=== PATIENT | male | born 1945 | race Caucasian/White ===

== ENCOUNTER 2017-04-01 11:06 | Inpatient (IN) | payer BC, OTHER ==
[~2017-04-01] VITALS: Ht 175.3 cm; Wt 115.1 kg
[~2017-04-01 11:06] MED LIST: AMLO2.5T PO; ASPEC81 PO; ATOR-26 PO; BUME2TAB3 PO; CHOL100010 PO; GLIP-197 PO; HMLI SC; INSDGI SC; IPRASOL4 INH; METO25TA56 PO; MULT-506 PO; PRD10 PO; VITAMIN B PO
[2017-04-01] MEDS ORDERED: BUMETANIDE SOLN 1 MG/4 ML VIAL IV ONE (11:45)
[2017-04-01] MEDS ORDERED: INSDGI SC (11:56)
[2017-04-01] MEDS ORDERED: INSU100I SQ (11:56)
[2017-04-01] MEDS ORDERED: AMLO2.5T PO (11:56)
--- NOTE | 2017-04-01 12:00 | EMERGENCY ROOM VISIT NOTE ---
History First contact with patient: 11:25 Chief Complaint: SHORTNESS OF BREATH Stated Complaint: WATER RETENTION, SOB Nursing Triage Summary: Pt reports sob x 3 weeks, worse with exertion. Pt states gained approx 30 lbs over the past 3 weeks. Pt sent by cardiology, pulse ox 77%. Reports hx of pnx that needed to surgery. History of Present Illness The patient is a 71 year old male who presents to the Emergency Room with complaints of shortness of breath and edema that has been getting progressively worse over the past 3 weeks. He reports gaining approximately 30 pounds over this time period as well. Past medical history of ME with CABG 4 in 2005. He is followed by cardiology, who sent him to ER today for pulse ox of 77% noted in the clinic. Patient states increasing shortness of breath, dyspnea with any exertion, orthopnea, productive cough of thick yellow sputum, and states his edema has spread all the way up his legs to his waist area. He denies chest pain, palpitations, dizziness, syncope, abdominal pain, nausea/vomiting, diarrhea, urinary symptoms. He reports normal urine output and denies dark urine. Review of Systems GENERAL: Denies fevers, chills, malaise, fatigue. + 30 lb. weight gain in 3 weeks. HEENT: Denies dizziness, visual problems, hearing loss, tinnitus. Denies difficulty swallowing or oral lesions. PULMONARY: + Cough, shortness of breath, white/yellow thick sputum production with coughing. Denies hemoptysis. CARDIOVASCULAR: + Dyspnea on exertion, orthopnea, progressive bilateral lower extremity edema. Denies chest pain, palpitations, syncope. GASTROINTESTINAL: Denies diarrhea, constipation, nausea, vomiting, or abdominal pain. GENITOURINARY: Denies dysuria, frequency, urgency or nocturia. Denies decreased urine output or dark urine. NEUROLOGIC: Denies history of epilepsy, CVA, TIA or chronic headaches. MUSCULOSKELETAL: Denies history of joint tenderness/swelling. SKIN: Denies rashes or lesions. PSYCHIATRIC: Denies history of depression or mental illness. ENDOCRINE: Denies history of diabetes, thyroid disorders, abnormal hair growth or sexual dysfunction. Past Medical/Surgical History Medical Problems: (1) Benign hypertension (2) Bronchitis (3) Coronary artery bypass grafts x 4 (4) Diabetes mellitus (5) Pleural effusion (6) Pneumonia (7) Thoracentesis (8) Total replacement of hip Social History Smoking Status: Former Smoker Alcohol Use: occasionally Housing Status: lives alone Occupation Status: unemployed Current/Historical Medications Scheduled Amlodipine Besylate (Norvasc), 2.5 MG PO DAILY Aspirin (Aspirin EC Low Dose), 81 MG PO DAILY Atorvastatin (Lipitor), 80 MG PO DAILY Bumetanide (Bumex), 4 MG PO DAILY Glipizide (Glipizide Er), 5 MG PO DAILY Insulin Glargine (Lantus), 25 UNITS SC QPM Insulin Lispro (Human) (Humalog), UNITS SQ UD Metoprolol Tartrate (Lopressor) (Lopressor), 25 MG PO BID Multivitamin (Multivitamin), 1 TAB PO DAILY Scheduled PRN Ipratropium-Albuterol (Duoneb), 3 ML INH QID PRN for SOB/Wheezing Allergies Coded Allergies: No Known Allergies (Verified , 04/01/17) Physical Exam Vital Signs Date Time Temp Pulse Resp B/P Pulse Ox O2 Delivery O2 Flow Rate FiO2 04/01/17 14:01 73 20 123/70 94 Nasal Cannula 4.0 04/01/17 13:00 72 20 118/76 95 Nasal Cannula 4.0 04/01/17 12:08 71 04/01/17 11:51 72 20 112/65 92 Nasal Cannula 2.0 04/01/17 11:46 93 Nasal Cannula 2.0 04/01/17 11:46 93 Nasal Cannula 2.0 04/01/17 11:16 36.6 76 20 127/79 86 Room Air Physical Exam CONSTITUTIONAL: Tachypnea with mild respiratory distress. Well appearing and well nourished. Alert and oriented X 4 with normal affect. HEENT: Normocephalic, atraumatic. Pupils equal, round and reactive to light, EOMI. TMs normal. Pharynx normal. NECK: Supple, full active range of motion without discomfort. RESPIRATORY: Bilateral crackles 3/[address], diminished. No wheezes or rhonchi. Equal expansion bilaterally. CARDIOVASCULAR: Regular rate and rhythm with no murmurs, rubs or gallops. Normal peripheral perfusion. Bilateral lower extremity 3+ pitting edema extending to the presacral and groin/abdominal areas. GASTROINTESTINAL: Soft, nontender, nondistended. Obese. No fluid wave. Bowel sounds present in all quadrants. MUSCULOSKELETAL: Full range of motion of all joints without discomfort. INTEGUMENTARY: Bilateral lower extremities are erythematous, swollen, warm and tender to palpation. Multiple scabbed lesions noted to both legs. No open sores or active drainage noted. NEUROLOGIC: Cranial nerves II-XII grossly intact. No focal neurologic deficits noted. Medical Decision & Procedures ER Provider Diagnostic Interpretation: CHEST 2 VIEWS ROUTINE CLINICAL HISTORY: EVALUATE RESPIRATORY DISTRESS. DYSPNEA COMPARISON STUDY: 01/07/2016 FINDINGS: Moderate stable cardiomegaly. Median sternotomy. Diffuse parenchymal fibrotic change. Superimposed components of mild congestive failure. Slight blunting of the lateral costophrenic angles bilaterally. IMPRESSION: Congestive failure superimposed upon chronic parenchymal and pleural reactive fibrotic change. Laboratory Results 04/01/17 11:35 Red Blood Count 4.78, Mean Corpuscular Volume 96.2, Mean Corpuscular Hemoglobin 30.1, Mean Corpuscular Hemoglobin Concent 31.3, Mean Platelet Volume 9.7, Neutrophils (%) (Auto) 69.2, Lymphocytes (%) (Auto) 14.8, Monocytes (%) (Auto) 9.8, Eosinophils (%) (Auto) 5.4, Basophils (%) (Auto) 0.5, Neutrophils # (Auto) 6.38, Lymphocytes # (Auto) 1.37, Monocytes # (Auto) 0.90, Eosinophils # (Auto) 0.50, Basophils # (Auto) 0.05 04/01/17 11:35 Test 04/01/17 11:35 04/01/17 11:43 04/01/17 12:45 White Blood Count 9.23 K/uL (4.8-10.8) Red Blood Count 4.78 M/uL (4.7-6.1) Hemoglobin 14.4 g/dL (14.0-18.0) Hematocrit 46.0 % (42-52) Mean Corpuscular Volume 96.2 fL (80-100) Mean Corpuscular Hemoglobin 30.1 pg (25-34) Mean Corpuscular Hemoglobin Concent 31.3 g/dl (32-36) Platelet Count 217 K/uL (130-400) Mean Platelet Volume 9.7 fL (7.4-10.4) Neutrophils (%) (Auto) 69.2 % Lymphocytes (%) (Auto) 14.8 % Monocytes (%) (Auto) 9.8 % Eosinophils (%) (Auto) 5.4 % Basophils (%) (Auto) 0.5 % Neutrophils # (Auto) 6.38 K/uL (1.4-6.5) Lymphocytes # (Auto) 1.37 K/uL (1.2-3.4) Monocytes # (Auto) 0.90 K/uL (0.11-0.59) Eosinophils # (Auto) 0.50 K/uL (0-0.5) Basophils # (Auto) 0.05 K/uL (0-0.2) RDW Standard Deviation 65.5 fL (36.4-46.3) RDW Coefficient of Variation 18.5 % (11.5-14.5) Immature Granulocyte % (Auto) 0.3 % Immature Granulocyte # (Auto) 0.03 K/uL (0.00-0.02) Prothrombin Time 12.0 SECONDS (9.0-12.0) Prothromb Time International Ratio 1.1 (0.9-1.1) Anion Gap 6.0 mmol/L (3-11) Est Creatinine Clear Calc Drug Dose 46.9 ml/min Estimated GFR () 40.8 Estimated GFR (Non- 35.2 BUN/Creatinine Ratio 22.3 (10-20) Estimated Average Glucose 183 mg/dl Hemoglobin A1c 8.0 % (4.5-5.6) Calcium Level 9.0 mg/dl (8.5-10.1) Total Bilirubin 1.2 mg/dl (0.2-1) Aspartate Amino Transf (AST/SGOT) 34 U/L (15-37) Alanine Aminotransferase (ALT/SGPT) 58 U/L (12-78) Alkaline Phosphatase 95 U/L (45-117) Troponin I 0.019 ng/ml (0-0.045) Pro-B-Type Natriuretic Peptide 2395 pg/ml (0-900) Total Protein 7.5 gm/dl (6.4-8.2) Albumin 3.7 gm/dl (3.4-5.0) Globulin 3.8 gm/dl (2.5-4.0) Albumin/Globulin Ratio 1.0 (0.9-2) Bedside Glucose 97 mg/dl (70-99) Bedside Lactic Acid Venous 1.66 mmol/L (0.90-1.70) Urine Color YELLOW Urine Appearance CLEAR (CLEAR) Urine pH 6.5 (4.5-7.5) Urine Specific [place] 1.013 (1.000-1.030) Urine Protein 1+ (NEG) Urine Glucose (UA) NEG (NEG) Urine Ketones NEG (NEG) Urine Occult Blood NEG (NEG) Urine Nitrite NEG (NEG) Urine Bilirubin NEG (NEG) Urine Urobilinogen NEG (NEG) Urine Leukocyte Esterase NEG (NEG) Urine WBC (Auto) 0 /hpf (0-5) Urine RBC (Auto) 0-4 /hpf (0-4) Urine Hyaline Casts (Auto) 1-5 /lpf (0-5) Urine Epithelial Cells (Auto) 5-10 /lpf (0-5) Urine Bacteria (Auto) NEG (NEG) Medications Administered Medications (Trade) Dose Ordered Sig/Alexa Route Start Time Stop Time Status Last Admin Dose Admin Bumetanide (Bumex IV) 2 mg NOW ONCE IV 04/01/17 11:45 04/01/17 11:46 DC 04/01/17 11:50 2 MG Cefazolin Sodium (Ancef 1000mg/55 ml D5W) 2,000 mg NOW STAT IV 04/01/17 13:22 04/01/17 13:24 DC 04/01/17 13:29 2,000 MG ED Course Orders placed at bedside for EKG, chest x-ray, labs, IV Bumex. He is on 2L nasal cannula with sats 92-93%. Patient discussed with Dr. Calderón, who agrees with my assessment and plan. EKG reviewed, no acute ischemic changes noted. 12:55 PM - Patient reassessed after IV Bumex, states he has had some urine output, and states he is feeling a little better. He is noted to have sats dropped down to 86%, increased to 4L nasal cannula. Chest x-ray reviewed, demonstrates bilateral pulmonary edema consistent with congestive heart failure. 1:03 PM - Hospitalist called for admission. Discussed in person with Dr. Jones, hospitalist, who agrees to admission. Medical Decision CC: Patient presenting with complaint of shortness of breath and bilateral lower extremity edema for 3 weeks. Interpretation of Labs: CBC unremarkable; no significant electrolyte abnormalities; worsening renal function compared to baseline (previous creatinine of 1.4); significantly elevated proBNP. Differential Diagnoses: Includes, but not limited to pneumonia, bronchitis, asthma, COPD, congestive heart failure, pulmonary embolism, pleurisy, pneumothorax, acute coronary syndrome. Summary: Patient presenting with progressive shortness of breath and bilateral lower extremity edema over the past 3 weeks. Known past medical history of ME followed by a CABG 4 in 2005 at [facility]. Patient is followed by Dr. Estrada, cardiology, who saw the patient and sent him here to the ER today. History and exam consistent with an acute on chronic exacerbation of congestive heart failure. Labs and chest x-ray support this diagnosis. EKG shows no acute changes and troponin is nondiagnostic. Patient has not had any chest pain with his symptoms. Patient also has diffuse bilateral erythema, tenderness, and warmth to his lower extremities that he describes as chronic, but states has been worsening over the past 3 weeks with his edema. Discussed with Dr. Calderón, who recommended treating for possible cellulitis with Ancef IV, this was ordered. Patient reassessed multiple times throughout ED stay, has remained stable, but continues to require oxygen to maintain normoxia. Patient was discussed with hospitalist service and will be admitted. Patient was discussed with and independently examined by the attending physician , who agrees with my assessment and disposition. Impression Primary Impression: Congestive heart failure Additional Impression: Bilateral lower extremity edema Departure Information Dispostion Admitted as an inpatient Condition FAIR Referrals Malena John, C.R.N.P. (PCP) Patient Instructions My [facility] Problem Qualifiers Primary Impression: Congestive heart failure Congestive heart failure type: unspecified congestive heart failure type Congestive heart failure chronicity: acute on chronic Qualified Codes: I50.9 - Heart failure, unspecified
[2017-04-01 12:04] LABS: BASO % 0.5 %; BASO ABS # 0.05 K/uL (0-0.2); COMPLETE YES; EOS % 5.4 %; IG% 0.3 %; LYMPH % 14.8 %; LYMPH ABS # 1.37 K/uL (1.2-3.4); MEAN CELL VOLUME 96.2 fL (80-100); MEAN CORPUSCULAR HEMOGLOBIN 30.1 pg (25-34); MEAN CORPUSCULAR HGB CONC 31.3 g/dl (32-36); MEAN PLATELET VOLUME 9.7 fL (7.4-10.4); MONO % 9.8 %; NEUT % 69.2 %; PLATELET COUNT 217 K/uL (130-400); RED BLOOD COUNT 4.78 M/uL (4.7-6.1); WHITE BLOOD COUNT 9.23 K/uL (4.8-10.8)
[2017-04-01 12:09] LABS: INR 1.1 (0.9-1.1)
[2017-04-01 12:22] LABS: BUN/CREATININE RATIO 22.3 (10-20); CREATININE 1.9 mg/dl (0.60-1.40); POTASSIUM 4.5 mmol/L (3.5-5.1)
--- NOTE | 2017-04-01 12:39 | EMERGENCY ROOM VISIT NOTE ---
ED Visit Note First contact with patient: 11:25 I did evaluate and examine this patient myself. I did guide management for the patient. I agree with the PA's assessment as discussed. Please see the PAs dictation for further details. I did independently review the x-rays and blood work. The patient has a worsening creatinine. He has cellulitis to his lower extremities bilaterally which has been going on for 3 weeks. He is hypoxic. He will be hospitalized for further care and evaluation.
--- NOTE | 2017-04-01 12:58 | DIAGNOSTIC IMAGING REPORT ---
CHEST 2 VIEWS ROUTINE CLINICAL HISTORY: EVALUATE RESPIRATORY DISTRESS. DYSPNEA COMPARISON STUDY: 01/07/2016 FINDINGS: Moderate stable cardiomegaly. Median sternotomy. Diffuse parenchymal fibrotic change. Superimposed components of mild congestive failure. Slight blunting of the lateral costophrenic angles bilaterally. IMPRESSION: Congestive failure superimposed upon chronic parenchymal and pleural reactive fibrotic change. Electronically signed by: Ulysses Mccartney M.D. 04/01/2017 12:57 PM Dictated Date/Time: 04/01/2017 12:56 PM
[2017-04-01 13:12] LABS: URINE APPEARANCE CLEAR (CLEAR); URINE BILIRUBIN NEG (NEG); URINE COLOR YELLOW; URINE NITRITE NEG (NEG); URINE PH 6.5 (4.5-7.5); URINE SPECIFIC GRAVITY 1.013 (1.000-1.030); UROBILINOGEN NEG (NEG)
[2017-04-01 13:13] LABS: MANUAL MICROSCOPIC REQUIRED? NO; REVIEW REQ? NO
[2017-04-01] MEDS ORDERED: CEFAZOLIN SOD 1000MG/55 ML D5W IV STA (13:22)
[2017-04-01] MEDS ORDERED: MAGNESIUM HYDROXIDE SUSP 30 ML UDC PO PRN (14:15)
[2017-04-01] MEDS ORDERED: ALUMINUM/MAGNESIUM/SIMETH (MAALOX MAX) 30 ML UDC PO PRN (14:15)
[2017-04-01] MEDS ORDERED: POLYETHYLENE (MIRALAX) 17 GM PACK PO PRN (14:15)
[2017-04-01] MEDS ORDERED: ONDANSETRON INJ 2 MG/ML 2 ML VIAL IV PRN (14:15)
[2017-04-01] MEDS ORDERED: ALBUT/IPRATROP 3MG/0.5MG NEB 3 ML VIAL INH PRN (14:15)
[2017-04-01] MEDS ORDERED: GLUCOSE 10 TABS/TUBE PO PRN (14:30)
[2017-04-01] MEDS ORDERED: GLUCAGON FOR INJ 1 MG VIAL SQ PRN (14:30)
[2017-04-01] MEDS ORDERED: DEXTROSE 50% 50 ML SYR IV PRN (14:30)
[2017-04-01] MEDS ORDERED: GLUCOSE 40% GEL 15 GM TUBE PO PRN (14:30)
[2017-04-01 14:48] LABS: ESTIMATED AVERAGE GLUCOSE 183 mg/dl; HA1C FLAG Normal (Normal)
[2017-04-01 15:30] VITALS: BP 129/80; PULSE 73; TEMP 36.4; O2SAT 91; Ht 175.3 cm; Wt 115.1 kg
--- NOTE | 2017-04-01 16:50 | History and Physical ---
History & Physical Date & Time of Service: April 01, 2017 at 16:49 Chief Complaint: Congestive Heart Failure Primary Care Physician: Malena John C.RMiladNDes Past Medical/Surgical History Medical Problems: (1) Benign hypertension Status: Chronic (2) Coronary artery bypass grafts x 4 Status: Resolved (3) Diabetes mellitus Status: Chronic (4) Pleural effusion Status: Resolved (5) Pneumonia Status: Resolved (6) Thoracentesis Status: Resolved (7) Total replacement of hip Status: Resolved Social History Smoking Status: Former Smoker Housing status: lives alone Occupational Status: unemployed Immunizations History of Influenza Vaccine: No History of Tetanus Vaccine?: Yes History of Pneumococcal: Yes History of Hepatitis B Vaccine: Unknown Multi-Drug Resistant Organisms History of MDRO: No Allergies Coded Allergies: No Known Allergies (Verified , 04/01/17) Home Medications Scheduled Amlodipine Besylate (Norvasc), 2.5 MG PO DAILY Aspirin (Aspirin EC Low Dose), 81 MG PO DAILY Atorvastatin (Lipitor), 80 MG PO DAILY Bumetanide (Bumex), 4 MG PO DAILY Glipizide (Glipizide Er), 5 MG PO DAILY Insulin Glargine (Lantus), 25 UNITS SC QPM Insulin Lispro (Human) (Humalog), UNITS SQ UD Metoprolol Tartrate (Lopressor) (Lopressor), 25 MG PO BID Multivitamin (Multivitamin), 1 TAB PO DAILY Scheduled PRN Ipratropium-Albuterol (Duoneb), 3 ML INH QID PRN for SOB/Wheezing Physical Exam Vital Signs Date Time Temp Pulse Resp B/P Pulse Ox O2 Delivery O2 Flow Rate FiO2 04/01/17 15:30 36.4 73 22 129/80 91 Nasal Cannula 4.0 04/01/17 14:01 73 20 123/70 94 Nasal Cannula 4.0 04/01/17 13:00 72 20 118/76 95 Nasal Cannula 4.0 04/01/17 12:08 71 04/01/17 11:51 72 20 112/65 92 Nasal Cannula 2.0 04/01/17 11:46 93 Nasal Cannula 2.0 04/01/17 11:46 93 Nasal Cannula 2.0 04/01/17 11:16 36.6 76 20 127/79 86 Room Air Diagnostics Laboratory Results Results Past 24 Hours Test 04/01/17 11:35 04/01/17 11:43 04/01/17 12:45 Range/Units White Blood Count 9.23 4.8-10.8 K/uL Red Blood Count 4.78 4.7-6.1 M/uL Hemoglobin 14.4 14.0-18.0 g/dL Hematocrit 46.0 42-52 % Mean Corpuscular Volume 96.2 80-100 fL Mean Corpuscular Hemoglobin 30.1 25-34 pg Mean Corpuscular Hemoglobin Concent 31.3 32-36 g/dl Platelet Count 217 130-400 K/uL Mean Platelet Volume 9.7 7.4-10.4 fL Neutrophils (%) (Auto) 69.2 % Lymphocytes (%) (Auto) 14.8 % Monocytes (%) (Auto) 9.8 % Eosinophils (%) (Auto) 5.4 % Basophils (%) (Auto) 0.5 % Neutrophils # (Auto) 6.38 1.4-6.5 K/uL Lymphocytes # (Auto) 1.37 1.2-3.4 K/uL Monocytes # (Auto) 0.90 0.11-0.59 K/uL Eosinophils # (Auto) 0.50 0-0.5 K/uL Basophils # (Auto) 0.05 0-0.2 K/uL RDW Standard Deviation 65.5 36.4-46.3 fL RDW Coefficient of Variation 18.5 11.5-14.5 % Immature Granulocyte % (Auto) 0.3 % Immature Granulocyte # (Auto) 0.03 0.00-0.02 K/uL Prothrombin Time 12.0 9.0-12.0 SECONDS Prothromb Time International Ratio 1.1 0.9-1.1 Sodium Level 142 136-145 mmol/L Potassium Level 4.5 3.5-5.1 mmol/L Chloride Level 103 98-107 mmol/L Carbon Dioxide Level 33 21-32 mmol/L Anion Gap 6.0 3-11 mmol/L Blood Urea Nitrogen 42 7-18 mg/dl Creatinine 1.90 0.60-1.40 mg/dl Est Creatinine Clear Calc Drug Dose 46.9 ml/min Estimated GFR () 40.8 Estimated GFR (Non- 35.2 BUN/Creatinine Ratio 22.3 10-20 Random Glucose 98 70-99 mg/dl Estimated Average Glucose 183 mg/dl Hemoglobin A1c 8.0 4.5-5.6 % Calcium Level 9.0 8.5-10.1 mg/dl Total Bilirubin 1.2 0.2-1 mg/dl Aspartate Amino Transf (AST/SGOT) 34 15-37 U/L Alanine Aminotransferase (ALT/SGPT) 58 12-78 U/L Alkaline Phosphatase 95 45-117 U/L Troponin I 0.019 0-0.045 ng/ml Pro-B-Type Natriuretic Peptide 2395 0-900 pg/ml Total Protein 7.5 6.4-8.2 gm/dl Albumin 3.7 3.4-5.0 gm/dl Globulin 3.8 2.5-4.0 gm/dl Albumin/Globulin Ratio 1.0 0.9-2 Bedside Glucose 97 70-99 mg/dl Bedside Lactic Acid Venous 1.66 0.90-1.70 mmol/L Urine Color YELLOW Urine Appearance CLEAR CLEAR Urine pH 6.5 4.5-7.5 Urine Specific [place] 1.013 1.000-1.030 Urine Protein 1+ NEG Urine Glucose (UA) NEG NEG Urine Ketones NEG NEG Urine Occult Blood NEG NEG Urine Nitrite NEG NEG Urine Bilirubin NEG NEG Urine Urobilinogen NEG NEG Urine Leukocyte Esterase NEG NEG Urine WBC (Auto) 0 0-5 /hpf Urine RBC (Auto) 0-4 0-4 /hpf Urine Hyaline Casts (Auto) 1-5 0-5 /lpf Urine Epithelial Cells (Auto) 5-10 0-5 /lpf Urine Bacteria (Auto) NEG NEG Impression Assessment and Plan admit #[id number] Advanced Directives Existing Living Will: No Existing Power of Pediatrician Managing Partner: No VTE Prophylaxis VTE Risk Assessment Done? Y/N: Yes Risk Level: Moderate
--- NOTE | 2017-04-01 17:11 | HISTORY & PHYSICAL EXAMINATION ---
DATE OF ADMISSION: 04/01/2017 CHIEF COMPLAINT: Shortness of breath and weight gain. HISTORY OF PRESENT ILLNESS: The patient is a very pleasant 71-year-old male who I actually have known from previous hospital stays as well as a long time ago taken care of him in the office; he presents after about 3-4 weeks of weight gain, progressive swelling and progressive shortness of breath. He notes that he has probably gained about 30 pounds in that time. He tries to sodium restrict but then on quizzing him on specific foods, it is clear that he tries to sodium restrict by not adding salts, but he is very unaware of sodium content simply in the food and rattles off multiple fairly heavy sodium foods including [employer] that he ate a very large tray of shortly before all of this started. He has not had fevers, chills, or sweats. He does not have purulent sputum. He had been seen by cardiology in the office and diuretics were adjusted. Unfortunately, it did not really help and then he was seen in the cardiology office this morning, found to be even more edematous and hypoxic, and he was sent to the ER for further evaluation. Here he was stabilized on nasal cannula oxygen, given IV diuretics, has had a significant amount of urine output and we were asked to see him for ongoing inpatient management. REVIEW OF SYSTEMS: Otherwise negative, except for as above. PAST MEDICAL HISTORY: Includes coronary artery disease; CKD, approximately stage III; dyslipidemia; hypertension; osteoarthritis; peripheral neuropathy; emphysema; pulmonary nodule; type 2 diabetes, generally [id number] control; vitamin D deficiency. MEDICATIONS: Are noted to be amlodipine 2.5 mg daily, aspirin 81 mg daily, Lipitor 80 mg daily, Lantus 25 units subQ in the evening and Humalog at meals, DuoNeb q.i.d. p.r.n. shortness of breath or wheeze, metoprolol 25 mg b.i.d., multivitamin daily, glipizide 5 mg daily, and Bumex recently increased to 4 mg daily. PAST SURGICAL HISTORY: Most relevant for CABG. He also had an empyema requiring really significant amounts of drainage several years ago. FAMILY HISTORY: His dad had an IA. There is family history of coronary disease, family history of chronic kidney disease. ALLERGIES: No known drug allergies. SOCIAL HISTORY: Social drinker, former smoker. He is retired. PHYSICAL EXAMINATION: VITAL SIGNS: His initial vitals showed a temp 36.6, pulse 76, respiratory rate 20, blood pressure 127/79, 86% on room air. GENERAL: He is awake, alert, oriented x3, fatigued-appearing, but otherwise in no acute distress. HEENT: Normocephalic, atraumatic. Mucous membranes are moist. CARDIOVASCULAR: Regular, somewhat distant. No clearly notable rubs, murmurs, or gallops. LUNGS: Show bibasilar rales up to about 2/3 of his chest. His upper lungs are clear, no other adventitious findings. No rhonchi, no wheezes. No accessory muscle use. ABDOMEN: Soft, somewhat distended, nontender. EXTREMITIES: Without cyanosis or clubbing. He has about 3+ edema bilateral lower extremities equal with some scaly type skin changes but no erythema, no open lesions. NEUROLOGIC: Shows cranial nerves II-XII to be grossly intact. Gross motor and sensory are intact. MUSCULOSKELETAL: Yields no gross lesions. MENTAL STATUS: good recent and remote recall. Normal mood and affect. Good judgment and insight. LABS AND DIAGNOSTICS: CBC shows a white count of 9.23, hemoglobin 14.4, platelets 217. Complete metabolic panel with sodium 142, potassium 4.5, chloride 103, CO2 33, BUN 42, creatinine up to 1.9, glucose 98. A1c of 8, calcium 9.0, total bilirubin 1.2 with an AST of 34, ALT 58, alkaline phosphatase 95, troponin 0.019. BNP of 2395. Total protein 7.5, albumin 3.7. Lactate 1.66. PT of 12. Urinalysis: Yellow, clear, specific gravity 1.013, 5 to 10 epithelial cells, 1+ protein. Chest x-ray looks quite consistent with CHF. Radiology also reads a question of some diffuse parenchymal fibrotic change which does not appear to have been present on prior films and his EKG showed no acute ischemia, does show some Q's in 3 and AVF. His last echo was from a little over a year ago showing an EF of 50%, diastolic dysfunction. ASSESSMENT AND PLAN: 1. Acute on chronic diastolic congestive heart failure. This appears predominantly flared by sodium intake. We will try to educate him on better awareness of sodium in his diet hidden in foods and sodium restriction, ask dietitian to see him, manage with diuresis with Bumex IV b.i.d. and follow for his urine output and titrate the dose accordingly. We will also follow cardiac enzymes and repeat an echo to ensure there are no acute changes in his heart function, although this seems unlikely. 2. Hypoxic respiratory failure, this is due to pulmonary edema from above plus or minus with question of underlying pulmonary fibrosis, followed and hopefully be able to wean oxygen as we diurese him. 3. Questionable underlying pulmonary fibrosis. It is uncertain. It certainly would be new compared to prior films, although it seems most consistent with this whole picture being that of pulmonary edema. At this point, if he is difficult to wean off of oxygen, we would consider a CT, if not would probably follow up a chest x-ray in about a month and then workup further if the fibrotic type changes are still present, whenever he is clearly not in active congestive heart failure state. 4. Mildly uncontrolled type 2 diabetes. Continue his home meds, adjust dosing probably mostly is uncontrolled at home, it is carb related. 5. Stage III chronic kidney disease, slight worsening, probably due to his congestive heart failure. Follow his creatinine as we diurese. 6. Hypertension. Continue his home meds, add an angiotensin converting enzyme inhibitor because of the congestive heart failure. 7. Deep venous thrombosis prophylaxis, Lovenox. MTDD
--- NOTE | 2017-04-01 17:31 | HISTORY & PHYSICAL EXAMINATION ---
DATE OF ADMISSION: 04/01/2017 ADDENDUM CARDIOVASCULAR: Regular, somewhat distant. No clearly notable rubs, murmurs, or gallops. LUNGS: Show bibasilar rales up to about 2/3 of his chest. His upper lungs are clear, no other adventitious findings. No rhonchi, no wheezes. No accessory muscle use. ABDOMEN: Soft, somewhat distended, nontender. EXTREMITIES: Without cyanosis or clubbing. He has about 3+ edema bilateral lower extremities equal with some scaly type skin changes but no erythema, no open lesions. NEUROLOGIC: Shows cranial nerves II-XII to be grossly intact. Gross motor and sensory are intact. MUSCULOSKELETAL: Yields no gross lesions. MENTAL STATUS: good recent and remote recall. Normal mood and affect. Good judgment and insight. LABS AND DIAGNOSTICS: CBC shows a white count of 9.23, hemoglobin 14.4, platelets 217. Complete metabolic panel with sodium 142, potassium 4.5, chloride 103, CO2 33, BUN 42, creatinine up to 1.9, glucose 98. A1c of 8, calcium 9.0, total bilirubin 1.2 with an AST of 34, ALT 58, alkaline phosphatase 95, troponin 0.019. BNP of 2395. Total protein 7.5, albumin 3.7. Lactate 1.66. PT of 12. Urinalysis: Yellow, clear, specific gravity 1.013, 5 to 10 epithelial cells, 1+ protein. Chest x-ray looks quite consistent with CHF. Radiology also reads a question of some diffuse parenchymal fibrotic change which does not appear to have been present on prior films and his EKG showed no acute ischemia, does show some Q's in 3 and AVF. His last echo was from a little over a year ago showing an EF of 50%, diastolic dysfunction. ASSESSMENT AND PLAN: 1. Acute on chronic diastolic congestive heart failure. This appears predominantly flared by sodium intake. We will try to educate him on better awareness of sodium in his diet hidden in foods and sodium restriction, ask dietitian to see him, manage with diuresis with Bumex IV b.i.d. and follow for his urine output and titrate the dose accordingly. We will also follow cardiac enzymes and repeat an echo to ensure there are no acute changes in his heart function, although this seems unlikely. 2. Hypoxic respiratory failure, this is due to pulmonary edema from above plus or minus with question of underlying pulmonary fibrosis, followed and hopefully be able to wean oxygen as we diurese him. 3. Questionable underlying pulmonary fibrosis. It is uncertain. It certainly would be new compared to prior films, although it seems most consistent with this whole picture being that of pulmonary edema. At this point, if he is difficult to wean off of oxygen, we would consider a CT, if not would probably follow up a chest x-ray in about a month and then workup further if the fibrotic type changes are still present, whenever he is clearly not in active congestive heart failure state. 4. Mildly uncontrolled type 2 diabetes. Continue his home meds, adjust dosing probably mostly is uncontrolled at home, it is carb related. 5. Stage III chronic kidney disease, slight worsening, probably due to his congestive heart failure. Follow his creatinine as we diurese. 6. Hypertension. Continue his home meds, add an angiotensin converting enzyme inhibitor because of the congestive heart failure. 7. Deep venous thrombosis prophylaxis, Lovenox.
[2017-04-01] MEDS: BUMETANIDE IV 1 MG in SYRINGE 0 ML IV SCH (17:39)
[2017-04-01] MEDS: INSULIN ASPART 100 UNITS/ML 3 ML PEN SQ SCH (17:44)
[2017-04-01 19:00] VITALS: O2SAT 91
[2017-04-01] MEDS: METOPROLOL TARTRATE 25 MG TAB PO SCH (20:12)
[2017-04-01] MEDS: POTASSIUM CHLORIDE 10 MEQ TABCR PO SCH (20:12)
[2017-04-01] MEDS: ENOXAPARIN 40 MG/0.4 ML SYR SQ SCH (20:13)
[2017-04-01] MEDS ORDERED: INSULIN GLARGINE SOLOSTAR 100 UNITS/ML 3 ML PEN SC SCH (21:00)
[2017-04-02 00:04] VITALS: BP 118/65; PULSE 70; TEMP 36.4; O2SAT 93
[2017-04-02 05:01] LABS: BUN/CREATININE RATIO 21.1 (10-20); CALCIUM 8.8 mg/dl (8.5-10.1); CREATININE 2.1 mg/dl (0.60-1.40); POTASSIUM 5.2 mmol/L (3.5-5.1)
[2017-04-02 06:57] VITALS: BP 133/81; PULSE 73; TEMP 36.3; O2SAT 93
[2017-04-02] MEDS: POTASSIUM CHLORIDE 10 MEQ TABCR PO SCH ×2 (08:00→20:00)
--- NOTE | 2017-04-02 08:06 | Clinical Documentation Query ---
CLINICAL DOCUMENTATION QUERY Ms ROBLERO, In your clinical opinion is this patient being managed for: ( x ) Acute kidney injury ( ) Other explanation of clinical findings (Please Explain) ( ) Unable to determine (Please Define) ( ) Need to Discuss ( ) Not Agree The medical record reflects the following clinical findings, treatment, and risk factors. Clinical Indicators: 71 yo male presenting with acute on chronic diastolic CHF. Review of Cr baseline over the past 2 years shows 1.4-1.8 range. Presented with Cr 1.9 which has risen to 2.10. Treatment: monitor Cr, treat CHF Risk Factors: IV bumex treatment for acute CHF, HTN, DM, CKD Please clarify and document your clinical opinion in the progress notes and discharge summary. Terms such as "probable", "suspected", "likely", "questionable", "possible", or "still to be ruled out" are acceptable. IF IN AGREEMENT, YOU MUST DOCUMENT ABOVE DIAGNOSTIC STATEMENT IN DAILY PROGRESS NOTES AND DISCHARGE SUMMARY. This document is not part of the patient's record. Thank You, Judith Hanna, RN [phone]
--- NOTE | 2017-04-02 08:07 | Clinical Documentation Query ---
CLINICAL DOCUMENTATION QUERY Dr. EASLEY, In your clinical opinion is this patient being managed for: ( X ) Acute kidney failure ( ) Other explanation of clinical findings (Please Explain) ( ) Unable to determine (Please Define) ( ) Need to Discuss ( ) Not Agree The medical record reflects the following clinical findings, treatment, and risk factors. Clinical Indicators: 71 yo male presenting with acute on chronic diastolic CHF. Review of Cr baseline over the past 2 years shows 1.4-1.8 range. Presented with Cr 1.9 which has risen to 2.10. Treatment: monitor Cr, treat CHF Risk Factors: IV bumex treatment for acute CHF, HTN, DM, CKD Please clarify and document your clinical opinion in the progress notes and discharge summary. Terms such as "probable", "suspected", "likely", "questionable", "possible", or "still to be ruled out" are acceptable. IF IN AGREEMENT, YOU MUST DOCUMENT ABOVE DIAGNOSTIC STATEMENT IN DAILY PROGRESS NOTES AND DISCHARGE SUMMARY. This document is not part of the patient's record. Thank You, Judith Hanna, RN [phone]
[2017-04-02] MEDS: MULTIVITAMIN TAB PO SCH (08:33)
[2017-04-02] MEDS: METOPROLOL TARTRATE 25 MG TAB PO SCH ×2 (08:34→20:07)
[2017-04-02] MEDS: ASPIRIN 81 MG ECTAB PO SCH (08:34)
[2017-04-02] MEDS: MAGNESIUM OXIDE 400 MG TAB PO SCH (08:37)
[2017-04-02] MEDS: AMLODIPINE BESYLATE 5 MG TAB PO SCH (08:38)
[2017-04-02] MEDS: ATORVASTATIN 40 MG TAB PO SCH (08:38)
[2017-04-02] MEDS: BUMETANIDE IV 1 MG in SYRINGE 0 ML IV SCH (08:40)
[2017-04-02] MEDS: INSULIN ASPART 100 UNITS/ML 3 ML PEN SQ SCH ×3 (08:43→18:02)
[2017-04-02 09:23] LABS: HEMATOCRIT 46.8 % (42-52); MEAN CELL VOLUME 98.5 fL (80-100); MEAN CORPUSCULAR HEMOGLOBIN 30.1 pg (25-34); MEAN CORPUSCULAR HGB CONC 30.6 g/dl (32-36); MEAN PLATELET VOLUME 10.1 fL (7.4-10.4); PLATELET COUNT 233 K/uL (130-400); RED BLOOD COUNT 4.75 M/uL (4.7-6.1); WHITE BLOOD COUNT 9.72 K/uL (4.8-10.8)
--- NOTE | 2017-04-02 14:08 | Hospitalist Progress Note ---
Hospitalist Progress Note Date of Service April 02, 2017. (Lori Fabian ., SHANTALC) Subjective Pt evaluation today including: conversation w/ patient, physical exam, chart review, lab review, review of studies, review of inpatient medication list Pain: None PO Intake: Tolerating PO diet Voiding: no voiding problems Patient reports feeling better. He states his shortness breath has improved. He still complains of some shortness breath at rest as well as dyspnea on exertion. He also complains of a productive cough. He states that the numbness and tingling in his lower extremities has improved, although he still feels somewhat numb from his feet to his hips bilaterally. Patient does have history of chronic neuropathy, but this typically extends only to the mid calf. The patient denies fevers, chills, sweats, chest pain, palpitations, claudication, wheezing, nausea, vomiting, abdominal pain, dysuria, hematuria, urinary retention, paralysis, weakness. Additional Comments: See HPI for pertinent positives and negatives. All other systems reviewed and negative. (Lori Fabian ., MARILY-C) Objective Vital Signs Date Time Temp Pulse Resp B/P Pulse Ox O2 Delivery O2 Flow Rate FiO2 04/02/17 08:00 Nasal Cannula 4.0 04/02/17 06:57 36.3 73 18 133/81 93 4.0 04/02/17 00:04 36.4 70 18 118/65 93 4.0 04/02/17 00:00 Nasal Cannula 4.0 04/01/17 19:00 91 Nasal Cannula 4.0 04/01/17 15:30 36.4 73 22 129/80 91 Nasal Cannula 4.0 04/01/17 14:01 73 20 123/70 94 Nasal Cannula 4.0 (Lori Fabian ., MARILY-C) Physical Exam Notes: General appearance: +obese. Well-developed, well-nourished, no apparent distress Head: Normocephalic, atraumatic Eyes: Normal inspection, PERRL, EOMI ENT: Normal ENT inspection, hearing grossly normal, pharynx normal Neck: Supple, no JVD, trachea midline Respiratory/Chest: + Crackles in bases bilaterally. Normal breath sounds, no respiratory distress Cardiovascular: Regular rate & rhythm, no gallop, no murmur Abdomen/GI: Normal bowel sounds, non-tender, soft Extremities/Musculoskeletal: + 2+ pitting edema bilaterally. Lymphedema changes bilaterally R>L. Lower legs tender to palpation Neurological/Psych: Alert, normal mood/affect, oriented x 3 Skin: Normal color, warm/dry, no rash (Lori Fabian ., PA-C) Laboratory Results Last 24 Hours Test 04/01/17 16:33 04/01/17 20:01 04/01/17 20:30 04/02/17 04:15 Bedside Glucose 101 mg/dl 107 mg/dl Troponin I 0.016 ng/ml 0.020 ng/ml White Blood Count 9.72 K/uL Red Blood Count 4.75 M/uL Hemoglobin 14.3 g/dL Hematocrit 46.8 % Mean Corpuscular Volume 98.5 fL Mean Corpuscular Hemoglobin 30.1 pg Mean Corpuscular Hemoglobin Concent 30.6 g/dl RDW Standard Deviation 66.5 fL RDW Coefficient of Variation 18.3 % Platelet Count 233 K/uL Mean Platelet Volume 10.1 fL Sodium Level 144 mmol/L Potassium Level 5.2 mmol/L Chloride Level 102 mmol/L Carbon Dioxide Level 38 mmol/L Anion Gap 4.0 mmol/L Blood Urea Nitrogen 44 mg/dl Creatinine 2.10 mg/dl Est Creatinine Clear Calc Drug Dose 41.7 ml/min Estimated GFR () 36.1 Estimated GFR (Non- 31.2 BUN/Creatinine Ratio 21.1 Random Glucose 56 mg/dl Calcium Level 8.8 mg/dl Test 04/02/17 04:30 04/02/17 04:47 04/02/17 05:17 04/02/17 07:31 Bedside Glucose 58 mg/dl 87 mg/dl 134 mg/dl 146 mg/dl (Lori Fabian ., PA-C) Assessment and Plan 71-year-old male with a history of chronic diastolic CHF, CKD stage III, CAD, hypertension, hyperlipidemia, DM II, peripheral neuropathy, and COPD who presented to the ED with shortness of breath and weight gain. Acute on chronic diastolic congestive heart failure--improving -[facility] -Urine output 1375 mL with net balance of -750 mL on 04/01 -Increased diuretic to Bumex 2 mg IV BID17 -Fluid restriction 2000 mL -Low sodium diet -Daily weights -Strict I's & O's -Echocardiogram pending -Troponins negative 3 Acute respiratory failure with hypoxia--stable -Patient was saturating 86% on room air on arrival. Patient does not wear oxygen at home -O2 by protocol. Currently saturating at 93% on 4 L PROSPER on CKD stage III--baseline creatinine appears to be 1.5 -Creatinine 1.9 on arrival -Creatinine 2.1 on 04/02 Possible pulmonary fibrosis -Consider CT if patient is not able to be weaned off of oxygen, or consider follow-up CXR in 1 month/after CHF exacerbation resolves HTN/CAD--stable -Continue Norvasc 2.5 mg PO qd and Lopressor 25 mg PO BID HLD -Continue atorvastatin 80 mg PO qd Diabetes mellitus type II--HgbA1c 8.0 on 04/01 -Hold glipizide -Continue Lantus 25 units SC qpm -Insulin sliding scale -Check BSGs q ac and qhs DVT prophylaxis -Enoxaparin 40 mg SC q24h This chart was completed in part utilizing [employer] Speech Voice Recognition software. Attempts were made to minimize the grammatical errors, random word insertions, pronoun errors and incomplete sentences. Any formal questions or concerns about the content, text or information contained within the body of this dictation should be directly addressed to the provider for clarification. (Lroi Fabian ., PA-C) I agree with PA assessment and plan and have seen and examined pt myself Resting comfortably in bed Noted reduced swelling and drainage in bilateral legs VSS Labs reviewed Likely CHF exab from noncompliance to sodium intake Cont IV diuresis (Patrick Combs D.O.)
[2017-04-02 15:13] VITALS: BP 124/85; PULSE 76; TEMP 36.9; O2SAT 90
[2017-04-02] MEDS ORDERED: NURSING VERBAL MED ORDER ONE (15:30)
[2017-04-02] MEDS ORDERED: SODIUM CHLORIDE 0.65% NA SOLN 45 ML (OCEAN) PRN (15:30)
--- NOTE | 2017-04-02 16:00 | ECHOCARDIOGRAM REPORT ---
*NOTICE TO RECEIVING REPUBLICAN AGENCY This information is strictly Confidential and protected under [place] law. [place] law prohibits you from making any further disclosure of this information unless further disclosure is expressly permitted by the written consent of the person to whom it pertains or is authorized by law. A general authorization for the release of medical or other information is not sufficient for this purpose. Hospital accepts no responsibility if the information is made available to any other person, INCLUDING THE PATIENT. Interpretation Summary * Name: SUSAN CANTOR Study Date: 04/02/2017 02:12 PM * Patient Location: [facility]\S\W454\S\2 * : 1945 (M/d/yyyy) Gender: Male Height: 69 in * Age: 71 yrs Ethnicity: [place] Weight: 264 lb * Ordering Physician: Edilson Jones * Referring Physician: Self, Referred * Performed By: Annamarie Garcia RCS * * Reason For Study: CHF * BSA: 2.3 m2 * -- Conclusions -- * Left ventricular systolic function is normal. * No regional wall motion abnormalities noted. * Ejection Fraction = 55-60%. * There is mild concentric left ventricular hypertrophy. * Diastolic dysfunction, Grade II (pseudonormalization pattern). Procedure Details * A complete two-dimensional transthoracic echocardiogram was performed (2D, M-mode, Doppler and color flow Doppler). * There were technical limitations due to patient'spoor positioning * Patient sitting for imaging. Left Ventricle * The left ventricle is normal in size. * There is mild concentric left ventricular hypertrophy. * Ejection Fraction = 55-60%. * Left ventricular systolic function is normal. * No regional wall motion abnormalities noted. Right Ventricle * The right ventricle is not well visualized. Atria * The left atrium is mildly dilated. * Right atrium not well visualized. * No ASD detected; PFO is not assessed. Mitral Valve * The mitral valve is grossly normal. * There is no mitral valve stenosis. * There is trace mitral regurgitation. Tricuspid Valve * The tricuspid valve is not well visualized. * Significant tricuspid regurgitation is absent. Aortic Valve * The aortic valve is not well visualized. * The aortic valve opens well. * Aortic valve sclerosis moderate, without significant aortic valvular stenosis. * There is no significant aortic regurgitation. Pulmonic Valve * The pulmonic valve is not well visualized. Great Vessels * The aortic root is normal size. * The pulmonary is not well visualized. Pericardium/Pleural * There is no pericardial effusion. Great Vessels * Normal inferior vena cava size and collapsability with sniff indicates a normal right atrial pressure of 3 mmHg Left Ventricular Diastolic Function * Diastolic dysfunction, Grade II (pseudonormalization pattern). MMode 2D Measurements and Calculations IVSd 1.2 cm IVSs 1.5 cm LVIDd 4.0 cm LVIDs 2.9 cm LVPWd 1.2 cm LVPWs 1.7 cm IVS/LVPW 1.0 FS 28.5 % EDV(Teich) 70.4 ml ESV(Teich) 31.3 ml EF(Teich) 55.4 % EDV(cubed) 64.4 ml ESV(cubed) 23.6 ml EF(cubed) 63.4 % % IVS thick 27.7 % % LVPW thick 42.3 % LV mass(C)d 166.5 grams LV mass(C)dI 71.6 grams/m\S\2 LV mass(C)s 171.0 grams LV mass(C)sI 73.6 grams/m\S\2 SV(Teich) 39.0 ml SI(Teich) 16.8 ml/m\S\2 SV(cubed) 40.8 ml SI(cubed) 17.6 ml/m\S\2 Ao root diam 3.6 cm Ao root area 10.3 cm\S\2 ACS 1.3 cm LA dimension 4.3 cm LA/Ao 1.2 LVAd ap4 41.6 cm\S\2 LVLd ap4 9.3 cm EDV(MOD-sp4) 150.8 ml EDV(sp4-el) 158.7 ml LVAs ap4 26.4 cm\S\2 LVLs ap4 7.7 cm ESV(MOD-sp4) 74.2 ml ESV(sp4-el) 77.3 ml EF(MOD-sp4) 50.8 % EF(sp4-el) 51.3 % LVAd ap2 37.8 cm\S\2 LVLd ap2 8.9 cm EDV(MOD-sp2) 130.5 ml EDV(sp2-el) 136.7 ml LVAs ap2 24.1 cm\S\2 LVLs ap2 7.9 cm ESV(MOD-sp2) 60.6 ml ESV(sp2-el) 62.4 ml EF(MOD-sp2) 53.5 % EF(sp2-el) 54.3 % LVLd %diff -4.31 % EDV(MOD-bp) 143.6 ml LVLs %diff 3.4 % ESV(MOD-bp) 68.1 ml EF(MOD-bp) 52.6 % SV(MOD-sp4) 76.5 ml SI(MOD-sp4) 32.9 ml/m\S\2 SV(MOD-sp2) 69.9 ml SI(MOD-sp2) 30.1 ml/m\S\2 SV(MOD-bp) 75.5 ml SI(MOD-bp) 32.5 ml/m\S\2 SV(sp4-el) 81.3 ml SI(sp4-el) 35.0 ml/m\S\2 SV(sp2-el) 74.3 ml SI(sp2-el) 31.9 ml/m\S\2 Doppler Measurements and Calculations MV E max mannie 108.3 cm/sec MV A max mannie 41.4 cm/sec MV E/A 2.6 MV P1/2t max mannie 111.3 cm/sec MV P1/2t 83.6 msec MVA(P1/2t) 2.6 cm\S\2 MV dec slope 389.8 cm/sec\S\2 MV dec time 0.18 sec Ao V2 max 157.7 cm/sec Ao max PG 10.0 mmHg Ao max PG (full) 7.8 mmHg LV V1 max PG 2.1 mmHg LV V1 max 72.8 cm/sec PA V2 max 55.5 cm/sec PA max PG 1.3 mmHg TR max mannie 312.9 cm/sec
[2017-04-02 17:51] VITALS: BP 109/64; PULSE 76
[2017-04-02] MEDS: BUMETANIDE IV 2 MG in SYRINGE 0 ML IV SCH (17:52)
[2017-04-02] MEDS ORDERED: NURSING VERBAL MED ORDER SCH (19:15)
[2017-04-02 20:00] VITALS: O2SAT 90
[2017-04-02] MEDS: ACETAMINOPHEN 325 MG TAB PO PRN (20:07)
[2017-04-02] MEDS: ENOXAPARIN 40 MG/0.4 ML SYR SQ SCH (20:13)
[2017-04-03] VITALS: O2SAT 90
[2017-04-03 00:33] VITALS: BP 129/69; PULSE 72; TEMP 36.2; O2SAT 92
[2017-04-03] MEDS: ACETAMINOPHEN 325 MG TAB PO PRN (04:01)
[2017-04-03 06:34] LABS: HEMATOCRIT 43.4 % (42-52); MEAN CELL VOLUME 98.9 fL (80-100); MEAN CORPUSCULAR HEMOGLOBIN 30.1 pg (25-34); MEAN CORPUSCULAR HGB CONC 30.4 g/dl (32-36); MEAN PLATELET VOLUME 9.3 fL (7.4-10.4); PLATELET COUNT 188 K/uL (130-400); RED BLOOD COUNT 4.39 M/uL (4.7-6.1); WHITE BLOOD COUNT 7.57 K/uL (4.8-10.8)
[2017-04-03 07:07] LABS: BUN/CREATININE RATIO 23.9 (10-20); CREATININE 1.9 mg/dl (0.60-1.40); POTASSIUM 4.8 mmol/L (3.5-5.1)
[2017-04-03 07:26] VITALS: BP 113/71; PULSE 71; TEMP 36.5; O2SAT 94
[2017-04-03] MEDS: ATORVASTATIN 40 MG TAB PO SCH (07:53)
[2017-04-03] MEDS: ASPIRIN 81 MG ECTAB PO SCH (07:53)
[2017-04-03] MEDS: AMLODIPINE BESYLATE 5 MG TAB PO SCH (07:53)
[2017-04-03] MEDS: MULTIVITAMIN TAB PO SCH (07:53)
[2017-04-03] MEDS: METOPROLOL TARTRATE 25 MG TAB PO SCH ×2 (07:53→20:41)
[2017-04-03] MEDS: MAGNESIUM OXIDE 400 MG TAB PO SCH (07:53)
[2017-04-03] MEDS: POTASSIUM CHLORIDE 10 MEQ TABCR PO SCH ×2 (07:53→20:41)
[2017-04-03] MEDS: BUMETANIDE IV 2 MG in SYRINGE 0 ML IV SCH (07:54)
[2017-04-03] MEDS: INSULIN ASPART 100 UNITS/ML 3 ML PEN SQ SCH ×3 (08:27→18:15)
[2017-04-03] MEDS ORDERED: BUMETANIDE IV 1 MG in SYRINGE 0 ML IV ONE (09:00)
--- NOTE | 2017-04-03 12:42 | Progress Note ---
Subjective Date of Service: April 03, 2017. Subjective Pt evaluation today including: conversation w/ patient, physical exam, chart review, lab review, review of studies, review of inpatient medication list States feeling better Poor diuresis yesterday No shortness of breath States lower leg swelling improved Problem List Medical Problems: (1) Acute kidney injury Status: Acute (2) Bilateral lower extremity edema Status: Acute (3) Congestive heart failure Status: Acute (4) Hypoxia Status: Acute Review of Systems Constitutional: No chills, No fever Respiratory: No cough, No shortness of breath, No sputum, No wheezing Cardiac: + edema, No chest pain, No orthopnea Abdomen: No constipation, No diarrhea, No nausea, No pain, No vomiting Musculoskeletal: No joint pain, No muscle pain Male : No dysuria, No urinary frequency Objective Vital Signs Date Time Temp Pulse Resp B/P Pulse Ox O2 Delivery O2 Flow Rate FiO2 04/03/17 08:00 Nasal Cannula 4.0 04/03/17 07:26 36.5 71 20 113/71 94 Nasal Cannula 4.0 04/03/17 00:33 36.2 72 20 129/69 92 Nasal Cannula 4.0 04/03/17 00:00 90 Nasal Cannula 4.0 04/02/17 20:00 90 Nasal Cannula 4.0 04/02/17 17:51 76 109/64 04/02/17 16:29 Nasal Cannula 4.0 04/02/17 15:13 36.9 76 18 124/85 90 Nasal Cannula 4.0 Humidified Oxygen Physical Exam General Appearance: WD/WN, no apparent distress Neck: supple, no adenopathy Respiratory/Chest: lungs clear, normal breath sounds Cardiovascular: regular rate, rhythm, no gallop Abdomen: non tender, soft Neurologic/Psychiatric: alert, oriented x 3 Laboratory Results Last 24 Hours Test 04/02/17 16:32 04/02/17 20:36 04/03/17 06:05 04/03/17 07:42 Bedside Glucose 134 mg/dl 130 mg/dl 87 mg/dl White Blood Count 7.57 K/uL Red Blood Count 4.39 M/uL Hemoglobin 13.2 g/dL Hematocrit 43.4 % Mean Corpuscular Volume 98.9 fL Mean Corpuscular Hemoglobin 30.1 pg Mean Corpuscular Hemoglobin Concent 30.4 g/dl RDW Standard Deviation 64.7 fL RDW Coefficient of Variation 17.9 % Platelet Count 188 K/uL Mean Platelet Volume 9.3 fL Sodium Level 140 mmol/L Potassium Level 4.8 mmol/L Chloride Level 100 mmol/L Carbon Dioxide Level 37 mmol/L Anion Gap 3.0 mmol/L Blood Urea Nitrogen 45 mg/dl Creatinine 1.90 mg/dl Est Creatinine Clear Calc Drug Dose 46.6 ml/min Estimated GFR () 40.8 Estimated GFR (Non- 35.2 BUN/Creatinine Ratio 23.9 Random Glucose 92 mg/dl Calcium Level 9.0 mg/dl Test 04/03/17 11:18 Bedside Glucose 229 mg/dl Assessment and Plan 71-year-old male with a history of chronic diastolic CHF, CKD stage III, CAD, hypertension, hyperlipidemia, DM II, peripheral neuropathy, and COPD who presented to the ED with shortness of breath and weight gain. Acute on chronic diastolic congestive heart failure--improving -Admit to [facility] -Increased diuretic to Bumex 3 mg IV BID due to poor diuresis on 04/02 -Fluid restriction 2000 mL -Low sodium diet -Daily weights -Strict I's & O's -Echocardiogram pending -Troponins negative 3 Acute respiratory failure with hypoxia--stable -Patient was saturating 86% on room air on arrival. Patient does not wear oxygen at home -O2 by protocol. Currently saturating at 93% on 4 L PROSPER on CKD stage III--baseline creatinine appears to be 1.5, improving -Creatinine 1.9 on arrival Possible pulmonary fibrosis -Consider CT if patient is not able to be weaned off of oxygen, or consider follow-up CXR in 1 month/after CHF exacerbation resolves HTN/CAD--stable -Continue Norvasc 2.5 mg PO qd and Lopressor 25 mg PO BID HLD -Continue atorvastatin 80 mg PO qd Diabetes mellitus type II--HgbA1c 8.0 on 04/01 -Hold glipizide -Continue Lantus 25 units SC qpm -Insulin sliding scale -Check BSGs q ac and qhs DVT prophylaxis -Enoxaparin 40 mg SC q24h
[2017-04-03 16:05] VITALS: BP 129/79; PULSE 79; TEMP 36.6; O2SAT 93
[2017-04-03 16:22] VITALS: O2SAT 93
[2017-04-03] MEDS: BUMETANIDE IV 3 MG in SYRINGE 0 ML IV SCH (18:07)
[2017-04-03] MEDS: ENOXAPARIN 40 MG/0.4 ML SYR SQ SCH (20:42)
[2017-04-04] VITALS: BP 110/70; PULSE 69; TEMP 36.7; O2SAT 96
[2017-04-04 06:42] LABS: HEMATOCRIT 44.7 % (42-52); MEAN CELL VOLUME 97.8 fL (80-100); MEAN CORPUSCULAR HEMOGLOBIN 29.1 pg (25-34); MEAN CORPUSCULAR HGB CONC 29.8 g/dl (32-36); MEAN PLATELET VOLUME 9.9 fL (7.4-10.4); PLATELET COUNT 209 K/uL (130-400); RED BLOOD COUNT 4.57 M/uL (4.7-6.1); WHITE BLOOD COUNT 9.49 K/uL (4.8-10.8)
[2017-04-04 07:14] VITALS: BP 115/70; PULSE 79; TEMP 36.8; O2SAT 94
[2017-04-04 07:15] LABS: BLOOD UREA NITROGEN 50 mg/dl (7-18); BUN/CREATININE RATIO 27.5 (10-20); CALCIUM 9.4 mg/dl (8.5-10.1); CARBON DIOXIDE 39 mmol/L (21-32); CHLORIDE 96 mmol/L (98-107); GLUCOSE 145 mg/dl (70-99); SODIUM 139 mmol/L (136-145)
[2017-04-04] MEDS: MULTIVITAMIN TAB PO SCH (08:09)
[2017-04-04] MEDS: ASPIRIN 81 MG ECTAB PO SCH (08:10)
[2017-04-04] MEDS: AMLODIPINE BESYLATE 5 MG TAB PO SCH (08:10)
[2017-04-04] MEDS: BUMETANIDE IV 3 MG in SYRINGE 0 ML IV SCH ×2 (08:10→17:51)
[2017-04-04] MEDS: MAGNESIUM OXIDE 400 MG TAB PO SCH (08:10)
[2017-04-04] MEDS: METOPROLOL TARTRATE 25 MG TAB PO SCH ×2 (08:10→20:49)
[2017-04-04] MEDS: POTASSIUM CHLORIDE 10 MEQ TABCR PO SCH ×2 (08:10→20:49)
[2017-04-04] MEDS: ATORVASTATIN 40 MG TAB PO SCH (08:10)
[2017-04-04] MEDS: INSULIN ASPART 100 UNITS/ML 3 ML PEN SQ SCH ×3 (08:15→17:53)
[2017-04-04] MEDS: METOLAZONE 5 MG TAB PO SCH (08:27)
--- NOTE | 2017-04-04 11:36 | Hospitalist Progress Note ---
Hospitalist Progress Note Date of Service April 04, 2017. (Lori Fabian ., MARILY-C) Subjective Pt evaluation today including: conversation w/ patient, physical exam, chart review, lab review, review of inpatient medication list Pain: None PO Intake: Tolerating PO diet Voiding: no voiding problems Patient reports feeling better. He states that his breathing continues to improve, although he still experiences some dyspnea on exertion, especially in the mornings. The patient is still breathing on 4 L NC. He states that the numbness and tingling in his legs is improving, although he feels some soreness in his legs bilaterally up to his thighs. He states that the swelling in legs is also improved. The patient denies fevers, chills, sweats, chest pain, palpitations, claudication, cough, wheezing, nausea, vomiting, abdominal pain, dysuria, hematuria, urinary retention, paralysis, weakness. Additional Comments: See HPI for pertinent positives and negatives. All other systems reviewed and negative. (Lori Fabian ., MARILY-C) Objective Vital Signs Date Time Temp Pulse Resp B/P Pulse Ox O2 Delivery O2 Flow Rate FiO2 04/04/17 08:00 Nasal Cannula 4.0 04/04/17 07:14 36.8 79 20 115/70 94 Nasal Cannula 4.0 04/04/17 00:00 36.7 69 20 110/70 96 Nasal Cannula 4.0 04/04/17 00:00 Nasal Cannula 4.0 04/03/17 16:22 93 Nasal Cannula 4.0 04/03/17 16:05 36.6 79 20 129/79 93 4.0 (Lori Fabian ., MARILY-C) Physical Exam Notes: General appearance: +Obese. Well-developed, well-nourished, no apparent distress Head: Normocephalic, atraumatic Eyes: Normal inspection, PERRL, EOMI ENT: Normal ENT inspection, hearing grossly normal, pharynx normal Neck: Supple, no JVD, trachea midline Respiratory/Chest: +Decreased breath sounds bilaterally. Lungs clear to auscultation, normal breath sounds, no respiratory distress Cardiovascular: Regular rate & rhythm, no gallop, no murmur Abdomen/GI: Normal bowel sounds, non-tender, soft Extremities/Musculoskeletal: + 1-2+ pitting edema bilaterally. Lymphedema changes. Legs TTP. Neurological/Psych: Alert, normal mood/affect, oriented x 3 Skin: Normal color, warm/dry, no rash (Lori Fabian ., PA-C) Laboratory Results Last 24 Hours Test 04/03/17 11:18 04/03/17 16:23 04/03/17 20:16 04/04/17 06:10 Bedside Glucose 229 mg/dl 185 mg/dl 195 mg/dl White Blood Count 9.49 K/uL Red Blood Count 4.57 M/uL Hemoglobin 13.3 g/dL Hematocrit 44.7 % Mean Corpuscular Volume 97.8 fL Mean Corpuscular Hemoglobin 29.1 pg Mean Corpuscular Hemoglobin Concent 29.8 g/dl RDW Standard Deviation 63.1 fL RDW Coefficient of Variation 17.4 % Platelet Count 209 K/uL Mean Platelet Volume 9.9 fL Sodium Level 139 mmol/L Potassium Level mmol/L Chloride Level 96 mmol/L Carbon Dioxide Level 39 mmol/L Anion Gap 4.0 mmol/L Blood Urea Nitrogen 50 mg/dl Creatinine 1.80 mg/dl Est Creatinine Clear Calc Drug Dose 48.9 ml/min Estimated GFR () 43.5 Estimated GFR (Non- 37.6 BUN/Creatinine Ratio 27.5 Random Glucose 145 mg/dl Calcium Level 9.4 mg/dl Test 04/04/17 07:47 04/04/17 07:48 Bedside Glucose 138 mg/dl Potassium Level 4.7 mmol/L (Lori Fabian ., PA-C) Assessment and Plan 71-year-old male with a history of chronic diastolic CHF, CKD stage III, CAD, hypertension, hyperlipidemia, DM II, peripheral neuropathy, and COPD who presented to the ED with shortness of breath and weight gain. Acute on chronic diastolic congestive heart failure--improving -Admit to [facility] -Urine output 1080 mL, net balance -280 mL 04/03 -Increased diuretic to Bumex 3 mg IV BID17 -Start metolazone 5 mg PO qam -Fluid restriction 2000 mL -Low sodium diet -Daily weights -Strict I's & O's -Echocardiogram pending -Troponins negative 3 Acute respiratory failure with hypoxia--stable -Patient was saturating 86% on room air on arrival. Patient does not wear oxygen at home -O2 by protocol. Currently saturating at 94% on 4 L. Talked to nursing about weaning oxygen down PROSPER on CKD stage III--baseline creatinine appears to be 1.5 -Creatinine 1.9 on arrival -Creatinine 1.8 on 04/04 Possible pulmonary fibrosis -Consider CT if patient is not able to be weaned off of oxygen, or consider follow-up CXR in 1 month/after CHF exacerbation resolves HTN/CAD--stable -Continue Norvasc 2.5 mg PO qd and Lopressor 25 mg PO BID HLD -Continue atorvastatin 80 mg PO qd Diabetes mellitus type II--HgbA1c 8.0 on 04/01 -Hold glipizide -Continue Lantus 25 units SC qpm -Insulin sliding scale -Check BSGs q ac and qhs DVT prophylaxis -Enoxaparin 40 mg SC q24h This chart was completed in part utilizing [employer] Voice Recognition software. Attempts were made to minimize the grammatical errors, random word insertions, pronoun errors and incomplete sentences. Any formal questions or concerns about the content, text or information contained within the body of this dictation should be directly addressed to the provider for clarification. (Lori Fabian ., PA-C) I agree with PA assessment and plan and have seen and examined pt myself Resting comfortably in bed No complaints at this time Leg swelling improved and no more pain I/Os reviewed Added metalozone in addition to bumex, if appropriate diuresis, can DC in next 24 hrs (Patrick Combs, Naseem.O.)
[2017-04-04] MEDS: ACETAMINOPHEN 325 MG TAB PO PRN (11:52)
[2017-04-04 14:52] VITALS: BP 128/75; PULSE 79; TEMP 36.8; O2SAT 91
[2017-04-04 16:15] VITALS: O2SAT 91; O2SAT 93
[2017-04-04 20:43] VITALS: BP 116/77; PULSE 86; TEMP 36.5; O2SAT 94
[2017-04-04] MEDS: ENOXAPARIN 40 MG/0.4 ML SYR SQ SCH (20:48)
[2017-04-04 22:41] VITALS: BP 132/79; PULSE 83; TEMP 36.7; O2SAT 92
[2017-04-05 06:52] LABS: HEMATOCRIT 45.9 % (42-52); MEAN CELL VOLUME 96.8 fL (80-100); MEAN CORPUSCULAR HEMOGLOBIN 29.3 pg (25-34); MEAN CORPUSCULAR HGB CONC 30.3 g/dl (32-36); MEAN PLATELET VOLUME 9.5 fL (7.4-10.4); PLATELET COUNT 202 K/uL (130-400); RED BLOOD COUNT 4.74 M/uL (4.7-6.1); WHITE BLOOD COUNT 8.26 K/uL (4.8-10.8)
[2017-04-05 06:53] VITALS: BP 117/67; PULSE 79; TEMP 36.7; O2SAT 91
[2017-04-05 07:44] LABS: BUN/CREATININE RATIO 28.8 (10-20); CALCIUM 9.7 mg/dl (8.5-10.1); CREATININE 1.9 mg/dl (0.60-1.40); POTASSIUM 4.5 mmol/L (3.5-5.1)
[2017-04-05] MEDS: METOPROLOL TARTRATE 25 MG TAB PO SCH (08:07)
[2017-04-05] MEDS: MAGNESIUM OXIDE 400 MG TAB PO SCH (08:07)
[2017-04-05] MEDS: BUMETANIDE IV 3 MG in SYRINGE 0 ML IV SCH (08:07)
[2017-04-05] MEDS: POTASSIUM CHLORIDE 10 MEQ TABCR PO SCH (08:07)
[2017-04-05] MEDS: ASPIRIN 81 MG ECTAB PO SCH (08:07)
[2017-04-05] MEDS: METOLAZONE 5 MG TAB PO SCH (08:07)
[2017-04-05] MEDS: ATORVASTATIN 40 MG TAB PO SCH (08:07)
[2017-04-05] MEDS: MULTIVITAMIN TAB PO SCH (08:07)
[2017-04-05] MEDS: AMLODIPINE BESYLATE 5 MG TAB PO SCH (08:07)
[2017-04-05] MEDS: INSULIN ASPART 100 UNITS/ML 3 ML PEN SQ SCH ×2 (08:40→12:34)
[2017-04-05] MEDS ORDERED: POTA10CA28 PO (10:24)
[2017-04-05] MEDS ORDERED: ZRX5 PO (10:24)
--- NOTE | 2017-04-05 10:45 | Discharge Instructions ---
Discharge Instructions Date of Service April 05, 2017. Admission Reason for Admission: Congestive Heart Failure Discharge Discharge Diagnosis / Problem: Acute exacerbation of chronic diastolic congestive heart failure Discharge Goals Goal(s): Decrease discomfort, Improve function, Diagnostic testing, Therapeutic intervention Activity Recommendations Activity Limitations: resume your previous activity . Instructions / Follow-Up Instructions / Follow-Up You were admitted to the hospital after presenting to the ER with shortness of breath, increased leg swelling and weight gain. You were treated with Bumex IV and received a dose that is higher than what you take orally at home. A second diuretic, metolazone, was added as well to help improve your diuresis. Your symptoms began to improve after the excess fluid was diuresed off. Since your breathing has returned to your baseline and your leg swelling has improved, you are now medically stable for discharge. Please be sure to watch your sodium intake in your diet. Processed foods are often high in sodium even if they do not seem to be "salty." Please check food labels and try to limit your sodium intake to 2 grams a day. Medications: *A new diuretic called metolazone has been added to your previous home regimen. Please take metolazone 5 mg by mouth twice a week (Mondays and Fridays). Take this medication 30 minutes before your Bumex. If you notice that you are losing too much weight or feel dehydrated, decrease your metolazone dose to once a week. *Please take potassium chloride 10 mEq by mouth twice a day, as your diuretic can lower your serum potassium. *Continue your other home medications as prescribed. No changes have been made to your home Bumex dose. Follow up: *Please follow up with your primary care provider in 1 week regarding your hospital stay and changes to your medications. Call your Primary Care doctor if any of the following symptoms or problems start or get worse: * Shortness of breath or difficulty breathing * Wake up at night short of breath * Chest pain * Cough * Swelling of your hands, feet, or legs * More fatigued or tired with your normal activity * Palpitations - sudden fast heart beats WEIGHT * Weigh yourself every morning after using the bathroom. * Use the same scale. * Wear the same amount of clothing. * Write your weight down on a chart. * Call your Primary Care doctor if you gain more than 2-3 pounds in 1-2 days. MEDICATIONS * Use this discharge instruction sheet for medication instructions. * Take your medications at the time your doctor ordered. * Do not skip a dose of your medicines. * If you miss a dose of medicine, take it as soon as possible, but DO NOT DOUBLE A DOSE. * Read your medicine information when you get home. * Know all of the side effects of your medicine. If in doubt, ask your pharmacist * Call your Primary Care doctor's office if you have any side effects. * Be sure all of your doctors know what medicine and herbs you take (including cold, flu, and herbal medicine). Take the following with you to your follow-up doctor appointments: * Weight Chart * Medication List * List of questions Do not drink excessive alcohol, beer or wine. Current Hospital Diet Patient's current hospital diet: Low Sodium Diet (2gm Na), Diabetes Type 2 Diet Discharge Diet Recommended Diet: Low Sodium Diet (2gm Na), Diabetes Type 2 Diet Procedures Procedures Performed: Echocardiogram Pending Studies Studies pending at discharge: no Laboratory Results Hemoglobin A1c Test 04/01/17 11:35 Range/Units Estimated Average Glucose 183 mg/dl Hemoglobin A1c 8.0 H 4.5-5.6 % Medical Emergencies . Who to Call and When: Call 911 or go to the Emergency Room if: * If at any time you feel your situation is an emergency * You have tightness or pain in your chest that does not go away with rest or Nitroglycerin * You are very short of breath even with rest . Non-Emergent Contact Non-Emergency issues call your: Primary Care Provider Call Non-Emergent contact if: you have a fever, you have any medication questions . Past History Medical & Surgical History: (1) Acute on chronic diastolic (congestive) heart failure . "Provider Documentation" section prepared by Lori Fabian. . VTE Core Measure Inpt VTE Proph given/why not?: Enoxaparin (Lovenox)SQ
--- NOTE | 2017-04-05 12:09 | Discharge Summary ---
Discharge Summary Date of Service April 05, 2017. (Lori Fabian PA-C) Discharge Summary Admission Date: April 01, 2017 at 14:15 Discharge Date: April 05, 2017 Discharge Disposition: Home with services Principal Diagnosis: Acute on chronic diastolic congestive heart failure Immunizations: Have You Had Influenza Vaccine: No History of Tetanus Vaccine?: Yes History of Pneumococcal: Yes History of Hepatitis B Vaccine: Unknown Procedures: Echocardiogram: * -- Conclusions -- * Left ventricular systolic function is normal. * No regional wall motion abnormalities noted. * Ejection Fraction = 55-60%. * There is mild concentric left ventricular hypertrophy. * Diastolic dysfunction, Grade II (pseudonormalization pattern). (Loir Fabian PA-C) Medication Reconciliation New Medications: Metolazone (Metolazone) 5 Mg Tab 5 MG PO 2XWK for 28 Days, #8 TAB Take 1 tablet by mouth Friday and Friday mornings. Take 30 minutes before taking Bumex. Potassium Chloride (Micro-K Ext Rel) 10 Meq Capcr 10 MEQ PO BID for 30 Days, #60 CAP Take 1 capsule by mouth twice a day. Continued Medications: Amlodipine Besylate (Norvasc) 2.5 Mg Tab 2.5 MG PO DAILY Aspirin (Aspirin EC Low Dose) 81 Mg Ectab 81 MG PO DAILY for 1 Day Atorvastatin (Lipitor) 80 Mg Tab 80 MG PO DAILY, 0 Refills Bumetanide (Bumex) 2 Mg Tab 4 MG PO DAILY Glipizide (Glipizide Er) 5 Mg Tab 5 MG PO DAILY Insulin Glargine (Lantus) 100 Unit/Ml Inj 25 UNITS SC QPM Insulin Lispro (Human) (Humalog) 100 Unit/Ml Inj UNITS SQ UD SLIDING SCALE Ipratropium-Albuterol (Duoneb) 3 Ml Nebu 3 ML INH QID PRN for SOB/Wheezing for 10 Days Metoprolol Tartrate (Lopressor) (Lopressor) 25 Mg Tab 25 MG PO BID, 0 Refills Multivitamin (Multivitamin) Tab 1 TAB PO DAILY, 0 Refills Referrals At Discharge Follow up Referrals: Family Practice Referral - Within 1 Week with Malena John C.R.N.PMilad Discharge Exam Patient reports feeling well. He states that his breathing feels like it is back to baseline, however he is still on supplemental oxygen, which he does not use at home. He denies shortness of breath at rest but does note some BARRERA. He reports having good urine output yesterday. He states that the swelling/ redness in his legs has improved. He no longer feels soreness in legs/thighs but does complain of numbnes/tingling in his calves bilaterally, which is his baseline. The patient denies fevers, chills, sweats, chest pain, palpitations, claudication, cough, wheezing, shortness of breath at rest, nausea, vomiting, abdominal pain, dysuria, hematuria, urinary retention, paralysis, weakness. Review of Systems: Constitutional: No chills, No fever, No sweats Eyes: No diplopia, No eye pain, No worsening of vision ENT: No hearing loss, No nasal symptoms, No sore throat Respiratory: + dyspnea on exertion, No cough, No dyspnea at rest, No wheezing Cardiovascular: No chest pain, No claudication, No palpitations Abdomen: No nausea, No pain, No vomiting Musculoskeletal: No calf pain, No joint pain, No muscle pain Genitourinary - Male: No dysuria, No hematuria, No urinary retention Neurologic: + numbness/tingling (feet and calves bilaterally, chronic), No paralysis, No weakness Integumentary: No color change, No itch, No rash Physical Exam: General Appearance: WD/WN, no apparent distress, + obese Eyes: normal inspection, PERRL, EOMI ENT: normal ENT inspection, hearing grossly normal, pharynx normal Neck: supple, no JVD, trachea midline Respiratory/Chest: lungs clear, normal breath sounds, no respiratory distress, + decreased breath sounds (bases bilaterally) Cardiovascular: regular rate, rhythm, no gallop, no murmur Abdomen / GI: normal bowel sounds, non tender, soft Extremities: no calf tenderness, + swelling (1+ pitting edema bilaterally), + pertinent finding (lymphedema changes and erythema legs bilaterally R>L. Lower legs mildly TTP.) Neurologic/Psychiatric: alert, normal mood/affect, oriented x 3 Skin: normal color, warm/dry, no rash (Lori Fabian ., OPAL) Hospital Course 71-year-old male with a history of chronic diastolic CHF, CKD stage III, CAD, hypertension, hyperlipidemia, DM II, peripheral neuropathy, and COPD who presented to the ED with shortness of breath and weight gain. Acute on chronic diastolic congestive heart failure--improving -Admit to [facility] -Urine output 2850 mL and net balance -1865 on 04/04 -Increased diuretic to Bumex 3 mg IV BID17. Will continue home dose of Bumex PO on discharge -Start metolazone 5 mg PO qam. Continue with metolazone 5 mg PO 2x/week on discharge. Can decrease to 1x/week if diuresing too much. -Fluid restriction 2000 mL -Low sodium diet. Reiterated importance of low sodium diet and reading food labels prior to consumption. -Daily weights -Strict I's & O's -Echocardiogram: Mild concentric LVH. Grade II diastolic dysfunction -Troponins negative 3 Acute respiratory failure with hypoxia--stable -Patient was saturating 86% on room air on arrival. Patient does not wear oxygen at home -O2 by protocol -2 step ordered: pt requires 4L continuous O2 via NC at rest, 5L with activity PROSPER on CKD stage III--baseline creatinine appears to be 1.5. Has remained stable despite aggressive diuresis -Creatinine 1.9 on arrival -Creatinine 1.9 on 04/05 Possible pulmonary fibrosis -Consider CT if patient is not able to be weaned off of oxygen, or consider follow-up CXR in 1 month/after CHF exacerbation resolves HTN/CAD--stable -Continue Norvasc 2.5 mg PO qd and Lopressor 25 mg PO BID HLD -Continue atorvastatin 80 mg PO qd Diabetes mellitus type II--HgbA1c 8.0 on 04/01 -Hold glipizide, may resume on discharge -Continue Lantus 25 units SC qpm -Insulin sliding scale -Check BSGs q ac and qhs DVT prophylaxis -Enoxaparin 40 mg SC q24h This chart was completed in part utilizing [employer] Speech Voice Recognition software. Attempts were made to minimize the grammatical errors, random word insertions, pronoun errors and incomplete sentences. Any formal questions or concerns about the content, text or information contained within the body of this dictation should be directly addressed to the provider for clarification. Total Time Spent: Greater than 30 minutes This includes examination of the patient, discharge planning, medication reconciliation, and communication with other providers. (Lori Fabian ., PA-C) I agree with PA assessment and plan and have seen and examined pt myself Resting comfortably in bed Will need 2 step prior to discharge Discussed importance of low 2 gram daily sodium diet Cont home dose of bumex on discharge in addition to metalozone if weight gain VSS Labs reviewed Stable for discharge home (Patrick Combs D.O.) Discharge Instructions Please refer to the electronic Patient Visit Report (Discharge Instructions) for additional information. (Lori Fabian ., PA-C) Additional Copies To Malena John C.R.N.P.
[2017-04-05 12:51] VITALS: BP 117/67; PULSE 79; TEMP 36.7; O2SAT 91
[2017-05-10] MEDS ORDERED: OMEP40CA41 PO (14:45)
[2017-05-10] MEDS ORDERED: TRMCR115 EXT (14:45)
[2017-05-10] MEDS ORDERED: ECRCR EXT (14:45)
[2017-05-10] MEDS ORDERED: PLV75 PO (14:45)
[2017-05-10] MEDS ORDERED: PANT40TA PO (15:42)
[2017-05-12] MEDS ORDERED: ASPEC81 PO (12:04)
[2017-05-12] MEDS ORDERED: SPRIN/30 INH (14:03)
[2017-05-12] MEDS ORDERED: SYMIN160 INH (14:03)
[2017-10-22] MEDS ORDERED: NUTR-7 PO (09:33)
[2017-10-22] MEDS ORDERED: PLMINS INH (09:33)
[2017-10-22] MEDS ORDERED: KFL250 PO (09:33)
[2017-10-22] MEDS ORDERED: INSDGI SC (09:33)
[2017-10-22] MEDS ORDERED: XRL15 PO (09:33)
== END 2017-04-05 15:35 | disposition home or self-care (01) | DRG 291 ==
LOC: ENRESERVTM → ENRESERVDT → C.EDB 11:10 → C.MS4W 14:15
PROVIDERS: ADMIT Family Medicine; ATTEND Hospitalist
DX: I13.0 Hypertensive heart and chronic kidney disease with heart failure and stage 1 through stage 4 chronic kidney disease, or unspecified chronic kidney disease (principal); I50.33 Acute on chronic diastolic (congestive) heart failure; J96.01 Acute respiratory failure with hypoxia; N17.9 Acute kidney failure, unspecified; L03.115 Cellulitis of right lower limb; L03.116 Cellulitis of left lower limb; E11.22 Type 2 diabetes mellitus with diabetic chronic kidney disease; E11.65 Type 2 diabetes mellitus with hyperglycemia; N18.3 Chronic kidney disease, stage 3 (moderate); I25.2 Old myocardial infarction; I25.10 Atherosclerotic heart disease of native coronary artery without angina pectoris; E78.5 Hyperlipidemia, unspecified; E11.42 Type 2 diabetes mellitus with diabetic polyneuropathy; J44.9 Chronic obstructive pulmonary disease, unspecified; J84.10 Pulmonary fibrosis, unspecified; Z96.649 Presence of unspecified artificial hip joint; Z87.891 Personal history of nicotine dependence; Z95.1 Presence of aortocoronary bypass graft; Z82.49 Family history of ischemic heart disease and other diseases of the circulatory system; Z79.82 Long term (current) use of aspirin; Z79.84 Long term (current) use of oral hypoglycemic drugs; Z79.4 Long term (current) use of insulin; Z79.899 Other long term (current) drug therapy

== ENCOUNTER → 2017-04-24 | Outpatient (CLI) | payer BC ==
[~2017-04-24] MED LIST changes: -CHOL100010 PO; +ECRCR EXT; -HMLI SC; +INSU100I SQ; +KFL250 PO; +NUTR-7 PO; +OMEP40CA41 PO; +PANT40TA PO; +PLMINS INH; +PLV75 PO; +POTA10CA28 PO; -PRD10 PO; +SPRIN/30 INH; +SYMIN160 INH; +TRMCR115 EXT; -VITAMIN B PO; +XRL15 PO; +ZRX5 PO
--- NOTE | 2017-04-24 09:33 | DIAGNOSTIC IMAGING REPORT ---
CT SCAN OF THE CHEST WITHOUT IV CONTRAST CLINICAL HISTORY: Emphysema. Pulmonary fibrosis. COMPARISON STUDY: Chest CT scans dated 06/02/2015 and 11/09/2013. TECHNIQUE: CT scan of the thorax was performed from the thoracic inlet to the upper abdomen. Images are reviewed in the axial, sagittal, and coronal planes. IV contrast was not administered for this examination as per the referring clinician. CT DOSE: 663.07 mGy.cm FINDINGS: Thyroid: Imaged portions of the thyroid gland are normal in size and attenuation. Thoracic aorta: There is atherosclerotic calcification of the thoracic aorta, which is normal in caliber and demonstrates standard 3-vessel arch anatomy. Heart: The patient is status post midline sternotomy. The heart is enlarged and without pericardial effusion. The coronary arteries are densely calcified. The main pulmonary arteries are mildly dilated suggesting pulmonary artery hypertension. Lungs and pleural spaces: Emphysematous change is observed. Significant subpleural fat deposition is seen bilaterally. Large foci of bandlike scarring/fibrosis/round atelectasis are again seen throughout the right lung. Similar changes are also present at the left lung base. There is no airspace consolidation typical for pneumonia. Only trace pleural effusions are identified. Diffuse intralobular septal thickening is observed. An 8 mm right middle lobe pulmonary nodule seen on image #131is unchanged in appearance dating back to 2012. No new pulmonary lesions are suspected. Layering secretions are present within the trachea. Mediastinum: Mildly enlarged mediastinal lymph nodes are similar to previous. A prevascular node on image #105 measures 1.7 cm in short axis. A right paratracheal node on image #88 measures 1.3 cm in short axis. Saniya: Not well assessed without IV contrast. Axillae: There is no axillary lymphadenopathy. Upper abdomen: There calcifications of the splenic capsule, similar to prior studies. A tiny hiatal hernia is observed. Skeletal structures: The skeletal structures are osteopenic. No lytic or blastic bony lesions are seen. Chronic posttraumatic change is again seen in the right posterior ribs. IMPRESSION: 1. Cardiomegaly. There is diffuse intralobular septal thickening which was not seen on prior examinations and may represent a component of congestive failure. Clinical correlation will be required. 2. Emphysematous change. 3. Trace pleural effusions are identified. 4. There is chronic posttraumatic change seen involving right posterior ribs. Large bands of fibrosis/scarring/round atelectasis are again seen in both lungs, right greater than left and similar to prior examinations. 5. Mildly enlarged mediastinal lymph nodes are nonspecific and similar to previous examinations. 6. An 8 mm right middle lobe pulmonary nodule has not significant changed dating back to 2012. 7. Additional changes as above. Electronically signed by: Livan Padgett M.D. 04/24/2017 9:31 AM Dictated Date/Time: 04/24/2017 9:22 AM
== END | disposition home or self-care (01) ==
LOC: C.CTS 09:03
PROVIDERS: ATTEND Internal Medicine Pulmonary Disease
DX: J43.9 Emphysema, unspecified (principal); J84.10 Pulmonary fibrosis, unspecified; I51.7 Cardiomegaly; R59.0 Localized enlarged lymph nodes; R91.1 Solitary pulmonary nodule

== ENCOUNTER 2017-05-08 12:27 | Inpatient (IN) | payer BC, OTHER ==
[~2017-05-08] VITALS: Ht 175.3 cm; Wt 109.9 kg
[~2017-05-08 12:27] MED LIST changes: -ECRCR EXT; -KFL250 PO; -NUTR-7 PO; -OMEP40CA41 PO; -PANT40TA PO; -PLMINS INH; -PLV75 PO; -SPRIN/30 INH; -SYMIN160 INH; -TRMCR115 EXT; -XRL15 PO
--- NOTE | 2017-05-08 13:27 | EMERGENCY ROOM VISIT NOTE ---
History First contact with patient: 13:06 Chief Complaint: REFERRED BY DOCTOR Stated Complaint: NEED TO HAVE ARTERIES IN NECK CHECK-REFERRED BY History of Present Illness The patient is a 71 year old male who presents to the Emergency Room with complaints of retinal artery occlusion. The patient is a diabetic. 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 Yady Robles. The patient states that he followed up today and was told that he may have retinal artery occlusion and he was referred to have his carotid arteries checked. The patient is asymptomatic. He has not had any headache. He has not had any decreased or loss of vision. He has not had any chest pain or trouble breathing. He has not had any abdominal pain, nausea vomiting. He has not had any extremity weakness, numbness or tingling. The patient was admitted last month for congestive heart failure and states that he has been doing much better in regard to the fluid overload. Review of Systems A 10 system review of systems was completed with positives and pertinent negatives listed in the HPI. Past Medical/Surgical History Medical Problems: (1) Acute on chronic diastolic (congestive) heart failure (2) Benign hypertension (3) Bronchitis (4) Coronary artery bypass grafts x 4 (5) Diabetes mellitus (6) Pleural effusion (7) Pneumonia (8) Retinal artery branch occlusion of right eye (9) Thoracentesis (10) Total replacement of hip Social History Smoking Status: Former Smoker Alcohol Use: occasionally Housing Status: lives alone Occupation Status: unemployed Current/Historical Medications Scheduled Amlodipine Besylate (Norvasc), 2.5 MG PO DAILY Aspirin (Aspirin EC Low Dose), 81 MG PO DAILY Atorvastatin (Lipitor), 80 MG PO DAILY Bumetanide (Bumex), 4 MG PO DAILY Glipizide (Glipizide Er), 5 MG PO DAILY Insulin Glargine (Lantus), 30 UNITS SC QPM Insulin Lispro (Human) (Humalog), UNITS SQ UD Metoprolol Tartrate (Lopressor) (Lopressor), 25 MG PO BID Multivitamin (Multivitamin), 1 TAB PO DAILY Scheduled PRN Ipratropium-Albuterol (Duoneb), 3 ML INH QID PRN for SOB/Wheezing Allergies Coded Allergies: No Known Allergies (Verified , 05/08/17) Physical Exam Vital Signs Date Time Temp Pulse Resp B/P (MAP) Pulse Ox O2 Delivery O2 Flow Rate FiO2 6/8/17 17:33 72 05/08/17 16:49 79 20 142/71 96 Nasal Cannula 3.5 05/08/17 13:43 77 18 136/66 05/08/17 13:31 76 05/08/17 12:39 37.0 77 22 127/69 92 Nasal Cannula 3.0 Physical Exam VITALS: Vitals are noted on the nurse's note and reviewed by myself. Vital signs stable. The patient is afebrile. He is not tachycardic, tachypneic or hypertensive. GENERAL: This is a 71-year-old male, in no acute distress, nondiaphoretic, well- developed well-nourished. SKIN: There is 1+ pitting edema to the bilateral lower extremities as well as chronic venous stasis changes. Capillary reflex less than 2 seconds. HEAD: Normocephalic atraumatic. EARS: The external ears are normal in appearance. EYES: Pupils equal round and reactive to light and accommodation. Conjunctivae without injection, sclerae without icterus. Extraocular movements intact. On funduscopic examination, a floater is noted in the right eye. NOSE: Patent, turbinates without inflammation or discharge. MOUTH: Mucous membranes moist. Tonsils are not enlarged. Pharynx without erythema or exudate. Uvula midline. Airway patent. Tongue does not deviate. NECK: Supple without nuchal rigidity. No lymphadenopathy. No thyromegaly. Cervical spine is nontender. No JVD. HEART: Regular rate and rhythm without murmurs gallops or rubs. LUNGS: Clear to auscultation bilaterally without wheezes, rales or rhonchi. No dullness to percussion. No retractions or accessory muscle use. MUSCULOSKELETAL: Edema and venous stasis changes as above. Full range of motion without joint tenderness in all extremities. No tenderness to palpation. Normal gait. Strength 5/5 throughout. NEURO: Patient was alert and oriented to person place and time. No focal neurological deficits. Medical Decision & Procedures ER Provider Diagnostic Interpretation: [~ rep ct add3]] CHEST ONE VIEW PORTABLE CLINICAL HISTORY: retinal artery occlusion COMPARISON STUDY: 04-16 FINDINGS: There are postsurgical changes of a midline sternotomy. The heart is mildly enlarged. There are small bilateral pleural effusions. There is resolving congestive failure. There are chronic nodular interstitial basilar opacities.[ IMPRESSION: 1. Chronic nodular and interstitial basilar opacities 2. Small bilateral pleural effusions 3. Resolving pulmonary vascular congestion CT OF THE HEAD WITHOUT CONTRAST CLINICAL HISTORY: Possible retinal artery occlusion. COMPARISON STUDY: No previous studies for comparison. CT DOSE: 537.48 mGy.cm TECHNIQUE: Helical axial images of the head were obtained without IV contrast. Automated exposure control was utilized for the study. FINDINGS: No acute intracranial hemorrhage, midline shift or mass effect is present. Mild ventricular dilatation is likely due to central atrophy. The basilar cisterns are patent. There are no extra axial collections. A 1 cm hypodensity within the left centrum semiovale is noted. There are no CT findings to suggest acute dural sinus thrombosis or acute territorial infarct. A small amount of fluid within the right mastoid air cells is noted. There are no significant calvarial abnormalities. There is mild mucosal thickening of the sinuses. IMPRESSION: 1. No acute intracranial hemorrhage or mass effect. 2. 1 cm hypodensity within the left centrum semiovale. This likely reflects small vessel disease or a subacute to chronic lacunar infarct. [~ rep ct add3]] CAROTID ARTERY ULTRASOUND CLINICAL HISTORY: Possible retinal artery occlusion COMPARISON STUDY: None. TECHNIQUE: Real-time, grayscale, and color Doppler sonography of the carotid and vertebral arteries was performed. Images were viewed in the transverse and longitudinal planes. FINDINGS: This exam was mildly compromised due to suboptimal penetration. There is extensive atherosclerotic plaque. Velocity measurements are listed below. COMMON CAROTID PEAK SYSTOLIC VELOCITY (CM/S): RIGHT 68 LEFT 55 ICA PEAK SYSTOLIC VELOCITY (CM/S): RIGHT 58 LEFT 61 Systolic ratios between the internal to common carotid arteries are normal. Antegrade flow is seen in the vertebral arteries. The external carotid arteries are patent. Blood pressure in the right arm measured 116/72. Blood pressure in the left arm measured 125/74. IMPRESSION: Extensive atherosclerotic plaque within the bilateral common carotid and internal carotid arteries without sonographic evidence of a hemodynamically significant stenosis. Study mildly compromised by suboptimal penetration. Laboratory Results 05/08/17 13:30 Red Blood Count 4.63, Mean Corpuscular Volume 90.1, Mean Corpuscular Hemoglobin 29.4, Mean Corpuscular Hemoglobin Concent 32.6, Mean Platelet Volume 10.3, Neutrophils (%) (Auto) 67.5, Lymphocytes (%) (Auto) 18.8, Monocytes (%) (Auto) 5.6, Eosinophils (%) (Auto) 6.6, Basophils (%) (Auto) 0.6, Neutrophils # (Auto) 6.85, Lymphocytes # (Auto) 1.91, Monocytes # (Auto) 0.57, Eosinophils # (Auto) 0.67, Basophils # (Auto) 0.06 05/08/17 13:30 Test 05/08/17 13:30 05/08/17 13:35 05/08/17 16:50 White Blood Count 10.15 K/uL (4.8-10.8) Red Blood Count 4.63 M/uL (4.7-6.1) Hemoglobin 13.6 g/dL (14.0-18.0) Hematocrit 41.7 % (42-52) Mean Corpuscular Volume 90.1 fL (80-100) Mean Corpuscular Hemoglobin 29.4 pg (25-34) Mean Corpuscular Hemoglobin Concent 32.6 g/dl (32-36) Platelet Count 175 K/uL (130-400) Mean Platelet Volume 10.3 fL (7.4-10.4) Neutrophils (%) (Auto) 67.5 % Lymphocytes (%) (Auto) 18.8 % Monocytes (%) (Auto) 5.6 % Eosinophils (%) (Auto) 6.6 % Basophils (%) (Auto) 0.6 % Neutrophils # (Auto) 6.85 K/uL (1.4-6.5) Lymphocytes # (Auto) 1.91 K/uL (1.2-3.4) Monocytes # (Auto) 0.57 K/uL (0.11-0.59) Eosinophils # (Auto) 0.67 K/uL (0-0.5) Basophils # (Auto) 0.06 K/uL (0-0.2) RDW Standard Deviation 52.5 fL (36.4-46.3) RDW Coefficient of Variation 16.1 % (11.5-14.5) Immature Granulocyte % (Auto) 0.9 % Immature Granulocyte # (Auto) 0.09 K/uL (0.00-0.02) Prothrombin Time 11.1 SECONDS (9.0-12.0) Prothromb Time International Ratio 1.0 (0.9-1.1) Activated Partial Thromboplast Time 27.2 SECONDS (21.0-31.0) Partial Thromboplastin Ratio 1.0 Estimated GFR () 50.2 Estimated GFR (Non- 43.3 BUN/Creatinine Ratio 27.4 (10-20) Calcium Level 8.7 mg/dl (8.5-10.1) Total Bilirubin 0.6 mg/dl (0.2-1) Aspartate Amino Transf (AST/SGOT) 34 U/L (15-37) Alanine Aminotransferase (ALT/SGPT) 55 U/L (12-78) Alkaline Phosphatase 88 U/L (45-117) Troponin I 0.022 ng/ml (0-0.045) Total Protein 8.1 gm/dl (6.4-8.2) Albumin 3.5 gm/dl (3.4-5.0) Globulin 4.6 gm/dl (2.5-4.0) Albumin/Globulin Ratio 0.8 (0.9-2) Bedside Hemoglobin 14.6 g/dl (14.0-18.0) Bedside Hematocrit 43 % (42-52) Bedside Sodium 139 mEq/L (135-144) Bedside Potassium 4.1 mEq/L (3.3-5.0) Bedside Chloride 100 mEq/L (101-112) Bedside Total CO2 28 mEq/l (24-31) Anion Gap 16.0 mmol/L (16-25) Bedside Blood Urea Nitrogen 43 mg/dl (7-18) Bedside Creatinine 1.5 mg/dl (0.6-1.3) Bedside Glucose (other) 186 mg/dl (70-99) Bedside Ionized Calcium (Estela) 1.18 mmol/l (1.12-1.32) Urine Color YELLOW Urine Appearance CLEAR (CLEAR) Urine pH 5.5 (4.5-7.5) Urine Specific [place] 1.020 (1.000-1.030) Urine Protein 2+ (NEG) Urine Glucose (UA) NEG (NEG) Urine Ketones NEG (NEG) Urine Occult Blood NEG (NEG) Urine Nitrite NEG (NEG) Urine Bilirubin NEG (NEG) Urine Urobilinogen NEG (NEG) Urine Leukocyte Esterase NEG (NEG) Urine WBC (Auto) 1-5 /hpf (0-5) Urine RBC (Auto) 0-4 /hpf (0-4) Urine Hyaline Casts (Auto) 1-5 /lpf (0-5) Urine Epithelial Cells (Auto) 5-10 /lpf (0-5) Urine Bacteria (Auto) NEG (NEG) Medications Administered Medications (Trade) Dose Ordered Sig/Alexa Route Start Time Stop Time Status Last Admin Dose Admin Clopidogrel Bisulfate (plAVix TAB) 75 mg NOW ONCE PO 05/08/17 18:15 05/08/17 18:19 DC 05/08/17 19:23 75 MG Procedure The patient was monitored on a cardiac monitor technician. They maintained a normal sinus rhythm without ectopy. ECG Indication: other Rate (beats per minute): 75 Rhythm: normal sinus Findings: nonspecific-ST abn Change: no significant change ED Course The patient was seen and examined. Previous visits were reviewed. The patient did not have a fever or leukocytosis. He does not have any significant electrolyte abnormality. His BUN/creatinine creatinine are elevated at 44 and 1.6, respectively. This is similar compared to previous. INR was 1.0. Urinalysis was negative. Chest x-ray does not reveal any acute abnormality and does reveal improving pulmonary vascular congestion CT scan of the brain without contrast was obtained and reveals a 1 cm hypodensity suggesting subacute to chronic lacunar infarct; given the patient's renal insufficiency, iodinated contrast media was not used Ultrasound of the carotid arteries reveals atherosclerotic plaque with no significant stenosis The patient presents to the emergency department at the request of his hair and makeup designer for retinal artery occlusion. The patient is largely asymptomatic and was following up with optometry and a routine basis. An additional finding of a possible subacute to acute lacunar infarct was noted on CT scan of the brain. Given these findings, the patient would benefit from further evaluation and management in the hospital. The case was discussed with the hospitalist service and they will evaluate the patient. The patient was also seen and examined by Dr. Slaughter who agrees with the assessment and treatment plan. Medication Reconciliation: I attest that I have personally reviewed the patient' s current medication list. Blood pressure screening: The patient was found to have normal blood pressure on screening and does not require follow-up Medical Decision The differential diagnosis includes CVA, TIA, carotid stenosis, myocardial infarction, among others Impression Primary Impression: Retinal artery occlusion Additional Impression: Subacute lacunar infarct Departure Information Dispostion Admitted as an inpatient Condition GOOD Referrals Malena John C.R.NVinod. (PCP) Patient Instructions My [facility] Problem Qualifiers
--- NOTE | 2017-05-08 13:40 | EMERGENCY ROOM VISIT NOTE ---
ED Visit Note First contact with patient: 13:06 This Patient was discussed with the physician assurance assistant, Evelyn Gaviria PA-C. The pertinent historical and physical exam findings were confirmed. I agree with the studies ordered and with the interpretations of these studies. I agree with the disposition and care plan.
--- NOTE | 2017-05-08 13:44 | DIAGNOSTIC IMAGING REPORT ---
CHEST ONE VIEW PORTABLE CLINICAL HISTORY: retinal artery occlusion COMPARISON STUDY: 5-17 FINDINGS: There are postsurgical changes of a midline sternotomy. The heart is mildly enlarged. There are small bilateral pleural effusions. There is resolving congestive failure. There are chronic nodular interstitial basilar opacities.[ IMPRESSION: 1. Chronic nodular and interstitial basilar opacities 2. Small bilateral pleural effusions 3. Resolving pulmonary vascular congestion Electronically signed by: Gomez Robertson M.D. 05/08/2017 1:43 PM Dictated Date/Time: 05/08/2017 1:41 PM
[2017-05-08 13:50] LABS: BASO % 0.6 %; BASO ABS # 0.06 K/uL (0-0.2); COMPLETE YES; EOS % 6.6 %; HEMATOCRIT 41.7 % (42-52); IG% 0.9 %; LYMPH % 18.8 %; LYMPH ABS # 1.91 K/uL (1.2-3.4); MEAN CELL VOLUME 90.1 fL (80-100); MEAN CORPUSCULAR HEMOGLOBIN 29.4 pg (25-34); MEAN CORPUSCULAR HGB CONC 32.6 g/dl (32-36); MEAN PLATELET VOLUME 10.3 fL (7.4-10.4); MONO % 5.6 %; NEUT % 67.5 %; PLATELET COUNT 175 K/uL (130-400); RED BLOOD COUNT 4.63 M/uL (4.7-6.1); WHITE BLOOD COUNT 10.15 K/uL (4.8-10.8)
[2017-05-08 13:53] LABS: ISTAT CREATININE 1.5 mg/dl (0.6-1.3); ISTAT HEMOGLOBIN 14.6 g/dl (14.0-18.0); ISTAT IONIZED CALCIUM 1.18 mmol/l (1.12-1.32)
[2017-05-08 14:07] LABS: PROTHROMBIN TIME (PATIENT) 11.1 SECONDS (9.0-12.0)
[2017-05-08 14:13] LABS: ALT/SGPT 55 U/L (12-78); AST/SGOT 34 U/L (15-37); BLOOD UREA NITROGEN 44 mg/dl (7-18); BUN/CREATININE RATIO 27.4 (10-20); CALCIUM 8.7 mg/dl (8.5-10.1); CARBON DIOXIDE 29 mmol/L (21-32); CHLORIDE 102 mmol/L (98-107); GLUCOSE 175 mg/dl (70-99); SODIUM 140 mmol/L (136-145)
[2017-05-08 14:17] LABS: ALB/GLOB RATIO 0.8 (0.9-2); ALKALINE PHOSPHATASE 88 U/L (45-117)
--- NOTE | 2017-05-08 14:50 | DIAGNOSTIC IMAGING REPORT ---
CT OF THE HEAD WITHOUT CONTRAST CLINICAL HISTORY: Possible retinal artery occlusion. COMPARISON STUDY: No previous studies for comparison. CT DOSE: 537.48 mGy.cm TECHNIQUE: Helical axial images of the head were obtained without IV contrast. Automated exposure control was utilized for the study. FINDINGS: No acute intracranial hemorrhage, midline shift or mass effect is present. Mild ventricular dilatation is likely due to central atrophy. The basilar cisterns are patent. There are no extra axial collections. A 1 cm hypodensity within the left centrum semiovale is noted. There are no CT findings to suggest acute dural sinus thrombosis or acute territorial infarct. A small amount of fluid within the right mastoid air cells is noted. There are no significant calvarial abnormalities. There is mild mucosal thickening of the sinuses. IMPRESSION: 1. No acute intracranial hemorrhage or mass effect. 2. 1 cm hypodensity within the left centrum semiovale. This likely reflects small vessel disease or a subacute to chronic lacunar infarct. Electronically signed by: Quang Lawton M.D. 05/08/2017 2:48 PM Dictated Date/Time: 05/08/2017 2:45 PM
--- NOTE | 2017-05-08 16:31 | DIAGNOSTIC IMAGING REPORT ---
CAROTID ARTERY ULTRASOUND CLINICAL HISTORY: Possible retinal artery occlusion COMPARISON STUDY: None. TECHNIQUE: Real-time, grayscale, and color Doppler sonography of the carotid and vertebral arteries was performed. Images were viewed in the transverse and longitudinal planes. FINDINGS: This exam was mildly compromised due to suboptimal penetration. There is extensive atherosclerotic plaque. Velocity measurements are listed below. COMMON CAROTID PEAK SYSTOLIC VELOCITY (CM/S): RIGHT 68 LEFT 55 ICA PEAK SYSTOLIC VELOCITY (CM/S): RIGHT 58 LEFT 61 Systolic ratios between the internal to common carotid arteries are normal. Antegrade flow is seen in the vertebral arteries. The external carotid arteries are patent. Blood pressure in the right arm measured 116/72. Blood pressure in the left arm measured 125/74. IMPRESSION: Extensive atherosclerotic plaque within the bilateral common carotid and internal carotid arteries without sonographic evidence of a hemodynamically significant stenosis. Study mildly compromised by suboptimal penetration. Electronically signed by: Quang Lawton M.D. 05/08/2017 4:29 PM Dictated Date/Time: 05/08/2017 4:27 PM
[2017-05-08 17:16] LABS: URINE APPEARANCE CLEAR (CLEAR); URINE BILIRUBIN NEG (NEG); URINE COLOR YELLOW; URINE NITRITE NEG (NEG); URINE PH 5.5 (4.5-7.5); UROBILINOGEN NEG (NEG); ZZUR CULT IF INDIC CLEAN CATCH NO
--- NOTE | 2017-05-08 17:17 | History and Physical ---
History & Physical Date & Time of Service: May 08, 2017 at 17:08 Chief Complaint: Need To Have Arteries In Neck Check-Referred By Primary Care Physician: Malena John C.R.N.P. History of Present Illness Source: patient Recently discharged from hospital mid March for acute CHF exacerbation. This has been well controlled since discharge. Noticed slight blurry vision for the last 2 weeks, particularly in the mornings. No eye pain, no redness in the eye, no discharge, no issues with EOM. No transient or permanent loss of vision in either eye Had his regular scheduled visit with Dr. Yady Robles, for his 6-monthly eye check since patient is diabetic. Dr. Robles noted right retinal artery occlusion and referred him to hospital for carotid assessment. Patient denies headaches, facial drooping or slurred speech, and no localized weakness. Able to ambulate with out issue. Denies lightheadedness/dizziness, no syncope or pre-syncopal episodes. No facial or ocular trauma. No history of stoke in self or family Past Medical/Surgical History Medical Problems: (1) Benign hypertension Status: Chronic (2) Coronary artery bypass grafts x 4 Status: Resolved (3) Diabetes mellitus Status: Chronic (4) Pleural effusion Status: Resolved (5) Pneumonia Status: Resolved (6) Thoracentesis Status: Resolved (7) Total replacement of hip Status: Resolved Family History Father had DC Maternal and paternal grandmothers both had diabetes. Brother has diabetes Social History Smoking Status: Former Smoker (Ex smoker of 30 years - 1 pack a week for 20 years.) Smokeless Tobacco Use: No Alcohol Use: occasionally (1 sitting per week with ~6drinks per sitting) Drug Use: none Housing status: lives alone Occupational Status: unemployed Immunizations History of Influenza Vaccine: No History of Tetanus Vaccine?: Yes History of Pneumococcal: Yes History of Hepatitis B Vaccine: Unknown Multi-Drug Resistant Organisms History of MDRO: No Allergies Coded Allergies: No Known Allergies (Verified , 05/08/17) Home Medications Scheduled Amlodipine Besylate (Norvasc), 2.5 MG PO DAILY Aspirin (Aspirin EC Low Dose), 81 MG PO DAILY Atorvastatin (Lipitor), 80 MG PO DAILY Bumetanide (Bumex), 4 MG PO DAILY Glipizide (Glipizide Er), 5 MG PO DAILY Insulin Glargine (Lantus), 30 UNITS SC QPM Insulin Lispro (Human) (Humalog), UNITS SQ UD Metoprolol Tartrate (Lopressor) (Lopressor), 25 MG PO BID Multivitamin (Multivitamin), 1 TAB PO DAILY Scheduled PRN Ipratropium-Albuterol (Duoneb), 3 ML INH QID PRN for SOB/Wheezing Review of Systems Constitutional: + weight loss (from diuresis), + fatigue, No fever, No chills, No sweats, No weakness Eyes: No worsening of vision, No eye pain, No redness, No discharge, No diplopia ENT: + nasal symptoms (from supplemental oxygen), No hearing loss, No unusual epistaxis, No sore throat, No tinnitus, No dental problems, No trouble swallowing Respiratory: + cough, + sputum, + dyspnea on exertion (secondary to CHF), No wheezing, No dyspnea at rest, No hemoptysis Cardiovascular: + edema, No chest pain, No orthopnea, No PND, No claudication, No palpitations Abdomen: No pain, No nausea, No vomiting, No diarrhea, No constipation, No GI bleeding Musculoskeletal: + joint pain (longstanding), + swelling, No muscle pain, No calf pain Genitourinary - Male: + problem reported (nocturia twice nightly), No hematuria , No dysuria Neurologic: + numbness/tingling (neuropathy 2/2 diabetes), No paralysis, No weakness, No vertigo, No balance problems Integumentary: No rash, No itch Allergic / Immunologic: No environmental allergies, No seasonal allergies, No pet sensitivities, No food allergies Physical Exam Vital Signs Date Time Temp Pulse Resp B/P (MAP) Pulse Ox O2 Delivery O2 Flow Rate FiO2 05/08/17 16:49 79 20 142/71 96 Nasal Cannula 3.5 05/08/17 13:43 77 18 136/66 05/08/17 13:31 76 05/08/17 12:39 37.0 77 22 127/69 92 Nasal Cannula 3.0 General Appearance: WD/WN, no apparent distress Head: normocephalic, atraumatic Eyes: normal inspection, PERRL, EOMI, sclerae normal ENT: hearing grossly normal, TMs normal, pharynx normal Neck: supple, no adenopathy, thyroid normal, no JVD Respiratory/Chest: normal breath sounds, no respiratory distress, no accessory muscle use, + decreased breath sounds (at lung base) Cardiovascular: regular rate, rhythm, no murmur, normal peripheral pulses Abdomen/GI: normal bowel sounds, non tender, soft Back: normal inspection, no CVA tenderness Extremities/Musculoskelatal: no calf tenderness, normal capillary refill, + pedal edema Neurologic/Psych: boatswain mate II-XII nml as tested, no motor/sensory deficits, alert, normal mood/affect, oriented x 3 Skin: normal color, warm/dry, no rash Diagnostics Laboratory Results Results Past 24 Hours Test 05/08/17 13:30 05/08/17 13:35 05/08/17 16:50 Range/Units White Blood Count 10.15 4.8-10.8 K/uL Red Blood Count 4.63 4.7-6.1 M/uL Hemoglobin 13.6 14.0-18.0 g/dL Hematocrit 41.7 42-52 % Mean Corpuscular Volume 90.1 80-100 fL Mean Corpuscular Hemoglobin 29.4 25-34 pg Mean Corpuscular Hemoglobin Concent 32.6 32-36 g/dl Platelet Count 175 130-400 K/uL Mean Platelet Volume 10.3 7.4-10.4 fL Neutrophils (%) (Auto) 67.5 % Lymphocytes (%) (Auto) 18.8 % Monocytes (%) (Auto) 5.6 % Eosinophils (%) (Auto) 6.6 % Basophils (%) (Auto) 0.6 % Neutrophils # (Auto) 6.85 1.4-6.5 K/uL Lymphocytes # (Auto) 1.91 1.2-3.4 K/uL Monocytes # (Auto) 0.57 0.11-0.59 K/uL Eosinophils # (Auto) 0.67 0-0.5 K/uL Basophils # (Auto) 0.06 0-0.2 K/uL RDW Standard Deviation 52.5 36.4-46.3 fL RDW Coefficient of Variation 16.1 11.5-14.5 % Immature Granulocyte % (Auto) 0.9 % Immature Granulocyte # (Auto) 0.09 0.00-0.02 K/uL Prothrombin Time 11.1 9.0-12.0 SECONDS Prothromb Time International Ratio 1.0 0.9-1.1 Activated Partial Thromboplast Time 27.2 21.0-31.0 SECONDS Partial Thromboplastin Ratio 1.0 Sodium Level 140 136-145 mmol/L Potassium Level 4.0 3.5-5.1 mmol/L Chloride Level 102 98-107 mmol/L Carbon Dioxide Level 29 21-32 mmol/L Anion Gap 9.0 16.0 16-25 mmol/L Blood Urea Nitrogen 44 7-18 mg/dl Creatinine 1.60 0.60-1.40 mg/dl Estimated GFR () 50.2 Estimated GFR (Non- 43.3 BUN/Creatinine Ratio 27.4 10-20 Random Glucose 175 70-99 mg/dl Calcium Level 8.7 8.5-10.1 mg/dl Total Bilirubin 0.6 0.2-1 mg/dl Aspartate Amino Transf (AST/SGOT) 34 15-37 U/L Alanine Aminotransferase (ALT/SGPT) 55 12-78 U/L Alkaline Phosphatase 88 45-117 U/L Troponin I 0.022 0-0.045 ng/ml Total Protein 8.1 6.4-8.2 gm/dl Albumin 3.5 3.4-5.0 gm/dl Globulin 4.6 2.5-4.0 gm/dl Albumin/Globulin Ratio 0.8 0.9-2 Bedside Hemoglobin 14.6 14.0-18.0 g/dl Bedside Hematocrit 43 42-52 % Bedside Sodium 139 135-144 mEq/L Bedside Potassium 4.1 3.3-5.0 mEq/L Bedside Chloride 100 101-112 mEq/L Bedside Total CO2 28 24-31 mEq/l Bedside Blood Urea Nitrogen 43 7-18 mg/dl Bedside Creatinine 1.5 0.6-1.3 mg/dl Bedside Glucose (other) 186 70-99 mg/dl Bedside Ionized Calcium (Estela) 1.18 1.12-1.32 mmol/l Diagnostic Radiology CHEST ONE VIEW PORTABLE CLINICAL HISTORY: retinal artery occlusion COMPARISON STUDY: 04-16 FINDINGS: There are postsurgical changes of a midline sternotomy. The heart is mildly enlarged. There are small bilateral pleural effusions. There is resolving congestive failure. There are chronic nodular interstitial basilar opacities.[ IMPRESSION: 1. Chronic nodular and interstitial basilar opacities 2. Small bilateral pleural effusions 3. Resolving pulmonary vascular congestion CT OF THE HEAD WITHOUT CONTRAST CLINICAL HISTORY: Possible retinal artery occlusion. COMPARISON STUDY: No previous studies for comparison. CT DOSE: 537.48 mGy.cm TECHNIQUE: Helical axial images of the head were obtained without IV contrast. Automated exposure control was utilized for the study. FINDINGS: No acute intracranial hemorrhage, midline shift or mass effect is present. Mild ventricular dilatation is likely due to central atrophy. The basilar cisterns are patent. There are no extra axial collections. A 1 cm hypodensity within the left centrum semiovale is noted. There are no CT findings to suggest acute dural sinus thrombosis or acute territorial infarct. A small amount of fluid within the right mastoid air cells is noted. There are no significant calvarial abnormalities. There is mild mucosal thickening of the sinuses. IMPRESSION: 1. No acute intracranial hemorrhage or mass effect. 2. 1 cm hypodensity within the left centrum semiovale. This likely reflects small vessel disease or a subacute to chronic lacunar infarct. CAROTID ARTERY ULTRASOUND CLINICAL HISTORY: Possible retinal artery occlusion COMPARISON STUDY: None. TECHNIQUE: Real-time, grayscale, and color Doppler sonography of the carotid and vertebral arteries was performed. Images were viewed in the transverse and longitudinal planes. FINDINGS: This exam was mildly compromised due to suboptimal penetration. There is extensive atherosclerotic plaque. Velocity measurements are listed below. COMMON CAROTID PEAK SYSTOLIC VELOCITY (CM/S): RIGHT 68 LEFT 55 ICA PEAK SYSTOLIC VELOCITY (CM/S): RIGHT 58 LEFT 61 Systolic ratios between the internal to common carotid arteries are normal. Antegrade flow is seen in the vertebral arteries. The external carotid arteries are patent. Blood pressure in the right arm measured 116/72. Blood pressure in the left arm measured 125/74. IMPRESSION: Extensive atherosclerotic plaque within the bilateral common carotid and internal carotid arteries without sonographic evidence of a hemodynamically significant stenosis. Study mildly compromised by suboptimal penetration. EKG Sinus rhythm with occasional Premature ventricular complexes Possible Inferior infarct (cited on or before 01-APR-2017) ST & T wave abnormality, consider lateral ischemia Abnormal ECG When compared with ECG of 01-APR-2017 11:24, T wave inversion now evident in Lateral leads Impression Assessment and Plan 71 year old male with DC s/p CABG, CHF, DM with neuropathy, HTN referred to hospital with right retinal artery occlusion for vascular assessment for thrombotic/embolic source Retinal artery occlusion - MRA head and neck, MRI brain, and echo ordered - Neuro/vascular checks q4h - Add clopidogrel 75mg CHF - Continue Bumex 4mg - Daily weights, strict I/O's, low salt diet - Monitor BMP Dyspnea - 2/2 to emphysematous lungs and/or resolving CHF exacerbation - Supplemental oxygen (since last admission), wean as tolerated - DuoNeb CAD - Continue aspirin 81mg + atorvastatin 80mg DM - Hold home meds - ISS with AC/HS BGS checks HTN - Continue amlodipine 2.5mg + metoprolol 25mg BID VTE PPx - Contraindicated Dispo - Telemetry FULL CODE Level of Care Telemetry Advanced Directives Existing Advance Directive: No Existing Living Will: No Resuscitation Status FULL RESUSCITATION VTE Prophylaxis VTE Risk Assessment Done? Y/N: Yes Risk Level: Moderate Given or contraindicated: Contraindicated Resident Tracking Resident Involvement: Resident Care Provided Care Provided: Adult Hospital Medicine Assessment and Plan Attending Addendum: I have physically seen and examined this patient, have supervised the medical insurance coder's activities, agree with the H&P as noted above with the following changes: NONE.
[2017-05-08 17:20] LABS: MANUAL MICROSCOPIC REQUIRED? NO; REVIEW REQ? NO
[2017-05-08] MEDS ORDERED: NITROGLYCERIN 0.4 MG SL PER TAB CHARGE SL PRN (18:00)
[2017-05-08] MEDS ORDERED: ALUMINUM/MAGNESIUM/SIMETH (MAALOX MAX) 30 ML UDC PO PRN (18:00)
[2017-05-08] MEDS ORDERED: POLYETHYLENE (MIRALAX) 17 GM PACK PO PRN (18:00)
[2017-05-08] MEDS ORDERED: ALBUT/IPRATROP 3MG/0.5MG NEB 3 ML VIAL INH PRN (18:00)
[2017-05-08] MEDS ORDERED: MAGNESIUM HYDROXIDE SUSP 30 ML UDC PO PRN (18:00)
[2017-05-08] MEDS ORDERED: ONDANSETRON INJ 2 MG/ML 2 ML VIAL IV PRN (18:00)
[2017-05-08] MEDS ORDERED: ACETAMINOPHEN 325 MG TAB PO PRN (18:00)
[2017-05-08] MEDS ORDERED: CLOPIDOGREL BISULFATE 75 MG TAB PO ONE (18:15)
[2017-05-08] MEDS ORDERED: LORAZEPAM 2 MG/ML 1 ML VIAL IV ONE ×2 (18:30→21:15)
[2017-05-08 18:57] VITALS: BP 146/80; PULSE 80; TEMP 36.6; O2SAT 91; Ht 175.3 cm; Wt 109.9 kg
[2017-05-08] MEDS ORDERED: GLUCOSE 40% GEL 15 GM TUBE PO PRN (19:15)
[2017-05-08] MEDS ORDERED: GLUCOSE 10 TABS/TUBE PO PRN (19:15)
[2017-05-08] MEDS ORDERED: GLUCAGON FOR INJ 1 MG VIAL SQ PRN (19:15)
[2017-05-08] MEDS ORDERED: IV FLUIDS COMPLETED PRN (19:30)
[2017-05-08] MEDS: METOPROLOL TARTRATE 25 MG TAB PO SCH (21:12)
[2017-05-08] MEDS: INSULIN ASPART 100 UNITS/ML 3 ML PEN SC SCH (21:19)
--- NOTE | 2017-05-08 22:25 | DIAGNOSTIC IMAGING REPORT ---
Brain MRA HISTORY: retinal artery occlusion TECHNIQUE: 3-D [id number] MRA of the brain was performed without contrast. COMPARISON STUDY: None. FINDINGS: Visualized intracranial internal carotid arteries, distal vertebral arteries, and basilar artery are widely patent. There is no significant stenosis, occlusion, or aneurysm seen within the bilateral ACAs, MCAs, or utility locate technician. Minimal scattered plaque formation throughout the anterior middle and posterior cerebral circulations. No significant stenotic process. IMPRESSION: No significant stenosis, occlusion, or aneurysm within the ute of Adames. Minimal/mild scattered atherosclerotic plaque formation with no significant stenotic process. Electronically signed by: Ulysses Mccartney M.D. 05/08/2017 10:24 PM Dictated Date/Time: 05/08/2017 10:21 PM
[2017-05-08] MEDS ORDERED: GADAVIST IV PRN (22:30)
[2017-05-08 23:52] VITALS: BP 123/72; PULSE 75; TEMP 36.4; O2SAT 95
[2017-05-09] VITALS (7 sets, daily range): BP systolic 111–131; BP diastolic 71–80; PULSE 66–79; TEMP 36.4–36.9; O2SAT 94–98
--- NOTE | 2017-05-09 06:40 | DIAGNOSTIC IMAGING REPORT ---
MRA OF THE NECK WITH AND WITHOUT CONTRAST CLINICAL HISTORY: Retinal artery occlusion. COMPARISON STUDY: Carotid ultrasound May 08, 2017. TECHNIQUE: Unenhanced and contrast-enhanced MRA of the neck was performed. Injection of 10 mL of Gadavist IV was uneventful. NASCET criteria were utilized to estimate the degree of carotid stenosis. FINDINGS: Moderate irregularity within the bilateral common carotid and internal carotid arteries is due to atherosclerosis. However, there is no hemodynamically significant stenosis within the bilateral common carotid or internal carotid arteries. Plaque is most evident within the proximal bilateral internal carotid arteries. The origin of the left vertebral artery is suboptimally assessed on this exam. There is no evidence for dissection within the major vasculature of the neck. A portion of the distal right vertebral artery was not imaged on this examination. IMPRESSION: 1. No evidence of a hemodynamically significant stenosis within the bilateral common carotid and internal carotid arteries. Moderate atherosclerotic plaque. 2. Suboptimal evaluation of the left vertebral artery origin. Electronically signed by: Quang Lawton M.D. 05/09/2017 6:39 AM Dictated Date/Time: 05/09/2017 6:35 AM
--- NOTE | 2017-05-09 07:25 | DIAGNOSTIC IMAGING REPORT ---
MRI OF THE BRAIN COMBO CLINICAL HISTORY: Retinal artery occlusion. COMPARISON STUDY: CT of the brain dated 05/08/2017. TECHNIQUE: MRI of the brain was performed utilizing various T1 and T2-weighted sequences in the axial, sagittal, and coronal planes. Contrast-enhanced sequences were acquired following the administration of 10 cc of Gadavist. FINDINGS: Brain parenchyma: There are age-related involutional changes noting mild patchy subcortical and periventricular microangiopathic disease. There is no hemorrhage or mass effect. There is no restricted diffusion to suggest acute ischemia. No enhancing mass lesion is identified on the postcontrast images. Jackson-white matter differentiation is preserved. No extra-axial fluid collection is seen. The cerebellar tonsils are normal in configuration. Ventricles, sulci, and cisterns: Prominent secondary to involutional change. Cavum septum pellucidum is incidentally noted. Pituitary and sella: Unremarkable. Intracranial vasculature: Normal flow voids are maintained at the skull base. Orbits: The bony orbits are grossly intact. Orbital contents are normal in appearance. Sinuses and mastoids: There is a small right mastoid effusion. The left mastoid air cells are clear. Mild mucosal thickening is seen within the right ethmoid sinuses. The remaining paranasal sinuses are clear. Calvarium: Unremarkable. Cervical cord: Partially visualized cervical spinal cord is normal in morphology and signal intensity. IMPRESSION: Age-related changes as above. There is no hemorrhage, enhancing mass, or evidence of acute ischemia. Electronically signed by: Livan Padgett M.D. 05/09/2017 7:24 AM Dictated Date/Time: 05/09/2017 7:20 AM
[2017-05-09] MEDS: ASPIRIN 81 MG ECTAB PO SCH (07:48)
[2017-05-09] MEDS: BUMETANIDE 1 MG TAB PO SCH (07:49)
[2017-05-09] MEDS: ATORVASTATIN 40 MG TAB PO SCH (07:50)
[2017-05-09] MEDS: CLOPIDOGREL BISULFATE 75 MG TAB PO SCH (07:50)
[2017-05-09] MEDS: MULTIVITAMIN TAB PO SCH (07:50)
[2017-05-09] MEDS: AMLODIPINE BESYLATE 5 MG TAB PO SCH (07:50)
[2017-05-09] MEDS: METOPROLOL TARTRATE 25 MG TAB PO SCH ×2 (07:50→21:17)
[2017-05-09] MEDS: INSULIN ASPART 100 UNITS/ML 3 ML PEN SC SCH ×4 (07:55→21:18)
--- NOTE | 2017-05-09 08:30 | Clinical Documentation Query ---
CLINICAL DOCUMENTATION QUERY 71 year old male who presents to the Emergency Room with right retinal artery occlusion. Query #1/2 In your clinical opinion is this patient being managed for: (x ) Chronic diastolic/preserved EF heart failure ( ) Other explanation of clinical findings (Please Explain) ( ) Unable to determine (Please Define) ( ) Need to Discuss ( ) Not Agree The medical record reflects the following clinical findings, treatment, and risk factors. Clinical Indicators: recent inpatient rx of acute CHF per H&P. Treatment: Bumex, Norvasc, Lopressor, I/O's, daily weights, Risk Factors: Age, HTN, and presumed CKD. Query #2/2 In your clinical opinion is this patient being managed for: ( x ) Chronic kidney disease, stage 3 (moderate) ( ) Other explanation of clinical findings (Please Explain) ( ) Unable to determine (Please Define) ( ) Need to Discuss ( ) Not Agree The medical record reflects the following clinical findings, treatment, and risk factors. Clinical Indicators: BUN 44, Creatinine 1.60, GFR 43.3 Treatment: Bumex, Norvasc, Lopressor, daily PRP's Risk Factors: Age, HTN, diabetes, Please clarify and document your clinical opinion in the progress notes and discharge summary. Terms such as "probable", "suspected", "likely", "questionable", "possible", or "still to be ruled out" are acceptable. IF IN AGREEMENT, YOU MUST DOCUMENT ABOVE DIAGNOSTIC STATEMENT IN DAILY PROGRESS NOTES AND DISCHARGE SUMMARY. This document is not part of the patient's record. Chronic Kidney Disease (CKD), stages 1-5. Documenting the stage of CKD will improve data integrity and will help clarify vague terms such as "renal insufficiency" or "chronic renal failure." The stages of CKD according to the [employer] are as follows: Stage I: GFR >90 Stage II: GFR 60-89 Stage III: GFR 30-59 Stage IV: GFR 15-29 Stage V: GFR <15 Thank You, Fito Kuhn, RN [phone]
[2017-05-09 09:03] LABS: ALB/GLOB RATIO 0.7 (0.9-2); BUN/CREATININE RATIO 24.1 (10-20); CREATININE 1.5 mg/dl (0.60-1.40); POTASSIUM 4.1 mmol/L (3.5-5.1)
[2017-05-09 09:08] LABS: MEAN CELL VOLUME 90.9 fL (80-100); MEAN CORPUSCULAR HEMOGLOBIN 29.1 pg (25-34); PLATELET COUNT 174 K/uL (130-400); RED BLOOD COUNT 4.84 M/uL (4.7-6.1); WHITE BLOOD COUNT 9.65 K/uL (4.8-10.8)
[2017-05-09 09:37] LABS: CALCIUM 9.1 mg/dl (8.5-10.1)
--- NOTE | 2017-05-09 14:16 | ECHOCARDIOGRAM REPORT ---
*NOTICE TO RECEIVING DEMOCRAT AGENCY This information is strictly Confidential and protected under [place] law. [place] law prohibits you from making any further disclosure of this information unless further disclosure is expressly permitted by the written consent of the person to whom it pertains or is authorized by law. A general authorization for the release of medical or other information is not sufficient for this purpose. Hospital accepts no responsibility if the information is made available to any other person, INCLUDING THE PATIENT. Interpretation Summary * Name: SUSAN CANTOR Study Date: 05/09/2017 06:21 AM BP: 131/80 mmHg * Patient Location: C.2T\S\S238\S\2 HR: 69 * : 1945 (M/d/yyyy) Gender: Male Height: 69 in * Age: 71 yrs Ethnicity: CA Weight: 264 lb * Ordering Physician: Rosalia Verma. * Referring Physician: Malena John * Performed By: Elma Harmon RCS * * Reason For Study: RETINAL ARTERY OCCLUSION * BSA: 2.3 m2 * Technically difficult study. * Normal left ventricular size. Mild concentric left ventricular hypertrophy. Type 2 left ventricular diastolic dysfunction. Low normal overall LV systolic function. * Moderate left atrial dilatation. * Mild mitral regurgitation. * Aortic valve sclerosis without significant stenosis on 2D imaging. Doppler exam of the aortic valve was not performed. * No cardiac source of emboli was noted on the study. Procedure Details * A complete two-dimensional transthoracic echocardiogram was performed (2D, M-mode, Doppler and color flow Doppler). Left Ventricle * The left ventricle is normal in size. * There is no thrombus. * There is mild concentric left ventricular hypertrophy. * Ejection Fraction = 50-55%. * Left ventricular systolic function is low normal. * A full diastolic examination was done with clinical findings of Class II diastolic dysfunction. * No regional wall motion abnormalities noted. Right Ventricle * The right ventricle is normal in size and function. Atria * The left atrium is moderately dilated. * Right atrial size is normal. * No ASD detected; PFO is not assessed. Mitral Valve * There is mild mitral annular calcification. * There is no mitral valve stenosis. * There is mild mitral regurgitation. Tricuspid Valve * The tricuspid valve is not well visualized. * Significant tricuspid regurgitation is absent. Aortic Valve * The aortic valve is trileaflet. * The aortic valve is calcified. On 2 D imaging it appears to have decreased but adequate opening. * Doppler exam of AV not performed. * No aortic regurgitation is present. Pulmonic Valve * The pulmonic valve is not well visualized. * The pulmonary valve is inadequately visualized, but the Doppler data is adequate for interpretation. * There is no pulmonic valvular stenosis. * There is no significant pulmonary regurgitation. Great Vessels * The aortic root is normal size. Pericardium/Pleural * There is no pericardial effusion. Great Vessels * The inferior vena cava is mildly dilated. MMode 2D Measurements and Calculations IVSd 1.4 cm IVSs 1.5 cm LVIDd 3.9 cm LVIDs 2.9 cm LVPWd 1.4 cm LVPWs 1.7 cm IVS/LVPW 0.98 FS 27.0 % EDV(Teich) 66.9 ml ESV(Teich) 31.3 ml EF(Teich) 53.2 % EDV(cubed) 60.4 ml ESV(cubed) 23.5 ml EF(cubed) 61.0 % % IVS thick 5.1 % % LVPW thick 17.9 % LV mass(C)d 211.3 grams LV mass(C)dI 90.9 grams/m\S\2 LV mass(C)s 166.9 grams LV mass(C)sI 71.8 grams/m\S\2 SV(Teich) 35.6 ml SI(Teich) 15.3 ml/m\S\2 SV(cubed) 36.9 ml SI(cubed) 15.9 ml/m\S\2 Ao root diam 3.2 cm Ao root area 8.0 cm\S\2 ACS 1.4 cm LA dimension 5.2 cm LA/Ao 1.6 LVOT diam 2.0 cm LVOT area 3.1 cm\S\2 LVAd ap4 39.5 cm\S\2 LVLd ap4 8.7 cm EDV(MOD-sp4) 147.5 ml EDV(sp4-el) 151.9 ml LVAs ap4 27.5 cm\S\2 LVLs ap4 7.8 cm ESV(MOD-sp4) 81.7 ml ESV(sp4-el) 82.0 ml EF(MOD-sp4) 44.6 % EF(sp4-el) 46.0 % LVAd ap2 34.1 cm\S\2 LVLd ap2 8.4 cm EDV(MOD-sp2) 111.6 ml EDV(sp2-el) 118.2 ml LVAs ap2 21.8 cm\S\2 LVLs ap2 7.7 cm ESV(MOD-sp2) 51.8 ml ESV(sp2-el) 52.0 ml EF(MOD-sp2) 53.6 % EF(sp2-el) 56.0 % LVLd %diff -4.16 % EDV(MOD-bp) 129.3 ml LVLs %diff -1.04 % ESV(MOD-bp) 64.5 ml EF(MOD-bp) 50.1 % SV(MOD-sp4) 65.8 ml SI(MOD-sp4) 28.3 ml/m\S\2 SV(MOD-sp2) 59.8 ml SI(MOD-sp2) 25.7 ml/m\S\2 SV(MOD-bp) 64.8 ml SI(MOD-bp) 27.9 ml/m\S\2 SV(sp4-el) 69.9 ml SI(sp4-el) 30.1 ml/m\S\2 SV(sp2-el) 66.2 ml SI(sp2-el) 28.5 ml/m\S\2 Doppler Measurements and Calculations MV E max mannie 70.3 cm/sec MV A max mannie 33.7 cm/sec MV E/A 2.1 MV P1/2t max mannie 93.0 cm/sec MV P1/2t 54.2 msec MVA(P1/2t) 4.1 cm\S\2 MV dec slope 502.1 cm/sec\S\2 MV dec time 0.22 sec MR max mannie 375.5 cm/sec MR max PG 56.4 mmHg PA V2 max 57.7 cm/sec PA max PG 1.3 mmHg TR max mannie 186.0 cm/sec
[2017-05-09] MEDS ORDERED: PHARMACIST DISCHARGE MED REC CONSULT PRN (16:15)
--- NOTE | 2017-05-09 19:37 | Family Medicine Progress Note ---
Progress Note Date of Service May 09, 2017. Subjective Pt evaluation today including: conversation w/ patient, physical exam, chart review, lab review Pain: None PO Intake: Good Voiding: no voiding problems Doing well at this time No issues overnight since admission Has chronic leg swelling for the past 1 month but has gotten much better since being discharged for CHF States that he gets blurry vision in the morning but this usually resolves a few minute after getting up; this is long-standing for many years No eye pain, no diplopia, no blurred vision Additional Comments: A 10 point review of systems was negative unless stated above. Medications Current Inpatient Medications Medications (Trade) Dose Ordered Sig/Alexa Route Start Time Stop Time Status Last Admin Dose Admin Acetaminophen (Tylenol Tab) 650 mg Q4H PRN PO 05/08/17 18:00 06/07/17 17:59 Al Hydrox/Mg Hydrox/Simethicone (Maalox Max Susp) 15 ml Q4H PRN PO 05/08/17 18:00 06/07/17 17:59 Magnesium Hydroxide (Milk Of Magnesia Susp) 30 ml Q12H PRN PO 05/08/17 18:00 06/07/17 17:59 Ondansetron HCl (Zofran Inj) 4 mg Q6H PRN IV 05/08/17 18:00 06/07/17 17:59 Nitroglycerin (Nitrostat Tab) 0.4 mg UD PRN SL 05/08/17 18:00 06/07/17 17:59 Polyethylene (Miralax Powder Packet) 17 gm DAILY PRN PO 05/08/17 18:00 06/07/17 17:59 Amlodipine Besylate (Norvasc Tab) 2.5 mg DAILY PO 05/09/17 09:00 06/08/17 08:59 05/09/17 07:50 2.5 MG Aspirin (Ecotrin Tab) 81 mg DAILY PO 05/09/17 09:00 06/08/17 08:59 Atorvastatin Calcium (Lipitor Tab) 80 mg DAILY PO 05/09/17 09:00 06/08/17 08:59 05/09/17 07:50 80 MG Bumetanide (Bumex Tab) 4 mg DAILY PO 05/09/17 09:00 06/08/17 08:59 05/09/17 07:49 4 MG Albuterol/ Ipratropium (Duoneb) 3 ml QID PRN INH 05/08/17 18:00 06/07/17 17:59 Metoprolol Tartrate (Lopressor Tab) 25 mg BID PO 05/08/17 21:00 06/07/17 20:59 05/09/17 07:50 25 MG Multivitamins (Multivitamin Tab) 1 tab DAILY PO 05/09/17 09:00 06/08/17 08:59 05/09/17 07:50 1 TAB Glucagon (Glucagon Inj) 1 mg UD PRN SQ 05/08/17 19:15 06/07/17 19:14 Glucose (Glucose 40% Gel) UD PRN PO 05/08/17 19:15 06/07/17 19:14 Glucose (Glucose Chew Tab) 1 tabs UD PRN PO 05/08/17 19:15 06/07/17 19:14 Insulin Aspart (novoLOG ASPART) SLIDING SCALE If C... ACHS SC 05/08/17 21:00 06/07/17 20:59 05/09/17 17:17 5 UNITS Clopidogrel Bisulfate (plAVix TAB) 75 mg QAM PO 05/09/17 09:00 06/08/17 08:59 05/09/17 07:50 75 MG Miscellaneous (Iv Fluids Completed) 1 ea PRN PRN N/A 05/08/17 19:30 05/08/18 19:29 Gadobutrol (Gadavist) 10 mmol UD PRN IV 05/08/17 22:30 05/12/17 22:29 Miscellaneous Information (Pharmacist Discharge Med Rec Consult) 1 ea UD PRN N/A 05/09/17 16:15 06/08/17 16:14 Objective Vital Signs Date Time Temp Pulse Resp B/P (MAP) Pulse Ox O2 Delivery O2 Flow Rate FiO2 05/09/17 19:21 36.9 75 22 131/71 (91) 98 Nasal Cannula 3.0 05/09/17 16:00 Nasal Cannula 2.0 05/09/17 15:54 36.5 68 18 120/72 (88) 94 Nasal Cannula 3.0 05/09/17 12:00 Nasal Cannula 2.0 05/09/17 11:24 36.4 66 19 118/71 (87) 98 Nasal Cannula 2.0 05/09/17 08:00 Nasal Cannula 2.0 05/09/17 07:43 36.6 70 18 131/80 (97) 94 Room Air 05/09/17 04:13 36.5 68 18 111/72 (85) 95 Nasal Cannula 05/09/17 04:00 Room Air 05/09/17 00:00 Room Air 05/08/17 23:52 36.4 75 18 123/72 (89) 95 Nasal Cannula Physical Exam General Appearance: WD/WN, no apparent distress Eyes: normal inspection, EOMI ENT: hearing grossly normal, pharynx normal Neck: supple, no adenopathy, no JVD Respiratory/Chest: lungs clear, no respiratory distress Cardiovascular: regular rate, rhythm, no gallop, no murmur Abdomen: normal bowel sounds, non tender, soft Extremities: non-tender, no pedal edema Neurologic/Psychiatric: alert, normal mood/affect, oriented x 3 Skin: normal color, warm/dry, no rash Lymphatic: no adenopathy Laboratory Results Last 24 Hours Test 05/08/17 20:52 05/09/17 06:49 05/09/17 08:17 05/09/17 11:16 Bedside Glucose 99 mg/dl 73 mg/dl 146 mg/dl White Blood Count 9.65 K/uL Red Blood Count 4.84 M/uL Hemoglobin 14.1 g/dL Hematocrit 44.0 % Mean Corpuscular Volume 90.9 fL Mean Corpuscular Hemoglobin 29.1 pg Mean Corpuscular Hemoglobin Concent 32.0 g/dl RDW Standard Deviation 53.9 fL RDW Coefficient of Variation 16.0 % Platelet Count 174 K/uL Mean Platelet Volume 10.0 fL Sodium Level 139 mmol/L Potassium Level 4.1 mmol/L Chloride Level 101 mmol/L Carbon Dioxide Level 29 mmol/L Anion Gap 9.0 mmol/L Blood Urea Nitrogen 36 mg/dl Creatinine 1.50 mg/dl Est Creatinine Clear Calc Drug Dose 56.8 ml/min Estimated GFR () 54.3 Estimated GFR (Non- 46.8 BUN/Creatinine Ratio 24.1 Random Glucose 147 mg/dl Calcium Level 9.1 mg/dl Total Bilirubin 0.6 mg/dl Aspartate Amino Transf (AST/SGOT) 37 U/L Alanine Aminotransferase (ALT/SGPT) 49 U/L Alkaline Phosphatase 81 U/L Total Protein 8.0 gm/dl Albumin 3.4 gm/dl Globulin 4.6 gm/dl Albumin/Globulin Ratio 0.7 Chemistry Specimen Hemolysis Test 05/09/17 16:06 Bedside Glucose 148 mg/dl Assessment and Plan 71 year old male with multiple vascular risk factors including DM, and HTN with history of cardiovascular sequelae including CABG and CHF presenting for evaluation for retinal artery occlusion. Our plan for him is as follows: Retinal artery occlusion - Patient reports no symptoms today, feels well, no other focal neurological symptoms - MRA head shows scattered atheroma; Brain MRI negative; Carotid US shows bilateral plaque without evidence of significant stenosis - Echocardiogram negative for thrombus - Continue ASA and Plavix - Neurology consulted for further recommendations Chronic Diastolic CHF - Currently euvolemic - Grade II Diastolic Dysfunction; EF 50-55% - Continue Bumex 4mg - Daily Intake and output monitoring with weights Coronary Artery Disease - Continue ASA 81 mg - Atorvastatin 80 mg - Continue amlodipine and Metoprolol Type 2 Diabetes - Continue Insulin sliding scale DVT prophylaxis - CT scan negative for bleed - Can start Heparin 5000 TID - SCD Code Status - Level I Dispo - Telemetry Resident Physician Supervision Note: I was present with PGY2 Dr. Jonathon Apodaca during the history and exam. I discussed the case with the resident and agree with the findings and plan as documented in the note. Any exceptions or clarifications are listed here: none. Pt w/o complaints of blurred vision, eye pain, etc during my visit. Tele normal overnight. Denies headaches. VSS no fever gen - nad head - no pain over either temporal artery; no bruits over either temporal artery neck - no JVD; no bruits heart - RRR, s1, s2 lungs - CTA b/l abd - soft, NT ext - 1+ edema b/l skin - stasis dermatitis b/l shins Cr 1.5 MRI head, MRA head/neck, carotid duplex - all reviewed plaque in both carotids but no ICA stenosis echo w/o thrombus A/P: 1. right-sided retinal artery occlusion - embolic etiology thus far not found. No symptoms/signs of temporal arteritis. Aggressive risk factor mod - lipids, DM, HTN, etc. Defer antiplatelet agent to neuro - formally consulted for am. For completeness sake check ESR in am. Lipids in am. 2. stasis dermatitis - triamcinolone cream 0.1% TID with eucerin cream TID. 3. chronic diastolic CHF - compensated. pending any further neuro recs likely d/c tomorrow leave on tele Documented By: Vishal Palma MD
[2017-05-09] MEDS: HEPARIN SOD 5000 UNIT/0.5 ML CARP SQ SCH (21:19)
[2017-05-09] MEDS: EUCERIN CR 120 GM JAR EXT SCH (21:33)
[2017-05-09] MEDS: TRIAMCINOLONE ACET 0.1% CR 15 GM TUBE EXT SCH (21:33)
[2017-05-10 04:30] VITALS: BP 114/75; PULSE 70; TEMP 36.5; O2SAT 96
[2017-05-10] MEDS: HEPARIN SOD 5000 UNIT/0.5 ML CARP SQ SCH (05:39)
[2017-05-10 07:18] LABS: BUN/CREATININE RATIO 25.7 (10-20); CALCIUM 8.7 mg/dl (8.5-10.1); CREATININE 1.8 mg/dl (0.60-1.40); POTASSIUM 3.8 mmol/L (3.5-5.1)
[2017-05-10 07:58] VITALS: BP 127/80; PULSE 72; TEMP 36.6; O2SAT 98
[2017-05-10 08:29] LABS: ESTIMATED AVERAGE GLUCOSE 203 mg/dl; HA1C FLAG Normal (Normal)
[2017-05-10] MEDS: MULTIVITAMIN TAB PO SCH (08:29)
[2017-05-10] MEDS: ATORVASTATIN 40 MG TAB PO SCH (08:30)
[2017-05-10] MEDS: CLOPIDOGREL BISULFATE 75 MG TAB PO SCH (08:30)
[2017-05-10] MEDS: METOPROLOL TARTRATE 25 MG TAB PO SCH (08:30)
[2017-05-10] MEDS: ASPIRIN 81 MG ECTAB PO SCH (08:30)
[2017-05-10] MEDS: BUMETANIDE 1 MG TAB PO SCH (08:30)
[2017-05-10] MEDS: AMLODIPINE BESYLATE 5 MG TAB PO SCH (08:32)
[2017-05-10] MEDS: EUCERIN CR 120 GM JAR EXT SCH ×2 (08:33→14:00)
[2017-05-10] MEDS: TRIAMCINOLONE ACET 0.1% CR 15 GM TUBE EXT SCH ×2 (08:33→14:00)
[2017-05-10] MEDS: INSULIN ASPART 100 UNITS/ML 3 ML PEN SC SCH ×2 (08:42→12:39)
--- NOTE | 2017-05-10 10:33 | Neurology Consultation ---
Neurology Consultation Date of Consultation: May 10, 2017. Attending Physician: Vishal Palma MD Primary Care Physician: Malena John C.RMiladNMiladPMilad Reason for Consultation: Retinal artery occlusion History of Present Illness Source: patient, hospital records This is a 71-year-old right-handed male who presents for visual changes after seen his engrosser and having visual field defects on visual field testing that indicated a right retinal artery occlusion. According to the patient his engrosser said that his vision was still good enough that he continue to drive. Patient denies any eye pain. Denies any chest pain or heart palpitations. Reports shortness of breath with activity which is baseline. Has baseline peripheral neuropathy for the last 10 years. No new numbness or weakness. No changes with gait or balance. No changes with speech or eating. Has never had any strokelike events in the past. Was on ASA at time of the event. MRI of the brain report and images were reviewed by myself. The patient has some mild T2 hyperintensities likely consistent with small vessel ischemic disease, but not necessarily more than what is expected for age and medical conditions. MRA of the head and neck noted mild to moderate atherosclerotic plaque. No critical stenosis Ultrasound of the carotids noted plaque but no critical stenosis Echocardiogram did not show any sources for embolic stroke Labs were reviewed. ESR mildly elevated at 42. Total cholesterol 155, LDL 74, HDL 39, triglycerides 28. Hemoglobin A1c 8.7 Past Medical/Surgical History Medical Problems: (1) Acute kidney injury Status: Acute (2) Hypoxia Status: Acute (3) Retinal artery occlusion Status: Acute Past medical history student for CHF, diabetes with peripheral neuropathy, hypertension, CAD Family History Family history student for diabetes and [place] Social History Patient is normally independent in his activities of daily living. Remote tobacco use. Smoking Status: Former smoker Smokeless Tobacco Use: No Alcohol Use: occasionally (1 sitting per week with ~6drinks per sitting) Drug Use: none Housing Status: lives alone Occupation Status: unemployed Allergies Coded Allergies: No Known Allergies (Verified , 05/08/17) Current Inpatient Medications Current Inpatient Medications Medications (Trade) Dose Ordered Sig/Alexa Route Start Time Stop Time Status Last Admin Dose Admin Acetaminophen (Tylenol Tab) 650 mg Q4H PRN PO 05/08/17 18:00 06/07/17 17:59 Al Hydrox/Mg Hydrox/Simethicone (Maalox Max Susp) 15 ml Q4H PRN PO 05/08/17 18:00 06/07/17 17:59 Magnesium Hydroxide (Milk Of Magnesia Susp) 30 ml Q12H PRN PO 05/08/17 18:00 06/07/17 17:59 Ondansetron HCl (Zofran Inj) 4 mg Q6H PRN IV 05/08/17 18:00 06/07/17 17:59 Nitroglycerin (Nitrostat Tab) 0.4 mg UD PRN SL 05/08/17 18:00 06/07/17 17:59 Polyethylene (Miralax Powder Packet) 17 gm DAILY PRN PO 05/08/17 18:00 06/07/17 17:59 Amlodipine Besylate (Norvasc Tab) 2.5 mg DAILY PO 05/09/17 09:00 06/08/17 08:59 05/10/17 08:32 2.5 MG Aspirin (Ecotrin Tab) 81 mg DAILY PO 05/09/17 09:00 06/08/17 08:59 05/10/17 08:30 81 MG Atorvastatin Calcium (Lipitor Tab) 80 mg DAILY PO 05/09/17 09:00 06/08/17 08:59 05/10/17 08:30 80 MG Bumetanide (Bumex Tab) 4 mg DAILY PO 05/09/17 09:00 06/08/17 08:59 05/10/17 08:30 4 MG Albuterol/ Ipratropium (Duoneb) 3 ml QID PRN INH 05/08/17 18:00 06/07/17 17:59 Metoprolol Tartrate (Lopressor Tab) 25 mg BID PO 05/08/17 21:00 06/07/17 20:59 05/10/17 08:30 25 MG Multivitamins (Multivitamin Tab) 1 tab DAILY PO 05/09/17 09:00 06/08/17 08:59 05/10/17 08:29 1 TAB Glucagon (Glucagon Inj) 1 mg UD PRN SQ 05/08/17 19:15 06/07/17 19:14 Glucose (Glucose 40% Gel) UD PRN PO 05/08/17 19:15 06/07/17 19:14 Glucose (Glucose Chew Tab) 1 tabs UD PRN PO 05/08/17 19:15 06/07/17 19:14 Insulin Aspart (novoLOG ASPART) SLIDING SCALE If C... ACHS SC 05/08/17 21:00 06/07/17 20:59 05/10/17 08:42 8 UNITS Clopidogrel Bisulfate (plAVix TAB) 75 mg QAM PO 05/09/17 09:00 06/08/17 08:59 05/10/17 08:30 75 MG Miscellaneous (Iv Fluids Completed) 1 ea PRN PRN N/A 05/08/17 19:30 05/08/18 19:29 Gadobutrol (Gadavist) 10 mmol UD PRN IV 05/08/17 22:30 05/12/17 22:29 Miscellaneous Information (Pharmacist Discharge Med Rec Consult) 1 ea UD PRN N/A 05/09/17 16:15 06/08/17 16:14 Heparin Sodium (Porcine) (Heparin Sq 5000 Unit/0.5ml) 5,000 unit Q8 SQ 05/09/17 22:00 06/08/17 21:59 05/10/17 05:39 5,000 UNIT Triamcinolone Acetonide (Kenalog 0.1% Cream) 1 appln TID EXT 05/09/17 21:15 06/08/17 21:14 05/10/17 08:33 1 APPLN Multi-Ingredient Ointment (Eucerin Unscented Cr) 1 appln TID EXT 05/09/17 21:15 06/08/17 21:14 05/10/17 08:33 1 APPLN Review of Systems Complete review of systems otherwise negative except for the above noted in history of present illness Physical Exam Vital Signs (Past 24 Hrs): Date Time Temp Pulse Resp B/P (MAP) Pulse Ox O2 Delivery O2 Flow Rate FiO2 05/10/17 07:58 36.6 72 16 127/80 (96) 98 05/10/17 04:30 36.5 70 18 114/75 (88) 96 Nasal Cannula 3.0 05/10/17 04:15 Nasal Cannula 2.0 05/10/17 00:10 Nasal Cannula 2.0 05/09/17 23:57 36.7 79 18 123/72 (89) 96 Nasal Cannula 3.0 05/09/17 20:30 98 Nasal Cannula 2.0 05/09/17 19:21 36.9 75 22 131/71 (91) 98 Nasal Cannula 3.0 05/09/17 16:00 Nasal Cannula 2.0 05/09/17 15:54 36.5 68 18 120/72 (88) 94 Nasal Cannula 3.0 05/09/17 12:00 Nasal Cannula 2.0 05/09/17 11:24 36.4 66 19 118/71 (87) 98 Nasal Cannula 2.0 Gen.: Patient is alert and sitting in bed, in no acute distress. HEENT: Normocephalic /atraumatic, no scleral icterus Heart: Regular rate and rhythm Extremities: No gross deformities or rashes noted Neurological examination: Mental status: Patient is alert and oriented x3. Attention and concentration normal for the situation. Good fund of knowledge. Able to give her own history. Speech is fluent without any dysarthria or aphasia noted Cranial nerve: Funduscopic examination was unremarkable. No papilledema. Pupils equally round and reactive to light. Visual gibbons intact to counting. Extraocular muscles intact without nystagmus. No facial asymmetry noted. Facial sensation intact. Tongue is midline. Good palatal elevation. Good shoulder shrug bilaterally. Hearing grossly intact to voice. Strength: 5/5 both proximal and distally in all extremities. There is no arm drift. Tone is normal. Sensation: Grossly intact to light touch in all extremities. Deep tendon reflexes: +1 in bilateral biceps, brachioradialis and patellar. Toes were equivocal to plantar stimulation Coordination: Patient had good finger to nose without dysmetria Station within the bed was normal Laboratory Results Past 24 Hours: 05/10/17 06:00 Test 05/10/17 06:00 05/10/17 06:26 Erythrocyte Sedimentation Rate 42 mm/hr (0-14) Anion Gap 10.0 mmol/L (3-11) Est Creatinine Clear Calc Drug Dose 47.3 ml/min Estimated GFR () 43.5 Estimated GFR (Non- 37.6 BUN/Creatinine Ratio 25.7 (10-20) Estimated Average Glucose 203 mg/dl Hemoglobin A1c 8.7 % (4.5-5.6) Calcium Level 8.7 mg/dl (8.5-10.1) Triglycerides Level 208 mg/dl (0-150) Cholesterol Level 155 mg/dl (0-200) HDL Cholesterol 39 mg/dl LDL Cholesterol, Calculated 74 mg/dl VLDL Cholesterol, Calculated 42 mg/dl Cholesterol/HDL Ratio 4.0 Bedside Glucose 190 mg/dl (70-99) Imaging As noted above in history of present illness Impression This is a 71-year-old male with subacute right retinal artery occlusion. Minimal visual defects reported on visual field testing. Etiology is likely either large vessel embolic versus cardioembolic. No sources for cardioembolic stroke have been found at this time. No stroke risk factors include diabetes, dyslipidemia, and hypertension. Plan Recommend aspirin 81 mg plus Plavix daily for secondary stroke prevention for 1 month. After 1 month can discontinue aspirin and remain on Plavix monotherapy. I already ordered PT/OT and speech therapy for functional evaluation. More than likely patient will not need any outpatient therapies. I already ordered lipid profile and hemoglobin A1c which have then resulted this morning and noted above. In addition I had ordered cardiolipin antibodies and homocysteine for other evaluation of stroke risk factors. Avoid hypotension and dehydration Stroke risk factor modifications and recommendations: Blood pressure recommendations for the first month post hospital discharge 150/ 90-130/80, and after that blood pressure recommendations 130/80-110/70 Total cholesterol goal 100- 200 and LDL goal less than 70 Hemoglobin A1c goal less than 7 Encourage cardiovascular exercise at least 3 times a week for 30 minutes. Follow-up in neurology clinic in 1 month for post stroke hospital follow-up. Consider outpatient Holter monitor to rule out A. fib as this would change medical management. Thanks you for allowing me to participate in this patient's care. If there is any questions or concerns, feel free to call/page me.
[2017-05-10 12:24] VITALS: BP 117/74; PULSE 78; TEMP 36.4; O2SAT 94
[2017-05-10] MEDS ORDERED: PLV75 PO (14:45)
[2017-05-10] MEDS ORDERED: TRMCR115 EXT (14:45)
[2017-05-10] MEDS ORDERED: OMEP40CA41 PO (14:45)
[2017-05-10] MEDS ORDERED: ECRCR EXT (14:45)
--- NOTE | 2017-05-10 14:55 | Discharge Instructions ---
Discharge Instructions Date of Service May 10, 2017. Admission Reason for Admission: right eye retinal artery occlusion Discharge Discharge Diagnosis / Problem: right eye retinal artery occlusion (stroke of the right eye) Discharge Goals Goal(s): Learn about illness, Diagnostic testing, Therapeutic intervention Activity Recommendations Activity Limitations: resume your previous activity Driving or Machine Use: no limitations . Instructions / Follow-Up Instructions / Follow-Up From Dr. Palma: 1. Risk Factors for Stroke: You can reduce your chances of stroke by working with your medical provider to adopt a healthy lifestyle. Some specific ways to lower your chance of stroke are: * If you are a smoker, now is the time to stop smoking cigarettes * If you are diabetic, improve the control of your blood sugars * Avoid excessive amounts of alcohol * Control high blood pressure * Lose weight if you are overweight * Be sure to lead an active lifestyle * Eat a healthy diet low in salt, cholesterol and fat You should know about other risk factors for stroke that you are unable to control. These include: * Age 55 years or older * Male gender * Certain racial groups: , or / * Family History of Stroke, Mini stroke or Heart Attack * Sickle Cell Disease 2. To prevent stroke do the following - * take aspirin 81mg daily for 1 month then STOP * take plavix (clopidogrel) 75mg once daily indefinitely * keep your diabetes controlled * keep your cholesterol controlled * take all medications as directed * see Dr. Mohr in the neurology clinic in 1 month 3. Diabetes - * because of your impaired kidney function please STOP your glipizide * continue your insulins as previous 4. Rash on shins of legs - * use eucerin cream three times a day for about 7-10 days * use triamcinolone cream in very thin amounts three times a day for about 5 days then STOP * the eucerin cream can be used every day indefinitely (if needed) for dry skin on your legs and feet 5. Follow-up appointments - * call Dr. Estrada's office this FRIDAY to order a "30-day event monitor"; this typically will be mailed to your home * see your family doctor (Serena Fairbanks) within 5-7 days * see your eye doctor as scheduled * see Dr. Mohr, neurology, in 1 month as recommended Return to [facility] if - * your vision worsens in the right eye or you develop new-onset worsening vision in the left eye * weakness of either arm or leg * difficulty speaking or swallowing * shortness of breath, excessive weight gain, chest pain Current Hospital Diet Patient's current hospital diet: AHA Diet (Heart Healthy), Diabetes Type 2 Diet Discharge Diet Recommended Diet: Low Sodium Diet (2gm Na), Diabetes Type 2 Diet Fluid Restriction: 1500 ml (6 cups) Procedures Procedures Performed: MRI brain - no stroke MRA head and neck - plaque build-up in the arteries of the neck but no significant blockage echocardiogram showing no blood clot in the chambers of the heart Pending Studies Studies pending at discharge: yes List of pending studies: labs looking for an inherited blood abnormality that would set you up for stroke Laboratory Results Hemoglobin A1c Test 05/10/17 06:00 Range/Units Estimated Average Glucose 203 mg/dl Hemoglobin A1c 8.7 H 4.5-5.6 % Lipid Panel Test 05/10/17 06:00 Range/Units Triglycerides Level 208 H 0-150 mg/dl Cholesterol Level 155 0-200 mg/dl HDL Cholesterol 39 mg/dl Cholesterol/HDL Ratio 4.0 LDL Cholesterol, Calculated 74 mg/dl Medical Emergencies . Who to Call and When: Medical Emergencies: Call 911 immediately if you experience any of the following warning signs and symptoms of Stroke: * Sudden numbness or weakness of the face, arm or leg, especially on one side of the body * Sudden confusion, trouble speaking or understanding * Sudden trouble seeing in one or both eyes * Sudden trouble walking, dizziness, loss of balance or coordination * Sudden severe headache with no cause Do not delay calling 911 if you experience any warning signs or symptoms of a stroke. Delay in seeking medical attention may affect what treatments can be given to you. . Non-Emergent Contact Non-Emergency issues call your: Primary Care Provider Call Non-Emergent contact if: temperature is above 100.5, your pain is concerning you, you have any medication questions . . "Provider Documentation" section prepared by Vishal Palma. . Stroke Core Measures Reason no t-PA for Stroke: Treatment not indicated Reason no antithrom by day 2: Treatment provided - N/A Reason no antithrom at D/C: Treatment provided - N/A Reason no statin at D/C: Treatment provided - N/A Reason no anticoag w/a fib: Treatment provided - N/A VTE Core Measure Inpt VTE Proph given/why not?: Unfractionated heparin SQ
[2017-05-10 15:20] VITALS: BP 117/74; PULSE 78; TEMP 36.4; O2SAT 94
--- NOTE | 2017-05-10 15:40 | Pharmacy Progress Note ---
Pharmacist Stroke Counseling Date of Service May 10, 2017. Scope Pharmacy has been consulted to provide medication discharge counseling for this patient admitted with ischemic stroke/hemorrhagic stroke/ transient ischemic attack as per the Pharmacist Discharge Counseling for Stroke Patients Protocol. Medications on Discharge New Medications: Pantoprazole (Protonix) 40 Mg Tab 40 MG PO QAM, #30 TAB 1 Refill Clopidogrel Bisulfate (Clopidogrel) 75 Mg Tab 75 MG PO QAM, #30 TAB 5 Refills for prevention of stroke Eucerin (Hydrocerin) 360 Appln/120 Gm Cr 1 APPLN EXT TID, #1 TUBE apply three times a day to rash on both shins Triamcinolone Acet (Triamcinolone Acetonide) 45 Appln/15 Gm Cr 1 APPLN EXT TID, #1 TUBE apply in very thin amounts to rash on shins 3 times a day for about 5 days then STOP Continued Medications: Amlodipine Besylate (Norvasc) 2.5 Mg Tab 2.5 MG PO DAILY Aspirin (Aspirin EC Low Dose) 81 Mg Ectab 81 MG PO DAILY for 1 Day Atorvastatin (Lipitor) 80 Mg Tab 80 MG PO DAILY, 0 Refills Bumetanide (Bumex) 2 Mg Tab 4 MG PO DAILY Insulin Glargine (Lantus) 100 Unit/Ml Inj 30 UNITS SC QPM Insulin Lispro (Human) (Humalog) 100 Unit/Ml Inj UNITS SQ UD SLIDING SCALE Ipratropium-Albuterol (Duoneb) 3 Ml Nebu 3 ML INH QID PRN for SOB/Wheezing for 10 Days Metoprolol Tartrate (Lopressor) (Lopressor) 25 Mg Tab 25 MG PO BID, 0 Refills Multivitamin (Multivitamin) Tab 1 TAB PO DAILY, 0 Refills Discontinued Medications: Glipizide (Glipizide Er) 5 Mg Tab 5 MG PO DAILY Action The above medications, specifically ones for stroke treatment/prophylaxis, have been reviewed in detail with the patient and/or patient solar sales representative(s) prior to discharge. This includes indication, common adverse reactions, drug interactions, and medication administration. Medication counseling has been employed using the teach-back method to ensure understanding. Outcome The patient and/or patient solar sales representative(s) have demonstrated understanding of the medications. Please note, they are aware that the pharmacist will call them within 72 hours post-discharge to confirm that the appropriate medications are being taken and answer any further medication related questions the patient might have at that time. Contact information Individual to be contacted: Toni Bauer Relationship to patient (if applicable): Self (patient) Phone number: [phone] Best time to call: 11:00 AM - 1:00 PM Additional comments: * Met with patient at bedside prior to discharge. He did not have a stroke. 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 Nevertheless, Pharmacy discharge counseling was provided due to multiple medication changes and education needed. * Explained that dual-antiplatelet therapy needed for 1 month. He will then D/ C ASA. Advised to monitor for s/sx bleeding or bruising. Advised to contact provider if any major problems. Dr. Palma initiated PPI therapy for GI prophlyaxis due to dual anti-platelet therapy. He denies history of GI bleed, gastric ulcers, esophageal problems, etc. Advised patient that long-term PPI therapy not indicated for him. Stressed need to f/u with PCP and have PCP D/C PPI when appropriate (i.e. 1-2 months) instead of remaining on it chronically. Originally Dr. Palma chose Prilosec 40mg po daily. Discussed the controversy regarding Prilosec + Plavix; Prilosec inhibits [id number], which is required to convert Plavix into active metabolite. Potential decr' Plavix efficacy. To date, the data is weak and it is uncertain whether it is a clinically significant interaction. However, given acuity of diagnosis, perhaps better to err on the side of caution. Dr. Palma agreed and changed Prilosec to Protonix ( recommended PPI when concomitant therapy with Plavix needed). Again, question need for PPI at all. * He appears adherent with his medications. Lipids and BP at goal. He denies smoking. Encouraged continued adherence. * HbA1c = 8.7%, above goal <7%. He states he is monitoring BG and f/u PCP. He is on Lantus and Humalog "scale" (unclear exactly what he takes). Glipizide was D/C'd by hospitalist possibly to prevent outpatient hypoglycemia since he is on basal/bolus insulin and has CKD (noted labile BG during admission). Of concern, patient reports taking Humalog after meals. He denies hypos however. Advised need to take Humalog before meals or immediately right after. He was given Novolog pen from admission to take home. He is aware that Novolog = Humalog; he will not take both. He seems to be using insulin pens appropriately at home. * Advised to apply only a very thin layer of triamcinolone x 5 days for his rash. He was given triamcinolone cream and Eucerin to take home. He will f/u PCP for this if no improvement. * Patient was given a pillbox. He appreciated the above education and was agreeable to phone f/u. Thank you for allowing pharmacy to be involved in the care of this patient. Please call [phone] or [phone] with any additional questions
[2017-05-10] MEDS ORDERED: PANT40TA PO (15:42)
[2017-05-12] MEDS ORDERED: ASPEC81 PO (12:04)
--- NOTE | 2017-05-12 12:22 | Discharge Summary ---
Discharge Summary Date of Service May 12, 2017. Discharge Summary Admission Date: May 08, 2017 at 18:37 Discharge Date: May 10, 2017 Discharge Disposition: Home Principal Diagnosis: right retinal artery occlusion Problems/Secondary Diagnoses: 1. chronic diastolic CHF 2. CKD stage 3 3. CAD 4. chronic respiratory failure 5. T2DM 6. peripheral neuropathy 7. HTN 8. hyperlipidemia 9. stasis dermatitis on legs Immunizations: Have You Had Influenza Vaccine: No History of Tetanus Vaccine?: Yes History of Pneumococcal: Yes History of Hepatitis B Vaccine: Unknown Procedures: 1. echocardiogram: * Technically difficult study. * Normal left ventricular size. Mild concentric left ventricular hypertrophy. Type 2 left ventricular diastolic dysfunction. Low normal overall LV systolic function. * Moderate left atrial dilatation. * Mild mitral regurgitation. * Aortic valve sclerosis without significant stenosis on 2D imaging. Doppler exam of the aortic valve was not performed. * No cardiac source of emboli was noted on the study. 2. MRI brain: IMPRESSION: Age-related changes as above. There is no hemorrhage, enhancing mass, or evidence of acute ischemia. 3. MRA brain: IMPRESSION: No significant stenosis, occlusion, or aneurysm within the [place]. Minimal/mild scattered atherosclerotic plaque formation with no significant stenotic process. 4. MRA neck: IMPRESSION: 1. No evidence of a hemodynamically significant stenosis within the bilateral common carotid and internal carotid arteries. Moderate atherosclerotic plaque. 2. Suboptimal evaluation of the left vertebral artery origin. 5. Carotid duplex study: IMPRESSION: Extensive atherosclerotic plaque within the bilateral common carotid and internal carotid arteries without sonographic evidence of a hemodynamically significant stenosis. Study mildly compromised by suboptimal penetration. Consultations: PT, OT neurology- Purvi Mohr, DO Medication Reconciliation New Medications: Pantoprazole (Protonix) 40 Mg Tab 40 MG PO QAM, #30 TAB 1 Refill Clopidogrel Bisulfate (Clopidogrel) 75 Mg Tab 75 MG PO QAM, #30 TAB 5 Refills for prevention of stroke Eucerin (Hydrocerin) 360 Appln/120 Gm Cr 1 APPLN EXT TID, #1 TUBE apply three times a day to rash on both shins Triamcinolone Acet (Triamcinolone Acetonide) 45 Appln/15 Gm Cr 1 APPLN EXT TID, #1 TUBE apply in very thin amounts to rash on shins 3 times a day for about 5 days then STOP Continued Medications: Amlodipine Besylate (Norvasc) 2.5 Mg Tab 2.5 MG PO DAILY Aspirin (Aspirin EC Low Dose) 81 Mg Ectab 81 MG PO DAILY for 30 Days, #30 0 Refills (This prescription has been renewed) Atorvastatin (Lipitor) 80 Mg Tab 80 MG PO DAILY, 0 Refills Bumetanide (Bumex) 2 Mg Tab 4 MG PO DAILY Insulin Glargine (Lantus) 100 Unit/Ml Inj 30 UNITS SC QPM Insulin Lispro (Human) (Humalog) 100 Unit/Ml Inj UNITS SQ UD SLIDING SCALE Ipratropium-Albuterol (Duoneb) 3 Ml Nebu 3 ML INH QID PRN for SOB/Wheezing for 10 Days Metoprolol Tartrate (Lopressor) (Lopressor) 25 Mg Tab 25 MG PO BID, 0 Refills Multivitamin (Multivitamin) Tab 1 TAB PO DAILY, 0 Refills Discontinued Medications: Glipizide (Glipizide Er) 5 Mg Tab 5 MG PO DAILY Referrals At Discharge Follow up Referrals: Neurologist Referral - Within a Month with Purvi Mohr D.O. Discharge Exam Physical Exam: General Appearance: no apparent distress ENT: pharynx normal Neck: no JVD Respiratory/Chest: lungs clear, no respiratory distress, no accessory muscle use Cardiovascular: regular rate, rhythm, no gallop, no murmur, normal peripheral pulses Abdomen / GI: normal bowel sounds, non tender, soft, no organomegaly Extremities: + pedal edema (trace b/l) Neurologic/Psychiatric: no motor/sensory deficits, alert, normal reflexes, oriented x 3 Skin: + pertinent finding (stasis dermatitis on legs ) Hospital Course HISTORY OF PRESENT ILLNESS: 71yo male with chronic respiratory failure and chronic diastolic CHF who presented from his eye physician's office after a right retinal artery occlusion was found. The patient states he noticed slight blurry vision for the last 2 weeks, particularly in the mornings. No eye pain, no redness in the eye, no discharge, no issues with EOM. No transient or permanent loss of vision in either eye. Had his regular scheduled visit with Dr. Yady Robles for his 6-monthly eye check since patient is diabetic. Dr. Robles noted right retinal artery occlusion and referred him to hospital for carotid assessment. Patient denies headaches, facial drooping or slurred speech, and no localized weakness. Able to ambulate without issue. Denies lightheadedness/dizziness, no syncope or pre-syncopal episodes. No facial or ocular trauma. No history of stoke in self or family. HOSPITAL COURSE: During the patient's stay no specific cause or source for his right retinal artery occlusion was found. Specifically, carotid duplex exam and MRA neck showed atherosclerotic plaque but no stenosis. Echocardiogram failed to demonstrate any thrombus or source for embolus. Telemetry was normal; no a. fib or flutter were found. He had no symptoms or signs of temporal arteritis. He was seen in consult by Dr. Purvi Mohr, neurology, who recommended the following - 1. aspirin AND plavix concurrently for 1 month at which point aspirin can be discontinued; he will then continue on plavix 2. 30-day event monitor as outpatient to rule out paroxysmal a. fib 3. risk factor modification including tighter control of T2DM, lipids, etc. 4. follow-up with Dr. Mohr in 1 month With respect to his diabetes, in light of his CKD stage 3, it was advised that he stop his glipizide; he will continue on basal-bolus insulin. All other medical problems remained stable while hospitalized. Lastly, he will continue for 5-7 days a combination of eucerin cream with triamcinolone cream for stasis dermatitis of both legs. PPI therapy was also recommended due to dual antiplatelet medication use and high risk of bleeding from such. Total Time Spent: Greater than 30 minutes This includes examination of the patient, discharge planning, medication reconciliation, and communication with other providers. Discharge Instructions Please refer to the electronic Patient Visit Report (Discharge Instructions) for additional information. Follow-Up 1. Dr. Emeterio Estrada - for follow-up and to secure a 30-day event monitor - first available 2. see Malena John within 5-[address] Yady Robles, ophthamology, as scheduled 4. Dr. Purvi Mohr, neurology, in 1 month Additional Copies To Purvi Mohr D.O.; Malena John, C.R.NDes; Yady Robles M.D.; Emeetrio Estrada M.D.
[2017-05-12] MEDS ORDERED: SYMIN160 INH (14:03)
[2017-05-12] MEDS ORDERED: SPRIN/30 INH (14:03)
--- NOTE | 2017-05-12 14:26 | Pharmacy Progress Note ---
Pharmacist Post D/C Phone Note Medications Dose Route/Sig Max Daily Dose Days Date Category Dose Instructions Symbicort 160/4.5 Inhaler (Budesonide/Formoterol Fumarate) 120 Puffs/ Aero 2 Puffs INH BID 05/12/17 Reported Spiriva Handihaler (Tiotropium [place]) 30 Puff/540 Mcg Aerp 1 Cap INH DAILY 30 05/12/17 Reported Aspirin EC Low Dose (Aspirin) 81 Mg Ectab 81 Mg PO DAILY 30 05/12/17 Rx Protonix (Pantoprazole Sodium) 40 Mg Tab 40 Mg PO QAM 05/10/17 Rx Triamcinolone Acetonide (Triamcinolone Acet) 45 Appln/15 Gm Cr 1 Appln EXT TID 05/10/17 Rx apply in very thin amounts to rash on shins 3 times a day for about 5 days then STOP Hydrocerin (Multi-Ingredient Ointment) 360 Appln/120 Gm Cr 1 Appln EXT TID 05/10/17 Rx apply three times a day to rash on both shins Clopidogrel (Clopidogrel Bisulfate) 75 Mg Tab 75 Mg PO QAM 05/10/17 Rx for prevention of stroke Norvasc (Amlodipine Besylate) 2.5 Mg Tab 2.5 Mg PO DAILY 04/01/17 Reported Humalog (Insulin Lispro (Human)) 100 Unit/Ml Inj Units SQ UD 04/01/17 Reported SLIDING SCALE Lantus (Insulin Glargine) 100 Unit/Ml Inj 30 Units SC QPM 04/01/17 Reported Duoneb (Ipratropium-Albuterol) 3 Ml Nebu 3 Ml INH QID PRN 10 01/09/16 Rx Bumex (Bumetanide) 2 Mg Tab 4 Mg PO DAILY 08/06/13 Reported Multivitamin (Multivitamins) Tab 1 Tab PO DAILY 04/21/08 Reported Lipitor (Atorvastatin Calcium) 80 Mg Tab 80 Mg PO DAILY 04/21/08 Reported Lopressor (Metoprolol Tartrate) 25 Mg Tab 25 Mg PO BID 04/21/08 Reported Date of phone call: May 12, 2017. Individual with whom pharmacist spoke to: Patient The following questions were reviewed during the phone call with responses listed below each: Can you tell me the medications that you are currently taking as well as when and how you take each medication? - The patient was able to tell me all of the medications that he is currently taking. He also has been taking Symbicort and Spiriva which have been added to his home medication list (informed me he follows a lung doctor for these). When reviewing his medication list, he noted that the pharmacy filled both protonix and prilosec. Per MD discharge note, had stated that he initially ordered prilosec, but because of the drug interaction with plavix had cancelled this order and ordered protonix instead. I informed him of this and that he should only be taking the protonix. I feel comfortable that he understood what I was saying and that he will not fill the prilosec from the pharmacy. He understands that he needs to follow up with his provider to determine how long the protonix should be continued. He understands that he should only be taking the aspirin for 1 month and the plavix indefinitely. Seems to be taking all of his medications correctly. When have you missed any doses of your medications? - he did inform me that he occasionally misses some doses of medications. I emphasized the importance of keeping a medication pill box, which he does use. He said that he sometimes runs out of medication because when he calls the pharmacy they tell him that he needs a new prescription. I discussed with him the need to call his pharmacy at least 7 days before he runs out of a medication , so if he needs a new prescription from his provider they will have time to call his provider to get a new prescription. What side effects are you having from your medications? - he is not currently having any side effects from his medications. He did express that his rash on his legs has dramatically improved since using the steroid cream What questions do you have about your medications? - he had asked me if he could get throw away the glipizide which was stopped on discharge. I informed him that this was okay. What problems are you having obtaining your medications? - he does not have any issues with obtaining medication. When is your next appointment with your primary care doctor? - he will be seeing his primary care physician next month (he believed June 09) Additional comments: - Patient was very pleasant to talk with. Seemed to be knowledgeable about his medications and understood the importance of them. As per the Pharmacist Discharge Counseling for Stroke Patients Protocol, this phone call has been completed within 72 hours of discharge. Thank you for allowing us to be involved in the care of this patient. Thank you for allowing us to be involved in the care of this patient.
[2017-05-13 12:13] LABS: B2 GLYCOPROTEIN IGA <9 SAU (<=20); B2 GLYCOPROTEIN IGG <9 SGU (<=20); B2 GLYCOPROTEIN IGM <9 SMU (<=20); LUPUS ANTICOAGULANT** TC36573X Negative (Negative)
[2017-10-22] MEDS ORDERED: PLMINS INH (09:33)
[2017-10-22] MEDS ORDERED: INSDGI SC (09:33)
[2017-10-22] MEDS ORDERED: XRL15 PO (09:33)
[2017-10-22] MEDS ORDERED: KFL250 PO (09:33)
[2017-10-22] MEDS ORDERED: NUTR-7 PO (09:33)
== END 2017-05-10 16:00 | disposition home or self-care (01) | DRG 123 ==
LOC: C.EDB 12:29 → ENRESERV 18:28 → C.2T 18:37 → EDBEDREQ 18:37
PROVIDERS: ADMIT Hospitalist; ATTEND Internal Medicine
DX: H34.231 Retinal artery branch occlusion, right eye (principal); I50.32 Chronic diastolic (congestive) heart failure; J96.10 Chronic respiratory failure, unspecified whether with hypoxia or hypercapnia; I13.0 Hypertensive heart and chronic kidney disease with heart failure and stage 1 through stage 4 chronic kidney disease, or unspecified chronic kidney disease; N18.3 Chronic kidney disease, stage 3 (moderate); I25.10 Atherosclerotic heart disease of native coronary artery without angina pectoris; E11.9 Type 2 diabetes mellitus without complications; G62.9 Polyneuropathy, unspecified; E78.5 Hyperlipidemia, unspecified; I87.2 Venous insufficiency (chronic) (peripheral); Z79.82 Long term (current) use of aspirin; Z82.49 Family history of ischemic heart disease and other diseases of the circulatory system; Z83.3 Family history of diabetes mellitus; Z87.891 Personal history of nicotine dependence; Z79.4 Long term (current) use of insulin; Z95.1 Presence of aortocoronary bypass graft

== ENCOUNTER 2017-10-14 14:25 | Inpatient (IN) | payer BC, OTHER ==
[2017-10-14] VITALS (7 sets, daily range): BP systolic 105–113; BP diastolic 68; PULSE 69–89; TEMP 36.3–36.4; O2SAT 91–98; BMI 35.8
[~2017-10-14] VITALS: Ht 175.3 cm; Wt 107.8 kg
[~2017-10-14 14:25] MED LIST changes: +ECRCR EXT; -GLIP-197 PO; +PANT40TA PO; +PLV75 PO; -POTA10CA28 PO; +SPRIN/30 INH; +SYMIN160 INH; +TRMCR115 EXT; -ZRX5 PO
[2017-10-14] MEDS ORDERED: ALBUT/IPRATROP 3MG/0.5MG NEB 3 ML VIAL INH STA (15:55)
--- NOTE | 2017-10-14 16:18 | EMERGENCY ROOM VISIT NOTE ---
History Report prepared by Rogelio: Roosevelt Ramon Under the Supervision of: Dr. Uzair Parry M.D. First contact with patient: 15:42 Chief Complaint: RESPIRATORY PROBLEMS Stated Complaint: CAN'T BREATHE, COUGHING UP BLOOD, LEG SEEPING/BLIS Nursing Triage Summary: Shortness of breath with legs that are seeping, red. History of Present Illness The patient is a 72 year old male who presents to the Emergency Room with complaints of worsening shortness of breath for the past couple of months, and for the past two days it has been much worse.The patient notes that it is exacerbated while lying down and with exertion. He additionally states that he has been feeling weak, and he has been coughing up blood for the past week. He notes that he was recently put on Xarelto for A-fib, and this is when the hemoptysis started. Also, he notes that he has been having increased nose bleeds recently after being put on Xarelto. The patient states that he has been nauseous for the past week, and he has been having increased leg swelling and leg drainage. He also states that one day he had hematuria, so he was going to get a CT scan in about a week, and he has not had any blood in his urine recently. The patient states that he is usually on 3-4 liters of oxygen at home , and he had an exacerbation of CHF in July. Source of History: patient Onset: a couple of months ago Position: other (global) Quality: other (shortness of breath) Timing: worsening Associated Symptoms: + cough (coughing up blood), + nausea, + weakness Note: Associated symptoms: nose bleeds, leg swelling, and leg drainage. Review of Systems See HPI for pertinent positives and negatives. A total of ten systems were reviewed and were otherwise negative. Past Medical & Surgical Medical Problems: (1) Acute on chronic diastolic (congestive) heart failure (2) Benign hypertension (3) Bronchitis (4) Cellulitis (5) CHF (congestive heart failure) (6) Coronary artery bypass grafts x 4 (7) Diabetes mellitus (8) Pleural effusion (9) Pneumonia (10) Retinal artery branch occlusion of right eye (11) Thoracentesis (12) Total replacement of hip Social History Smoking Status: Former Smoker Alcohol Use: occasionally Drug Use: none Housing Status: lives alone Occupation Status: unemployed Current/Historical Medications Scheduled Amlodipine Besylate (Norvasc), 2.5 MG PO DAILY Aspirin (Aspirin EC Low Dose), 81 MG PO DAILY Atorvastatin (Lipitor), 80 MG PO DAILY Budesonide/Formoterol Fumarate (Symbicort 160/4.5 Inhaler), 2 PUFFS INH BID Bumetanide (Bumex), 4 MG PO DAILY Clopidogrel Bisulfate (Clopidogrel), 75 MG PO QAM Eucerin (Hydrocerin), 1 APPLN EXT TID Insulin Glargine (Lantus), 30 UNITS SC QPM Insulin Lispro (Human) (Humalog), UNITS SQ UD Metoprolol Tartrate (Lopressor) (Lopressor), 25 MG PO BID Multivitamin (Multivitamin), 1 TAB PO DAILY Pantoprazole (Protonix), 40 MG PO QAM Tiotropium [place] (Spiriva Handihaler), 1 CAP INH DAILY Triamcinolone Acet (Triamcinolone Acetonide), 1 APPLN EXT TID Scheduled PRN Ipratropium-Albuterol (Duoneb), 3 ML INH QID PRN for SOB/Wheezing Allergies Coded Allergies: No Known Allergies (Verified , 05/08/17) Physical Exam Vital Signs Date Time Temp Pulse Resp B/P (MAP) Pulse Ox O2 Delivery O2 Flow Rate FiO2 10/14/17 19:10 87 18 98 BiPAP 10/14/17 19:01 139/80 10/14/17 18:55 82 30 96 10/14/17 18:40 73 19 98 10/14/17 18:35 80 16 100 BiPAP 7.0 10/14/17 18:31 125/90 10/14/17 18:05 91 17 74 BiPAP 7.0 10/14/17 18:00 123/89 10/14/17 17:43 89 20 91 BiPAP/CPAP 15.0 10/14/17 17:35 76 23 92 10/14/17 17:31 117/71 10/14/17 17:21 89 95 15.0 10/14/17 17:05 73 13 100 10/14/17 17:00 119/73 10/14/17 16:55 74 18 100 BiPAP 10/14/17 16:50 122/70 10/14/17 16:26 80 20 135/73 91 Nasal Cannula 4.0 10/14/17 16:24 135/73 10/14/17 16:07 91 Nasal Cannula 4.0 10/14/17 16:06 91 Nasal Cannula 4.0 10/14/17 14:28 36.8 80 20 122/80 91 Nasal Cannula 4.0 Physical Exam GENERAL: Awake, alert, chronically ill-appearing, dyspneic, in no distress HENT: Normocephalic, atraumatic. Oropharynx unremarkable. Dried blood in the bilateral nares. No blood in the posterior oropharynx. EYES: Normal conjunctiva. Sclera non-icteric. NECK: Supple. No nuchal rigidity. FROM. Mild JVD. RESPIRATORY: Diminished at the bases. Scant isolated wheezes. CARDIAC: Regular rate, normal rhythm. Extremities warm and well perfused. Pulses equal. ABDOMEN: Obese, soft, non-distended. No tenderness to palpation. No rebound or guarding. No masses. RECTAL: Deferred. MUSCULOSKELETAL: Chest examination reveals no tenderness. The back is symmetrical on inspection without obvious abnormality. There is no CVA tenderness to palpation. No joint edema. LOWER EXTREMITIES: 3+ bilateral pitting edema with weeping with a mild 4cm anterior erythematous patch to the right lower leg anteriorly. No crepitus. NEURO: Normal sensorium. No sensory or motor deficits noted. SKIN: No rash or jaundice noted. Medical Decision & Procedures ER Provider Diagnostic Interpretation: Radiology results as stated below per my review and radiologist interpretation: CHEST ONE VIEW PORTABLE CLINICAL HISTORY: 72 years-old Male presenting with CHEST PAIN. TECHNIQUE: Portable upright AP view of the chest was obtained. COMPARISON: 05/08/2017. FINDINGS: Median sternotomy wires and mediastinal surgical clips unchanged. Cardiac silhouette remains enlarged. Interval increase in perihilar opacities with persistent prominence of pulmonary vasculature. Small bilateral pleural effusions stable to slightly increased from prior. No pneumothorax. Osseous structures normal. Upper abdomen normal. IMPRESSION: 1. Interval worsening of pulmonary edema with cardiomegaly and small bilateral pleural effusions, stable to slightly increased from prior. Electronically signed by: Ulysses Palomino M.D. 10/14/2017 5:50 PM Dictated Date/Time: 10/14/2017 5:48 PM Laboratory Results 10/14/17 16:12 Red Blood Count 3.41, Mean Corpuscular Volume 97.1, Mean Corpuscular Hemoglobin 29.6, Mean Corpuscular Hemoglobin Concent 30.5, Mean Platelet Volume 9.7, Neutrophils (%) (Auto) 73.9, Lymphocytes (%) (Auto) 13.2, Monocytes (%) (Auto) 7.5, Eosinophils (%) (Auto) 4.7, Basophils (%) (Auto) 0.4, Neutrophils # (Auto) 6.89, Lymphocytes # (Auto) 1.23, Monocytes # (Auto) 0.70, Eosinophils # (Auto) 0.44, Basophils # (Auto) 0.04 10/14/17 16:12 Test 10/14/17 16:12 White Blood Count 9.33 K/uL (4.8-10.8) Red Blood Count 3.41 M/uL (4.7-6.1) Hemoglobin 10.1 g/dL (14.0-18.0) Hematocrit 33.1 % (42-52) Mean Corpuscular Volume 97.1 fL (80-100) Mean Corpuscular Hemoglobin 29.6 pg (25-34) Mean Corpuscular Hemoglobin Concent 30.5 g/dl (32-36) Platelet Count 224 K/uL (130-400) Mean Platelet Volume 9.7 fL (7.4-10.4) Neutrophils (%) (Auto) 73.9 % Lymphocytes (%) (Auto) 13.2 % Monocytes (%) (Auto) 7.5 % Eosinophils (%) (Auto) 4.7 % Basophils (%) (Auto) 0.4 % Neutrophils # (Auto) 6.89 K/uL (1.4-6.5) Lymphocytes # (Auto) 1.23 K/uL (1.2-3.4) Monocytes # (Auto) 0.70 K/uL (0.11-0.59) Eosinophils # (Auto) 0.44 K/uL (0-0.5) Basophils # (Auto) 0.04 K/uL (0-0.2) RDW Standard Deviation 56.3 fL (36.4-46.3) RDW Coefficient of Variation 16.0 % (11.5-14.5) Immature Granulocyte % (Auto) 0.3 % Immature Granulocyte # (Auto) 0.03 K/uL (0.00-0.02) Prothrombin Time 13.2 SECONDS (9.0-12.0) Prothromb Time International Ratio 1.2 (0.9-1.1) Venous Blood pH 7.36 (7.36-7.41) Venous Blood Partial Pressure CO2 74 mmHg (38.0-50.0) Venous Blood Partial Pressure O2 31 mmHg Venous Blood HCO3 40 mmol/L Venous Blood Oxygen Saturation < 60.0 % Venous Blood Base Excess 12.2 mEq/L Anion Gap 4.0 mmol/L (3-11) Estimated GFR () 48.4 Estimated GFR (Non- 41.7 BUN/Creatinine Ratio 21.8 (10-20) Lactic Acid Level 0.9 mmol/L (0.4-2.0) Calcium Level 9.2 mg/dl (8.5-10.1) Total Bilirubin 0.8 mg/dl (0.2-1) Direct Bilirubin 0.3 mg/dl (0-0.2) Aspartate Amino Transf (AST/SGOT) 31 U/L (15-37) Alanine Aminotransferase (ALT/SGPT) 36 U/L (12-78) Alkaline Phosphatase 114 U/L (45-117) Troponin I 0.016 ng/ml (0-0.045) Pro-B-Type Natriuretic Peptide 2331 pg/ml (0-900) Total Protein 8.3 gm/dl (6.4-8.2) Albumin 3.5 gm/dl (3.4-5.0) Lipase 208 U/L (73-393) Laboratory results reviewed by me Medications Administered Medications (Trade) Dose Ordered Sig/Alexa Route Start Time Stop Time Status Last Admin Dose Admin Albuterol/ Ipratropium (Duoneb) 3 ml NOW STAT INH 10/14/17 15:55 10/14/17 15:57 DC 10/14/17 16:09 3 ML Cefazolin Sodium (Cefazolin 1000mg Iv Push) 1,000 mg NOW STAT IV 10/14/17 18:18 10/14/17 18:19 DC 10/14/17 18:35 1,000 MG Bumetanide 4 mg/ Syringe 16 ml @ 4 mls/min NOW ONCE IV 10/14/17 18:30 10/14/17 18:33 DC 10/14/17 18:35 4 MLS/MIN Acetaminophen (Tylenol Tab) 650 mg Q4H PRN PO 10/14/17 19:15 11/13/17 19:14 10/14/17 21:19 650 MG ECG Indication: SOB/dyspnea Rate (beats per minute): 74 Rhythm: normal sinus Findings: PVC (frequent), no acute ischemic change, other (Normal axis) Comparison ECG Date: 05/08/17 Change: PVC have increased in frequency ED Course 1542: The patient was evaluated in room C3. A complete history and physical exam was performed. 1555: DuoNeb 3ml INH 1633: The patient is unable to lie flat for a CT scan, so it will be deferred at this time. 1715: DuoNeb 12ml INH 1733: I reevaluated the patient, and he is feeling better on BIPAP. I discussed the treatment plan with him, and he was agreeable. 181: I discussed the patient with Dr. Palma - he will evaluate the patient for further treatment. 1818: Cefazolin Sodium 1000mg IV 182: I reevaluated the patient, and he was doing well. 1830: Bumetanide 4mg 16ml @ 4mls/min IV Medical Decision I reviewed the patient's past medical history, medications, and the nursing notes as described above. Differential Diagnoses include: CHF, pneumonia, bronchitis, cancer, ACS, PE. The patient is a 72-year-old gentleman with a past medical history of diastolic heart failure on home O2, as well as 4 mg of Bumex daily presents to the ED with worsening shortness of breath, and hypoxia over the past several days in the setting of generalized worsening over the past couple of months per history of present illness. Arrival the patient appears dyspneic but in no acute distress. He is afebrile with stable vital signs. Lungs diminished with scant scattered wheezes. VBG shows a CO2 in the 70s elevated from prior, though his pH is within normal limits. WBC within normal limits. BNP 2300s similar to his prior when he was admitted for CHF exacerbation. Moreover, his chest x-ray shows increased pulmonary edema. The patient reported a history of intermittent hemoptysis, while likely due to his chronic epistaxis in the setting of his chronic oxygen and new Xeralto, CT chest was ordered but he did not tolerate lying supine and thus we'll defer at this time. Patient had become hypoxic and cyanotic subsequently and was put on BiPAP with good effect. He did briefly become hypoxic when getting in-line nebs due to the requirement of a reduction and O2 liters per minute but recovered after nebulizer was complete. Additionally patient does have erythema and warmth to his right lower extremity the setting of his peripheral edema that is consistent with cellulitis; will treat with IV Ancef at this time. Given normal WBC and lactate no indication for broad-spectrum coverage at this time. Case was d/w Dr. Palma, [facility], hospitalist who will admit the patient for further management. Medication Reconcilliation Current Medication List: was personally reviewed by me Blood Pressure Screening Patient's blood pressure: Normal blood pressure Consults Time Called: 1734 Consulting Physician: Dr. Palma Returned Call: [id number] I discussed the patient with Dr. Palma - he will evaluate the patient for further treatment. Impression Primary Impression: CHF (congestive heart failure) Additional Impression: Acute on chronic respiratory failure with hypoxia and hypercapnia Critical Care I have personally spent greater than 80 minutes of critical care time in the direct management of this patient. This includes bedside care, interpretation of diagnostic studies, and testing, discussion with consultants, patient, and family members, and other required patient management activities. This 80 minutes is in excess of all separately billable procedures. Scribe Attestation The scribe's documentation has been prepared under my direction and personally reviewed by me in its entirety. I confirm that the note above accurately reflects all work, treatment, procedures, and medical decision making performed by me. Departure Information Dispostion Being Evaluated By Hospitalist Referrals Malena John, C.R.N.P. (PCP) Patient Instructions My [facility] Problem Qualifiers
[2017-10-14 16:37] LABS: VEN BLOOD GAS BASE EXCESS 12.2 mEq/L; VENOUS BLOOD GAS PCO2 74 mmHg (38.0-50.0); VENOUS BLOOD GAS PO2 31 mmHg
[2017-10-14 16:38] LABS: VEN BLD GAS O2 SATURATION < 60.0 %
[2017-10-14 16:45] LABS: BASO % 0.4 %; BASO ABS # 0.04 K/uL (0-0.2); COMPLETE YES; EOS % 4.7 %; HEMATOCRIT 33.1 % (42-52); IG% 0.3 %; LYMPH % 13.2 %; LYMPH ABS # 1.23 K/uL (1.2-3.4); MEAN CELL VOLUME 97.1 fL (80-100); MEAN CORPUSCULAR HEMOGLOBIN 29.6 pg (25-34); MEAN CORPUSCULAR HGB CONC 30.5 g/dl (32-36); MEAN PLATELET VOLUME 9.7 fL (7.4-10.4); MONO % 7.5 %; NEUT % 73.9 %; PLATELET COUNT 224 K/uL (130-400); RED BLOOD COUNT 3.41 M/uL (4.7-6.1); WHITE BLOOD COUNT 9.33 K/uL (4.8-10.8)
[2017-10-14 16:53] LABS: INR 1.2 (0.9-1.1); PROTHROMBIN TIME (PATIENT) 13.2 SECONDS (9.0-12.0)
[2017-10-14 17:01] LABS: ALT/SGPT 36 U/L (12-78); BLOOD UREA NITROGEN 36 mg/dl (7-18); BUN/CREATININE RATIO 21.8 (10-20); CALCIUM 9.2 mg/dl (8.5-10.1); CARBON DIOXIDE 39 mmol/L (21-32); CHLORIDE 97 mmol/L (98-107); CREATININE 1.64 mg/dl (0.60-1.40); GLUCOSE 114 mg/dl (70-99); POTASSIUM 4.3 mmol/L (3.5-5.1); SODIUM 140 mmol/L (136-145)
[2017-10-14 17:06] LABS: ALKALINE PHOSPHATASE 114 U/L (45-117); AST/SGOT 31 U/L (15-37)
[2017-10-14] MEDS ORDERED: ALBUT/IPRATROP 3MG/0.5MG NEB 3 ML VIAL INH ONE (17:15)
[2017-10-14] MEDS ORDERED: BUMETANIDE SOLN 1 MG/4 ML VIAL IV ONE (17:45)
--- NOTE | 2017-10-14 17:51 | DIAGNOSTIC IMAGING REPORT ---
CHEST ONE VIEW PORTABLE CLINICAL HISTORY: 72 years-old Male presenting with CHEST PAIN. TECHNIQUE: Portable upright AP view of the chest was obtained. COMPARISON: 05/08/2017. FINDINGS: Median sternotomy wires and mediastinal surgical clips unchanged. Cardiac silhouette remains enlarged. Interval increase in perihilar opacities with persistent prominence of pulmonary vasculature. Small bilateral pleural effusions stable to slightly increased from prior. No pneumothorax. Osseous structures normal. Upper abdomen normal. IMPRESSION: 1. Interval worsening of pulmonary edema with cardiomegaly and small bilateral pleural effusions, stable to slightly increased from prior. Electronically signed by: Ulysses Palomino M.D. 10/14/2017 5:50 PM Dictated Date/Time: 10/14/2017 5:48 PM
[2017-10-14] MEDS ORDERED: CEFAZOLIN SOD 1000MG/5 ML IV PUSH IV STA (18:18)
[2017-10-14] MEDS ORDERED: BUMETANIDE IV 4 MG in SYRINGE 0 ML IV ONE (18:30)
--- NOTE | 2017-10-14 18:41 | History and Physical ---
History & Physical Date & Time of Service: Oct 14, 2017 at 18:38 Chief Complaint: Can't Breathe, Coughing Up Blood, Leg Seeping/Blis Primary Care Physician: Malena John C.R.N.P. History of Present Illness Source: patient, hospital records Mr. Bauer is a 72 year old man here for complaints of increasing shortness of breath over the past month but wit significant increase over the last few days. He has also had hemoptysis which he feels is drainage from epistaxis that he has been experiencing since starting xeralto recently for a.fib and history of dvt. He is normally on 3-4 L NC at home but is currently requiring bipap. When laid flat at CT scan he became hypoxic and his color turned jacobo despite being on 15L non rebreather and he was unable to complete the scan. He also has bilateral reddened lower extremities with an open area on the right lateral lower extremity. Past Medical/Surgical History Medical Problems: (1) Benign hypertension Status: Chronic (2) Coronary artery bypass grafts x 4 Status: Resolved (3) Diabetes mellitus Status: Chronic (4) Pleural effusion Status: Resolved (5) Pneumonia Status: Resolved (6) Thoracentesis Status: Resolved (7) Total replacement of hip Status: Resolved Family History Noncontributory Social History Smoking Status: Former Smoker Smokeless Tobacco Use: No Alcohol Use: none Drug Use: none Marital Status: single Housing status: lives alone Occupational Status: unemployed Immunizations History of Influenza Vaccine: No History of Tetanus Vaccine?: Yes History of Pneumococcal: Yes History of Hepatitis B Vaccine: Unknown Multi-Drug Resistant Organisms History of MDRO: No Allergies Coded Allergies: No Known Allergies (Verified , 05/08/17) Home Medications Scheduled Amlodipine Besylate (Norvasc), 2.5 MG PO DAILY Aspirin (Aspirin EC Low Dose), 81 MG PO DAILY Atorvastatin (Lipitor), 80 MG PO DAILY Budesonide/Formoterol Fumarate (Symbicort 160/4.5 Inhaler), 2 PUFFS INH BID Bumetanide (Bumex), 4 MG PO DAILY Clopidogrel Bisulfate (Clopidogrel), 75 MG PO QAM Eucerin (Hydrocerin), 1 APPLN EXT TID Insulin Glargine (Lantus), 30 UNITS SC QPM Insulin Lispro (Human) (Humalog), UNITS SQ UD Metoprolol Tartrate (Lopressor) (Lopressor), 25 MG PO BID Multivitamin (Multivitamin), 1 TAB PO DAILY Pantoprazole (Protonix), 40 MG PO QAM Tiotropium [place] (Spiriva Handihaler), 1 CAP INH DAILY Triamcinolone Acet (Triamcinolone Acetonide), 1 APPLN EXT TID Scheduled PRN Ipratropium-Albuterol (Duoneb), 3 ML INH QID PRN for SOB/Wheezing Review of Systems Constitutional: No fever, No chills Respiratory: + cough, + shortness of breath, + dyspnea on exertion, + hemoptysis Cardiovascular: + orthopnea, No chest pain Abdomen: No pain, No nausea, No vomiting, No diarrhea, No constipation Genitourinary - Male: No dysuria Physical Exam Vital Signs Date Time Temp Pulse Resp B/P (MAP) Pulse Ox O2 Delivery O2 Flow Rate FiO2 10/14/17 17:43 89 20 91 BiPAP/CPAP 15.0 10/14/17 17:21 89 95 15.0 10/14/17 17:00 119/73 10/14/17 16:55 74 18 100 BiPAP 10/14/17 16:50 122/70 10/14/17 16:26 80 20 135/73 91 Nasal Cannula 4.0 10/14/17 16:24 135/73 10/14/17 16:07 91 Nasal Cannula 4.0 10/14/17 16:06 91 Nasal Cannula 4.0 10/14/17 14:28 36.8 80 20 122/80 91 Nasal Cannula 4.0 General: no distress Eyes: normal inspection, PERLL Respiratory: chest non tender, diminished breath sounds, fairly comfortable appearing on bipap, no accessory muscle use Cardiac: irregular rate and rhythm, no rub or gallop, no murmur, +1 pitting edema bilaterally GI/: active bowel sounds, no abd pain or tenderness, soft, non distended Extremities: normal range of motion, normal strength, non tender Neuro/Psych: alert and oriented x 3, normal mood and affect Skin: cyanotic lips, reddened, weeping lower extremities bilaterally. Right lower lateral extremity with shallow reddened open area. Diagnostics Laboratory Results Results Past 24 Hours Test 10/14/17 16:12 Range/Units White Blood Count 9.33 4.8-10.8 K/uL Red Blood Count 3.41 4.7-6.1 M/uL Hemoglobin 10.1 14.0-18.0 g/dL Hematocrit 33.1 42-52 % Mean Corpuscular Volume 97.1 80-100 fL Mean Corpuscular Hemoglobin 29.6 25-34 pg Mean Corpuscular Hemoglobin Concent 30.5 32-36 g/dl Platelet Count 224 130-400 K/uL Mean Platelet Volume 9.7 7.4-10.4 fL Neutrophils (%) (Auto) 73.9 % Lymphocytes (%) (Auto) 13.2 % Monocytes (%) (Auto) 7.5 % Eosinophils (%) (Auto) 4.7 % Basophils (%) (Auto) 0.4 % Neutrophils # (Auto) 6.89 1.4-6.5 K/uL Lymphocytes # (Auto) 1.23 1.2-3.4 K/uL Monocytes # (Auto) 0.70 0.11-0.59 K/uL Eosinophils # (Auto) 0.44 0-0.5 K/uL Basophils # (Auto) 0.04 0-0.2 K/uL RDW Standard Deviation 56.3 36.4-46.3 fL RDW Coefficient of Variation 16.0 11.5-14.5 % Immature Granulocyte % (Auto) 0.3 % Immature Granulocyte # (Auto) 0.03 0.00-0.02 K/uL Prothrombin Time 13.2 9.0-12.0 SECONDS Prothromb Time International Ratio 1.2 0.9-1.1 Venous Blood pH 7.36 7.36-7.41 Venous Blood Partial Pressure CO2 74 38.0-50.0 mmHg Venous Blood Partial Pressure O2 31 mmHg Venous Blood HCO3 40 mmol/L Venous Blood Oxygen Saturation < 60.0 % Venous Blood Base Excess 12.2 mEq/L Sodium Level 140 136-145 mmol/L Potassium Level 4.3 3.5-5.1 mmol/L Chloride Level 97 98-107 mmol/L Carbon Dioxide Level 39 21-32 mmol/L Anion Gap 4.0 3-11 mmol/L Blood Urea Nitrogen 36 7-18 mg/dl Creatinine 1.64 0.60-1.40 mg/dl Estimated GFR () 48.4 Estimated GFR (Non- 41.7 BUN/Creatinine Ratio 21.8 10-20 Random Glucose 114 70-99 mg/dl Lactic Acid Level 0.9 0.4-2.0 mmol/L Calcium Level 9.2 8.5-10.1 mg/dl Total Bilirubin 0.8 0.2-1 mg/dl Direct Bilirubin 0.3 0-0.2 mg/dl Aspartate Amino Transf (AST/SGOT) 31 15-37 U/L Alanine Aminotransferase (ALT/SGPT) 36 12-78 U/L Alkaline Phosphatase 114 45-117 U/L Troponin I 0.016 0-0.045 ng/ml Pro-B-Type Natriuretic Peptide 2331 0-900 pg/ml Total Protein 8.3 6.4-8.2 gm/dl Albumin 3.5 3.4-5.0 gm/dl Lipase 208 73-393 U/L Microbiology Results 10/14/17 Blood Culture, Received Pending 10/14/17 Blood Culture, Received Pending Diagnostic Radiology CHEST ONE VIEW PORTABLE CLINICAL HISTORY: 72 years-old Male presenting with CHEST PAIN. TECHNIQUE: Portable upright AP view of the chest was obtained. COMPARISON: 05/08/2017. FINDINGS: Median sternotomy wires and mediastinal surgical clips unchanged. Cardiac silhouette remains enlarged. Interval increase in perihilar opacities with persistent prominence of pulmonary vasculature. Small bilateral pleural effusions stable to slightly increased from prior. No pneumothorax. Osseous structures normal. Upper abdomen normal. IMPRESSION: 1. Interval worsening of pulmonary edema with cardiomegaly and small bilateral pleural effusions, stable to slightly increased from prior. EKG Poor data quality, interpretation may be adversely affected Sinus rhythm with PVCs in a pattern of trigeminy Cannot rule out Inferior infarct (cited on or before 01-APR-2017) Abnormal ECG When compared with ECG of 08-MAY-2017 13:36, PVCs are now present Nonspecific T wave abnormality has replaced inverted T waves in Lateral leads Impression Assessment and Plan Mr. Bauer is a 72 year man here for acute respiratory failure with hypoxia due to acute on chronic diastolic CHF and PNA. He also has right lower extremity cellulitis. Acute respiratory failure with hypoxia due to acute on chronic diastolic CHF and PNA, COPD. - admit tele - ABGs in ED showed hypoxia with pO2 of 31 and CO2 of 74, chest x ray showed pleural effusion and worsening pulmonary edema - iv levaquin, vancomycin - budesonide, albuterol/ipratropium nebs - blood cultures, sputum culture - Bumex IV 2 mg bid - Bipap - npo while on bipap until respiratory status improves - recent echo while here in August showed grade 2LV diastolic dysfunction with LV EF 55-60% Right lower extremity cellulitis - levaquin - wound culture, blood cultures - wound care consult Epistaxis/chronic anticoagulation - anticoagulated for paroxysmal atrial fibrillation started in August - no s/s of bleeding at present, will continue xeralto for now and discontinue and consult ENT if bleeding reoccurs - cbc am CKD III - monitor prp daily while diuresing - avoid nephrotoxic agents, renal dosing for abx DM - home dose of lantus, ss - bsg ac&hs CAD/htn - continue atorvastatin, asa, amlodipine, metoprolol GERD - continue protonix DVT prophylaxis - xeralto Full code Attending Addendum: I have physically seen and examined this patient, have directed the QUALITY CONTROL MANAGER's medical activities, and agree with the H&P as noted above with the following exceptions as noted. The patient is awake, alert and oriented 3, looks disheveled and unkempt, normocephalic and atraumatic, wearing BiPAP mask, lying in bed and in no acute distress. HEENT--PERRL, EOMI, mucous membranes and oropharynx dry. Wearing mask as above. Neck--supple, no JVD or bruits, thyroid normal, trachea midline, no adenopathy. Heart--normal S1 and S2, no extra beats, no murmurs, rubs or gallops. Lungs--decreased breath sounds throughout, no further respiratory distress, no accessory muscle use. Abdomen--normal bowel sounds and soft, nontender and nondistended, but obese. Extremities--2-3+ bilateral pretibial and pedal pitting edema with weeping. There are diminished distal pulses b/l. Dermatologic--bilateral lower extremities with weeping, moderate erythema with areas of excoriation laterally right worse than left Neurologic--cranial nerves II through XII grossly intact. Rheumatologic--diminished range of motion due to body habitus. Psychiatric--normal affect. Assessment and Plan: Acute respiratory failure with hypoxia and hypercapnia/acute on chronic diastolic CHF/pneumonia bilaterally/COPD exacerbation-- The patient will be admitted to telemetry for serial cardiac enzymes, cardiac rhythm monitoring and a 2-D echocardiogram with Dopplers. Continue BiPAP at current settings. Keep pulse ox around 91-92%. Acute on chronic diastolic CHF/hypertension-- Given Bumex 4 mg IV in the ED. He is on Bumex 4 mg by mouth daily in the outpatient setting which will be held. Place on Bumex 2 mg IV twice a day. Continue amlodipine 2.5 mg by mouth daily, aspirin EC 81 mg by mouth daily, clopidogrel 75 mg by mouth every morning, and metoprolol tartrate 25 mg by mouth twice a day with hold parameters. Bilateral pneumonia/COPD exacerbation-- Hold Symbicort and Spiriva. Place on vancomycin IV and Levaquin IV. Sputum Gram stain and culture. Pulmicort rest pills 0.5 mg inhaled twice a day. Duonebs every 4 hours while awake and every 2 hours when necessary. Bilateral lower sternal cellulitis, right worse than left-- Vancomycin IV and Levaquin IV as noted above. Follow blood cultures Consult wound care. Local wound care. Epistaxis/need for chronic anticoagulation-- On Xarelto begun in August. If has recurrence while in the hospital, we'll consult ENT, otherwise, since it is necessary for and anticoagulated, he should be seen by ENT in the outpatient setting relatively soon after discharge. Diabetes mellitus-- Continue Lantus insulin 30 units subcutaneous in the evening. Place on Accu-Cheks before meals and at bedtime with NovoLog coverage per scale. CKD stage III-- Serial BMP and magnesium levels to follow closely while being more acutely diuresed with Bumex IV. Hyperlipidemia-- continue atorvastatin 80 mg by mouth daily. GERD-- Continue pantoprazole 40 mg every morning. Level of Care Telemetry Advanced Directives Existing Advance Directive: No Existing Living Will: No Existing Power of Tinner Automatic: No Existing Health Care Proxy: No Resuscitation Status FULL RESUSCITATION VTE Prophylaxis Risk Level: Moderate Given or contraindicated: SCD's
[2017-10-14] MEDS ORDERED: MAGNESIUM HYDROXIDE SUSP 30 ML UDC PO PRN (19:15)
[2017-10-14] MEDS ORDERED: ONDANSETRON INJ 2 MG/ML 2 ML VIAL IV PRN (19:15)
[2017-10-14] MEDS ORDERED: POLYETHYLENE (MIRALAX) 17 GM PACK PO PRN (19:15)
[2017-10-14] MEDS ORDERED: ALUMINUM/MAGNESIUM/SIMETH (MAALOX MAX) 30 ML UDC PO PRN (19:15)
[2017-10-14] MEDS ORDERED: ALBUT/IPRATROP 3MG/0.5MG NEB 3 ML VIAL INH PRN (19:15)
[2017-10-14] MEDS ORDERED: GLUCOSE 40% GEL 15 GM TUBE PO PRN (19:45)
[2017-10-14] MEDS ORDERED: GLUCAGON FOR INJ 1 MG VIAL SQ PRN (19:45)
[2017-10-14] MEDS ORDERED: DEXTROSE 50% 50 ML SYR IV PRN (19:45)
[2017-10-14] MEDS: BUDESONIDE 0.5 MG/2 ML VIAL (PULMICORT) INH SCH (20:00)
[2017-10-14] MEDS ORDERED: VANCOMYCIN CONSULT ACTIVE PRN (20:45)
--- NOTE | 2017-10-14 20:47 | Pharmacy Progress Note ---
Pharmacy Abx Initial Consult Date of Service Oct 14, 2017. Pharmacy Dosing Scope Date of Consult: 10/14/17 Consultation requested by: ROJAS Garner [facility]acy is consulted to initiate vancomycin IV dosing therapy, order appropriate labs and adjust drug dose/frequency. Subjective The patient is a 72 year old male admitted on 10/14/17. Objective Height (Feet): 5 Height (Inches): 9.00 Weight (Kilograms): 110.000 Vital Signs (Past 12Hrs) Vital Signs Past 12 Hours Date Time Temp Pulse Resp B/P (MAP) Pulse Ox O2 Delivery O2 Flow Rate FiO2 10/14/17 20:30 142/78 10/14/17 20:20 81 17 98 10/14/17 20:05 82 20 99 10/14/17 20:01 136/71 10/14/17 19:50 85 22 97 10/14/17 19:35 81 16 99 10/14/17 19:30 127/86 10/14/17 19:25 84 14 100 10/14/17 19:10 87 18 98 BiPAP 10/14/17 19:01 139/80 10/14/17 18:55 82 30 96 10/14/17 18:40 73 19 98 10/14/17 18:35 80 16 100 BiPAP 7.0 10/14/17 18:31 125/90 10/14/17 18:05 91 17 74 BiPAP 7.0 10/14/17 18:00 123/89 10/14/17 17:43 89 20 91 BiPAP/CPAP 15.0 10/14/17 17:35 76 23 92 10/14/17 17:31 117/71 10/14/17 17:21 89 95 15.0 10/14/17 17:05 73 13 100 10/14/17 17:00 119/73 10/14/17 16:55 74 18 100 BiPAP 10/14/17 16:50 122/70 10/14/17 16:26 80 20 135/73 91 Nasal Cannula 4.0 10/14/17 16:24 135/73 10/14/17 16:07 91 Nasal Cannula 4.0 10/14/17 16:06 91 Nasal Cannula 4.0 10/14/17 14:28 36.8 80 20 122/80 91 Nasal Cannula 4.0 Lab Results (24Hrs) Laboratory Tests (24 Hours) Test 10/14/17 16:12 Lactic Acid Level 0.9 mmol/L (0.4-2.0) White Blood Count 9.33 K/uL (4.8-10.8) Red Blood Count 3.41 M/uL (4.7-6.1) L Hemoglobin 10.1 g/dL (14.0-18.0) L Hematocrit 33.1 % (42-52) L Mean Corpuscular Volume 97.1 fL (80-100) Mean Corpuscular Hemoglobin 29.6 pg (25-34) Mean Corpuscular Hemoglobin Concent 30.5 g/dl (32-36) L Platelet Count 224 K/uL (130-400) Mean Platelet Volume 9.7 fL (7.4-10.4) Neutrophils (%) (Auto) 73.9 % Lymphocytes (%) (Auto) 13.2 % Monocytes (%) (Auto) 7.5 % Eosinophils (%) (Auto) 4.7 % Basophils (%) (Auto) 0.4 % Neutrophils # (Auto) 6.89 K/uL (1.4-6.5) H Lymphocytes # (Auto) 1.23 K/uL (1.2-3.4) Monocytes # (Auto) 0.70 K/uL (0.11-0.59) H Eosinophils # (Auto) 0.44 K/uL (0-0.5) Basophils # (Auto) 0.04 K/uL (0-0.2) Micro Results Date/Time Source Procedure Growth Status 10/14/17 16:17 Blood Blood Culture Pending Received 10/14/17 16:12 Blood Blood Culture Pending Received Risk Factors for Resistance * h/o COPD Assessment & Plan Assessment 72 year old male admitted with worsening SOB and hemoptysis. Chest x-ray demonstrates worsening pulmonary edema. Plan vancomycin for treatment of possible pulmonary infection Vancomycin IV * Loading dose: 2750 mg (25 mg/kg) * Maintenance dose: 1500 mg IV (13.6 mg/kg) every 18 hours * Goal trough level for pulmonary infection : 15 to 20 mcg/mL * Trough ordered for 10/16/17 prior to 0900 dose ... please note this will note be at steady state. Early trough drawn secondary to risk of accumulation from obesity and renal dysfunction. * A less than traditional dose and extended dosing interval have been selected due to likelihood of drug accumulation in obese patient and patient with h/o CKD. Pharmacy will continue to follow and will adjust dose/frequency as necessary. Thank you.
[2017-10-14] MEDS ORDERED: INSULIN GLARGINE SOLOSTAR 100 UNITS/ML 3 ML PEN SC SCH (21:00)
[2017-10-14] MEDS: INSULIN ASPART 100 UNITS/ML 3 ML PEN SC SCH (21:00)
[2017-10-14] MEDS: ALBUT/IPRATROP 3MG/0.5MG NEB 3 ML VIAL INH SCH (21:01)
[2017-10-14] MEDS: ACETAMINOPHEN 325 MG TAB PO PRN (21:19)
[2017-10-14] MEDS: EUCERIN CR 120 GM JAR EXT SCH (21:58)
[2017-10-14] MEDS: METOPROLOL TARTRATE 25 MG TAB PO SCH (21:59)
[2017-10-14] MEDS ORDERED: VANCOMYCIN INJ 2,750 MG in SODIUM CHLORIDE 0.9% 500ML 500 ML IV ONE (22:00)
[2017-10-14] MEDS ORDERED: LEVOFLOXACIN / D5W 750 MG in PREMIXED IN D5W 150 ML IV SCH (22:00)
[2017-10-14] MEDS: GUAIFENESIN 600 MG TABCR PO SCH (22:02)
[2017-10-15] VITALS (16 sets, daily range): BP systolic 106–123; BP diastolic 56–69; PULSE 60–86; TEMP 36.5–37; O2SAT 91–97; Ht 175.3 cm; Wt 107.8 kg
[2017-10-15] MEDS: GLUCOSE 10 TABS/TUBE PO PRN ×2 (01:06→06:19)
[2017-10-15 05:49] LABS: HEMATOCRIT 30.6 % (42-52); MEAN CELL VOLUME 96.8 fL (80-100); MEAN CORPUSCULAR HEMOGLOBIN 29.1 pg (25-34); MEAN CORPUSCULAR HGB CONC 30.1 g/dl (32-36); MEAN PLATELET VOLUME 9.4 fL (7.4-10.4); PLATELET COUNT 176 K/uL (130-400); RED BLOOD COUNT 3.16 M/uL (4.7-6.1); WHITE BLOOD COUNT 7.79 K/uL (4.8-10.8)
[2017-10-15 06:15] LABS: BUN/CREATININE RATIO 21.5 (10-20); CALCIUM 8.7 mg/dl (8.5-10.1); CREATININE 1.57 mg/dl (0.60-1.40); MAGNESIUM 2.1 mg/dl (1.8-2.4); POTASSIUM 3.9 mmol/L (3.5-5.1)
[2017-10-15] MEDS ORDERED: INFLUENZA ADMINISTRATION CHARGE ONE (06:45)
[2017-10-15] MEDS ORDERED: INFLUENZA VACCINE HIGH DOSE 65+ 0.5 ML SYR IM. ONE (06:45)
[2017-10-15] MEDS: ALBUT/IPRATROP 3MG/0.5MG NEB 3 ML VIAL INH SCH ×4 (06:51→18:58)
[2017-10-15] MEDS: BUDESONIDE 0.5 MG/2 ML VIAL (PULMICORT) INH SCH ×2 (06:51→18:58)
[2017-10-15] MEDS: INSULIN ASPART 100 UNITS/ML 3 ML PEN SC SCH ×4 (07:00→20:29)
[2017-10-15] MEDS: ASPIRIN 81 MG ECTAB PO SCH (08:14)
[2017-10-15] MEDS: PANTOprazole SOD 40 MG TAB PO SCH (08:14)
[2017-10-15] MEDS: ATORVASTATIN 20 MG TAB PO SCH (08:14)
[2017-10-15] MEDS: GUAIFENESIN 600 MG TABCR PO SCH ×2 (08:14→20:30)
[2017-10-15] MEDS: MULTIVITAMIN TAB PO SCH (08:14)
[2017-10-15] MEDS: BUMETANIDE IV 2 MG in SYRINGE 0 ML IV SCH ×2 (08:14→17:08)
[2017-10-15] MEDS: AMLODIPINE BESYLATE 5 MG TAB PO SCH (08:15)
[2017-10-15] MEDS: CLOPIDOGREL BISULFATE 75 MG TAB PO SCH (08:15)
[2017-10-15] MEDS: RIVAROXABAN 20 MG TAB PO SCH (08:15)
[2017-10-15] MEDS: METOPROLOL TARTRATE 25 MG TAB PO SCH ×2 (08:16→20:30)
[2017-10-15] MEDS: EUCERIN CR 120 GM JAR EXT SCH ×3 (08:18→20:28)
[2017-10-15] MEDS ORDERED: TIOTROPIUM BROMIDE 5 PUFF/90 MCG INH INH SCH (09:00)
--- NOTE | 2017-10-15 11:58 | Family Medicine Progress Note ---
Progress Note Date of Service Oct 15, 2017. Subjective Pt evaluation today including: conversation w/ patient, physical exam, chart review, lab review, review of studies Pt describes progressive SOB over the past month, as well as orthopnea and dyspnea with exertion. Constitutional: No fever, No chills, No sweats Respiratory: + cough, + shortness of breath, + dyspnea on exertion, No sputum Cardiovascular: + orthopnea, + edema, No chest pain, No palpitations Abdomen: No pain, No nausea, No vomiting, No diarrhea Medications Current Inpatient Medications Medications (Trade) Dose Ordered Sig/Alexa Route Start Time Stop Time Status Last Admin Dose Admin Acetaminophen (Tylenol Tab) 650 mg Q4H PRN PO 10/14/17 19:15 11/13/17 19:14 10/14/17 21:19 650 MG Al Hydrox/Mg Hydrox/Simethicone (Maalox Max Susp) 15 ml Q4H PRN PO 10/14/17 19:15 11/13/17 19:14 Magnesium Hydroxide (Milk Of Magnesia Susp) 30 ml Q12H PRN PO 10/14/17 19:15 11/13/17 19:14 Ondansetron HCl (Zofran Inj) 4 mg Q6H PRN IV 10/14/17 19:15 11/13/17 19:14 Polyethylene (Miralax Powder Packet) 17 gm DAILY PRN PO 10/14/17 19:15 11/13/17 19:14 Amlodipine Besylate (Norvasc Tab) 2.5 mg DAILY PO 10/15/17 09:00 11/14/17 08:59 10/15/17 08:15 2.5 MG Aspirin (Ecotrin Tab) 81 mg DAILY PO 10/15/17 09:00 11/14/17 08:59 10/15/17 08:14 81 MG Atorvastatin Calcium (Lipitor Tab) 80 mg DAILY PO 10/15/17 09:00 11/14/17 08:59 10/15/17 08:14 80 MG Clopidogrel Bisulfate (plAVix TAB) 75 mg QAM PO 10/15/17 09:00 11/14/17 08:59 10/15/17 08:15 75 MG Multi-Ingredient Ointment (Eucerin Unscented Cr) 1 appln TID EXT 10/14/17 21:00 11/13/17 20:59 10/15/17 08:18 1 APPLN Metoprolol Tartrate (Lopressor Tab) 25 mg BID PO 10/14/17 21:00 11/13/17 20:59 10/15/17 08:16 25 MG Multivitamins (Multivitamin Tab) 1 tab DAILY PO 10/15/17 09:00 11/14/17 08:59 10/15/17 08:14 1 TAB Pantoprazole Sodium (Protonix Tab) 40 mg QAM PO 10/15/17 09:00 11/14/17 08:59 10/15/17 08:14 40 MG Tiotropium Hematite (Spiriva Handihaler Inhaler) 1 puff DAILY INH 10/15/17 09:00 11/14/17 08:59 Future Hold 10/15/17 08:17 1 PUFF Insulin Aspart (novoLOG ASPART) SLIDING SCALE If C... ACHS SC 10/14/17 21:00 11/13/17 20:59 Glucose (Glucose 40% Gel) 15-30 GRAMS 15 GRAMS... UD PRN PO 10/14/17 19:45 11/13/17 19:44 Glucose (Glucose Chew Tab) 4-8 Tablets 4 Tabl... UD PRN PO 10/14/17 19:45 11/13/17 19:44 10/15/17 06:19 4 TABS Dextrose (Dextrose 50% 50ML Syringe) 25-50ML OF 50% DW IV FOR... UD PRN IV 10/14/17 19:45 11/13/17 19:44 Glucagon (Glucagon Inj) 1 mg UD PRN SQ 10/14/17 19:45 11/13/17 19:44 Budesonide (Pulmicort Respules 0.5MG/ 2ML Neb Soln) 0.5 mg BIDR INH 10/14/17 20:00 11/13/17 19:59 10/15/17 06:51 0.5 MG Bumetanide 2 mg/ Syringe 8 ml @ 4 mls/min DAILY@ IV 10/15/17 09:00 11/14/17 08:59 10/15/17 08:14 4 MLS/MIN Guaifenesin (Mucinex Contr Rel Tab) 1,200 mg Q12 PO 10/14/17 21:00 11/13/17 20:59 10/15/17 08:14 1,200 MG Rivaroxaban (Xarelto Tab) 20 mg DAILY PO 10/15/17 09:00 11/14/17 08:59 10/15/17 08:15 20 MG Levofloxacin 750 mg/Prmx 150 ml @ 100 mls/hr Q48H IV 10/14/17 22:00 10/21/17 21:59 10/14/17 22:08 100 MLS/HR Albuterol/ Ipratropium (Duoneb) 3 ml QIDR INH 10/14/17 20:15 11/13/17 20:14 10/15/17 11:07 3 ML Vancomycin HCl 1500 mg/Sodium Chloride 530 ml @ 200 mls/hr Q18H IV 10/15/17 15:00 10/22/17 14:59 Vancomycin HCl (Consult) 1 ea UD PRN N/A 10/14/17 20:45 11/13/17 20:44 Insulin Glargine (Lantus Solostar Pen) 10 units QPM SC 10/15/17 21:00 11/13/17 20:59 Objective Vital Signs Date Time Temp Pulse Resp B/P (MAP) Pulse Ox O2 Delivery O2 Flow Rate FiO2 10/15/17 11:07 72 94 40 10/15/17 11:07 72 17 94 BiPAP/CPAP 40 10/15/17 10:40 36.5 71 20 106/66 (79) 92 BiPAP 10/15/17 08:00 BiPAP 15.0 40 10/15/17 07:35 36.5 70 20 107/65 (79) 92 BiPAP 10/15/17 06:51 74 93 40 10/15/17 06:51 74 15 93 BiPAP/CPAP 40 10/15/17 04:00 97 BiPAP 15.0 50 10/15/17 03:59 36.5 72 17 118/69 (85) 91 CPAP 40 10/15/17 02:02 60 91 40 10/15/17 00:00 97 BiPAP 15.0 50 10/14/17 23:31 36.3 71 21 113/68 (83) 91 BiPAP 40 10/14/17 23:09 69 97 50 10/14/17 21:11 83 95 50 10/14/17 21:01 83 18 95 BiPAP/CPAP 50 10/14/17 20:30 142/78 10/14/17 20:20 81 17 98 10/14/17 20:05 82 20 99 10/14/17 20:01 136/71 10/14/17 19:50 85 22 97 10/14/17 19:38 36.4 82 20 105/68 98 Non-Rebreather 15.0 10/14/17 19:35 81 16 99 10/14/17 19:30 127/86 10/14/17 19:25 84 14 100 10/14/17 19:10 87 18 98 BiPAP 10/14/17 19:01 139/80 10/14/17 18:55 82 30 96 10/14/17 18:40 73 19 98 10/14/17 18:35 80 16 100 BiPAP 7.0 10/14/17 18:31 125/90 10/14/17 18:05 91 17 74 BiPAP 7.0 10/14/17 18:00 123/89 10/14/17 17:43 89 20 91 BiPAP/CPAP 15.0 10/14/17 17:35 76 23 92 10/14/17 17:31 117/71 10/14/17 17:21 89 95 15.0 10/14/17 17:05 73 13 100 10/14/17 17:00 119/73 10/14/17 16:55 74 18 100 BiPAP 10/14/17 16:50 122/70 10/14/17 16:26 80 20 135/73 91 Nasal Cannula 4.0 10/14/17 16:24 135/73 10/14/17 16:07 91 Nasal Cannula 4.0 10/14/17 16:06 91 Nasal Cannula 4.0 10/14/17 14:28 36.8 80 20 122/80 91 Nasal Cannula 4.0 Physical Exam General Appearance: WD/WN, no apparent distress Neck: supple, no adenopathy Respiratory/Chest: chest non-tender, + decreased breath sounds, + pertinent finding (pt on BIPAP) Cardiovascular: regular rate, rhythm, no edema, no gallop, no JVD, no murmur Abdomen: normal bowel sounds, non tender, soft, no organomegaly, no pulsatile mass Neurologic/Psychiatric: alert, normal mood/affect, oriented x 3 Skin: normal color, warm/dry, no rash Laboratory Results 10/15/17 05:23 10/15/17 05:23 Test 10/14/17 16:12 10/15/17 05:23 10/15/17 10:37 Immature Granulocyte % (Auto) 0.3 % White Blood Count 9.33 K/uL (4.8-10.8) Red Blood Count 3.41 M/uL (4.7-6.1) 3.16 M/uL (4.7-6.1) Hemoglobin 10.1 g/dL (14.0-18.0) Hematocrit 33.1 % (42-52) Mean Corpuscular Volume 97.1 fL (80-100) 96.8 fL (80-100) Mean Corpuscular Hemoglobin 29.6 pg (25-34) 29.1 pg (25-34) Mean Corpuscular Hemoglobin Concent 30.5 g/dl (32-36) 30.1 g/dl (32-36) Platelet Count 224 K/uL (130-400) Mean Platelet Volume 9.7 fL (7.4-10.4) 9.4 fL (7.4-10.4) Neutrophils (%) (Auto) 73.9 % Lymphocytes (%) (Auto) 13.2 % Monocytes (%) (Auto) 7.5 % Eosinophils (%) (Auto) 4.7 % Basophils (%) (Auto) 0.4 % Neutrophils # (Auto) 6.89 K/uL (1.4-6.5) Lymphocytes # (Auto) 1.23 K/uL (1.2-3.4) Monocytes # (Auto) 0.70 K/uL (0.11-0.59) Eosinophils # (Auto) 0.44 K/uL (0-0.5) Basophils # (Auto) 0.04 K/uL (0-0.2) Immature Granulocyte # (Auto) 0.03 K/uL (0.00-0.02) Prothrombin Time 13.2 SECONDS (9.0-12.0) Prothromb Time International Ratio 1.2 (0.9-1.1) Venous Blood pH 7.36 (7.36-7.41) Venous Blood Partial Pressure CO2 74 mmHg (38.0-50.0) Venous Blood Partial Pressure O2 31 mmHg Venous Blood HCO3 40 mmol/L Venous Blood Oxygen Saturation < 60.0 % Venous Blood Base Excess 12.2 mEq/L Lactic Acid Level 0.9 mmol/L (0.4-2.0) Total Bilirubin 0.8 mg/dl (0.2-1) Direct Bilirubin 0.3 mg/dl (0-0.2) Aspartate Amino Transf (AST/SGOT) 31 U/L (15-37) Alanine Aminotransferase (ALT/SGPT) 36 U/L (12-78) Alkaline Phosphatase 114 U/L (45-117) Pro-B-Type Natriuretic Peptide 2331 pg/ml (0-900) Total Protein 8.3 gm/dl (6.4-8.2) Albumin 3.5 gm/dl (3.4-5.0) Lipase 208 U/L (73-393) RDW Standard Deviation 56.3 fL (36.4-46.3) RDW Coefficient of Variation 15.9 % (11.5-14.5) Anion Gap 3.0 mmol/L (3-11) Est Creatinine Clear Calc Drug Dose 53.6 ml/min Estimated GFR () 51.0 Estimated GFR (Non- 44.0 BUN/Creatinine Ratio 21.5 (10-20) Calcium Level 8.7 mg/dl (8.5-10.1) Magnesium Level 2.1 mg/dl (1.8-2.4) Troponin I 0.016 ng/ml (0-0.045) Bedside Glucose 81 mg/dl (70-99) Date/Time Source Procedure Growth Status 10/14/17 21:10 Nasal MRSA DNA Surveillance Screen - Final Specimen Negative for MRSA by DNA Probe Complete Assessment and Plan 72 male PMH of diastolic heart failure (ef 55-60%), Afib and respiratory failure on 3-4 L O2 at home presents with SOB Acute respiratory failure with hypoxia sec to acute on chronic diastolic CHF and chronic underlying lung ds and pleural effusion -Continue BiPAP at current settings. -Keep pulse ox around 91-92%. -to feed by feeding tube while on bipap Acute on chronic diastolic CHF/hypertension Given Bumex 4 mg IV in the ED. Started Bumex 2 mg IV twice a day (home dose is 4mg PO). Continue amlodipine 2.5 mg, ASA EC 81 mg, clopidogrel 75 mg, and metoprolol tartrate 25 mg. Restrictive lung ds with OHS and pul HTN sec to chronic diastolic dysfunction Holding Symbicort and Spiriva. No concern of pneumonia per pulmonary Sputum Gram stain and culture. Pulmicort rest pills 0.5 mg inhaled twice a day. Duonebs q 4 hours while awake and every 2 hours when necessary. Bilateral lower sternal cellulitis, right worse than left Vancomycin IV and Levaquin IV Follow blood cultures Consult wound care. Local wound care. Epistaxis/need for chronic anticoagulation On Xarelto begun in August. Consider ENT consult if reoccur in hospital Diabetes mellitus Continue Lantus insulin [address] Accu-Cheks before meals and at bedtime with NovoLog coverage per scale. CKD stage III Follow BMP and MG Hyperlipidemia continue atorvastatin 80 mg GERD Continue pantoprazole 40 mg SCD Reviewed: Pt Seen/Exam by Me History breathing better would like to have food but hasn't been able to due to getting hypoxic when off bipap Constitutional: denies: fever Respiratory: negative: short of breath Cardiovascular: denies chest pain General Appearance: other (Comfortable in bed with bipap on) Respiratory: lungs clear (anteriorly) Cardiovascular: regular rate, rhythm Extremities: other (both lower extremity with erythema and underlying chronic venous stasis changes and lichenification) Neurologic/Psychiatric: alert, oriented x 3 Assessment/Plan Resident Physician Supervision Note: I independently interviewed and examined the patient and verified the marsh history and physical, reviewed labs and image studies, discussed the case with the resident Dr. Elaine and agree with the findings and care plan.
--- NOTE | 2017-10-15 13:31 | Pulmonary Consultation ---
History General Date of Service: Oct 15, 2017. Stated Complaint: Acute on chronic hypoxic respiratory insufficiency with associated Cellulitis HPI The patient is a 72 year old male who presents to [facility] with complaints of Cellulitis, Chf. The patient's primary care provider is Malena John C.R.N.P.. Patient is a 72-year-old male with a past medical history significant for restrictive ventilatory disease, diastolic heart failure, progressive hypoxemia , atrial fibrillation, coronary artery disease and possible obstructive sleep apnea. He presented to the hospital after one month of progressive dyspnea on exertion. At this patient's baseline he is only able to walk 10 feet without notable dyspnea on exertion. On the 2-3 days prior to admission he noted dyspnea at rest. He also noted increasing lower extremity edema, pain and erythema bilaterally prior to admission. The patient denied: Fever, oxygen dependent 4 L, chills, productive cough, classic cardiac chest pain, pleurisy fever or night sweats. He did note intermittent epistaxis which were drained tobacco his throat. Patient was brought into the emergency room and started on BiPAP therapy at that time with a VBG of 7.36/47. Corrected the VBG is noted to be 7.39/61 which is consistent with this patient's chronically elevated bicarbonate. Patient was also started on Levaquin, vancomycin, nebulizers and diuresis. He was initially diagnosed with cellulitis, COPD and pneumonia. Current workup ECG(10/14/17:1604): sinus rhythm with PVC (new onset PVC) with non-specific T wave pattern ECG(10/14/17:2143): NSR rate 75 MRSA nasal screen: Negative Blood cultures: Negative to date/pending WBC: 9 K (neutrophil number: 6.89>/monocyte number 0.74>) Platelet: 224K VB.36/74 corrected 7.39/61 INR: 1.2 PT: 13.2 CO2: 39 BUN: 36 CR: 1.64 Lactic Acid: 0.9 DB: 0.3 > Pro-BNP: 2331 Troponin I: 0.016 Chest x-ray: Worsening pulmonary edema, cardiomegaly, bilateral pleural effusions small Previous workup Echocardiogram 08/06/2017 Left ventricle: LVH, EF=50-55%, class 2 diastolic dysfunction Right ventricle: Within normal limits Left atrium: Moderately dilated Right atrium: Within normal limits IVC: Mildly dilated Pulmonary function studies 05/02/2017 FEV1/FVC: 75 FEV1: 1.05/30% FVC: 1.40/31% Bronchodilator: No significant response T.00/57% SVC: 1.60/35% RV: 2.40/99% RV/T% DLCO: 37% DL/VA: 85% Dobutamine stress echo 12/29/2013 Negative dobutamine stress echo for myocardial ischemia at 89 % maximum predicted heart rate Negative dobutamine stress ECG for myocardial ischemia at 89 % maximum predicted heart rate No dobutamine induced chest pain Baseline echocardiogram notes low normal left ventricular function with inferior posterior akinesis No significant valvular pathology Microbiology history Pleural fluid 07/19/2013: Peptostreptococcus species Right lung 08/10/2013: Peptostreptococcus species, coag-negative staph x2 Current medication 1. Vancomycin IV 2. Aspirin 81 milligrams 3. Plavix 75 milligrams 4. Pantoprazole 40 milligrams 5. Spiriva 1 puff q.d. 6. Xarelto 20 milligrams q.d. 7. Levofloxacin 750 milligrams Q 24 hours IV 8. Mucinex 120 milligrams q.12 hours 9. DuoNeb q.i.d. 10. Budesonide 0.5 milligrams b.i.d. Active Problems 1. AF (paroxysmal atrial fibrillation) 2. History of DVT 3. Allergic rhinitis 4. Bilateral leg edema 5. Blood in urine 6. CAD (coronary artery disease) 7. Cellulitis of leg 8. Chronic cerebral ischemia 9. Acute on chronic diastolic congestive heart failure 10. Chronic respiratory failure 11. Dyslipidemia 12. Hypertension 13. Obesity 14. Obstructive sleep apnea of adult 15. Osteoarthritis 16. Peripheral neuropathy 17. Proteinuria 18. Pulmonary emphysema--seen by CT of the thorax 19. Pulmonary fibrosis 20. Restrictive lung disease 21. Retinal artery occlusion, central 22. Shortness of breath 23. Solitary pulmonary nodule 24. Stage III chronic kidney disease 25. Type 2 diabetes mellitus 26. Vitamin D deficiency 27. History of bilateral pleural effusions 28. History empyema 29. Right retinal artery occlusion Surgical History 1. CABG 2. Decortication secondary to empyema Family History 1. Family history of Acute Myocardial Infarction 2. Denied: Family history of Chronic Kidney Disease (NKF Classification) 3. Family history of Coronary Artery Disease Social History Being A Social Drinker Former smoker --30 years prior History of tobacco use Occupation: Retired Current Meds 1. Bumetanide 2 MG Oral Tablet; Take 1 tablet daily; 2. Albuterol Sulfate (2.5 MG/3ML) 0.083% Inhalation Nebulization Solution; USE 1 UNIT DOSE IN NEBULIZER 4 TIMES DAILY 3. Ipratropium-Albuterol 0.5-2.5 (3) MG/3ML Inhalation Solution; USE 1 UNIT DOSE IN NEBULIZER 4 TIMES DAILY 4. Symbicort 160-4.5 MCG/ACT Inhalation Aerosol; INHALE 2 PUFFS TWICE DAILY. RINSE 5. Ipratropium [place] 0.02 % Inhalation Solution; USE 1 UNIT DOSE IN NEBULIZER 4 6. AmLODIPine Besylate TABS; TAKE 1 TABLET DAILY 7. Aspirin 81 MG TABS; TAKE 1 TABLET DAILY 8. GlipiZIDE ER 2.5 MG Oral Tablet Extended Release 24 Hour; TAKE 1 TABLET DAILY ; 9. HumaLOG SOLN; sliding scale; 10. Lantus SOLN; INJECT 15 UNIT Bedtime; 11. Lipitor 80 MG Oral Tablet; TAKE 1 TABLET AT BEDTIME 12. Metoprolol Tartrate 25 MG Oral Tablet; TAKE 1 TABLET TWICE DAILY 13. Multi-Vitamin TABS; TAKE 1 TABLET DAILY 14. Pantoprazole Sodium 40 MG Oral Tablet Delayed Release; Take 1 tablet daily; 15. Probiotic Oral Capsule; TAKE 1 CAPSULE Daily 16. Xarelto TABS; Take 1 tablet daily NKDA Historian: patient, EMS Review of Systems Constitutional: reports: weakness Eyes: reports: no symptoms ENT: reports: no symptoms Cardiovascular: reports: no symptoms Respiratory: reports: as stated in HPI Gastrointestinal: reports: no symptoms Genitourinary - Male: reports: no symptoms Musculoskeletal: reports: no symptoms Integumentary: reports: other (bilateral lower extremity edema 2+ as well as erythema left greater than right, notable skin breakdown bilaterally) Neurologic: reports: no symptoms Psychiatric: reports: no symptoms Endocrine: no symptoms Hematologic / Lymphatic: no symptoms Allergic / Immunologic: no symptoms Past Medical History Past Medical History: Please refer to history of present illness Past Medical History: arthritis, congestive heart failure, coronary artery disease, diabetes, high cholesterol, hypertension, other Past Surgical History: Please refer to history of present illness Past Surgical History: coronary bypass surgery, orthopedic surgery Family History Please refer to history of present illness Parent: Cancer, Heart Disease, Grandparent: Diabetes Social History Please refer to history of present illness Hx Tobacco Use In Past Year?: No Smoking Status: Former Smoker Alcohol: socially Marital status: single Housing status: lives alone Occupational Status: unemployed Immunizations History of Influenza Vaccine: No History of Tetanus Vaccine?: Yes History of Pneumococcal: Yes History of Hepatitis B Vaccine: Unknown History of MDRO History of MDRO: No Allergies Coded Allergies: No Known Allergies (Verified , 05/08/17) Current Medications Reported Home Medications Medications Dose Route/Sig Max Daily Dose Days Date Category Dose Instructions Symbicort 160/4.5 Inhaler (Budesonide/Formoterol Fumarate) 120 Puffs/ Aero 2 Puffs INH BID 05/12/17 Reported Spiriva Handihaler (Tiotropium [place]) 30 Puff/540 Mcg Aerp 1 Cap INH DAILY 30 05/12/17 Reported Aspirin EC Low Dose (Aspirin) 81 Mg Ectab 81 Mg PO DAILY 30 05/12/17 Rx Protonix (Pantoprazole Sodium) 40 Mg Tab 40 Mg PO QAM 05/10/17 Rx Triamcinolone Acetonide (Triamcinolone Acet) 45 Appln/15 Gm Cr 1 Appln EXT TID 05/10/17 Rx apply in very thin amounts to rash on shins 3 times a day for about 5 days then STOP Hydrocerin (Multi-Ingredient Ointment) 360 Appln/120 Gm Cr 1 Appln EXT TID 05/10/17 Rx apply three times a day to rash on both shins Clopidogrel (Clopidogrel Bisulfate) 75 Mg Tab 75 Mg PO QAM 05/10/17 Rx for prevention of stroke Norvasc (Amlodipine Besylate) 2.5 Mg Tab 2.5 Mg PO DAILY 04/01/17 Reported Humalog (Insulin Lispro (Human)) 100 Unit/Ml Inj Units SQ UD 04/01/17 Reported SLIDING SCALE Lantus (Insulin Glargine) 100 Unit/Ml Inj 30 Units SC QPM 04/01/17 Reported Duoneb (Ipratropium-Albuterol) 3 Ml Nebu 3 Ml INH QID PRN 10 01/09/16 Rx Bumex (Bumetanide) 2 Mg Tab 4 Mg PO DAILY 08/06/13 Reported Multivitamin (Multivitamins) Tab 1 Tab PO DAILY 04/21/08 Reported Lipitor (Atorvastatin Calcium) 80 Mg Tab 80 Mg PO DAILY 04/21/08 Reported Lopressor (Metoprolol Tartrate) 25 Mg Tab 25 Mg PO BID 04/21/08 Reported Physical Physical Exam Vital Signs: Date Time Temp Pulse Resp B/P (MAP) Pulse Ox O2 Delivery O2 Flow Rate FiO2 10/15/17 12:00 BiPAP 15.0 40 10/15/17 11:07 72 94 40 10/15/17 11:07 72 17 94 BiPAP/CPAP 40 10/15/17 10:40 36.5 71 20 106/66 (79) 92 BiPAP 10/15/17 08:00 BiPAP 15.0 40 10/15/17 07:35 36.5 70 20 107/65 (79) 92 BiPAP 10/15/17 06:51 74 93 40 10/15/17 06:51 74 15 93 BiPAP/CPAP 40 10/15/17 04:00 97 BiPAP 15.0 50 10/15/17 03:59 36.5 72 17 118/69 (85) 91 CPAP 40 10/15/17 02:02 60 91 40 10/15/17 00:00 97 BiPAP 15.0 50 10/14/17 23:31 36.3 71 21 113/68 (83) 91 BiPAP 40 10/14/17 23:09 69 97 50 10/14/17 21:11 83 95 50 10/14/17 21:01 83 18 95 BiPAP/CPAP 50 10/14/17 20:30 142/78 10/14/17 20:20 81 17 98 10/14/17 20:05 82 20 99 10/14/17 20:01 136/71 10/14/17 19:50 85 22 97 10/14/17 19:38 36.4 82 20 105/68 98 Non-Rebreather 15.0 10/14/17 19:35 81 16 99 10/14/17 19:30 127/86 10/14/17 19:25 84 14 100 10/14/17 19:10 87 18 98 BiPAP 10/14/17 19:01 139/80 10/14/17 18:55 82 30 96 10/14/17 18:40 73 19 98 10/14/17 18:35 80 16 100 BiPAP 7.0 10/14/17 18:31 125/90 10/14/17 18:05 91 17 74 BiPAP 7.0 10/14/17 18:00 123/89 10/14/17 17:43 89 20 91 BiPAP/CPAP 15.0 10/14/17 17:35 76 23 92 10/14/17 17:31 117/71 10/14/17 17:21 89 95 15.0 10/14/17 17:05 73 13 100 10/14/17 17:00 119/73 10/14/17 16:55 74 18 100 BiPAP 10/14/17 16:50 122/70 10/14/17 16:26 80 20 135/73 91 Nasal Cannula 4.0 10/14/17 16:24 135/73 10/14/17 16:07 91 Nasal Cannula 4.0 10/14/17 16:06 91 Nasal Cannula 4.0 10/14/17 14:28 36.8 80 20 122/80 91 Nasal Cannula 4.0 General Appearance: mild distress Head: NORMOCEPHALIC, ATRAUMATIC Eyes: PERRLA, NO DISCHARGE, EOMI, SCLERAE NORMAL, CONJUNCTIVAE NORMAL ENT: other (current BiPAP mask in place well fitted no signs of skin breakdown) Neck: other (increasedEyes no signs of JVD but heavy aguiar noted) Respiratory: other (decreased breath sounds bilaterally with rhonchi at the bases on inspiration and expiration) Cardiovasular: other (distant heart sounds but regular rate and rhythm unable to auscultate for murmurs rubs or gallops) Abdomen: other (obese but nontender no rebound noted positive bowel sounds) Genitourinary - Male: EXTERNAL GENITALIA NORMAL Back: NORMAL INSPECTION, NO MIDLINE TENDERNESS, NO CVA TENDERNESS, NO PARAVERTEBRAL TTP Upper Extremities: NO EDEMA, NO DEFORMITY, NORMAL ROM Lower Extremities: edema, other (bilateral lower extremity edema 2+ with bilateral erythema and skin breakdown) Edema: Bilateral LE (2+) Pulses: carotid (R) (1+), carotid (L) (1+), dorsalis pedis (R) (0), dorsalis pedis (L) (0) Neuro: ALERT, ORIENTED x 3, NORMAL MOTOR EXAM, NORMAL SENSATION Diagnostics Labs Results Past 24 Hours Test 10/14/17 16:12 10/14/17 21:04 10/15/17 01:01 10/15/17 01:22 Range/Units White Blood Count 9.33 4.8-10.8 K/uL Red Blood Count 3.41 4.7-6.1 M/uL Hemoglobin 10.1 14.0-18.0 g/dL Hematocrit 33.1 42-52 % Mean Corpuscular Volume 97.1 80-100 fL Mean Corpuscular Hemoglobin 29.6 25-34 pg Mean Corpuscular Hemoglobin Concent 30.5 32-36 g/dl Platelet Count 224 130-400 K/uL Mean Platelet Volume 9.7 7.4-10.4 fL Neutrophils (%) (Auto) 73.9 % Lymphocytes (%) (Auto) 13.2 % Monocytes (%) (Auto) 7.5 % Eosinophils (%) (Auto) 4.7 % Basophils (%) (Auto) 0.4 % Neutrophils # (Auto) 6.89 1.4-6.5 K/uL Lymphocytes # (Auto) 1.23 1.2-3.4 K/uL Monocytes # (Auto) 0.70 0.11-0.59 K/uL Eosinophils # (Auto) 0.44 0-0.5 K/uL Basophils # (Auto) 0.04 0-0.2 K/uL RDW Standard Deviation 56.3 36.4-46.3 fL RDW Coefficient of Variation 16.0 11.5-14.5 % Immature Granulocyte % (Auto) 0.3 % Immature Granulocyte # (Auto) 0.03 0.00-0.02 K/uL Prothrombin Time 13.2 9.0-12.0 SECONDS Prothromb Time International Ratio 1.2 0.9-1.1 Venous Blood pH 7.36 7.36-7.41 Venous Blood Partial Pressure CO2 74 38.0-50.0 mmHg Venous Blood Partial Pressure O2 31 mmHg Venous Blood HCO3 40 mmol/L Venous Blood Oxygen Saturation < 60.0 % Venous Blood Base Excess 12.2 mEq/L Sodium Level 140 136-145 mmol/L Potassium Level 4.3 3.5-5.1 mmol/L Chloride Level 97 98-107 mmol/L Carbon Dioxide Level 39 21-32 mmol/L Anion Gap 4.0 3-11 mmol/L Blood Urea Nitrogen 36 7-18 mg/dl Creatinine 1.64 0.60-1.40 mg/dl Estimated GFR () 48.4 Estimated GFR (Non- 41.7 BUN/Creatinine Ratio 21.8 10-20 Random Glucose 114 70-99 mg/dl Lactic Acid Level 0.9 0.4-2.0 mmol/L Calcium Level 9.2 8.5-10.1 mg/dl Total Bilirubin 0.8 0.2-1 mg/dl Direct Bilirubin 0.3 0-0.2 mg/dl Aspartate Amino Transf (AST/SGOT) 31 15-37 U/L Alanine Aminotransferase (ALT/SGPT) 36 12-78 U/L Alkaline Phosphatase 114 45-117 U/L Troponin I 0.016 0-0.045 ng/ml Pro-B-Type Natriuretic Peptide 2331 0-900 pg/ml Total Protein 8.3 6.4-8.2 gm/dl Albumin 3.5 3.4-5.0 gm/dl Lipase 208 73-393 U/L Bedside Glucose 94 60 92 70-99 mg/dl Test 10/15/17 03:43 10/15/17 04:19 10/15/17 05:23 10/15/17 06:16 Range/Units Bedside Glucose 76 81 66 70-99 mg/dl White Blood Count 7.79 4.8-10.8 K/uL Red Blood Count 3.16 4.7-6.1 M/uL Hemoglobin 9.2 14.0-18.0 g/dL Hematocrit 30.6 42-52 % Mean Corpuscular Volume 96.8 80-100 fL Mean Corpuscular Hemoglobin 29.1 25-34 pg Mean Corpuscular Hemoglobin Concent 30.1 32-36 g/dl RDW Standard Deviation 56.3 36.4-46.3 fL RDW Coefficient of Variation 15.9 11.5-14.5 % Platelet Count 176 130-400 K/uL Mean Platelet Volume 9.4 7.4-10.4 fL Sodium Level 141 136-145 mmol/L Potassium Level 3.9 3.5-5.1 mmol/L Chloride Level 100 98-107 mmol/L Carbon Dioxide Level 38 21-32 mmol/L Anion Gap 3.0 3-11 mmol/L Blood Urea Nitrogen 34 7-18 mg/dl Creatinine 1.57 0.60-1.40 mg/dl Est Creatinine Clear Calc Drug Dose 53.6 ml/min Estimated GFR () 51.0 Estimated GFR (Non- 44.0 BUN/Creatinine Ratio 21.5 10-20 Random Glucose 63 70-99 mg/dl Calcium Level 8.7 8.5-10.1 mg/dl Magnesium Level 2.1 1.8-2.4 mg/dl Troponin I 0.016 0-0.045 ng/ml Test 10/15/17 06:37 10/15/17 10:13 10/15/17 10:37 10/15/17 12:57 Range/Units Bedside Glucose 87 60 81 70-99 mg/dl Microbiology Results 10/14/17 Blood Culture, Received Pending 10/14/17 Blood Culture, Received Pending 10/14/17 MRSA DNA Surveillance Screen - Final, Complete Specimen Negative for MRSA by DNA Probe Diagnostic Radiology Please refer to history of present illness EKG Please refer to history of present illness Impression Assessment and Plan 9-year-old male with acute on chronic hypoxic respiratory insufficiency: #1 Hypoxemia: Patient's hypoxemia is most likely combination of diastolic heart failure, group 1 and group 2 pulmonary hypertension and possibly obesity hypoventilation syndrome. At this time I do believe the BiPAP mask is helping the patient with afterload reduction and will continue this at this time for at least the next 24 hours. I also believe aggressive diuresis on this patient will monitor his kidney function is most appropriate action at this time. At this time we'll attempt feeding on this patient will perform trial run of nasal cannula try to maintain patient's SaO2 is greater than 88-90%. If unable to switch to a high flow system for patient's feeding and keep him off the BiPAP for about a 2 hour period around his feeding if possible. #2 Respiratory: The patient has chronic restrictive ventilatory disease based off imaging as well as his previous pulmonary function studies. I do believe his current nebulizer regimen is appropriate and also agreed with not initiating steroids. #3 Sleep Apnea: Is a high likelihood that this patient has sleep apnea but will perform nocturnal desaturation study 48 hours prior to discharge and evaluate for home BiPAP at that time. Dr. Waldo garcia his primary np/sleep specialist as ordered outpatient polysomnogram for further evaluation. #4 Pneumonia: This patient neither clinically normal radiographic at this time suggest pneumonia. I do believe the antibiotics are appropriate for his current cellulitis. #5 hypercapnia: The patient has chronic hypercapnia most likely from TRACEY/ obesity hypoventilation or restrictive ventilatory process. It does not appear that this patient is having an active hypercapnic flare as his VBG corrects back to his baseline serum bicarbonate levels. Thank you for this consultation.
[2017-10-15] MEDS ORDERED: VANCOMYCIN INJ 1,500 MG in SODIUM CHLORIDE 0.9% 500ML 500 ML IV SCH (15:00)
[2017-10-15] MEDS ORDERED: PIPERACILL/TAZOBAC CONSULT ACTIVE PRN (15:30)
[2017-10-15] MEDS ORDERED: PIPERACILL/TAZOBAC IV 4.5 GM in DEXTROSE 5% 100ML IV ONE (15:30)
[2017-10-15] MEDS: ACETAMINOPHEN 325 MG TAB PO PRN (18:30)
[2017-10-15] MEDS: INSULIN GLARGINE SOLOSTAR 100 UNITS/ML 3 ML PEN SC SCH (20:32)
[2017-10-15] MEDS: PIPERACILL/TAZOBAC IV 4.5 GM in DEXTROSE 5% 100ML 100 ML IV SCH (21:08)
[2017-10-15] MEDS: BOOST GLUCOSE CONTROL PO SCH (21:42)
[2017-10-16] VITALS (18 sets, daily range): BP systolic 103–142; BP diastolic 62–84; PULSE 59–96; TEMP 36.3–37.1; O2SAT 87–97
[2017-10-16] MEDS: PIPERACILL/TAZOBAC IV 4.5 GM in DEXTROSE 5% 100ML 100 ML IV SCH (05:31)
[2017-10-16] MEDS: BUDESONIDE 0.5 MG/2 ML VIAL (PULMICORT) INH SCH ×2 (06:55→18:44)
[2017-10-16] MEDS: ALBUT/IPRATROP 3MG/0.5MG NEB 3 ML VIAL INH SCH ×4 (06:55→18:44)
[2017-10-16] MEDS: INSULIN ASPART 100 UNITS/ML 3 ML PEN SC SCH ×4 (07:00→20:41)
[2017-10-16 07:39] LABS: BASO % 0.5 %; BASO ABS # 0.04 K/uL (0-0.2); COMPLETE YES; EOS % 5.5 %; IG% 0.1 %; LYMPH % 16.3 %; LYMPH ABS # 1.39 K/uL (1.2-3.4); MEAN CELL VOLUME 96.5 fL (80-100); MEAN CORPUSCULAR HEMOGLOBIN 29.8 pg (25-34); MEAN CORPUSCULAR HGB CONC 30.9 g/dl (32-36); MEAN PLATELET VOLUME 9.4 fL (7.4-10.4); MONO % 11.6 %; PLATELET COUNT 189 K/uL (130-400); RED BLOOD COUNT 3.42 M/uL (4.7-6.1); WHITE BLOOD COUNT 8.55 K/uL (4.8-10.8)
[2017-10-16 07:49] LABS: INR 1.4 (0.9-1.1); PARTIAL THROMBOPLASTIN RATIO 1.3; PROTHROMBIN TIME (PATIENT) 15.4 SECONDS (9.0-12.0)
[2017-10-16 08:14] LABS: CALCIUM 9.5 mg/dl (8.5-10.1); CREATININE 2.22 mg/dl (0.60-1.40)
[2017-10-16] MEDS: RIVAROXABAN 20 MG TAB PO SCH (08:30)
[2017-10-16] MEDS: ASPIRIN 81 MG ECTAB PO SCH (08:30)
[2017-10-16] MEDS ORDERED: VANCOMYCIN TROUGH ONE (08:30)
[2017-10-16] MEDS: ATORVASTATIN 20 MG TAB PO SCH (08:30)
[2017-10-16] MEDS: CLOPIDOGREL BISULFATE 75 MG TAB PO SCH (08:31)
[2017-10-16] MEDS: METOPROLOL TARTRATE 25 MG TAB PO SCH ×2 (08:31→20:37)
[2017-10-16] MEDS: GUAIFENESIN 600 MG TABCR PO SCH ×2 (08:31→20:37)
[2017-10-16] MEDS: PANTOprazole SOD 40 MG TAB PO SCH (08:33)
[2017-10-16] MEDS: MULTIVITAMIN TAB PO SCH (08:33)
[2017-10-16] MEDS: BUMETANIDE IV 2 MG in SYRINGE 0 ML IV SCH ×2 (08:34→17:33)
[2017-10-16] MEDS: AMLODIPINE BESYLATE 5 MG TAB PO SCH (08:34)
[2017-10-16] MEDS: EUCERIN CR 120 GM JAR EXT SCH ×3 (08:35→20:34)
--- NOTE | 2017-10-16 10:06 | DIAGNOSTIC IMAGING REPORT ---
SINGLE VIEW CHEST CLINICAL HISTORY: Pulmonary edema. FINDINGS: An AP, portable, upright chest radiograph is compared to study dated 10/14/2017. Correlation is made with chest CT dated 04/24/2017. The examination is degraded by portable technique, apical lordotic positioning, and patient rotation. The patient is status post midline sternotomy. The heart is enlarged and there is atherosclerotic calcification of the thoracic aorta. Pulmonary vessel congestion and interstitial edema persist. Small pleural effusions are identified with bibasilar consolidation. No pneumothorax is seen. The skeletal structures are osteopenic. The bony thorax is grossly intact. IMPRESSION: 1. Cardiomegaly with evidence of congestive failure and interstitial edema. This is similar in appearance to 10/14/2017. 2. Pleural effusions with bibasilar consolidation. Electronically signed by: Livan Padgett M.D. 10/16/2017 10:04 AM Dictated Date/Time: 10/16/2017 10:03 AM
--- NOTE | 2017-10-16 11:19 | PROGRESS NOTE ---
DATE: 10/16/2017 PROBLEM LIST: Includes: 1. Chronic hypoxic respiratory failure. 2. Hypoxemia. 3. Probable sleep apnea. 4. Hypercapnia. 5. Cellulitis. SUBJECTIVE: The patient was evaluated in room 220 today. The patient reports that he is feeling better, states that his breathing has improved. He does feel short of breath. He states that he has been wearing the BiPAP and feels that it is helping. He states that he did take it off for breakfast this morning and his oxygen saturations did eventually drop down into the upper 60s as reported by him with movement and he states that desaturations went back up fairly quickly, but he has been on either 4 liters of oxygen or the BiPAP since. The patient states that he overall does feel better. He reports that he is not really having any chest heaviness or tightness at this time. No significant chest congestion. He states that he did cough this morning and did get some brown, green mucus up but it was just 1 time. He does have history of epistaxis, has not really had any bleeding from his nose recently. Denies any pleuritic chest pain. Denies any cardiac symptoms. No angina. No palpitations. No GI symptoms. No nausea or vomiting, no difficulty swallowing. Bowels are moving well, voiding well. States that he is doing better with his swelling. He states that his legs are down significantly compared to what they were. To this point he has had a negative fluid balance of 1234 mL but the patient himself reports that the edema in his legs has improved drastically. He states that he can see his ankles for the first time in weeks. No other concerns or problems at present. OBJECTIVE: GENERAL: The patient is a 72-year-old male lying in bed. He does have BiPAP on. He is alert and oriented x3. His mood is good. Affect is good. VITAL SIGNS: Temp 37.1, pulse 96, respirations 18, blood pressure is 123/68, pulse ox when I was in the room was approximately 93-95% on BiPAP with oxygen at 4 liters. HEENT: Normocephalic, atraumatic. Pupils equal, round and react to light and accommodation. Extraocular movements are intact. [place] moist gingival and buccal mucosa. NECK: Supple. No mass. No adenopathy. No bruit. Short, thick. CHEST: Decreased breath sounds bilaterally. I do not appreciate any significant wheezing at this time. Questionable coarse breath sounds and rhonchi at the bases but this is difficult to ascertain. CARDIOVASCULAR: Regular rate and rhythm. No murmurs, gallops or rubs appreciated, although difficult to auscultate. ABDOMEN: Bowel sounds are present. Abdomen soft, nontender. No guarding, rigidity or organomegaly. EXTREMITIES: The patient has at most trace edema this morning. Legs are wrapped today. Distal pulses are intact. No clubbing or cyanosis noted. NEUROLOGIC: Cranial nerves II to XII are intact. No focal deficit noted. LABORATORY DATA: Shows a white count of 8000, H&H 10.2 and 33.0, platelet count 189,000. INR 1.4. Serum CO2 is down to 37. BUN is 33, creatinine did bump up to 2.22. Blood cultures negative to date. MRSA screen is negative to date. Repeat chest x-ray showing some cardiomegaly. X-ray overall similar to 10/14/2017, very small pleural effusions bilaterally. IMPRESSION: A 72-year-old male with acute on chronic hypoxic respiratory insufficiency who is notably on 4 liters of oxygen at home, presented with hypoxemia. At this point, the patient is showing signs of improvement, is tolerating BiPAP well. The patient feels that this is helping significantly, breathing has improved. He also has noted that his edema is down tremendously. At this point, continue diuresis with monitoring of renal function. He did have a creatinine bumped up from 1.8 to 2.2. I did recommend that the patient continue on BiPAP yet today. Would also recommend starting tomorrow if he is doing well, he can call off BiPAP in the morning and then put it on for maybe an hour to an hour and a half between breakfast and lunch and then again between lunch and dinner and then continue to use it at the hour of sleep. In regard to pulmonary, I feel that his nebulizer selection is appropriate. I also feel that we can continue to hold off on steroids as this most likely is not necessary at this time. In regards to BiPAP use, I do suspect the patient may have underlying sleep apnea. Unfortunately, the patient has not had a sleep study so this will need to be done as an outpatient. At this point, we will reevaluate patient in the morning. Patient and case reviewed. Plan agreed upon. SABASD
--- NOTE | 2017-10-16 14:35 | Family Medicine Progress Note ---
Progress Note Date of Service Oct 16, 2017. Subjective Pt evaluation today including: conversation w/ patient, physical exam, chart review, lab review, review of studies Pt says that he is feeling better today. Reports being off of BIPAP for meals. Denies chest pain. Constitutional: No fever, No chills, No sweats Respiratory: + shortness of breath, No cough, No sputum Cardiovascular: + edema, No chest pain, No palpitations Abdomen: No pain, No nausea, No vomiting, No diarrhea Medications Current Inpatient Medications Medications (Trade) Dose Ordered Sig/Alexa Route Start Time Stop Time Status Last Admin Dose Admin Acetaminophen (Tylenol Tab) 650 mg Q4H PRN PO 10/14/17 19:15 11/13/17 19:14 10/15/17 18:30 650 MG Al Hydrox/Mg Hydrox/Simethicone (Maalox Max Susp) 15 ml Q4H PRN PO 10/14/17 19:15 11/13/17 19:14 Magnesium Hydroxide (Milk Of Magnesia Susp) 30 ml Q12H PRN PO 10/14/17 19:15 11/13/17 19:14 Ondansetron HCl (Zofran Inj) 4 mg Q6H PRN IV 10/14/17 19:15 11/13/17 19:14 Polyethylene (Miralax Powder Packet) 17 gm DAILY PRN PO 10/14/17 19:15 11/13/17 19:14 Amlodipine Besylate (Norvasc Tab) 2.5 mg DAILY PO 10/15/17 09:00 11/14/17 08:59 10/16/17 08:34 2.5 MG Aspirin (Ecotrin Tab) 81 mg DAILY PO 10/15/17 09:00 11/14/17 08:59 10/16/17 08:30 81 MG Atorvastatin Calcium (Lipitor Tab) 80 mg DAILY PO 10/15/17 09:00 11/14/17 08:59 10/16/17 08:30 80 MG Clopidogrel Bisulfate (plAVix TAB) 75 mg QAM PO 10/15/17 09:00 11/14/17 08:59 10/16/17 08:31 75 MG Multi-Ingredient Ointment (Eucerin Unscented Cr) 1 appln TID EXT 10/14/17 21:00 11/13/17 20:59 10/16/17 08:35 1 APPLN Metoprolol Tartrate (Lopressor Tab) 25 mg BID PO 10/14/17 21:00 11/13/17 20:59 10/16/17 08:31 25 MG Multivitamins (Multivitamin Tab) 1 tab DAILY PO 10/15/17 09:00 11/14/17 08:59 10/16/17 08:33 1 TAB Pantoprazole Sodium (Protonix Tab) 40 mg QAM PO 10/15/17 09:00 11/14/17 08:59 10/16/17 08:33 40 MG Tiotropium [place] (Spiriva Handihaler Inhaler) 1 puff DAILY INH 10/15/17 09:00 11/14/17 08:59 Future Hold 10/15/17 08:17 1 PUFF Insulin Aspart (novoLOG ASPART) SLIDING SCALE If C... ACHS SC 10/14/17 21:00 11/13/17 20:59 10/16/17 11:50 2 UNITS Glucose (Glucose 40% Gel) 15-30 GRAMS 15 GRAMS... UD PRN PO 10/14/17 19:45 11/13/17 19:44 Glucose (Glucose Chew Tab) 4-8 Tablets 4 Tabl... UD PRN PO 10/14/17 19:45 11/13/17 19:44 10/15/17 06:19 4 TABS Dextrose (Dextrose 50% 50ML Syringe) 25-50ML OF 50% DW IV FOR... UD PRN IV 10/14/17 19:45 11/13/17 19:44 Glucagon (Glucagon Inj) 1 mg UD PRN SQ 10/14/17 19:45 11/13/17 19:44 Budesonide (Pulmicort Respules 0.5MG/ 2ML Neb Soln) 0.5 mg BIDR INH 10/14/17 20:00 11/13/17 19:59 10/16/17 06:55 0.5 MG Bumetanide 2 mg/ Syringe 8 ml @ 4 mls/min DAILY@ IV 10/15/17 09:00 11/14/17 08:59 10/16/17 08:34 4 MLS/MIN Guaifenesin (Mucinex Contr Rel Tab) 1,200 mg Q12 PO 10/14/17 21:00 11/13/17 20:59 10/16/17 08:31 1,200 MG Rivaroxaban (Xarelto Tab) 20 mg DAILY PO 10/15/17 09:00 11/14/17 08:59 10/16/17 08:30 20 MG Albuterol/ Ipratropium (Duoneb) 3 ml QIDR INH 10/14/17 20:15 11/13/17 20:14 10/16/17 11:13 3 ML Insulin Glargine (Lantus Solostar Pen) 10 units QPM SC 10/15/17 21:00 11/13/17 20:59 10/15/17 20:32 10 UNITS Enteral Nutritional Formula (Boost Glucose Control) 1 can HS PO 10/15/17 21:00 11/14/17 20:59 10/15/17 21:42 1 CAN Ceftriaxone Sodium 1 gm/ Dextrose 50 ml @ 100 mls/hr Q24H IV 10/16/17 14:00 10/26/17 13:59 Objective Physical Exam General Appearance: WD/WN, no apparent distress Respiratory/Chest: chest non-tender, lungs clear, normal breath sounds, no respiratory distress, no accessory muscle use Cardiovascular: regular rate, rhythm, no edema, no gallop, no JVD, no murmur Neurologic/Psychiatric: alert, normal mood/affect, oriented x 3 Skin: + pertinent finding (clean bandages on bilateral anterior lower extremity ) Assessment and Plan 72 male PMH of diastolic heart failure (ef 55-60%), Afib and respiratory failure on 3-4 L O2 at home presents with SOB Acute respiratory failure with hypoxia sec to acute on chronic diastolic CHF and chronic underlying lung ds and pleural effusion -Continue BiPAP at current settings. -Keep pulse ox around 91-92%.ap -Pulmonology recommends outpatient sleep study for sleep apnea Acute on chronic diastolic CHF/hypertension Continue Bumex 2 mg IV twice a day (home dose is 4mg PO). Restrict fluids to 1000ml Pt Cr 2.2 today. follow closely Continue amlodipine 2.5 mg, ASA EC 81 mg, clopidogrel 75 mg, and metoprolol tartrate 25 mg. Restrictive lung ds with OHS and pul HTN sec to chronic diastolic dysfunction Holding Symbicort and Spiriva. No concern of pneumonia per pulmonary Sputum Gram stain and culture. Pulmicort rest pills 0.5 mg inhaled twice a day. Duonebs q 4 hours while awake and every 2 hours when necessary. Bilateral lower sternal cellulitis, right worse than left Pt on IV Rocephin Follow blood cultures, no growth to date Seen by wound care Epistaxis/need for chronic anticoagulation On Xarelto begun in August. Pt on renal dose of Xeralto, 15mg Consider ENT consult if reoccur in hospital Diabetes mellitus Continue Lantus insulin [address] Accu-Cheks before meals and at bedtime with NovoLog coverage per scale. CKD stage III Cr up to 2.2 today, will follow closely Follow BMP and MG Hyperlipidemia continue atorvastatin 80 mg GERD Continue pantoprazole 40 mg DVT ppx Xeralto Reviewed: Pt Seen/Exam by Me History continuing to need bipap. denies any other concerns Constitutional: denies: fever Cardiovascular: denies chest pain Gastrointestinal/Abdominal: negative: abdominal pain General Appearance: no apparent distress Respiratory: decreased breath sounds, other (on bipap) Cardiovascular: regular rate, rhythm Gastrointestinal: soft Neurologic/Psychiatric: alert, oriented x 3 Skin Characteristics: warm/dry Assessment/Plan Resident Physician Supervision Note: I independently interviewed and examined the patient and verified the marsh history and physical, reviewed labs and image studies, discussed the case with the resident Dr. Elaine and agree with the findings and care plan.
[2017-10-16] MEDS: CEFTRIAXONE SOD INJ 1000 MG in DEXTROSE 5% 50ML IV SCH (14:43)
[2017-10-16] MEDS: ACETAMINOPHEN 325 MG TAB PO PRN (14:44)
[2017-10-16] MEDS: BOOST GLUCOSE CONTROL PO SCH (20:37)
[2017-10-16] MEDS: INSULIN GLARGINE SOLOSTAR 100 UNITS/ML 3 ML PEN SC SCH (21:08)
[2017-10-17] VITALS (14 sets, daily range): BP systolic 103–127; BP diastolic 65–78; PULSE 71–92; TEMP 36.5–36.9; O2SAT 3–98
[2017-10-17 05:08] LABS: BASO % 0.4 %; BASO ABS # 0.04 K/uL (0-0.2); COMPLETE YES; IG% 0.2 %; LYMPH % 10.8 %; LYMPH ABS # 0.99 K/uL (1.2-3.4); MEAN CELL VOLUME 96.4 fL (80-100); MEAN CORPUSCULAR HEMOGLOBIN 29.5 pg (25-34); MEAN CORPUSCULAR HGB CONC 30.6 g/dl (32-36); MEAN PLATELET VOLUME 9.2 fL (7.4-10.4); MONO % 10.3 %; NEUT % 72.3 %; PLATELET COUNT 189 K/uL (130-400); RED BLOOD COUNT 3.32 M/uL (4.7-6.1); WHITE BLOOD COUNT 9.17 K/uL (4.8-10.8)
[2017-10-17 05:15] LABS: INR 1.4 (0.9-1.1)
[2017-10-17 05:32] LABS: BUN/CREATININE RATIO 15.9 (10-20); CALCIUM 9.1 mg/dl (8.5-10.1); CREATININE 2.01 mg/dl (0.60-1.40); POTASSIUM 3.7 mmol/L (3.5-5.1)
[2017-10-17 05:35] LABS: ALB/GLOB RATIO 0.7 (0.9-2)
[2017-10-17] MEDS: BUDESONIDE 0.5 MG/2 ML VIAL (PULMICORT) INH SCH ×2 (06:50→19:14)
[2017-10-17] MEDS: ALBUT/IPRATROP 3MG/0.5MG NEB 3 ML VIAL INH SCH ×4 (06:51→19:11)
[2017-10-17] MEDS: PANTOprazole SOD 40 MG TAB PO SCH (08:15)
[2017-10-17] MEDS: BUMETANIDE IV 2 MG in SYRINGE 0 ML IV SCH ×2 (08:15→17:26)
[2017-10-17] MEDS: MULTIVITAMIN TAB PO SCH (08:15)
[2017-10-17] MEDS: AMLODIPINE BESYLATE 5 MG TAB PO SCH (08:16)
[2017-10-17] MEDS: ATORVASTATIN 20 MG TAB PO SCH (08:16)
[2017-10-17] MEDS: ASPIRIN 81 MG ECTAB PO SCH (08:16)
[2017-10-17] MEDS: GUAIFENESIN 600 MG TABCR PO SCH ×2 (08:17→20:07)
[2017-10-17] MEDS: EUCERIN CR 120 GM JAR EXT SCH ×3 (08:18→20:06)
[2017-10-17] MEDS: RIVAROXABAN TAB 15 MG TAB PO SCH (08:18)
[2017-10-17] MEDS: METOPROLOL TARTRATE 25 MG TAB PO SCH ×2 (08:18→20:06)
[2017-10-17] MEDS: INSULIN ASPART 100 UNITS/ML 3 ML PEN SC SCH ×4 (08:25→20:10)
[2017-10-17] MEDS: ACETAMINOPHEN 325 MG TAB PO PRN (09:39)
--- NOTE | 2017-10-17 10:49 | PROGRESS NOTE ---
DATE: 10/17/2017 DATE: 10/17/2017 PROBLEM LIST: Includes: 1. Chronic hypoxic respiratory failure. 2. Hypoxemia. 3. Probable sleep apnea. 4. Hypercapnia. 5. Cellulitis. SUBJECTIVE: The patient reports that he is slowly improving, he feels better today. He is actually up out of bed in a chair today. States that he wore BiPAP last night and then was off of it from approximately 7 o'clock to approximately 9:30 this morning and did well. He states that when he went to get out of bed when he transitioned from sitting to standing his oxygen did drop. They got him in the chair, put his BiPAP back on, his oxygen recovered nicely. He states that he feels well overall, he is not really having any complaints. He states that he is having a little bit of epistaxis and also when he coughs he is seeing a little bit of blood in the mucus. He states that this is something that has been going on for a while and he feels that it is coming from the epistaxis. He states that he is getting Zaroxolyn which he was started on back in August. He states that he is no longer supposed to be on Plavix as this was stopped prior to starting on Xarelto. He states also he is not typically on aspirin. He is tolerating the BiPAP well. He feels that this is very helpful for this. He is not having any wheezing. No chest heaviness or tightness. He has not had any other concerns or difficulties. No chest pain, no palpitations. No chest heaviness or tightness. He is not having any difficulty with GI, states that his bowels did move yesterday. He is voiding quite a bit. He states that they are giving him fluid medicine to get the swelling down. He states his legs are feeling better as well in regards to the cellulitis. OBJECTIVE: GENERAL: The patient is a 72-year-old male sitting at bedside. He is alert and oriented x3. Mood is good. Affect is good. He does have BiPAP on and does not appear in any acute respiratory distress, does not appear in any acute distress in general. VITAL SIGNS: Temp 36.9, pulse 82, respirations 18, blood pressure is 123/75, pulse ox when I was in the room he was saturating in the mid to upper 90% range with BiPAP on. According to the chart he has been saturating right around 90-91% on 4 liters earlier today. HEAD, EYES, EARS, NOSE, AND THROAT: Normocephalic, atraumatic. Pupils equal, round and reactive to light and accommodation. Extraocular movements are intact. [place] moist gingival and buccal mucosa. NECK: Short and thick. No mass, adenopathy or bruit. CHEST: Diminished breath sounds bilaterally, does have some faint coarse breath sounds at the bases, otherwise relatively clear. No appreciated rales or rhonchi. CARDIOVASCULAR: Regular rate and rhythm. No appreciated murmurs, gallops or rubs, although difficult to ascertain due to patient's body habitus and external noise. ABDOMEN: Bowel sounds present. Abdomen soft, nontender. No guarding, rigidity or organomegaly. EXTREMITIES: The patient has some mild erythema. His lower extremities are both wrapped. No significant edema at this time. No tenderness. No cyanosis or clubbing noted. NEUROLOGIC: Cranial nerves II through XII are intact. No focal deficits. LABORATORY DATA: Shows white count of 9,000 and H&H of 9.8 and 32.0, platelet count 189,000. INR this morning was 1.4, BUN down to 32, creatinine down to 2.01. IMAGING: No new imaging. IMPRESSION: A 72-year-old male with acute on chronic hypoxic respiratory insufficiency who is typically on 4 liters at home and has required BiPAP in the hospital here. He is continuing to show signs of improvement. He was actually off of BiPAP from 7 to 9:30 this morning, then went on it for a brief period of time. He is saturating well. He still does have some desaturation with exertion, but I expect that this will continue to improve. Diuresis is doing well. The patient is also on fluid restriction. Did diurese about 1300 mL yesterday. At this point, I would recommend to continue diuretics. Continue with the previously mentioned regimen for the BiPAP and attempt to slowly wean off. I would like to get a repeat chest x-ray tomorrow. At this point, I think that we will reevaluate in the morning. We will not make any medication changes at this time. Patient seen in room plan reviewed. Agree with the above assessment plan. DARRION
--- NOTE | 2017-10-17 11:19 | Family Medicine Progress Note ---
Progress Note Date of Service Oct 17, 2017. Subjective Pt evaluation today including: conversation w/ patient, physical exam, chart review, lab review, review of studies Pt is feeling much better this morning. He is bathed and in the chair. Pt does report SOB with activity, but says that the SOB at rest is much improved. He is switching between BiPAP and O2 NC. So far the patient is tolerating the regimen well. Pt reports improvement of his edema as well. Denies CP. Constitutional: No fever, No chills, No sweats Respiratory: + cough, + shortness of breath, + dyspnea on exertion, No sputum, No wheezing Cardiovascular: + orthopnea, No chest pain, No palpitations Abdomen: No pain, No nausea, No vomiting, No diarrhea, No constipation Medications Current Inpatient Medications Medications (Trade) Dose Ordered Sig/Alexa Route Start Time Stop Time Status Last Admin Dose Admin Acetaminophen (Tylenol Tab) 650 mg Q4H PRN PO 10/14/17 19:15 11/13/17 19:14 10/17/17 09:39 650 MG Al Hydrox/Mg Hydrox/Simethicone (Maalox Max Susp) 15 ml Q4H PRN PO 10/14/17 19:15 11/13/17 19:14 Magnesium Hydroxide (Milk Of Magnesia Susp) 30 ml Q12H PRN PO 10/14/17 19:15 11/13/17 19:14 Ondansetron HCl (Zofran Inj) 4 mg Q6H PRN IV 10/14/17 19:15 11/13/17 19:14 Polyethylene (Miralax Powder Packet) 17 gm DAILY PRN PO 10/14/17 19:15 11/13/17 19:14 Amlodipine Besylate (Norvasc Tab) 2.5 mg DAILY PO 10/15/17 09:00 11/14/17 08:59 10/17/17 08:16 2.5 MG Aspirin (Ecotrin Tab) 81 mg DAILY PO 10/15/17 09:00 11/14/17 08:59 10/17/17 08:16 81 MG Atorvastatin Calcium (Lipitor Tab) 80 mg DAILY PO 10/15/17 09:00 11/14/17 08:59 10/17/17 08:16 80 MG Multi-Ingredient Ointment (Eucerin Unscented Cr) 1 appln TID EXT 10/14/17 21:00 11/13/17 20:59 10/16/17 14:50 1 APPLN Metoprolol Tartrate (Lopressor Tab) 25 mg BID PO 10/14/17 21:00 11/13/17 20:59 10/17/17 08:18 25 MG Multivitamins (Multivitamin Tab) 1 tab DAILY PO 10/15/17 09:00 11/14/17 08:59 10/17/17 08:15 1 TAB Pantoprazole Sodium (Protonix Tab) 40 mg QAM PO 10/15/17 09:00 11/14/17 08:59 10/17/17 08:15 40 MG Tiotropium [place] (Spiriva Handihaler Inhaler) 1 puff DAILY INH 10/15/17 09:00 11/14/17 08:59 Future Hold 10/15/17 08:17 1 PUFF Insulin Aspart (novoLOG ASPART) SLIDING SCALE If C... ACHS SC 10/14/17 21:00 11/13/17 20:59 10/17/17 08:25 1 UNITS Glucose (Glucose 40% Gel) 15-30 GRAMS 15 GRAMS... UD PRN PO 10/14/17 19:45 11/13/17 19:44 Glucose (Glucose Chew Tab) 4-8 Tablets 4 Tabl... UD PRN PO 10/14/17 19:45 11/13/17 19:44 10/15/17 06:19 4 TABS Dextrose (Dextrose 50% 50ML Syringe) 25-50ML OF 50% DW IV FOR... UD PRN IV 10/14/17 19:45 11/13/17 19:44 Glucagon (Glucagon Inj) 1 mg UD PRN SQ 10/14/17 19:45 11/13/17 19:44 Budesonide (Pulmicort Respules 0.5MG/ 2ML Neb Soln) 0.5 mg BIDR INH 10/14/17 20:00 11/13/17 19:59 10/17/17 06:50 0.5 MG Bumetanide 2 mg/ Syringe 8 ml @ 4 mls/min DAILY@ IV 10/15/17 09:00 11/14/17 08:59 10/17/17 08:15 4 MLS/MIN Guaifenesin (Mucinex Contr Rel Tab) 1,200 mg Q12 PO 10/14/17 21:00 11/13/17 20:59 10/17/17 08:17 1,200 MG Albuterol/ Ipratropium (Duoneb) 3 ml QIDR INH 10/14/17 20:15 11/13/17 20:14 10/17/17 06:51 3 ML Insulin Glargine (Lantus Solostar Pen) 10 units QPM SC 10/15/17 21:00 11/13/17 20:59 10/16/17 21:08 10 UNITS Enteral Nutritional Formula (Boost Glucose Control) 1 can HS PO 10/15/17 21:00 11/14/17 20:59 10/16/17 20:37 1 CAN Ceftriaxone Sodium 1 gm/ Dextrose 50 ml @ 100 mls/hr Q24H IV 10/16/17 14:00 10/26/17 13:59 10/16/17 14:43 100 MLS/HR Rivaroxaban (Xarelto Tab) 15 mg DAILY PO 10/17/17 09:00 11/16/17 08:59 10/17/17 08:18 15 MG Objective Vital Signs Date Time Temp Pulse Resp B/P (MAP) Pulse Ox O2 Delivery O2 Flow Rate FiO2 10/17/17 08:00 Nasal Cannula 4.0 10/17/17 07:52 36.9 82 18 123/75 (91) 90 Nasal Cannula 4.0 10/17/17 06:51 92 24 90 Nasal Cannula 4.0 10/17/17 05:15 71 94 40 10/17/17 04:00 BiPAP 40 10/17/17 03:24 36.7 81 17 117/70 (86) 90 BiPAP 10/17/17 02:14 78 3 40 10/16/17 23:59 BiPAP 40 10/16/17 23:50 36.5 79 16 118/74 (89) 92 10/16/17 22:16 79 95 40 10/16/17 20:00 Nasal Cannula 4.0 10/16/17 19:13 36.5 85 24 103/62 (76) 92 High Flow Oxygen 40 10/16/17 18:48 85 92 40 10/16/17 18:47 85 24 92 BiPAP/CPAP 40 10/16/17 16:00 36.6 90 16 136/76 (96) 95 10/16/17 16:00 Nasal Cannula 4.0 10/16/17 15:30 87 20 91 Nasal Cannula 4.0 10/16/17 15:10 87 Nasal Cannula CPAP 10/16/17 12:00 Nasal Cannula 4.0 10/16/17 11:21 59 92 40 Physical Exam General Appearance: WD/WN, no apparent distress Respiratory/Chest: chest non-tender, lungs clear, no respiratory distress, no accessory muscle use, + decreased breath sounds (in bilateral bases ) Cardiovascular: regular rate, rhythm, no edema, no gallop, no JVD, no murmur Abdomen: normal bowel sounds, non tender, soft, no organomegaly, no pulsatile mass Neurologic/Psychiatric: alert, normal mood/affect, oriented x 3 Skin: normal color, warm/dry, + pertinent finding (Pt has two clean bandages on bilateral lowe extremity ) Laboratory Results 10/17/17 04:47 Red Blood Count 3.32, Mean Corpuscular Volume 96.4, Mean Corpuscular Hemoglobin 29.5, Mean Corpuscular Hemoglobin Concent 30.6, Mean Platelet Volume 9.2, Neutrophils (%) (Auto) 72.3, Lymphocytes (%) (Auto) 10.8, Monocytes (%) (Auto) 10.3, Eosinophils (%) (Auto) 6.0, Basophils (%) (Auto) 0.4, Neutrophils # (Auto ) 6.63, Lymphocytes # (Auto) 0.99, Monocytes # (Auto) 0.94, Eosinophils # (Auto ) 0.55, Basophils # (Auto) 0.04 10/17/17 04:47 Test 10/17/17 04:47 10/17/17 06:34 White Blood Count 9.17 K/uL (4.8-10.8) Red Blood Count 3.32 M/uL (4.7-6.1) Hemoglobin 9.8 g/dL (14.0-18.0) Hematocrit 32.0 % (42-52) Mean Corpuscular Volume 96.4 fL (80-100) Mean Corpuscular Hemoglobin 29.5 pg (25-34) Mean Corpuscular Hemoglobin Concent 30.6 g/dl (32-36) Platelet Count 189 K/uL (130-400) Mean Platelet Volume 9.2 fL (7.4-10.4) Neutrophils (%) (Auto) 72.3 % Lymphocytes (%) (Auto) 10.8 % Monocytes (%) (Auto) 10.3 % Eosinophils (%) (Auto) 6.0 % Basophils (%) (Auto) 0.4 % Neutrophils # (Auto) 6.63 K/uL (1.4-6.5) Lymphocytes # (Auto) 0.99 K/uL (1.2-3.4) Monocytes # (Auto) 0.94 K/uL (0.11-0.59) Eosinophils # (Auto) 0.55 K/uL (0-0.5) Basophils # (Auto) 0.04 K/uL (0-0.2) RDW Standard Deviation 57.5 fL (36.4-46.3) RDW Coefficient of Variation 16.5 % (11.5-14.5) Immature Granulocyte % (Auto) 0.2 % Immature Granulocyte # (Auto) 0.02 K/uL (0.00-0.02) Prothrombin Time 15.0 SECONDS (9.0-12.0) Prothromb Time International Ratio 1.4 (0.9-1.1) Anion Gap 5.0 mmol/L (3-11) Est Creatinine Clear Calc Drug Dose 41.9 ml/min Estimated GFR () 37.8 Estimated GFR (Non- 32.6 BUN/Creatinine Ratio 15.9 (10-20) Calcium Level 9.1 mg/dl (8.5-10.1) Total Bilirubin 0.8 mg/dl (0.2-1) Aspartate Amino Transf (AST/SGOT) 20 U/L (15-37) Alanine Aminotransferase (ALT/SGPT) 22 U/L (12-78) Alkaline Phosphatase 90 U/L (45-117) Total Protein 7.5 gm/dl (6.4-8.2) Albumin 3.0 gm/dl (3.4-5.0) Globulin 4.5 gm/dl (2.5-4.0) Albumin/Globulin Ratio 0.7 (0.9-2) Bedside Glucose 148 mg/dl (70-99) Assessment and Plan 72 male PMH of diastolic heart failure (ef 55-60%), Afib and respiratory failure on 3-4 L O2 at home presents with SOB Acute respiratory failure with hypoxia sec to acute on chronic diastolic CHF and chronic underlying lung ds and pleural effusion -Continue BiPAP at current settings. Switching between BiPAP and NC per pulm recommendations -Keep pulse ox around 91-92%.ap -Pulmonology recommends outpatient sleep study for sleep apnea Acute on chronic diastolic CHF/hypertension Continue Bumex 2 mg IV twice a day (home dose is 2mg PO). - Pt Cr 2.0 today. Will follow closely. Continue amlodipine 2.5 mg, ASA EC 81 mg and metoprolol tartrate 25 mg. - continue 1L fluid restriction Restrictive lung ds with OHS and pul HTN sec to chronic diastolic dysfunction Holding Symbicort and Spiriva. No concern of pneumonia per pulmonary Sputum Gram stain and culture. Pulmicort rest pills 0.5 mg inhaled twice a day. Duonebs q 4 hours while awake and every 2 hours when necessary. Bilateral lower sternal cellulitis, right worse than left Pt on IV Rocephin Follow blood cultures, no growth to date Seen by wound care Epistaxis/need for chronic anticoagulation On Xarelto begun in August. Pt on renal dose of Xeralto, 15mg Consider ENT consult if reoccur in hospital Diabetes mellitus Continue Lantus insulin [address] Accu-Cheks before meals and at bedtime with NovoLog coverage per scale. CKD stage III Cr up to 2.0 today, will follow closely Follow BMP and MG Hyperlipidemia continue atorvastatin 80 mg GERD Continue pantoprazole 40 mg DVT ppx Xeralto Reviewed: Pt Seen/Exam by Me History breathing improving Constitutional: denies: fever Cardiovascular: denies chest pain Gastrointestinal/Abdominal: negative: abdominal pain General Appearance: no apparent distress Respiratory: no respiratory distress, decreased breath sounds Cardiovascular: regular rate, rhythm Gastrointestinal: soft Extremities: other (both lower legs in dressing) Neurologic/Psychiatric: alert, oriented x 3 Skin Characteristics: warm/dry Assessment/Plan Resident Physician Supervision Note: I independently interviewed and examined the patient and verified the marsh history and physical, reviewed labs and image studies, discussed the case with the resident Dr. Elaine and agree with the findings and care plan.
[2017-10-17] MEDS: CEFTRIAXONE SOD INJ 1000 MG in DEXTROSE 5% 50ML IV SCH (14:03)
[2017-10-17] MEDS: INSULIN GLARGINE SOLOSTAR 100 UNITS/ML 3 ML PEN SC SCH (20:10)
[2017-10-18] VITALS (14 sets, daily range): BP systolic 115–122; BP diastolic 66–75; PULSE 76–86; TEMP 36.5–36.8; O2SAT 90–100
[2017-10-18 05:33] LABS: BASO % 0.4 %; BASO ABS # 0.03 K/uL (0-0.2); COMPLETE YES; EOS % 6.3 %; HEMATOCRIT 31.8 % (42-52); IG% 0.5 %; LYMPH % 12.1 %; LYMPH ABS # 0.98 K/uL (1.2-3.4); MEAN CELL VOLUME 95.5 fL (80-100); MEAN CORPUSCULAR HEMOGLOBIN 29.4 pg (25-34); MEAN CORPUSCULAR HGB CONC 30.8 g/dl (32-36); MEAN PLATELET VOLUME 9.1 fL (7.4-10.4); MONO % 11.3 %; NEUT % 69.4 %; PLATELET COUNT 181 K/uL (130-400); RED BLOOD COUNT 3.33 M/uL (4.7-6.1); WHITE BLOOD COUNT 8.08 K/uL (4.8-10.8)
[2017-10-18 06:01] LABS: BUN/CREATININE RATIO 18.6 (10-20); CREATININE 1.82 mg/dl (0.60-1.40); POTASSIUM 3.7 mmol/L (3.5-5.1)
[2017-10-18] MEDS: ALBUT/IPRATROP 3MG/0.5MG NEB 3 ML VIAL INH SCH ×4 (07:39→19:46)
[2017-10-18] MEDS: BUDESONIDE 0.5 MG/2 ML VIAL (PULMICORT) INH SCH ×2 (07:39→19:47)
--- NOTE | 2017-10-18 07:58 | DIAGNOSTIC IMAGING REPORT ---
CHEST ONE VIEW PORTABLE HISTORY: acute on chronic respiratory failure COMPARISON: Chest 10/16/2017. FINDINGS: No pneumothorax. The heart remains mildly enlarged. Small bilateral pleural effusions and pulmonary edema persists. Patchy bibasilar densities favor atelectasis from the pleural effusions. This is also unchanged. Poststernotomy changes. IMPRESSION: 1. Cardiomegaly with pulmonary edema and small bilateral pleural effusions. 2. Bibasilar densities persist and may represent atelectasis from the pleural effusions. Electronically signed by: Greg Briggs M.D. 10/18/2017 7:56 AM Dictated Date/Time: 10/18/2017 7:55 AM
[2017-10-18] MEDS: BUMETANIDE IV 2 MG in SYRINGE 0 ML IV SCH ×2 (09:32→18:02)
[2017-10-18] MEDS: RIVAROXABAN TAB 15 MG TAB PO SCH (09:32)
[2017-10-18] MEDS: MULTIVITAMIN TAB PO SCH (09:33)
[2017-10-18] MEDS: METOPROLOL TARTRATE 25 MG TAB PO SCH ×2 (09:33→19:47)
[2017-10-18] MEDS: AMLODIPINE BESYLATE 5 MG TAB PO SCH (09:33)
[2017-10-18] MEDS: PANTOprazole SOD 40 MG TAB PO SCH (09:33)
[2017-10-18] MEDS: GUAIFENESIN 600 MG TABCR PO SCH ×2 (09:34→19:48)
[2017-10-18] MEDS: ASPIRIN 81 MG ECTAB PO SCH (09:34)
[2017-10-18] MEDS: ATORVASTATIN 20 MG TAB PO SCH (09:34)
[2017-10-18] MEDS: EUCERIN CR 120 GM JAR EXT SCH ×3 (09:35→21:20)
[2017-10-18] MEDS: INSULIN ASPART 100 UNITS/ML 3 ML PEN SC SCH ×4 (09:38→21:26)
[2017-10-18] MEDS: BOOST GLUCOSE CONTROL PO SCH ×2 (09:39→21:20)
[2017-10-18] MEDS ORDERED: BUMETANIDE IV 2 MG in SYRINGE 0 ML IV ONE (14:15)
--- NOTE | 2017-10-18 14:26 | Family Medicine Progress Note ---
Progress Note Date of Service Oct 18, 2017. Subjective Pt evaluation today including: conversation w/ patient, physical exam, chart review, lab review Pt reports sleeping better last night. He has been alternating between BIPAP and 4 L NC in 2-3 hour intervals. Patients reports tolerating the transition well. He does report a productive cough, clear mucus. He does report some clotted blood when blowing his nose. Constitutional: No fever, No chills, No sweats, No weight loss Respiratory: + cough, + sputum, No wheezing, No shortness of breath Cardiovascular: No chest pain, No orthopnea, No edema, No palpitations Abdomen: No pain, No nausea, No vomiting Medications Current Inpatient Medications Medications (Trade) Dose Ordered Sig/Alexa Route Start Time Stop Time Status Last Admin Dose Admin Acetaminophen (Tylenol Tab) 650 mg Q4H PRN PO 10/14/17 19:15 11/13/17 19:14 10/17/17 09:39 650 MG Al Hydrox/Mg Hydrox/Simethicone (Maalox Max Susp) 15 ml Q4H PRN PO 10/14/17 19:15 11/13/17 19:14 Magnesium Hydroxide (Milk Of Magnesia Susp) 30 ml Q12H PRN PO 10/14/17 19:15 11/13/17 19:14 Ondansetron HCl (Zofran Inj) 4 mg Q6H PRN IV 10/14/17 19:15 11/13/17 19:14 Polyethylene (Miralax Powder Packet) 17 gm DAILY PRN PO 10/14/17 19:15 11/13/17 19:14 Amlodipine Besylate (Norvasc Tab) 2.5 mg DAILY PO 10/15/17 09:00 11/14/17 08:59 10/18/17 09:33 2.5 MG Aspirin (Ecotrin Tab) 81 mg DAILY PO 10/15/17 09:00 11/14/17 08:59 10/18/17 09:34 81 MG Atorvastatin Calcium (Lipitor Tab) 80 mg DAILY PO 10/15/17 09:00 11/14/17 08:59 10/18/17 09:34 80 MG Multi-Ingredient Ointment (Eucerin Unscented Cr) 1 appln TID EXT 10/14/17 21:00 11/13/17 20:59 10/18/17 09:35 1 APPLN Metoprolol Tartrate (Lopressor Tab) 25 mg BID PO 10/14/17 21:00 11/13/17 20:59 10/18/17 09:33 25 MG Multivitamins (Multivitamin Tab) 1 tab DAILY PO 10/15/17 09:00 11/14/17 08:59 10/18/17 09:33 1 TAB Pantoprazole Sodium (Protonix Tab) 40 mg QAM PO 10/15/17 09:00 11/14/17 08:59 10/18/17 09:33 40 MG Tiotropium [place] (Spiriva Handihaler Inhaler) 1 puff DAILY INH 10/15/17 09:00 11/14/17 08:59 Future Hold 10/15/17 08:17 1 PUFF Insulin Aspart (novoLOG ASPART) SLIDING SCALE If C... ACHS SC 10/14/17 21:00 11/13/17 20:59 10/18/17 12:16 3 UNITS Glucose (Glucose 40% Gel) 15-30 GRAMS 15 GRAMS... UD PRN PO 10/14/17 19:45 11/13/17 19:44 Glucose (Glucose Chew Tab) 4-8 Tablets 4 Tabl... UD PRN PO 10/14/17 19:45 11/13/17 19:44 10/15/17 06:19 4 TABS Dextrose (Dextrose 50% 50ML Syringe) 25-50ML OF 50% DW IV FOR... UD PRN IV 10/14/17 19:45 11/13/17 19:44 Glucagon (Glucagon Inj) 1 mg UD PRN SQ 10/14/17 19:45 11/13/17 19:44 Budesonide (Pulmicort Respules 0.5MG/ 2ML Neb Soln) 0.5 mg BIDR INH 10/14/17 20:00 11/13/17 19:59 10/18/17 07:39 0.5 MG Bumetanide 2 mg/ Syringe 8 ml @ 4 mls/min DAILY@ IV 10/15/17 09:00 11/14/17 08:59 10/18/17 09:32 4 MLS/MIN Guaifenesin (Mucinex Contr Rel Tab) 1,200 mg Q12 PO 10/14/17 21:00 11/13/17 20:59 10/18/17 09:34 1,200 MG Albuterol/ Ipratropium (Duoneb) 3 ml QIDR INH 10/14/17 20:15 11/13/17 20:14 10/18/17 11:06 3 ML Insulin Glargine (Lantus Solostar Pen) 10 units QPM SC 10/15/17 21:00 11/13/17 20:59 10/17/17 20:10 10 UNITS Ceftriaxone Sodium 1 gm/ Dextrose 50 ml @ 100 mls/hr Q24H IV 10/16/17 14:00 10/26/17 13:59 10/17/17 14:03 100 MLS/HR Rivaroxaban (Xarelto Tab) 15 mg DAILY PO 10/17/17 09:00 11/16/17 08:59 10/18/17 09:32 15 MG Enteral Nutritional Formula (Boost Glucose Control) 1 can HS PO 10/17/17 21:00 11/16/17 20:59 Bumetanide 2 mg/ Syringe 8 ml @ 4 mls/min NOW ONCE IV 10/18/17 14:15 10/18/17 14:16 Objective Vital Signs Date Time Temp Pulse Resp B/P (MAP) Pulse Ox O2 Delivery O2 Flow Rate FiO2 10/18/17 12:00 Nasal Cannula 4.0 10/18/17 11:27 36.8 82 20 118/75 (89) 100 4.0 10/18/17 11:09 81 18 96 Nasal Cannula 4.0 10/18/17 08:00 Nasal Cannula 4.0 10/18/17 07:49 36.7 77 20 119/70 (86) 92 4.0 10/18/17 07:39 80 18 92 BiPAP/CPAP 40 10/18/17 04:20 76 94 40 10/18/17 04:05 36.6 81 18 120/70 (87) 93 Nasal Cannula 4.0 10/18/17 04:00 93 Nasal Cannula 4.0 10/18/17 00:01 94 BiPAP 40 10/17/17 23:02 86 93 40 10/17/17 23:00 36.7 90 17 118/71 (87) 94 10/17/17 20:08 Nasal Cannula 4.0 10/17/17 19:14 88 18 91 Nasal Cannula 4.0 10/17/17 18:54 36.7 75 20 127/78 (94) 92 High Flow Oxygen 10/17/17 16:00 Nasal Cannula 4.0 10/17/17 15:09 36.5 76 22 112/68 (83) 95 BiPAP 76 10/17/17 14:50 77 94 40 Physical Exam General Appearance: WD/WN, no apparent distress Respiratory/Chest: chest non-tender, no respiratory distress, no accessory muscle use, + decreased breath sounds (bilateral bases ), + wheezing Cardiovascular: regular rate, rhythm, no edema, no gallop, no JVD, no murmur Abdomen: normal bowel sounds, non tender, soft, no organomegaly Neurologic/Psychiatric: alert, normal mood/affect, oriented x 3 Skin: normal color, warm/dry (c), no rash, + pertinent finding (clean bandage on bilateral lower extremity ) Laboratory Results 10/18/17 05:14 Red Blood Count 3.33, Mean Corpuscular Volume 95.5, Mean Corpuscular Hemoglobin 29.4, Mean Corpuscular Hemoglobin Concent 30.8, Mean Platelet Volume 9.1, Neutrophils (%) (Auto) 69.4, Lymphocytes (%) (Auto) 12.1, Monocytes (%) (Auto) 11.3, Eosinophils (%) (Auto) 6.3, Basophils (%) (Auto) 0.4, Neutrophils # (Auto ) 5.61, Lymphocytes # (Auto) 0.98, Monocytes # (Auto) 0.91, Eosinophils # (Auto ) 0.51, Basophils # (Auto) 0.03 10/18/17 05:14 Test 10/18/17 05:14 10/18/17 11:11 White Blood Count 8.08 K/uL (4.8-10.8) Red Blood Count 3.33 M/uL (4.7-6.1) Hemoglobin 9.8 g/dL (14.0-18.0) Hematocrit 31.8 % (42-52) Mean Corpuscular Volume 95.5 fL (80-100) Mean Corpuscular Hemoglobin 29.4 pg (25-34) Mean Corpuscular Hemoglobin Concent 30.8 g/dl (32-36) Platelet Count 181 K/uL (130-400) Mean Platelet Volume 9.1 fL (7.4-10.4) Neutrophils (%) (Auto) 69.4 % Lymphocytes (%) (Auto) 12.1 % Monocytes (%) (Auto) 11.3 % Eosinophils (%) (Auto) 6.3 % Basophils (%) (Auto) 0.4 % Neutrophils # (Auto) 5.61 K/uL (1.4-6.5) Lymphocytes # (Auto) 0.98 K/uL (1.2-3.4) Monocytes # (Auto) 0.91 K/uL (0.11-0.59) Eosinophils # (Auto) 0.51 K/uL (0-0.5) Basophils # (Auto) 0.03 K/uL (0-0.2) RDW Standard Deviation 57.0 fL (36.4-46.3) RDW Coefficient of Variation 16.5 % (11.5-14.5) Immature Granulocyte % (Auto) 0.5 % Immature Granulocyte # (Auto) 0.04 K/uL (0.00-0.02) Anion Gap 4.0 mmol/L (3-11) Est Creatinine Clear Calc Drug Dose 46.2 ml/min Estimated GFR () 42.7 Estimated GFR (Non- 36.8 BUN/Creatinine Ratio 18.6 (10-20) Calcium Level 9.0 mg/dl (8.5-10.1) Bedside Glucose 214 mg/dl (70-99) Assessment and Plan 72 male PMH of diastolic heart failure (ef 55-60%), Afib and respiratory failure on 3-4 L O2 at home presents with SOB Acute respiratory failure with hypoxia sec to acute on chronic diastolic CHF and chronic underlying lung ds and pleural effusion -Continue BiPAP at current settings. Switching between BiPAP and NC per pulm recommendations -Keep pulse ox around 91-92%.ap -Pulmonology recommends outpatient sleep study for sleep apnea -PT/OT consulted, awaiting recommendations Acute on chronic diastolic CHF/hypertension - Continue Bumex 2 mg IV twice a day (home dose is 2mg PO). - Additional dose of Bumex 2mg IV today - Pt Cr trending down, 1.8 today - Continue amlodipine 2.5 mg, ASA EC 81 mg and metoprolol tartrate 25 mg. - continue 1L fluid restriction Restrictive lung ds with OHS and pul HTN sec to chronic diastolic dysfunction Holding Symbicort and Spiriva. No concern of pneumonia per pulmonary Sputum Gram stain and culture. Pulmicort rest pills 0.5 mg inhaled twice a day. Duonebs q 4 hours while awake and every 2 hours when necessary. Bilateral lower sternal cellulitis, right worse than left Pt on IV Rocephin (day 3) Follow blood cultures, no growth to date Seen by wound care Epistaxis/need for chronic anticoagulation On Xarelto begun in August. Pt on renal dose of Xeralto, 15mg Consider ENT consult if reoccur in hospital Diabetes mellitus Continue Lantus insulin [address] Accu-Cheks before meals and at bedtime with NovoLog coverage per scale. CKD stage III Follow BMP and MG Hyperlipidemia continue atorvastatin 80 mg GERD Continue pantoprazole 40 mg DVT ppx Xeralto Reviewed: Pt Seen/Exam by Me History off bipap when seen in am for breakfast. denied any new concerns Constitutional: denies: fever Cardiovascular: denies chest pain Gastrointestinal/Abdominal: negative: abdominal pain General Appearance: no apparent distress Respiratory: decreased breath sounds Cardiovascular: regular rate, rhythm Neurologic/Psychiatric: alert, oriented x 3 Assessment/Plan Resident Physician Supervision Note: I independently interviewed and examined the patient and verified the marsh history and physical, reviewed labs and image studies, discussed the case with the resident Dr. Elaine and agree with the findings and care plan.
[2017-10-18] MEDS: CEFTRIAXONE SOD INJ 1000 MG in DEXTROSE 5% 50ML IV SCH (15:02)
[2017-10-18] MEDS: INSULIN GLARGINE SOLOSTAR 100 UNITS/ML 3 ML PEN SC SCH (21:24)
[2017-10-18] MEDS: ACETAMINOPHEN 325 MG TAB PO PRN (21:36)
[2017-10-19] VITALS (12 sets, daily range): BP systolic 105–124; BP diastolic 66–77; PULSE 63–82; TEMP 36.4–36.7; O2SAT 94–98
[2017-10-19 06:16] LABS: BASO % 0.5 %; BASO ABS # 0.04 K/uL (0-0.2); COMPLETE YES; EOS % 7.2 %; HEMATOCRIT 32.6 % (42-52); IG% 0.6 %; LYMPH % 16.8 %; LYMPH ABS # 1.34 K/uL (1.2-3.4); MEAN CELL VOLUME 95.9 fL (80-100); MEAN CORPUSCULAR HGB CONC 31.3 g/dl (32-36); MEAN PLATELET VOLUME 9.4 fL (7.4-10.4); MONO % 10.8 %; NEUT % 64.1 %; PLATELET COUNT 189 K/uL (130-400); WHITE BLOOD COUNT 7.96 K/uL (4.8-10.8)
[2017-10-19 06:48] LABS: BUN/CREATININE RATIO 20.6 (10-20); CALCIUM 8.9 mg/dl (8.5-10.1); CREATININE 1.82 mg/dl (0.60-1.40); POTASSIUM 3.6 mmol/L (3.5-5.1)
[2017-10-19] MEDS: BUDESONIDE 0.5 MG/2 ML VIAL (PULMICORT) INH SCH ×2 (07:01→19:36)
[2017-10-19] MEDS: ALBUT/IPRATROP 3MG/0.5MG NEB 3 ML VIAL INH SCH ×4 (07:01→19:35)
[2017-10-19] MEDS: EUCERIN CR 120 GM JAR EXT SCH ×3 (08:32→21:42)
[2017-10-19] MEDS: METOPROLOL TARTRATE 25 MG TAB PO SCH ×2 (08:33→21:43)
[2017-10-19] MEDS: BUMETANIDE IV 2 MG in SYRINGE 0 ML IV SCH ×2 (08:33→17:29)
[2017-10-19] MEDS: PANTOprazole SOD 40 MG TAB PO SCH (08:33)
[2017-10-19] MEDS: ASPIRIN 81 MG ECTAB PO SCH (08:33)
[2017-10-19] MEDS: ATORVASTATIN 20 MG TAB PO SCH (08:33)
[2017-10-19] MEDS: MULTIVITAMIN TAB PO SCH (08:33)
[2017-10-19] MEDS: GUAIFENESIN 600 MG TABCR PO SCH ×2 (08:34→21:43)
[2017-10-19] MEDS: AMLODIPINE BESYLATE 5 MG TAB PO SCH (08:34)
[2017-10-19] MEDS: RIVAROXABAN TAB 15 MG TAB PO SCH (08:34)
[2017-10-19] MEDS: INSULIN ASPART 100 UNITS/ML 3 ML PEN SC SCH ×4 (08:39→21:49)
[2017-10-19] MEDS: ACETAMINOPHEN 325 MG TAB PO PRN ×2 (09:34→21:44)
--- NOTE | 2017-10-19 11:23 | Family Medicine Progress Note ---
Progress Note Date of Service Oct 19, 2017. Subjective Pt evaluation today including: conversation w/ patient, physical exam, chart review, lab review Patient is tolerating transition from BiPAP to NC well. Pt reports sleeping well. Does report SOB with activity. Pt is to be evaluated by PT/OT today. Constitutional: No fever, No chills, No sweats, No weight loss Respiratory: + cough, + sputum, + shortness of breath, + dyspnea on exertion , No wheezing Cardiovascular: + orthopnea, No chest pain, No edema, No palpitations Abdomen: No pain, No nausea, No vomiting, No diarrhea Medications Current Inpatient Medications Medications (Trade) Dose Ordered Sig/Alexa Route Start Time Stop Time Status Last Admin Dose Admin Acetaminophen (Tylenol Tab) 650 mg Q4H PRN PO 10/14/17 19:15 11/13/17 19:14 10/19/17 09:34 650 MG Al Hydrox/Mg Hydrox/Simethicone (Maalox Max Susp) 15 ml Q4H PRN PO 10/14/17 19:15 11/13/17 19:14 Magnesium Hydroxide (Milk Of Magnesia Susp) 30 ml Q12H PRN PO 10/14/17 19:15 11/13/17 19:14 Ondansetron HCl (Zofran Inj) 4 mg Q6H PRN IV 10/14/17 19:15 11/13/17 19:14 Polyethylene (Miralax Powder Packet) 17 gm DAILY PRN PO 10/14/17 19:15 11/13/17 19:14 Amlodipine Besylate (Norvasc Tab) 2.5 mg DAILY PO 10/15/17 09:00 11/14/17 08:59 10/19/17 08:34 2.5 MG Aspirin (Ecotrin Tab) 81 mg DAILY PO 10/15/17 09:00 11/14/17 08:59 10/19/17 08:33 81 MG Atorvastatin Calcium (Lipitor Tab) 80 mg DAILY PO 10/15/17 09:00 11/14/17 08:59 10/19/17 08:33 80 MG Multi-Ingredient Ointment (Eucerin Unscented Cr) 1 appln TID EXT 10/14/17 21:00 11/13/17 20:59 10/19/17 08:32 1 APPLN Metoprolol Tartrate (Lopressor Tab) 25 mg BID PO 10/14/17 21:00 11/13/17 20:59 10/19/17 08:33 25 MG Multivitamins (Multivitamin Tab) 1 tab DAILY PO 10/15/17 09:00 11/14/17 08:59 10/19/17 08:33 1 TAB Pantoprazole Sodium (Protonix Tab) 40 mg QAM PO 10/15/17 09:00 11/14/17 08:59 10/19/17 08:33 40 MG Tiotropium [place] (Spiriva Handihaler Inhaler) 1 puff DAILY INH 10/15/17 09:00 11/14/17 08:59 Future Hold 10/15/17 08:17 1 PUFF Insulin Aspart (novoLOG ASPART) SLIDING SCALE If C... ACHS SC 10/14/17 21:00 11/13/17 20:59 10/19/17 08:39 1 UNITS Glucose (Glucose 40% Gel) 15-30 GRAMS 15 GRAMS... UD PRN PO 10/14/17 19:45 11/13/17 19:44 Glucose (Glucose Chew Tab) 4-8 Tablets 4 Tabl... UD PRN PO 10/14/17 19:45 11/13/17 19:44 10/15/17 06:19 4 TABS Dextrose (Dextrose 50% 50ML Syringe) 25-50ML OF 50% DW IV FOR... UD PRN IV 10/14/17 19:45 11/13/17 19:44 Glucagon (Glucagon Inj) 1 mg UD PRN SQ 10/14/17 19:45 11/13/17 19:44 Budesonide (Pulmicort Respules 0.5MG/ 2ML Neb Soln) 0.5 mg BIDR INH 10/14/17 20:00 11/13/17 19:59 10/19/17 07:01 0.5 MG Bumetanide 2 mg/ Syringe 8 ml @ 4 mls/min DAILY@ IV 10/15/17 09:00 11/14/17 08:59 10/19/17 08:33 4 MLS/MIN Guaifenesin (Mucinex Contr Rel Tab) 1,200 mg Q12 PO 10/14/17 21:00 11/13/17 20:59 10/19/17 08:34 1,200 MG Albuterol/ Ipratropium (Duoneb) 3 ml QIDR INH 10/14/17 20:15 11/13/17 20:14 10/19/17 11:09 3 ML Insulin Glargine (Lantus Solostar Pen) 10 units QPM SC 10/15/17 21:00 11/13/17 20:59 10/18/17 21:24 10 UNITS Ceftriaxone Sodium 1 gm/ Dextrose 50 ml @ 100 mls/hr Q24H IV 10/16/17 14:00 10/26/17 13:59 10/18/17 15:02 100 MLS/HR Rivaroxaban (Xarelto Tab) 15 mg DAILY PO 10/17/17 09:00 11/16/17 08:59 10/19/17 08:34 15 MG Enteral Nutritional Formula (Boost Glucose Control) 1 can HS PO 10/17/17 21:00 11/16/17 20:59 10/18/17 21:20 1 CAN Objective Vital Signs Date Time Temp Pulse Resp B/P (MAP) Pulse Ox O2 Delivery O2 Flow Rate FiO2 10/19/17 11:10 63 20 95 Nasal Cannula 4.0 10/19/17 08:02 36.6 81 19 121/72 (88) 94 Nasal Cannula 4.0 10/19/17 08:00 Nasal Cannula 4.0 10/19/17 07:01 75 20 95 Nasal Cannula 4.0 10/19/17 04:00 Nasal Cannula 4.0 10/19/17 03:47 36.7 75 18 114/72 (86) 95 Nasal Cannula 4.0 10/19/17 00:01 Nasal Cannula 4.0 10/18/17 23:44 36.5 86 17 121/69 (86) 90 BiPAP 10/18/17 22:33 77 94 40 10/18/17 20:00 Nasal Cannula 4.0 10/18/17 19:47 84 22 96 Nasal Cannula 4.0 40 10/18/17 19:21 36.8 82 20 115/71 (86) 96 Nasal Cannula 4.0 10/18/17 16:00 Nasal Cannula 4.0 10/18/17 15:35 36.5 76 24 122/66 (84) 96 BiPAP 11/18/17 15:25 83 22 93 BiPAP/CPAP 40 10/18/17 15:25 83 93 40 10/18/17 12:00 Nasal Cannula 4.0 10/18/17 11:27 36.8 82 20 118/75 (89) 100 4.0 Physical Exam General Appearance: WD/WN, no apparent distress Respiratory/Chest: chest non-tender, lungs clear, no respiratory distress, no accessory muscle use, + decreased breath sounds Cardiovascular: regular rate, rhythm, no edema, no gallop, no JVD, no murmur Abdomen: normal bowel sounds, non tender, soft, no organomegaly Neurologic/Psychiatric: alert, normal mood/affect, oriented x 3 Skin: normal color, warm/dry, no rash, + pertinent finding (clean bandages on bilateral lower extremities) Laboratory Results 10/19/17 05:59 Red Blood Count 3.40, Mean Corpuscular Volume 95.9, Mean Corpuscular Hemoglobin 30.0, Mean Corpuscular Hemoglobin Concent 31.3, Mean Platelet Volume 9.4, Neutrophils (%) (Auto) 64.1, Lymphocytes (%) (Auto) 16.8, Monocytes (%) (Auto) 10.8, Eosinophils (%) (Auto) 7.2, Basophils (%) (Auto) 0.5, Neutrophils # (Auto ) 5.10, Lymphocytes # (Auto) 1.34, Monocytes # (Auto) 0.86, Eosinophils # (Auto ) 0.57, Basophils # (Auto) 0.04 10/19/17 05:59 Test 10/19/17 05:59 10/19/17 06:47 White Blood Count 7.96 K/uL (4.8-10.8) Red Blood Count 3.40 M/uL (4.7-6.1) Hemoglobin 10.2 g/dL (14.0-18.0) Hematocrit 32.6 % (42-52) Mean Corpuscular Volume 95.9 fL (80-100) Mean Corpuscular Hemoglobin 30.0 pg (25-34) Mean Corpuscular Hemoglobin Concent 31.3 g/dl (32-36) Platelet Count 189 K/uL (130-400) Mean Platelet Volume 9.4 fL (7.4-10.4) Neutrophils (%) (Auto) 64.1 % Lymphocytes (%) (Auto) 16.8 % Monocytes (%) (Auto) 10.8 % Eosinophils (%) (Auto) 7.2 % Basophils (%) (Auto) 0.5 % Neutrophils # (Auto) 5.10 K/uL (1.4-6.5) Lymphocytes # (Auto) 1.34 K/uL (1.2-3.4) Monocytes # (Auto) 0.86 K/uL (0.11-0.59) Eosinophils # (Auto) 0.57 K/uL (0-0.5) Basophils # (Auto) 0.04 K/uL (0-0.2) RDW Standard Deviation 56.8 fL (36.4-46.3) RDW Coefficient of Variation 16.3 % (11.5-14.5) Immature Granulocyte % (Auto) 0.6 % Immature Granulocyte # (Auto) 0.05 K/uL (0.00-0.02) Anion Gap 5.0 mmol/L (3-11) Est Creatinine Clear Calc Drug Dose 46.2 ml/min Estimated GFR () 42.7 Estimated GFR (Non- 36.8 BUN/Creatinine Ratio 20.6 (10-20) Calcium Level 8.9 mg/dl (8.5-10.1) Bedside Glucose 148 mg/dl (70-99) Assessment and Plan 72 male PMH of diastolic heart failure (ef 55-60%), Afib and respiratory failure on 3-4 L O2 at home presents with SOB Acute respiratory failure with hypoxia sec to acute on chronic diastolic CHF and chronic underlying lung ds and pleural effusion -Continue BiPAP at current settings. Switching between BiPAP and NC per pulm recommendations -Patient needs to be set up with BIPAP at discharge -Keep pulse ox around 91-92%.ap -Pulmonology recommends outpatient sleep study for sleep apnea -PT/OT consulted, awaiting recommendations Acute on chronic diastolic CHF/hypertension - Continue Bumex 2 mg IV twice a day (home dose is 2mg PO). - Additional dose of Bumex 2mg IV yesterday - Pt Cr trending down, 1.8 today - Continue amlodipine 2.5 mg, ASA EC 81 mg and metoprolol tartrate 25 mg. - continue 1L fluid restriction Restrictive lung ds with OHS and pul HTN sec to chronic diastolic dysfunction Holding Symbicort and Spiriva. No concern of pneumonia per pulmonary Pulmicort rest pills 0.5 mg inhaled twice a day. Duonebs q 4 hours while awake and every 2 hours when necessary. Bilateral lower sternal cellulitis, right worse than left Pt on IV Rocephin (day 4) Follow blood cultures, no growth to date Seen by wound care Epistaxis/need for chronic anticoagulation On Xarelto begun in August. Pt on renal dose of Xeralto, 15mg Consider ENT consult if reoccur in hospital Diabetes mellitus Continue Lantus insulin [address] Accu-Cheks before meals and at bedtime with NovoLog coverage per scale. CKD stage III Follow BMP and MG Hyperlipidemia continue atorvastatin 80 mg GERD Continue pantoprazole 40 mg DVT ppx Xeralto Reviewed: Pt Seen/Exam by Me History no new concerns was off bipap most of the day yesterday. used it at night Constitutional: denies: fever Respiratory: negative: short of breath Cardiovascular: denies chest pain General Appearance: no apparent distress (comfortably sitting in chair) Respiratory: no respiratory distress, decreased breath sounds, rhonchi ( occasional) Cardiovascular: regular rate, rhythm Extremities: other (both lower legs with decreased erythema and edema) Neurologic/Psychiatric: alert, oriented x 3 Assessment/Plan Resident Physician Supervision Note: I independently interviewed and examined the patient and verified the marsh history and physical, reviewed labs and image studies, discussed the case with the resident Dr. Elaine and agree with the findings and care plan.
[2017-10-19] MEDS: CEFTRIAXONE SOD INJ 1000 MG in DEXTROSE 5% 50ML IV SCH (13:09)
[2017-10-19] MEDS: BOOST GLUCOSE CONTROL PO SCH (21:43)
[2017-10-19] MEDS: INSULIN GLARGINE SOLOSTAR 100 UNITS/ML 3 ML PEN SC SCH (21:49)
[2017-10-20] VITALS (8 sets, daily range): BP systolic 110–126; BP diastolic 71–75; PULSE 75–89; TEMP 36.3–36.5; O2SAT 94–96
[2017-10-20 06:06] LABS: HEMATOCRIT 32.1 % (42-52); MEAN CORPUSCULAR HEMOGLOBIN 29.6 pg (25-34); MEAN CORPUSCULAR HGB CONC 31.2 g/dl (32-36); MEAN PLATELET VOLUME 9.6 fL (7.4-10.4); PLATELET COUNT 226 K/uL (130-400); RED BLOOD COUNT 3.38 M/uL (4.7-6.1); WHITE BLOOD COUNT 8.11 K/uL (4.8-10.8)
[2017-10-20 06:09] LABS: INR 1.2 (0.9-1.1); PROTHROMBIN TIME (PATIENT) 12.8 SECONDS (9.0-12.0)
[2017-10-20 06:31] LABS: BUN/CREATININE RATIO 23.9 (10-20); CALCIUM 9.4 mg/dl (8.5-10.1); CREATININE 1.73 mg/dl (0.60-1.40); POTASSIUM 3.7 mmol/L (3.5-5.1)
[2017-10-20] MEDS: BUDESONIDE 0.5 MG/2 ML VIAL (PULMICORT) INH SCH ×2 (07:17→19:25)
[2017-10-20] MEDS: ALBUT/IPRATROP 3MG/0.5MG NEB 3 ML VIAL INH SCH ×4 (07:17→19:25)
[2017-10-20] MEDS: PANTOprazole SOD 40 MG TAB PO SCH (07:41)
[2017-10-20] MEDS: EUCERIN CR 120 GM JAR EXT SCH ×3 (07:41→20:35)
[2017-10-20] MEDS: ASPIRIN 81 MG ECTAB PO SCH (07:42)
[2017-10-20] MEDS: METOPROLOL TARTRATE 25 MG TAB PO SCH ×2 (07:42→20:37)
[2017-10-20] MEDS: MULTIVITAMIN TAB PO SCH (07:42)
[2017-10-20] MEDS: ATORVASTATIN 20 MG TAB PO SCH (07:42)
[2017-10-20] MEDS: BUMETANIDE IV 2 MG in SYRINGE 0 ML IV SCH (07:43)
[2017-10-20] MEDS: GUAIFENESIN 600 MG TABCR PO SCH ×2 (07:43→20:37)
[2017-10-20] MEDS: RIVAROXABAN TAB 15 MG TAB PO SCH (07:43)
[2017-10-20] MEDS: AMLODIPINE BESYLATE 5 MG TAB PO SCH (07:44)
[2017-10-20] MEDS: INSULIN ASPART 100 UNITS/ML 3 ML PEN SC SCH ×4 (07:52→20:41)
--- NOTE | 2017-10-20 09:51 | Progress Note ---
Subjective Date of Service: Oct 20, 2017. Subjective Pt evaluation today including: conversation w/ patient, conversation w/ family , chart review, lab review, review of studies Report feeling better, less cough, on oxygen, which possible is in his baseline , good urine output, bilateral lower treatment of cellulitis is improving, has had daily dress changes bilateral lower extremities, no other complaint Problem List Medical Problems: (1) Acute kidney injury Status: Acute (2) Acute on chronic respiratory failure with hypoxia and hypercapnia Status: Acute (3) Hypoxia Status: Acute (4) Retinal artery occlusion Status: Acute Review of Systems Constitutional: + weakness, + fatigue Eyes: No see HPI, No worsening of vision, No eye pain, No redness, No discharge , No diplopia, No problem reported ENT: No see HPI, No hearing loss, No unusual epistaxis, No nasal symptoms, No sore throat, No tinnitus, No dental problems, No trouble swallowing, No problem reported Respiratory: + cough, + shortness of breath (possible in baseline), No see HPI , No sputum, No wheezing, No dyspnea on exertion, No dyspnea at rest, No hemoptysis, No problem reported Cardiac: No chest pain, No orthopnea Abdomen: No see HPI, No pain, No nausea, No vomiting, No diarrhea, No constipation, No GI bleeding, No problem reported Musculoskeletal: No see HPI, No joint pain, No muscle pain, No calf pain, No problem reported Male : No see HPI, No dysuria, No urinary frequency, No incontinence, No nocturia more than once/night, No slowing stream, No hematuria, No sexual dysfunction, No problem reported Neurologic: No see HPI, No memory loss, No paralysis, No weakness, No numbness/ tingling, No vertigo, No balance problems, No problem reported Psychiatric: No see HPI, No depression symptoms, No anhedonism, No anxiety, No insomnia, No substance abuse, No problem reported Skin: + problem reported (bilateral lower extremity cellulitis is improving) Objective Vital Signs Date Time Temp Pulse Resp B/P (MAP) Pulse Ox O2 Delivery O2 Flow Rate FiO2 10/20/17 09:33 96 10/20/17 08:00 94 Nasal Cannula 4.0 10/20/17 07:18 75 16 94 Nasal Cannula 4.0 10/20/17 07:16 36.5 89 20 126/75 (92) 94 Nasal Cannula 4.0 10/19/17 23:20 BiPAP 10/19/17 22:49 68 96 40 10/19/17 22:20 36.6 82 17 124/77 (93) 95 Nasal Cannula 4.0 10/19/17 19:36 79 18 97 Nasal Cannula 4.0 10/19/17 16:00 Nasal Cannula 4.0 10/19/17 15:32 36.4 74 18 108/67 (81) 98 Nasal Cannula 4.0 10/19/17 15:07 76 18 98 Nasal Cannula 4.0 10/19/17 14:02 36.5 82 18 96 4.0 10/19/17 13:00 96 Nasal Cannula 4.0 10/19/17 13:00 36.5 82 18 123/76 (92) 96 Nasal Cannula 4.0 10/19/17 12:00 Nasal Cannula 4.0 10/19/17 11:35 36.5 73 20 105/66 (79) 95 Nasal Cannula 4.0 10/19/17 11:10 63 20 95 Nasal Cannula 4.0 Physical Exam General Appearance: WD/WN, no apparent distress, + pertinent finding (pleasant conversational) Eyes: normal inspection, PERRL, EOMI, sclerae normal ENT: normal ENT inspection, hearing grossly normal, pharynx normal Neck: supple, no adenopathy, thyroid normal, no JVD, no carotid bruits, trachea midline Respiratory/Chest: chest non-tender, normal breath sounds, no respiratory distress, no accessory muscle use, + decreased breath sounds Cardiovascular: regular rate, rhythm, no gallop, no JVD, no murmur Abdomen: normal bowel sounds, non tender, soft, no organomegaly, no pulsatile mass Extremities: normal range of motion, non-tender, normal inspection, no pedal edema, no calf tenderness, normal capillary refill, pelvis stable, + swelling ( trace) 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, no motor/sensory deficits, alert, normal mood/affect, oriented x 3 Skin: normal color, warm/dry, + pertinent finding (bilateral lower extremity cellulitis, minimal red, dry skin, left side has no opening wound, right side was having open wounds, but today almost healing, there is no exudates,) Lymphatic: no adenopathy Laboratory Results Last 24 Hours Test 10/19/17 11:10 10/19/17 16:35 10/19/17 20:14 10/20/17 05:16 Bedside Glucose 182 mg/dl 237 mg/dl 216 mg/dl White Blood Count 8.11 K/uL Red Blood Count 3.38 M/uL Hemoglobin 10.0 g/dL Hematocrit 32.1 % Mean Corpuscular Volume 95.0 fL Mean Corpuscular Hemoglobin 29.6 pg Mean Corpuscular Hemoglobin Concent 31.2 g/dl RDW Standard Deviation 55.1 fL RDW Coefficient of Variation 15.9 % Platelet Count 226 K/uL Mean Platelet Volume 9.6 fL Prothrombin Time 12.8 SECONDS Prothromb Time International Ratio 1.2 Sodium Level 138 mmol/L Potassium Level 3.7 mmol/L Chloride Level 97 mmol/L Carbon Dioxide Level 36 mmol/L Anion Gap 5.0 mmol/L Blood Urea Nitrogen 41 mg/dl Creatinine 1.73 mg/dl Est Creatinine Clear Calc Drug Dose 48.1 ml/min Estimated GFR () 45.4 Estimated GFR (Non- 39.1 BUN/Creatinine Ratio 23.9 Random Glucose 161 mg/dl Calcium Level 9.4 mg/dl Test 10/20/17 07:32 Bedside Glucose 176 mg/dl Assessment and Plan 72 male PMH of diastolic heart failure (ef 55-60%), Afib and respiratory failure on 3-4 L O2 at home admitted on 10/14/2017 with acute respiratory failure with hypoxia secondary to CHF exacerbation associated with SOB Acute respiratory failure with hypoxia secondary to acute on chronic diastolic CHF Acute on chronic diastolic CHF and chronic Chronic lung disease and pleural effusion 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 Switching between BiPAP and NC per pulm recommendations needs to have set up with BIPAP at discharge Need to have outpatient sleep study for sleep apnea Acute on chronic diastolic CHF/hypertension, tolerated well, renal function improving after diuretic, which indicate renal congestion from heart failure Continue Bumex 2 mg IV twice a day (home dose is 2mg PO), Continue amlodipine 2.5 mg, ASA EC 81 mg and metoprolol tartrate 25 mg, continue 1L fluid restriction Restrictive lung disease with OHS and pul HTN sec to chronic diastolic dysfunction, advised him to continue follow-up with special education resource room teacher Pulmicort rest pills 0.5 mg inhaled twice a day. Duonebs q 4 hours while awake and every 2 hours when necessary. Bilateral lower sternal cellulitis, right worse than left, significantly improving Pt on IV Rocephin (day 5) , will switch to oral Keflex, 5 out of 10 days of total antibiotic Follow blood cultures, no growth to date Epistaxis/need for chronic anticoagulation, no complaining about this On Xarelto begun in August. Pt on renal dose of Xeralto, 15mg Consider ENT consult if reoccur in hospital CKD stage III, improving on diuretic Follow BMP and MG Diabetes mellitus Hyperlipidemia GERD Condition is stable DVT ppx Xeralto Discharge plan will be in 1-2 days after the patient continuing to improve, and also pending from PT OT input Continued [facility] stay due to: home environment unsafe for pt Discharge planning: home
--- NOTE | 2017-10-20 11:56 | Pulmonology Progress Note ---
Pulmonary Progress Note Date of Service Oct 20, 2017. Attending Subjective Patient is feeling improved today. He continues to have some mild shortness of breath with exertion, but states that overall he is doing much better at this time. He is able to walk to the bathroom and back without becoming short of breath. Labs reviewed: WBC 8.11 Hemoglobin 10 new line creatinine 1.73/BUN 41 chest x-ray on 10/18: Cardiomegaly with pulmonary edema and small bilateral pleural effusions. Bibasilar densities persist and may reflect atelectasis from pleural effusions. These images were reviewed. Medications reviewed: Ceftriaxone discontinued, started Keflex Mucinex, DuoNeb, Pulmicort Discussed this patient with Dr. Vences. Objective VS reviewed: Afebrile HR 77 RR 20 SaO2 94% on 4 L nasal cannula General: Patient is awake, alert, cooperative, and in no acute distress. Obese Head: Normocephalic, Atraumatic. ENT: PERRLA, No discharge, EOMI, Sclera normal Neck: Normal ROM. Trachea midline. No stridor Respiratory: Very mild wheeze in upper lobes. Note nasal cannula O2 in place at 4L. No respiratory distress. No accessory muscle use. Cardiovascular: Regular rate and rhythm. soft systolic murmur appreciated Abdomen: Nontender to palpation. Normal bowel sounds hear throughout. No guarding. Abdomen is soft and nontender Back: Normal inspection. Extremities: Mild edema b/l LE. Normal ROM Neuro: Alert, Oriented x 3. CN II-XII grossly intact. Sensation and motor function grossly intact. Psych: Mood and affect are normal. Assessment & Plan 72-year-old male with acute on chronic hypoxic respiratory insufficiency, hypoxemia/hypercapnia, chronic restrictive ventilatory disease, probable sleep apnea Hypoxemia likely multifactorial from diastolic heart failure, group 1 and 2 pulmonary HTN, possible OHS, and probable TRACEY. BiPAP mask likely helping with afterload reduction and probable sleep apnea at night. Continue BiPAP at night & PRN worsening respiratory symptoms along with nasal cannula O2 otherwise to keep SaO2 >88%. Continue aggressive diuresis as renally tolerated. Total fluid balance -[id number] Continue current nebulizer regimen. Continue off of steroids. Complete nocturnal pulse oximetry study 24-48 hours prior to discharge to evaluate for home BiPAP. He will need follow up with Dr. Eisenberg as an outpatient to complete previously scheduled polysomnogram. I discussed this patient with Dr. Vences from primary team. Pulmonary will follow. Data Medications: Current Inpatient Medications Medications (Trade) Dose Ordered Sig/Alexa Route Start Time Stop Time Status Last Admin Dose Admin Acetaminophen (Tylenol Tab) 650 mg Q4H PRN PO 10/14/17 19:15 11/13/17 19:14 10/19/17 21:44 650 MG Al Hydrox/Mg Hydrox/Simethicone (Maalox Max Susp) 15 ml Q4H PRN PO 10/14/17 19:15 11/13/17 19:14 Magnesium Hydroxide (Milk Of Magnesia Susp) 30 ml Q12H PRN PO 10/14/17 19:15 11/13/17 19:14 Ondansetron HCl (Zofran Inj) 4 mg Q6H PRN IV 10/14/17 19:15 11/13/17 19:14 Polyethylene (Miralax Powder Packet) 17 gm DAILY PRN PO 10/14/17 19:15 11/13/17 19:14 Amlodipine Besylate (Norvasc Tab) 2.5 mg DAILY PO 10/15/17 09:00 11/14/17 08:59 10/20/17 07:44 2.5 MG Aspirin (Ecotrin Tab) 81 mg DAILY PO 10/15/17 09:00 11/14/17 08:59 10/20/17 07:42 81 MG Atorvastatin Calcium (Lipitor Tab) 80 mg DAILY PO 10/15/17 09:00 11/14/17 08:59 10/20/17 07:42 80 MG Multi-Ingredient Ointment (Eucerin Unscented Cr) 1 appln TID EXT 10/14/17 21:00 11/13/17 20:59 10/20/17 07:41 1 APPLN Metoprolol Tartrate (Lopressor Tab) 25 mg BID PO 10/14/17 21:00 11/13/17 20:59 10/20/17 07:42 25 MG Multivitamins (Multivitamin Tab) 1 tab DAILY PO 10/15/17 09:00 11/14/17 08:59 10/20/17 07:42 1 TAB Pantoprazole Sodium (Protonix Tab) 40 mg QAM PO 10/15/17 09:00 11/14/17 08:59 10/20/17 07:41 40 MG Tiotropium [place] (Spiriva Handihaler Inhaler) 1 puff DAILY INH 10/15/17 09:00 11/14/17 08:59 Future Hold 10/15/17 08:17 1 PUFF Insulin Aspart (novoLOG ASPART) SLIDING SCALE If C... ACHS SC 10/14/17 21:00 11/13/17 20:59 10/20/17 07:52 2 UNITS Glucose (Glucose 40% Gel) 15-30 GRAMS 15 GRAMS... UD PRN PO 10/14/17 19:45 11/13/17 19:44 Glucose (Glucose Chew Tab) 4-8 Tablets 4 Tabl... UD PRN PO 10/14/17 19:45 11/13/17 19:44 10/15/17 06:19 4 TABS Dextrose (Dextrose 50% 50ML Syringe) 25-50ML OF 50% DW IV FOR... UD PRN IV 10/14/17 19:45 11/13/17 19:44 Glucagon (Glucagon Inj) 1 mg UD PRN SQ 10/14/17 19:45 11/13/17 19:44 Budesonide (Pulmicort Respules 0.5MG/ 2ML Neb Soln) 0.5 mg BIDR INH 10/14/17 20:00 11/13/17 19:59 10/20/17 07:17 0.5 MG Guaifenesin (Mucinex Contr Rel Tab) 1,200 mg Q12 PO 10/14/17 21:00 11/13/17 20:59 10/20/17 07:43 1,200 MG Albuterol/ Ipratropium (Duoneb) 3 ml QIDR INH 10/14/17 20:15 11/13/17 20:14 10/20/17 11:30 3 ML Insulin Glargine (Lantus Solostar Pen) 10 units QPM SC 10/15/17 21:00 11/13/17 20:59 10/19/17 21:49 10 UNITS Rivaroxaban (Xarelto Tab) 15 mg DAILY PO 10/17/17 09:00 11/16/17 08:59 10/20/17 07:43 15 MG Enteral Nutritional Formula (Boost Glucose Control) 1 can HS PO 10/17/17 21:00 11/16/17 20:59 10/19/17 21:43 1 CAN Bumetanide (Bumex Tab) 2 mg BID17 PO 10/20/17 17:00 11/19/17 16:59 Cephalexin Monohydrate (Keflex Cap) 250 mg QID PO 10/20/17 12:00 10/30/17 11:59 Vital Signs: Date Time Temp Pulse Resp B/P (MAP) Pulse Ox O2 Delivery O2 Flow Rate FiO2 10/20/17 11:30 76 16 96 Nasal Cannula 4.0 10/20/17 09:33 96 10/20/17 08:00 94 Nasal Cannula 4.0 10/20/17 07:18 75 16 94 Nasal Cannula 4.0 10/20/17 07:16 36.5 89 20 126/75 (92) 94 Nasal Cannula 4.0 10/19/17 23:20 BiPAP 10/19/17 22:49 68 96 40 10/19/17 22:20 36.6 82 17 124/77 (93) 95 Nasal Cannula 4.0 10/19/17 19:36 79 18 97 Nasal Cannula 4.0 10/19/17 16:00 Nasal Cannula 4.0 10/19/17 15:32 36.4 74 18 108/67 (81) 98 Nasal Cannula 4.0 10/19/17 15:07 76 18 98 Nasal Cannula 4.0 10/19/17 14:02 36.5 82 18 96 4.0 10/19/17 13:00 96 Nasal Cannula 4.0 10/19/17 13:00 36.5 82 18 123/76 (92) 96 Nasal Cannula 4.0 10/19/17 12:00 Nasal Cannula 4.0 Laboratory Results: Last 24 Hours Test 10/19/17 16:35 10/19/17 20:14 10/20/17 05:16 10/20/17 07:32 Bedside Glucose 237 mg/dl 216 mg/dl 176 mg/dl White Blood Count 8.11 K/uL Red Blood Count 3.38 M/uL Hemoglobin 10.0 g/dL Hematocrit 32.1 % Mean Corpuscular Volume 95.0 fL Mean Corpuscular Hemoglobin 29.6 pg Mean Corpuscular Hemoglobin Concent 31.2 g/dl RDW Standard Deviation 55.1 fL RDW Coefficient of Variation 15.9 % Platelet Count 226 K/uL Mean Platelet Volume 9.6 fL Prothrombin Time 12.8 SECONDS Prothromb Time International Ratio 1.2 Sodium Level 138 mmol/L Potassium Level 3.7 mmol/L Chloride Level 97 mmol/L Carbon Dioxide Level 36 mmol/L Anion Gap 5.0 mmol/L Blood Urea Nitrogen 41 mg/dl Creatinine 1.73 mg/dl Est Creatinine Clear Calc Drug Dose 48.1 ml/min Estimated GFR () 45.4 Estimated GFR (Non- 39.1 BUN/Creatinine Ratio 23.9 Random Glucose 161 mg/dl Calcium Level 9.4 mg/dl
[2017-10-20] MEDS: CEPHALEXIN MONOHYDRATE 250 MG CAP PO SCH ×3 (12:34→20:36)
[2017-10-20] MEDS: ACETAMINOPHEN 325 MG TAB PO PRN (16:44)
[2017-10-20] MEDS: BUMETANIDE 1 MG TAB PO SCH (17:24)
[2017-10-20] MEDS: BOOST GLUCOSE CONTROL PO SCH (20:37)
[2017-10-20] MEDS: INSULIN GLARGINE SOLOSTAR 100 UNITS/ML 3 ML PEN SC SCH (20:41)
[2017-10-21] VITALS (10 sets, daily range): BP systolic 114–166; BP diastolic 68–78; PULSE 69–83; TEMP 36.1–36.4; O2SAT 91–99
[2017-10-21] MEDS: ACETAMINOPHEN 325 MG TAB PO PRN (02:42)
[2017-10-21] MEDS: BUDESONIDE 0.5 MG/2 ML VIAL (PULMICORT) INH SCH (07:05)
[2017-10-21] MEDS: ALBUT/IPRATROP 3MG/0.5MG NEB 3 ML VIAL INH SCH ×4 (07:05→19:03)
[2017-10-21 07:28] LABS: BUN/CREATININE RATIO 25.9 (10-20); CALCIUM 8.8 mg/dl (8.5-10.1); CREATININE 1.64 mg/dl (0.60-1.40); MAGNESIUM 2.1 mg/dl (1.8-2.4); POTASSIUM 3.6 mmol/L (3.5-5.1)
[2017-10-21] MEDS: PANTOprazole SOD 40 MG TAB PO SCH (08:18)
[2017-10-21] MEDS: METOPROLOL TARTRATE 25 MG TAB PO SCH ×2 (08:18→20:33)
[2017-10-21] MEDS: MULTIVITAMIN TAB PO SCH (08:18)
[2017-10-21] MEDS: AMLODIPINE BESYLATE 5 MG TAB PO SCH (08:19)
[2017-10-21] MEDS: ASPIRIN 81 MG ECTAB PO SCH (08:19)
[2017-10-21] MEDS: RIVAROXABAN TAB 15 MG TAB PO SCH (08:20)
[2017-10-21] MEDS: GUAIFENESIN 600 MG TABCR PO SCH ×2 (08:20→20:33)
[2017-10-21] MEDS: ATORVASTATIN 20 MG TAB PO SCH (08:20)
[2017-10-21] MEDS: BUMETANIDE 1 MG TAB PO SCH ×2 (08:21→17:11)
[2017-10-21] MEDS: CEPHALEXIN MONOHYDRATE 250 MG CAP PO SCH ×4 (08:22→20:31)
[2017-10-21] MEDS: EUCERIN CR 120 GM JAR EXT SCH ×3 (08:22→20:32)
[2017-10-21] MEDS: INSULIN ASPART 100 UNITS/ML 3 ML PEN SC SCH ×4 (08:28→20:38)
--- NOTE | 2017-10-21 14:09 | Progress Note ---
Subjective Date of Service: Oct 21, 2017. Subjective Pt evaluation today including: conversation w/ patient, physical exam, chart review, lab review, review of studies, review of inpatient medication list Report lower extremity the cellulitis areas was feeling pain and hot and nighttime,, at daytime has no pain, was up walking in the hallway, mild difficulty breathing Problem List Medical Problems: (1) Acute kidney injury Status: Acute (2) Acute on chronic respiratory failure with hypoxia and hypercapnia Status: Acute (3) Hypoxia Status: Acute (4) Retinal artery occlusion Status: Acute Review of Systems Constitutional: + weakness, + fatigue Eyes: No worsening of vision, No eye pain, No redness, No discharge, No diplopia ENT: No hearing loss, No unusual epistaxis, No nasal symptoms, No sore throat, No tinnitus, No dental problems, No trouble swallowing Respiratory: No cough, No sputum, No wheezing, No shortness of breath, No dyspnea on exertion, No dyspnea at rest, No hemoptysis Cardiac: No chest pain, No orthopnea, No PND, No edema, No claudication, No palpitations Abdomen: No pain, No nausea, No vomiting, No diarrhea, No constipation Musculoskeletal: + swelling, No joint pain, No muscle pain, No calf pain Male : No dysuria, No urinary frequency, No incontinence, No nocturia more than once/night, No slowing stream, No hematuria Neurologic: No memory loss, No paralysis, No weakness, No numbness/tingling, No vertigo, No balance problems Psychiatric: No depression symptoms, No anhedonism, No anxiety, No insomnia, No substance abuse Heme: No abnormal bleeding/bruising, No clotting problems, No swollen lymph nodes, No night sweats Endo: No fatigue, No excessive thirst, No excessive urination Skin: + rash, No itch, No new/changing skin lesions, No color change, No bleeding Objective Vital Signs Date Time Temp Pulse Resp B/P (MAP) Pulse Ox O2 Delivery O2 Flow Rate FiO2 10/21/17 11:16 77 15 91 Nasal Cannula 4.0 10/21/17 08:02 Nasal Cannula 4.0 10/21/17 07:07 76 17 95 Nasal Cannula 4.0 10/21/17 07:06 36.4 72 20 123/78 (93) 94 4.0 10/21/17 00:24 36.1 80 20 128/77 (94) 96 4.0 10/21/17 00:20 Nasal Cannula 4.0 Humidified Oxygen 10/20/17 22:08 Nasal Cannula 4.0 10/20/17 19:18 75 16 95 Nasal Cannula 4.0 10/20/17 16:00 Nasal Cannula 4.0 10/20/17 15:16 36.3 77 20 110/71 (84) 94 Nasal Cannula 4.0 10/20/17 14:46 78 16 95 Nasal Cannula 4.0 Physical Exam General Appearance: WD/WN, no apparent distress, + obese Eyes: normal inspection, PERRL, EOMI, sclerae normal ENT: normal ENT inspection, hearing grossly normal, pharynx normal Neck: supple, no adenopathy, thyroid normal, no JVD, no carotid bruits, trachea midline Respiratory/Chest: chest non-tender, normal breath sounds, no respiratory distress, no accessory muscle use, + decreased breath sounds Cardiovascular: regular rate, rhythm, no edema, no gallop, no JVD, no murmur Abdomen: normal bowel sounds, non tender, soft, no organomegaly, no pulsatile mass Extremities: normal range of motion, non-tender, normal inspection, no pedal edema, no calf tenderness, normal capillary refill, pelvis stable 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, no motor/sensory deficits, alert, normal mood/affect, oriented x 3 Skin: normal color, warm/dry, no rash, + pertinent finding (bilateral lower extremity cellulitis the skin looks better, no open wound left side, healing wounds in the right side, it is dry and no exudate) Lymphatic: no adenopathy Laboratory Results Last 24 Hours Test 10/20/17 16:35 10/20/17 19:50 10/21/17 05:44 10/21/17 07:33 Bedside Glucose 186 mg/dl 234 mg/dl 163 mg/dl Sodium Level 137 mmol/L Potassium Level 3.6 mmol/L Chloride Level 96 mmol/L Carbon Dioxide Level 36 mmol/L Anion Gap 5.0 mmol/L Blood Urea Nitrogen 42 mg/dl Creatinine 1.64 mg/dl Est Creatinine Clear Calc Drug Dose 50.8 ml/min Estimated GFR () 48.4 Estimated GFR (Non- 41.7 BUN/Creatinine Ratio 25.9 Random Glucose 166 mg/dl Calcium Level 8.8 mg/dl Magnesium Level 2.1 mg/dl Test 10/21/17 11:25 Bedside Glucose 268 mg/dl Assessment and Plan 72 male PMH of diastolic heart failure (ef 55-60%), Afib and respiratory failure on 3-4 L O2 at home admitted on 10/14/2017 with acute respiratory failure with hypoxia secondary to CHF exacerbation associated with SOB Acute respiratory failure with hypoxia secondary to acute on chronic diastolic CHF Acute on chronic diastolic CHF and chronic Chronic lung disease and pleural effusion Chronic respite failure home O2 dependent on oxygen at home Continue improving 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 Eisenberg as an outpatient to complete previously scheduled polysomnogram. 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 Duonebs q 4 hours while awake and every 2 hours when necessary. Bilateral lower sternal cellulitis, right worse than left, significantly continue improving Pt on IV Rocephin (5 day) , has switched to oral Keflex, 6 out of 10 days of total antibiotic Follow blood cultures, no growth to date Epistaxis/need for chronic anticoagulation, no complaining about this A. fib stroke prevention , On Xarelto begun in August. Pt on renal dose of Xeralto, 15mg, may need to increase to normal dose at 20 mg by mouth daily if renal function continued to improving CKD stage III, continue improving on diuretic Follow BMP and MG Diabetes mellitus Hyperlipidemia GERD Condition is stable DVT ppx Xeralto Discharge plan will be tomorrow if possible Pending biPAP machine for 2448 hrs. nocturnal osat evaluation Continued [facility] stay due to: home environment unsafe for pt Discharge planning: home
[2017-10-21] MEDS ORDERED: NURSING VERBAL MED ORDER ONE (15:00)
[2017-10-21] MEDS: INSULIN GLARGINE SOLOSTAR 100 UNITS/ML 3 ML PEN SC SCH (20:40)
[2017-10-21] MEDS: BOOST GLUCOSE CONTROL PO SCH (20:53)
[2017-10-22 06:36] LABS: BUN/CREATININE RATIO 24.6 (10-20); CALCIUM 8.9 mg/dl (8.5-10.1); CREATININE 1.69 mg/dl (0.60-1.40); MAGNESIUM 2.1 mg/dl (1.8-2.4); POTASSIUM 3.7 mmol/L (3.5-5.1)
[2017-10-22 07:07] VITALS: PULSE 89; O2SAT 94
[2017-10-22] MEDS: ALBUT/IPRATROP 3MG/0.5MG NEB 3 ML VIAL INH SCH ×3 (07:07→14:19)
[2017-10-22] MEDS: BUDESONIDE 0.5 MG/2 ML VIAL (PULMICORT) INH SCH (07:07)
[2017-10-22 07:45] VITALS: BP 115/63; PULSE 74; TEMP 36.3; O2SAT 95
[2017-10-22] MEDS ORDERED: BUMETANIDE 1 MG TAB PO SCH (08:00)
[2017-10-22] MEDS: GUAIFENESIN 600 MG TABCR PO SCH (08:37)
[2017-10-22] MEDS: MULTIVITAMIN TAB PO SCH (08:38)
[2017-10-22] MEDS: METOPROLOL TARTRATE 25 MG TAB PO SCH (08:38)
[2017-10-22] MEDS: PANTOprazole SOD 40 MG TAB PO SCH (08:38)
[2017-10-22] MEDS: ASPIRIN 81 MG ECTAB PO SCH (08:39)
[2017-10-22] MEDS: ATORVASTATIN 20 MG TAB PO SCH (08:39)
[2017-10-22] MEDS: AMLODIPINE BESYLATE 5 MG TAB PO SCH (08:39)
[2017-10-22] MEDS: CEPHALEXIN MONOHYDRATE 250 MG CAP PO SCH ×3 (08:40→16:07)
[2017-10-22] MEDS: INSULIN ASPART 100 UNITS/ML 3 ML PEN SC SCH ×2 (08:44→12:15)
[2017-10-22] MEDS: RIVAROXABAN TAB 15 MG TAB PO SCH (08:45)
[2017-10-22] MEDS: EUCERIN CR 120 GM JAR EXT SCH ×2 (08:46→13:53)
[2017-10-22 09:09] VITALS: O2SAT 95
[2017-10-22] MEDS ORDERED: KFL250 PO (09:33)
[2017-10-22] MEDS ORDERED: NUTR-7 PO (09:33)
[2017-10-22] MEDS ORDERED: XRL15 PO (09:33)
[2017-10-22] MEDS ORDERED: PLMINS INH (09:33)
[2017-10-22] MEDS ORDERED: INSDGI SC (09:33)
--- NOTE | 2017-10-22 09:40 | Discharge Instructions ---
Discharge Instructions Date of Service Oct 22, 2017. Admission Reason for Admission: Cellulitis, Chf Discharge Discharge Diagnosis / Problem: Acute respiratory failure with hypoxia secondary to acute on chronic diast Discharge Goals Goal(s): Decrease discomfort, Improve function, Increase independence, Improve disease control, Improve nutritional status, Learn about illness, Diagnostic testing, Therapeutic intervention, Prevent Disease Progression, Specific goals Activity Recommendations Activity Limitations: resume your previous activity . Instructions / Follow-Up Instructions / Follow-Up you have Acute respiratory failure with hypoxia secondary to acute on chronic diastolic CHF you have Chronic resp failure home O2 dependent on oxygen at home you possible have possible TRACEY, is complete nocturnal pulse oximetry study showed osat <88% more than 15 min over night, therefore you need BiPAP at night time, Rx of bipap give to you upon discharge you need to follow up with Dr. Eisenberg as an outpatient to complete previously scheduled polysomnogram. needs to have set up with BIPAP at discharge Acute on chronic diastolic heart failure need to continue 1L daily fluid restriction, Bumex dose is 4 mg by mouth daily Need to have blood testing in 4-5 days to make sure kidney function stable and monitor lytes You have Bilateral lower sternal cellulitis, right worse than left, significantly continue improving You need to have home health care setting up for wound care, for A. fib stroke prevention , On Xarelto begun in August, is on renal dose of Xeralto, 15mg, may need to increase to normal dose at 20 mg by mouth daily if renal function continued to improving - you need to follow up with your primary care physician in 1 week, - take medication as instructed, never overdose or any misuse, or take with alcohol, because misuse of medicine may cause organ damage or , call your primary care physician if have questions of medicaitons. - call your primary care physician OR go to local emergency room if has any fever/chill, chest pain, shortness of breathing, nausea/vomiting/abdominal pain , facial droop/slurry speech/local weakness, or if has any questions. - fall precaution - diet as instructed - you need to follow up with your subspecialist - you should understand that it is important to follow up the above instruction , and "not following the above instruction" may cause delayed or missed care of your medical conditions which may cause permanent organ damage and even . Current Hospital Diet Patient's current hospital diet: AHA Diet (Heart Healthy), Diabetes Type 2 Diet Discharge Diet Recommended Diet: Diabetes Type 2 Diet Pending Studies Studies pending at discharge: no Laboratory Results Meds Administered (Past 24Hrs) Medications (Trade) Dose Ordered Sig/Alexa Route Start Time Stop Time Status Last Admin Dose Admin Bumetanide (Bumex Tab) 2 mg BID17 PO 10/20/17 17:00 10/22/17 07:46 DC 10/21/17 17:11 2 MG Cephalexin Monohydrate (Keflex Cap) 250 mg QID PO 10/20/17 12:00 10/30/17 11:59 10/22/17 08:40 250 MG Bumetanide (Bumex Tab) 4 mg DAILY PO 10/22/17 08:00 11/19/17 16:59 10/22/17 08:38 4 MG Medical Emergencies . Who to Call and When: Medical Emergencies: If at any time you feel your situation is an emergency, please call 911 immediately. . Non-Emergent Contact Non-Emergency issues call your: Primary Care Provider, [facility] . . "Provider Documentation" section prepared by Mauri Vences. . VTE Core Measure Inpt VTE Proph given/why not?: Other Anticoagulation, SCD's
[2017-10-22 11:22] VITALS: PULSE 73; O2SAT 95
--- NOTE | 2017-10-22 12:47 | Discharge Summary ---
Discharge Summary Date of Service Oct 22, 2017. Discharge Summary Admission Date: Oct 14, 2017 at 19:18 Discharge Date: Oct 22, 2017 Discharge Disposition: Home with services Principal Diagnosis: Acute respiratory failure with hypoxia secondary to acute on chronic diast Problems/Secondary Diagnoses: Acute respiratory failure with hypoxia secondary to acute on chronic diastolic CHF Chronic resp failure home O2 dependent on oxygen at home 24 /7 TRACEY, osat <88% more than 15 min over night, need BiPAP at night time, Rx of bipap give to you upon discharge Immunizations: Have You Had Influenza Vaccine: No History of Tetanus Vaccine?: Yes History of Pneumococcal: Yes History of Hepatitis B Vaccine: Unknown Procedures: No Consultations: Coreroom Foundry Laborer and intermediate teacher Medication Reconciliation New Medications: Budesonide (Inhalation) (Pulmicort Respules 0.5MG/2ML) 0.5 Mg/2 Ml Mary 0.5 MG INH BIDR for 30 Days Cephalexin Monohydrate (Cephalexin) 250 Mg Cap 250 MG PO QID for 6 Days, CAP Nutritional Supplements (Boost) 1 Liq Liq 1 CAN PO HS for 30 Days Rivaroxaban (Xarelto) 15 Mg Tab 15 MG PO DAILY for 30 Days, TAB Changed Medications: Insulin Glargine (Lantus) 100 Unit/Ml Inj 15 UNITS SC QPM for 30 Days (Changed from: 30 UNITS) Continued Medications: Amlodipine Besylate (Norvasc) 2.5 Mg Tab 2.5 MG PO DAILY Aspirin (Aspirin EC Low Dose) 81 Mg Ectab 81 MG PO DAILY for 30 Days, #30 0 Refills Atorvastatin (Lipitor) 80 Mg Tab 80 MG PO DAILY, 0 Refills Budesonide/Formoterol Fumarate (Symbicort 160/4.5 Inhaler) 120 Puffs/ Aero 2 PUFFS INH BID, #10.6 GM 3 Refills Bumetanide (Bumex) 2 Mg Tab 4 MG PO DAILY Clopidogrel Bisulfate (Clopidogrel) 75 Mg Tab 75 MG PO QAM, #30 TAB 5 Refills for prevention of stroke Eucerin (Hydrocerin) 360 Appln/120 Gm Cr 1 APPLN EXT TID, #1 TUBE apply three times a day to rash on both shins Insulin Lispro (Human) (Humalog) 100 Unit/Ml Inj UNITS SQ UD SLIDING SCALE Ipratropium-Albuterol (Duoneb) 3 Ml Nebu 3 ML INH QID PRN for SOB/Wheezing for 10 Days Metoprolol Tartrate (Lopressor) (Lopressor) 25 Mg Tab 25 MG PO BID, 0 Refills Multivitamin (Multivitamin) Tab 1 TAB PO DAILY, 0 Refills Pantoprazole (Protonix) 40 Mg Tab 40 MG PO QAM, #30 TAB 1 Refill Tiotropium [place] (Spiriva Handihaler) 30 Puff/540 Mcg Aerp 1 CAP INH DAILY for 30 Days, #30 CAP 3 Refills Triamcinolone Acet (Triamcinolone Acetonide) 45 Appln/15 Gm Cr 1 APPLN EXT TID, #1 TUBE apply in very thin amounts to rash on shins 3 times a day for about 5 days then STOP Discharge Exam Feeling okay, lower extremity red and swelling continue improving, no exudate Review of Systems: Constitutional: No fever, No chills, No sweats, No weight loss, No weakness , No fatigue, No problem reported Eyes: No worsening of vision, No eye pain, No redness, No discharge, No diplopia, No problem reported ENT: No hearing loss, No unusual epistaxis, No nasal symptoms, No sore throat, No tinnitus, No dental problems, No trouble swallowing, No problem reported Respiratory: No cough, No sputum, No wheezing, No shortness of breath, No dyspnea on exertion, No dyspnea at rest, No hemoptysis, No problem reported Cardiovascular: + edema, No chest pain, No orthopnea, No PND, No claudication, No palpitations, No problem reported Abdomen: No pain, No nausea, No vomiting, No diarrhea, No constipation, No GI bleeding, No problem reported Musculoskeletal: No joint pain, No muscle pain, No swelling, No calf pain, No problem reported Genitourinary - Male: No hematuria, No dysuria, No urinary frequency, No urinary urgency, No urinary hesitancy, No urinary retention, No urinary incontinence, No penile discharge, No lesions, No impotence, No problem reported Neurologic: No memory loss, No paralysis, No weakness, No numbness/tingling , No vertigo, No balance problems, No problem reported Psychiatric: No depression symptoms, No anhedonism, No anxiety, No insomnia , No substance abuse, No problem reported Endocrine: No fatigue, No excessive thirst, No excessive urination, No problem reported Hematologic / Lymphatic: No abnormal bleeding/bruising, No clotting problems , No swollen lymph nodes, No night sweats, No problem reported Integumentary: + rash (cellulitis in bilateral lower extremityies , is improving) Physical Exam: General Appearance: WD/WN, no apparent distress Eyes: normal inspection, PERRL ENT: normal ENT inspection, hearing grossly normal Neck: supple, no adenopathy Respiratory/Chest: chest non-tender, normal breath sounds, + decreased breath sounds Cardiovascular: regular rate, rhythm, no gallop, no JVD Abdomen / GI: normal bowel sounds, non tender, soft, no organomegaly, no pulsatile mass Extremities: normal inspection, no calf tenderness, normal capillary refill , + swelling (1+ edema but is better) Neurologic/Psychiatric: air support control officer II-XII nml as tested, no motor/sensory deficits , alert, normal mood/affect, normal reflexes Skin: + rash (dry and rash, right lower extremity open wound is healing, no drainage, no open wound) Hospital Course 72 male PMH of diastolic heart failure (ef 55-60%), Afib and respiratory failure on 3-4 L O2 at home admitted on 10/14/2017 with acute respiratory failure with hypoxia secondary to CHF exacerbation associated with SOB Acute respiratory failure with hypoxia secondary to acute on chronic diastolic CHF Acute on chronic diastolic CHF and chronic Chronic lung disease and pleural effusion Chronic respite failure home O2 dependent on oxygen at home Continue improving, renal function continue improve on diuretic, creatinine is 1.69 from 1.64 today, which is approaching to his baseline, I believe patient is body weight is approaching to his driveway already, will resume home dose of Bumex 4 mg by mouth daily upon discharge Track And Field Coach seeing patient , possible TRACEY, is complete nocturnal pulse oximetry study 24-48 hours prior to discharge to evaluate for home BiPAP, palpation, nocturnal possible study , hypoxic timing more than 15 minutes with osat < 88%, CPAP was considered, discussed with intermediate teacher, field BiPAP is better fit for patient because has associated with CHF and has pulmonary hypertension per pulm, pt will need follow up with Dr. Eisenberg as an outpatient to complete previously scheduled polysomnogram. Have set up with BIPAP at discharge Acute on chronic diastolic CHF/hypertension, tolerated well, renal function continue improving after diuretic, which indicate renal congestion from heart failure Has changed IV Bumex to by mouth 2 mg twice a day, upon discharge will resume home dose of Bumex 4 mg by mouth daily Continue amlodipine 2.5 mg, ASA EC 81 mg and metoprolol tartrate 25 mg, continue 1L fluid restriction Restrictive lung disease with OHS and pul HTN sec to chronic diastolic dysfunction, advised him to continue follow-up with intermediate teacher Pulmicort rest pills 0.5 mg inhaled twice a day. Duonebs q 4 hours while awake and every 2 hours when necessary. Bilateral lower sternal cellulitis, right worse than left, significantly continue improving Pt on IV Rocephin (5 day) , has switched to oral Keflex, 7 out of 10 days of total antibiotic Follow blood cultures, no growth to date Epistaxis/need for chronic anticoagulation, no complaining about this A. fib stroke prevention , On Xarelto begun in August. Pt on renal dose of Xeralto, 15mg, may need to increase to normal dose at 20 mg by mouth daily if renal function continued to improving CKD stage III, continue improving on diuretic Follow BMP and MG Diabetes mellitus Hyperlipidemia GERD Condition is stable DVT ppx Xeralto Instructions / Follow-Up you have Acute respiratory failure with hypoxia secondary to acute on chronic diastolic CHF you have Chronic resp failure home O2 dependent on oxygen at home you possible have possible TRACEY, is complete nocturnal pulse oximetry study showed osat <88% more than 15 min over night, therefore you need BiPAP at night time, Rx of bipap give to you upon discharge you need to follow up with Dr. Eisenberg as an outpatient to complete previously scheduled polysomnogram. needs to have set up with BIPAP at discharge Acute on chronic diastolic heart failure need to continue 1L daily fluid restriction, Bumex dose is 4 mg by mouth daily Need to have blood testing in 4-5 days to make sure kidney function stable and monitor lytes You have Bilateral lower sternal cellulitis, right worse than left, significantly continue improving You need to have home health care setting up for wound care, for A. fib stroke prevention , On Xarelto begun in August, is on renal dose of Xeralto, 15mg, may need to increase to normal dose at 20 mg by mouth daily if renal function continued to improving - you need to follow up with your primary care physician in 1 week, - take medication as instructed, never overdose or any misuse, or take with alcohol, because misuse of medicine may cause organ damage or , call your primary care physician if have questions of medicaitons. - call your primary care physician OR go to local emergency room if has any fever/chill, chest pain, shortness of breathing, nausea/vomiting/abdominal pain , facial droop/slurry speech/local weakness, or if has any questions. - fall precaution - diet as instructed - you need to follow up with your subspecialist - you should understand that it is important to follow up the above instruction , and "not following the above instruction" may cause delayed or missed care of your medical conditions which may cause permanent organ damage and even . Total Time Spent: Greater than 30 minutes This includes examination of the patient, discharge planning, medication reconciliation, and communication with other providers. Discharge Instructions Please refer to the electronic Patient Visit Report (Discharge Instructions) for additional information.
[2017-10-22 14:19] VITALS: PULSE 70; O2SAT 97
[2017-10-22 14:59] VITALS: BP 115/63; PULSE 70; TEMP 36.3; O2SAT 97
--- NOTE | 2017-11-02 13:46 | EDITING REQUIRED CODING QUERY ---
CODING QUERY To promote full compliance with coding requirements relating to patient care, provider participation is requested in all cases of computer language coder uncertainty. Please assist us with the question(s) below: Coding Question(s): Dr. Vences, Discharge summary and progress notes state, "Bilateral lower sternal cellulitis, right worse than left." Other progress notes state "Cellulutis of the lower extremeties. Please clarify the site of the cellulitis. ( ) sternum/chest wall ( x ) legs ( ) other, please explain Physician's Response(s): Thank you for your time, EDINSON Gaona, JOIST SETTER
--- NOTE | 2017-11-02 13:52 | EDITING REQUIRED CODING QUERY ---
CODING QUERY To promote full compliance with coding requirements relating to patient care, provider participation is requested in all cases of safety engineer pressure vessels uncertainty. Please assist us with the question(s) below: Coding Question(s): Dr. Vences, Discharge summary and progress notes state the following, "Bilateral lower sternal cellulitis, right worse than left." Other progress notes state, "Bilateral lower extremity cellulitis." Please clarify the site of the cellulitis. ( ) sternum/chest wall ( ) lower extremities ( ) other, please explain Physician's Response(s): Thank you for your time, EDINSON Gaona, PAPER HANDLER
== END 2017-10-22 16:14 | disposition home health service (06) | DRG 291 ==
LOC: C.EDB 14:27 → C.2T 19:18 → ENRESERV 19:27 → UNDODISIN 10-15 16:43 → ENRESERV 10-19 12:10 → C.4E 10-19 12:56
PROVIDERS: ADMIT Internal Medicine; ATTEND Hospitalist
DX: I13.0 Hypertensive heart and chronic kidney disease with heart failure and stage 1 through stage 4 chronic kidney disease, or unspecified chronic kidney disease (principal); I50.33 Acute on chronic diastolic (congestive) heart failure; J96.21 Acute and chronic respiratory failure with hypoxia; J96.22 Acute and chronic respiratory failure with hypercapnia; L03.115 Cellulitis of right lower limb; L03.116 Cellulitis of left lower limb; R04.2 Hemoptysis; D68.32 Hemorrhagic disorder due to extrinsic circulating anticoagulants; E66.2 Morbid (severe) obesity with alveolar hypoventilation; I27.29 Other secondary pulmonary hypertension; R04.0 Epistaxis; T45.515A Adverse effect of anticoagulants, initial encounter; I48.91 Unspecified atrial fibrillation; E11.22 Type 2 diabetes mellitus with diabetic chronic kidney disease; N18.3 Chronic kidney disease, stage 3 (moderate); E78.5 Hyperlipidemia, unspecified; K21.9 Gastro-esophageal reflux disease without esophagitis; N28.89 Other specified disorders of kidney and ureter; J98.4 Other disorders of lung; I25.10 Atherosclerotic heart disease of native coronary artery without angina pectoris; Z68.35 Body mass index [BMI] 35.0-35.9, adult; Z23 Encounter for immunization; Z99.81 Dependence on supplemental oxygen; Z99.89 Dependence on other enabling machines and devices; Z96.649 Presence of unspecified artificial hip joint; Z95.1 Presence of aortocoronary bypass graft; Z87.891 Personal history of nicotine dependence; Z79.01 Long term (current) use of anticoagulants; Z79.02 Long term (current) use of antithrombotics/antiplatelets; Z79.82 Long term (current) use of aspirin; Z79.4 Long term (current) use of insulin; Z79.899 Other long term (current) drug therapy

== ENCOUNTER → 2017-10-29 | Outpatient (CLI) | payer BC ==
[~2017-10-29] MED LIST changes: +KFL250 PO; +NUTR-7 PO; +PLMINS INH; +XRL15 PO
[2017-10-29 18:12] LABS: BLOOD UREA NITROGEN 36 mg/dl (7-18); BUN/CREATININE RATIO 23.5 (10-20); CALCIUM 9.4 mg/dl (8.5-10.1); CARBON DIOXIDE 35 mmol/L (21-32); CHLORIDE 98 mmol/L (98-107); CREATININE 1.52 mg/dl (0.60-1.40); GLUCOSE 182 mg/dl (70-99); SODIUM 137 mmol/L (136-145)
== END | disposition home or self-care (01) ==
LOC: C.LABSPEC 14:10
PROVIDERS: ATTEND Hospitalist
DX: I50.9 Heart failure, unspecified (principal)

== ENCOUNTER 2019-11-10 16:30 | Inpatient (IN) ==
--- NOTE | 2019-11-10 17:55 | History & Physical Report ---
Date of Service November 10, 2019 Assessment & Plan (1) Acute on chronic respiratory failure with hypoxemia: 74 year old man with past medical history of significant restrictive lung disease and COPD as well as CAD without defined CHF here for acute on chronic Hypoxemic respiratory failure in setting of new URI symptoms and worsening orthopnea. Acute on Chronic Hypoxemic Respiratory Failure Hypoxemic to 76% with minimal exertion in outpatient pulmonology office Direct admitted to [facility] further evaluation Broad differential on background of already chronically reduce pulmonary function. Could be related to CHF/hypervolemia as patient appears fluid overloaded on exam, but also with markedly decreased air entry making exam difficult indicating COPD exacerbation. Will treat both as well as get CXR to assess for possible pneumonia Concern for possible thromboembolic disease, will order bilateral LE doppler U/S to evaluate for any DVT. Avoiding CTA due to patient's chronic renal failure Pulmonology consulted CHF Will diurese, on IV bumex 1 mg BID Daily weights and strict I's and O's No echo, ordered one for AM to evaluate for CHF With patient's renal failure, we will have to diurese delicately, checking BMP now but baseline creatinine 1.6 Will order BNP as well Will adjust diuresis based on I's and O's and creatinine monitoring COPD Patient moving very poor air on exam, could be medical collections representative of COPD exacerbation Will give Budesonide inhalers, duonebs as needed q2h PRN for SOB and wheezing IV solumedrol 50 mg daily CXR ordered Starting azithromycin and ceftriaxone empirically Procalcitonin ordered to evaluate for pneumonia CKD Patient with chronic renal failure baseline creatinine around 1.6 Possibly secondary to his diabetes vs heart disease Will diurese carefully and monitor daily BMP's Avoiding nephrotoxic agents as tolerated and renally dosing eliquis Obstructive Sleep Apnea On bipap 05/12 non compliant at home Could be contributing to his condition, will attempt to use bipap here in hospital and [place] patient on its utility. Atrial Fibrillation Paroxysmal, currently in sinus Will check ECG currently and place patient on telemetry After discussion with patient he has discontinued xarelto recently secondary to nosebleeds. After weighing pros and cons he is willing to start eliquis today Starting on 2.5 mg BID due to creatinine but can adjust up as tolerated based on CMP results. Continuing home metoprolol CAD Patient with history of CAD s/p WI in 2006 and CABGx4 Likely causing some degree of CHF Will get echo in am Checking troponins now Continuing home ASA 81 and 80 mg atorvastatin Avoiding CORRINA-I secondary to renal failure DMII At home on glipizide and insulin Will hold glipizide and place patient on 15 Units glargine and sliding scale novolog F/E/N: [employer] [facility] DMII diet DVT PPx: eliquis Dispo: Med-Tele, will monitor respiratory status carefully may step up care if requiring increased oxygen Full code (2) Congestive heart failure: (3) COPD (chronic obstructive pulmonary disease): (4) Atrial fibrillation: (5) Restrictive lung disease: (6) S/P coronary artery bypass graft x 4: (7) Diabetes mellitus: (8) Bilateral lower extremity edema: (9) Hyperlipidemia: (10) Obstructive sleep apnea: History of Present Illness Primary Care Provider: ROJAS Richmond Toni Bauer is a 74 year old gentleman with a past medical history significant for chronic hypoxic respiratory failure with severe restrictive pattern and emphysema (Most recent FEV1 29% FVC 32%) on 5L of Oxygen at home, CAD s/p WI in 2005 and CABG x4 (No recent echo cardiogram but elevated BNP in October), atrial fibrillation (Paroxysmal, Rate controlled with metoprolol, previously on xarelto which was discontinued recently secondary to nosebleeding), HTN, DMII (On insulin), severe TRACEY (on bipap at home 11/05 but noncompliant) Dyslipidemia, and CKD. Mr. Muñoz has noticed a progressive worsening of his shortness of breath at home. He has been more dyspneic with exertion and has had to prop himself up more at night in order to sleep. He describes a tightening in his chest when he tries to lie down flat. He had a CT recently to evaluate his lungs which showed some pulmonary edema and cardiomegaly. He had an office visit with his post office markup clerk Dr. Eisenberg at which time he desaturated down to 76% O2 sat with minimal activity despite being at 6L of O2. He was then sent here for direct admission. He tells me his only other recent illness is that he has been having URI symptoms since this past weekend including nasal congestion, increased cough, with increased sputum production, and shortness of breath. Currently he is breathing comfortably on his home O2 requirement of 5L though in the course of talking to me he begins coughing and gets out of breath and unable to finish sentences. He tells me he had an empyema several years ago (2012 per records review) and was operated on which led to a large amount of scarring, he also had a VATS procedure and there is a 7-8 mm pulmonary nodule present as well. Patient on trelegy inhaleras well as xoponex inhaler. Inhalers do not seem to be helping his dyspnea. 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 Occasionally drinks alcohol Patient tells me he is noncompliant with the BiPAP at night because he is unable to sleep with the mask on. He does wear it sometimes while awake during the day and watching "the ball game on TV" and will occasionally drift off with the mask on. He denies any fevers, chills, sweats, fatigue or somnolence beyond his baseline, he denies any GI symptoms, chest pain, or other concerns. He does endorse on observation of his grossly swollen legs that they are red and slightly tender bilaterally. Allergies Allergy/AdvReac Type Severity Reaction Status Date / Time No Known Allergies Allergy Verified 11/10/19 14:00 Home Medications Home Medications Medication Instructions Recorded Confirmed Type amlodipine 2.5 mg tablet 2.5 mg PO QPM tab 07/06/19 11/10/19 History aspirin 81 mg tablet 81 mg PO DAILY tab 07/06/19 11/10/19 History atorvastatin 80 mg tablet 80 mg PO HS tab 07/06/19 11/10/19 History bumetanide 2 mg tablet 2 mg PO DAILY #90 tab 07/06/19 11/10/19 History glipizide 5 mg tablet, extended 5 mg PO DAILY tab 07/06/19 11/10/19 History release 24 hr insulin glargine 100) 100 unit/mL 15 unit SUBCUT QPM ml 07/06/19 11/10/19 History subcutaneous solution insulin lispro 100) 100 unit/mL 0 sliding scale dose SUBCUT TIDM 07/06/19 11/10/19 History subcutaneous solution PRN ml ipratropium-albuterol 0.5 mg-3 3 ml INHALATION TID #2 ml 07/06/19 11/10/19 History mg(2.5 mg base)/3 mL nebulization soln metoprolol tartrate 25 mg tablet 25 mg PO BID tab 07/06/19 11/10/19 History multivitamin 1 tab PO DAILY 07/06/19 11/10/19 History amoxicillin 875 mg-potassium 1 tab PO Q12H #20 tab 11/01/19 11/10/19 Rx clavulanate 125 mg tablet fluticasone fur. 100 mcg-umeclid 1 puffs INH DAILY #60 ea 11/10/19 11/10/19 Rx 62.5 mcg-vilant 25 mcg inhalat.powder ipratropium-albuterol 3 ml INHALATION HS PRN 11/10/19 11/10/19 History levalbuterol tartrate 45 2 puffs INH Q6H PRN #1 inhaler 11/10/19 11/10/19 Rx mcg/actuation aerosol inhaler Past Med/Surg History Medical History (Updated 11/10/19 @ 20:15 by Jeevan Burton MD) Chronic respiratory failure with hypoxia Pneumonia (Inactive 08/06/13) Restrictive lung disease Surgical History (Updated 10/27/19 @ 14:45 by Erica Amaya PA-C) History of thoracentesis (Acute 08/06/13) Social History Preferred Language: Greek Communication Ability: Effective Molder Closed Molds Required: No Beliefs That Will Affect Care: None Current Living Situation: Alone Other Information That Helps Us Care for You: No Feels Safe at Home: Yes Safety Concerns: Feels Safe At This Time Smoking Status: Former smoker Hx Alcohol Use: Yes Hx Substance Use: No Review of Systems Constitutional: + fatigue and + daytime sleepiness; no fever, no chills and no sweats Eyes: no problem reported Ear, Nose, Mouth, Throat: + nasal congestion; no ear pain Respiratory: + cough, + chest congestion, + dyspnea, + dyspnea on exertion and + sputum production Cardiovascular: + dyspnea on exertion and + edema (Bilateral and chronic with erythema); no chest pain, no chest pain with activity, no lightheadedness, no syncope and no calf pain Gastrointestinal: no abdominal pain, no nausea, no vomiting, no constipation and no diarrhea/loose stools Integumentary: Red rash on bilateral lower extremity Physical Exam Constitutional: + ill appearing and + obese; no acute distress and no altered mental status Eyes: PERRL, conjunctivae normal, anicteric sclerae ENMT: external ear and nose normal, oropharynx normal Respiratory: + respiratory distress (Mild respiratory distress) and + uses accessory muscles Auscultation: + diminished lung sounds (Markedly decreased breath sounds, Very poor air movement), + crackles (left greater than right sided basilar crackles) and + rales (Rales bilateral lung bases); no wheezes Cardiovascular: Rate/Rhythm: regular rate and regular rhythm Heart Sounds: normal S1 and normal S2; no click, no gallop and no murmur Extremities: + edema; no calf tenderness Gastrointestinal (Abdomen): normal bowel sounds, soft, nontender, no hepatospl enomegaly Skin: Erythematous rash bilateral lower extremity, no clear wound, does not feel hot to touch Results & Data Vital Signs (Past 12 Hours) Vital Signs Temp Pulse Resp BP Pulse Ox 11/10/19 17:22 36.6 C 79 18 144/81 H 91 11/10/19 17:03 36.6 C 79 18 144/81 H 91 Supervising Physician Co-Signing Physician Notes I personally interviewed and examined the patient. I agree with history of present illness and physical exam mentioned above, I also performed my own history taking and examination. Past medical history and review of system has been obtained by myself I reviewed all pertinent labs and studies Reviewed current medications I discussed and formulated of the assessment and plan mentioned above. Please refer to the Summary mentioned below. 74 years old man with past medical history of chronic respiratory failure with hypoxia on 5 L oxygen at home, COPD, congestive heart failure, CAD, previous empyema status post chest drain/VAST, severe restrictive and obstructive lung disease with predominant restrictive component. Presented to his post office markup clerk with significant worsening in his shortness of breath. At office his oxygen saturation dropped to 75 on minimal exertion on 6 L of oxygen. He was sent to the hospital for further evaluation. Recent CT scan showed his chronic scarring plus pulmonary congestion and his viable lung tissue. Currently on Bumex 2 mg p.o. daily. Patient was admitted to telemetry floor, started on Bumex 1 mg IV twice daily, will calculate I/o and repeat 2D echo. Also will treat him for COPD exacerbation since he appears to have acute and chronic respiratory failure requiring more oxygen, low-dose steroids, bronchodilators, will start patient on azithromycin/ceftriaxone for bronchitis, and was also found to have bilateral lower extremity cellulitis, will treat with ceftriaxone, ketoconazole between toes, ultrasound Doppler rule out DVT, consult post office markup clerk and further recommendation will follow. General Appearance: not in acute distress Eyes: normal Sclerae, extraocular muscle intact ENT: hearing grossly normal Neck: supple Lungs: Decreased air entry bilaterally, generalized wheezing both lung gibbons, scattered rhonchi, no chest wall tenderness Cardiovascular: regular rate, rhythm, no murmur Abdomen: non tender, soft, no masses Extremities: no edema musculoskeletal: no significant swelling or inflammation in any joint Neurologic/Psychiatric: Awake alert oriented times place and person moves all extremities sensation intact cranial nerves II-12 appear to be intact Skin: normal color, warm/dry, no rash Carmen Little MD, [facility] hospitalist group Resident Activity Tracking Resident Involvement: Resident Care Provided Care Provided: Adult Hospital Medicine
[2019-11-10] MEDS ORDERED: POLYETHYLENE (MIRALAX) 17 GM PACK PO PRN (18:24)
[2019-11-10] MEDS ORDERED: ACETAMINOPHEN 325 MG TAB PO PRN (18:24)
[2019-11-10] MEDS ORDERED: ALBUT/IPRATROP 3MG/0.5MG NEB 3 ML VIAL NEB PRN (18:57)
[2019-11-10] MEDS ORDERED: DC ALL PREVIOUSLY ORDERED DIABETES MEDS ONE (19:21)
[2019-11-10] MEDS ORDERED: GLUCOSE 40% GEL 15 GM TUBE PO PRN (19:21)
[2019-11-10] MEDS ORDERED: GLUCAGON FOR INJ 1 MG VIAL SQ PRN (19:21)
[2019-11-10] MEDS ORDERED: GLUCOSE 10 TABS/TUBE PO PRN (19:21)
[2019-11-10] MEDS ORDERED: CARBOHYDRATES FOR HYPOGLYCEMIA PO PRN (19:21)
[2019-11-10] MEDS ORDERED: DEXTROSE 50% 50 ML SYRINGE IV PRN (19:21)
[2019-11-10 19:22] LABS: Basophils # (auto) 0.04 K/uL (0-0.2); Basophils % (auto) 0.4 %; Eosinophils # (auto) 0.38 K/uL (0-0.5); Eosinophils % (auto) 4.1 %; Hematocrit (blood only) 35.9 % (42-52); Hemoglobin 10.9 g/dL (14.0-18.0); Immature Granulocytes # (auto) 0.04 K/uL (0.00-0.02); Immature Granulocytes % (auto) 0.4 %; Lymphocytes # (auto) 1.18 K/uL (1.2-3.4); Lymphocytes % (auto) 12.8 %; Mean Corpuscular Hemoglobin 28.2 pg (25-34); Mean Corpuscular Hgb Conc 30.4 g/dL (32-36); Monocytes # (auto) 0.82 K/uL (0.11-0.59); Monocytes % (auto) 8.9 %; Neutrophils # (auto) 6.76 K/uL (1.4-6.5); Neutrophils % (auto) 73.4 %; Platelet Count 209 K/uL (130-400); RDW Coefficient of Variation 16.9 % (11.5-14.5); RDW Standard Deviation 57.2 fL (36.4-46.3); Red Blood Count 3.86 M/uL (4.7-6.1); White Blood Count 9.22 K/uL (4.8-10.8)
--- NOTE | 2019-11-10 19:27 | XRay Report ---
XR chest 1V portable CLINICAL HISTORY: Resiratory Distress COMPARISON STUDY: 10/29/2019 FINDINGS: Stable cardiac enlargement. Components of congestive heart failure noted. These is slightly improved compared to the prior exam. There are small bilateral pleural effusions slightly diminished from the prior study. IMPRESSION: Congestive heart failure slightly improved from the prior exam. The above report was generated using voice recognition software. It may contain grammatical, syntax or spelling errors. Electronically signed by: Ulysses Mccartney M.D. 11/10/2019 7:25 PM
[2019-11-10] MEDS ORDERED: AZITHROMYCIN 250 MG TAB PO ONE (19:30)
[2019-11-10] MEDS: BUDESONIDE 0.5 MG/2 ML VIAL (PULMICORT) INH SCH (19:44)
[2019-11-10] MEDS ORDERED: cefTRIAXone SODIUM 1,000 MG in DEXTROSE 5% 50 ML IV SCH (19:45)
[2019-11-10 19:54] LABS: Alanine Aminotransferase 35 U/L (12-78); Albumin Level 3.1 gm/dl (3.4-5.0); Aspartate Aminotransferase 19 U/L (15-37); BUN Creatinine Ratio 16.8 (10-20); Blood Urea Nitrogen 26 mg/dl (7-18); Carbon Dioxide 37 mmol/L (21-32); Chloride 100 mmol/L (98-107); Creatinine Clr Calc Pharmacy 53.1 ml/min; Est GFR (African American) 51.1; Est GFR (Non-African American) 44.1; Glucose 129 mg/dl (70-99); Potassium 4.4 mmol/L (3.5-5.1); Sodium 138 mmol/L (136-145)
[2019-11-10 19:59] LABS: Albumin Globulin Ratio 0.6 (0.9-2); Alkaline Phosphatase 90 U/L (45-117); Bilirubin,Total 0.7 mg/dl (0.2-1); NT Pro B Type Natriuretic Pept 2970 pg/ml (0-900); Total Protein 8.1 gm/dl (6.4-8.2); Troponin I < 0.015 ng/ml (0-0.045)
[2019-11-10] MEDS ORDERED: cefTRIAXone SODIUM 2,000 MG in DEXTROSE 5% 50 ML IV SCH (20:00)
[2019-11-10] MEDS: ASPIRIN 81 MG ECTAB PO SCH (21:44)
[2019-11-10] MEDS: AMLODIPINE BESYLATE 5 MG TAB PO SCH (21:46)
[2019-11-10] MEDS: methylPREDNISolone 50 MG in SYRINGE 0 ML IV SCH (21:47)
[2019-11-10] MEDS: METOPROLOL TARTRATE 25 MG TAB PO SCH (21:49)
[2019-11-10] MEDS: ATORVASTATIN 40 MG TAB PO SCH (21:49)
--- NOTE | 2019-11-10 22:14 | Billing Data ---
Coding Level of Care Code 01725 Initial Inpt Care Lvl 3
[2019-11-10] MEDS: INSULIN GLARGINE SOLOSTAR 100 UNITS/ML 3 ML PEN SC SCH (22:56)
[2019-11-10] MEDS: INSULIN ASPART 100 UNITS/ML 3 ML PEN SC SCH (22:57)
[2019-11-10] MEDS: APIXABAN 2.5 MG TAB PO SCH (23:17)
--- NOTE | 2019-11-11 06:36 | Ultrasound Report ---
US venous doppler LE BI CLINICAL HISTORY: 74 years-old Male presenting with Hypoxemic respiratory failure and lower limb ariel a, concern for DVT. TECHNIQUE: Real-time grayscale and color and spectral Doppler ultrasound imaging of the veins of the bilateral lower extremities was performed. Compression and augmentation were also utilized. COMPARISON: None. FINDINGS: RIGHT: Common femoral vein: Patent. Exaggerated phasicity could suggest right heart failure or tricuspid reg urgitation. Greater saphenous vein (superficial): Patent. Deep femoral vein: Patent. Femoral vein: Patent. Popliteal vein: Patent. Calf veins: Patent. LEFT: Common femoral vein: Patent. Exaggerated phasicity could suggest right heart failure or tricuspid reg urgitation. Greater saphenous vein (superficial): Patent. Deep femoral vein: Patent. Femoral vein: Patent. Popliteal vein: Patent. Calf veins: Patent. Other: None. IMPRESSION: 1. No evidence of deep venous thrombosis. 2. Exaggerated venous phasicity could suggest right heart failure or tricuspid regurgitation. Correl ate with echocardiogram. Electronically signed by: Ulysses Palomino M.D. 11/11/2019 6:35 AM
[2019-11-11] MEDS ORDERED: INFLUENZA Vaccine HIGH DOSE 65+yrs 0.5 mL Syr IM ONE (07:00)
[2019-11-11 07:05] LABS: Estimated Average Glucose 169 mg/dl; Hemoglobin A1C 7.5 % (4.5-5.6)
[2019-11-11] MEDS: BUDESONIDE 0.5 MG/2 ML VIAL (PULMICORT) INH SCH ×2 (07:27→19:49)
[2019-11-11] MEDS: INSULIN ASPART 100 UNITS/ML 3 ML PEN SC SCH ×4 (08:14→21:34)
[2019-11-11] MEDS: methylPREDNISolone 50 MG in SYRINGE 0 ML IV SCH (08:17)
[2019-11-11] MEDS: LACTOBACILLUS ACIDOPHILUS (FLORANEX) TAB PO SCH ×3 (08:17→17:29)
[2019-11-11] MEDS: BUMETANIDE 1 MG in SYRINGE 0 ML IV SCH ×2 (08:17→17:32)
[2019-11-11] MEDS: MULTIVITAMIN TAB PO SCH (08:18)
[2019-11-11] MEDS: APIXABAN 2.5 MG TAB PO SCH ×2 (08:18→21:32)
[2019-11-11] MEDS: METOPROLOL TARTRATE 25 MG TAB PO SCH ×2 (08:18→21:32)
[2019-11-11] MEDS: ASPIRIN 81 MG ECTAB PO SCH (08:19)
[2019-11-11] MEDS: AMLODIPINE BESYLATE 5 MG TAB PO SCH (08:19)
[2019-11-11] MEDS ORDERED: BUMETANIDE 2 MG in SYRINGE 0 ML IV SCH (09:00)
[2019-11-11] MEDS ORDERED: EUCERIN CR 120 GM JAR EXT PRN (10:34)
--- NOTE | 2019-11-11 12:46 | Pulmonary Consultation ---
Date of Consultation November 11, 2019 Assessment & Plan (1) Acute on chronic respiratory failure with hypoxemia: This is multifactorial Very unlikely the patient has a pulmonary embolus as he scores low on the Wells criteria Oxygenation status back to baseline of 5 L/min via nasal cannula Patient appears to be fluid overloaded on imaging and per pro-BNP Continue to follow clinically and continue diuresis (2) CHF (congestive heart failure): Echocardiogram as listed above Preserved left ventricular ejection fraction Continue diuresis Follow strict I's and O's (3) Obstructive sleep apnea: Patient on BiPAP at home 13/06 with supplemental oxygen bleed in of 5 L/min Continue BiPAP at same settings while inpatient Further follow-up as outpatient in the clinic (4) COPD (chronic obstructive pulmonary disease): Continue bronchodilators and fluticasone No indication for steroids Currently appears to be at baseline (5) Atrial fibrillation: Continue anticoagulation with apixaban (6) Pleural effusion: Pleural effusions identified on imaging Very small and no appropriate window for intervention Continue diuresis Reimage if patient has increased shortness of breath or hypoxia Thank you for including us in the care of this patient Please refer to Dr. Mendez's addendum for further recommendations We will sign off of the patient at this time Supervising Physician Co-Signing Physician Notes Patient seen and examined with Livan grider PA-C. Patient is massively fluid overloaded and likely has some degree of secondary pulmonary hypertension that is WHO group 2 and 3. Treatment for this includes continued diuretics, weight loss and aggressive treatment of sleep apnea and OHS. Recommend continuous infusion of diuretic and Calzada catheter placement to monitor I/O closely. History of Present Illness Attending Physician: Vishal Braswell MD History of Present Illness Attending: Dr. Mendez Is a 74-year-old male with a past medical history of chronic respiratory failure requiring supplemental oxygen at 5 L/min via nasal cannula, emphysema, pulmonary fibrosis, restrictive lung disease, obstructive lung disease, obstructive sleep apnea, CAD status post CABG, atrial fibrillation on chronic anticoagulation with apixaban, hyperlipidemia, hypertension, diabetes mellitus type 2, obesity (BMI 36.1 kg/m), and prior tobacco abuse. He was seen in the office by Dr. garcia yesterday for the pulmonary service. He has severe disease with most recent pulmonary function test 07/17/2018. FEV1 was 22% of predicted. He only had slight improvement postbronchodilator to 28% of predicted. PFT shows mild decline in FVC and FEV1 since prior study 05/02/2017. Patient had increased shortness of breath with exertion yesterday and was dire ctly admitted from the pulmonary office for further evaluation and treatment. CT of the chest 11/08/2019 showed rounded atelectasis bilaterally as well as scarring and possible mild pulmonary edema. There is also cardiomegaly with postsurgical changes of CABG. Chest x-ray and bilateral lower extremity venous Doppler study were negative. CTA was not able to be completed secondary to patient's known renal failure. Patient is on BiPAP at night. Download 10/14/2019 on BiPAP i14/e7 + 5LPM: Use: 6-hours 22-minutes. AHI: 1.1 Download 08/21/19 - 09/19/19: 26/30 (86.7), average nightly use: 4-hours nd 19- minutes. AHI: 0.7. Average time in large leak: 11 min and 9-seconds. Patient was empirically started on antibiotics, bronchodilators, and Bumex. Procalcitonin was negative. There is no leukocytosis. Patient did have expectorated sputum this morning which is consistent in appearance and texture as at home. The sputum was sent for culture. The patient has chronic anemia and hemoglobin is stable at 10.9 g/Deven. proBNP is slightly elevated at 2970. This is slightly decreased from 11/08/2019 when it was 3135. Patient states that with the increased diuretics since admission he has adequate urine output. This is not been tracked by nursing as there is no strict I's and O's. I have asked that a urinal be placed in the room and explained to the patient the importance of following urine output. Patient denies any abdominal pain, nausea, vomiting. He has no diarrhea. The patient further denies fever, chills, sweats. Lower extremity edema is consistent with patient his usual st ate at home. He has no further acute complaints. Allergies Allergy/AdvReac Type Severity Reaction Status Date / Time No Known Allergies Allergy Verified 11/10/19 14:00 Home Medications Home Medications Medication Instructions Recorded Confirmed Type amlodipine 2.5 mg tablet 2.5 mg PO QPM tab 07/06/19 11/10/19 History aspirin 81 mg tablet 81 mg PO DAILY tab 07/06/19 11/10/19 History atorvastatin 80 mg tablet 80 mg PO HS tab 07/06/19 11/10/19 History bumetanide 2 mg tablet 2 mg PO DAILY #90 tab 07/06/19 11/10/19 History glipizide 5 mg tablet, extended 5 mg PO DAILY tab 07/06/19 11/10/19 History release 24 hr insulin glargine 100) 100 unit/mL 15 unit SUBCUT QPM ml 07/06/19 11/10/19 History subcutaneous solution insulin lispro 100) 100 unit/mL 0 sliding scale dose SUBCUT TIDM 07/06/19 11/10/19 History subcutaneous solution PRN ml ipratropium-albuterol 0.5 mg-3 3 ml INHALATION TID #2 ml 07/06/19 11/10/19 History mg(2.5 mg base)/3 mL nebulization soln metoprolol tartrate 25 mg tablet 25 mg PO BID tab 07/06/19 11/10/19 History multivitamin 1 tab PO DAILY 07/06/19 11/10/19 History amoxicillin 875 mg-potassium 1 tab PO Q12H #20 tab 11/01/19 11/10/19 Rx clavulanate 125 mg tablet fluticasone fur. 100 mcg-umeclid 1 puffs INH DAILY #60 ea 11/10/19 11/10/19 Rx 62.5 mcg-vilant 25 mcg inhalat.powder ipratropium-albuterol 3 ml INHALATION HS PRN 11/10/19 11/10/19 History levalbuterol tartrate 45 2 puffs INH Q6H PRN #1 inhaler 11/10/19 11/10/19 Rx mcg/actuation aerosol inhaler Patient History Medical History (Updated 11/11/19 @ 13:18 by Livan Grider PA-C) Acute on chronic diastolic (congestive) heart failure Atrial fibrillation Benign hypertension (Acute 08/06/13) Chronic respiratory failure with hypoxia Diabetes mellitus (Acute 08/06/13) Hyperlipidemia Obstructive sleep apnea Pneumonia (Inactive 08/06/13) Restrictive lung disease Surgical History (Updated 11/11/19 @ 13:18 by Livan Grider PA-C) History of thoracentesis (Acute 09/06/13) S/P coronary artery bypass graft x 4 (Acute 08/06/13) Status post total replacement of hip (Acute 08/06/13) Family History (Updated 11/11/19 @ 13:18 by Livan Grider PA-C) Other Family history non-contributory Social History (Updated 11/11/19 @ 13:31 by Livan Grider PA-C) Preferred Language: Luxembourgish Communication Ability: Effective 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 Beliefs That Will Affect Care: None Current Living Situation: Alone current occupational status: retired Other Information That Helps Us Care for You: No Feels Safe at Home: Yes Safety Concerns: Feels Safe At This Time Smoking Status: Former smoker Do You Dip or Chew Tobacco: No ; Number of Years Since Quit: 30 ; Hx Alcohol Use: Yes (Makes wine at home) Hx Substance Use: No Review of Systems Review of Systems: All systems reviewed & are unremarkable except as noted in HPI & below Physical Exam Physical Exam: GENERAL : No acute distress EYES: No icterus, gaze conjugate NOSE: No evidence of epistaxis. Nasal cannula in place. MOUTH: No lesions or candidiasis NECK: Supple LUNGS: Bilateral rales at the bases. Diminished breath sounds globally. HEART: Regular, rate controlled ABDOMEN: Soft, NT, ND, BS Present EXTREMITIES: +1 B/L LE edema, pedal pulses intact and equal. B/L chronic venous stasis NEURO: A&OX3. No focal deficits Results & Data Vital Signs (Past 12 Hours) Vital Signs Temp Pulse Pulse Resp BP BP Pulse Ox 11/11/19 11:43 36.7 C 87 22 120/77 89 L 11/11/19 08:05 36.7 C 83 22 139/75 89 L 11/11/19 07:39 83 11/11/19 07:28 78 19 89 L 11/11/19 03:31 36.6 C 78 19 127/74 80 L 11/11/19 03:27 81 16 90 Laboratory Results 11/10/19 19:11 11/10/19 19:11 Laboratory Tests 11/10/19 19:11 NT-Pro-B Natriuret Pep 2970 H Diagnostic Findings Echocardiogram 11/11/2019: * Normal left ventricular size with mildly reduced systolic function. Estimated EF 45%. Global hypokinesis. Moderate concentric left ventricular hypertrophy. * Reduced right ventricular systolic function. RV not well visualized * Mild left atrial dilation * Sclerotic aortic valve without significant stenosis * Compared to prior study on 05/09/2017, LV systolic function appears similar. XR chest 1V portable CLINICAL HISTORY: Resiratory Distress COMPARISON STUDY: 10/29/2019 FINDINGS: Stable cardiac enlargement. Components of congestive heart failure noted. These is slightly improved compared to the prior exam. There are small bilateral pleural effusions slightly diminished from the prior study. IMPRESSION: Congestive heart failure slightly improved from the prior exam. Electronically signed by: Ulysses Mccartney M.D. 11/10/2019 7:25 PM PG Care Time/CCT Total # of Minutes Spent Total Time Spent with Patient: Total time spent is greater than 50% in coordination of care (as documented) at patient's floor/unit and/or counseling patient: 35 minutes
--- NOTE | 2019-11-11 17:02 | Hospitalist Progress Note ---
Date of Service November 11, 2019 Assessment & Plan (1) Acute on chronic respiratory failure with hypoxemia: Unclear how far off his baseline he truly is since he was requiring 5L O2 in July. And patient history not completely clear regarding progression of his symptoms. Plan to optimize pulmonary edema / heart failure status Reportedly optimized already from pulmonology point of view. I am not concerned about a PE in setting of apixaban use and negative venous dopplers. (2) Congestive heart failure: Acute on chronic systolic heart failure with global dysfunction. No change in echo since 2017. BNP improved from [address] showing mild pulmonary edema. I do not feel there is much fluid to come off however will slowly diurese and follow renal function daily. Will continue on 1mg IV bumex BID (effectively home dose) as he is responding to this at present. If renal function stable will increase to 2mg BID. Continue metoprolol tatrate for now, unclear why he is not on succinate and will go back through cardiology notes (suspect originally started for A. fib) (3) COPD (chronic obstructive pulmonary disease): No current exacerbation and will discontinue IV steroids. Appreciate pulmonology recommendations - suspect mostly pulmonary edema causing SOBOE rather than primary lung issue (4) Atrial fibrillation: Rate controlled on metoprolol Anticoagulation with apixaban (5) Restrictive lung disease: Severe with combined obstruction from PFTs 07/2019 (no significant change to 2018). No etiology described as cause on that note but suspected obesity hypoventilation. Main treatment as weight loss. (6) S/P coronary artery bypass graft x 4: ASA, statin, BB. Not on ACEi (will not start presently to allow higher pressure for diuretics). (7) Diabetes mellitus: HbA1C 7.5 Consult glycemic pharmacy for inaptient management Will check with his insurance regarding GLP-1 to help with weight loss which would likely be a better choice instead of sulphonureas with his insulin. (8) Bilateral lower extremity edema: Since his bypass. Likely combination of right sided heart failure and venous insufficiency (veins used in bypass). (9) Obstructive sleep apnea: Continue on BiPAP HS and when napping. (10) DVT prophylaxis: Apixaban 2.5mg BID (11) Discharge planning issues: PT/OT Subjective Patient in bed on BiPAP. Reports feeling better since admission and leg swelling has decreased. He reports not feeling short of breath at rest but notes significant shortness of breath even on light exertion. Unclear precisely his course of illness as he feels his breathing became worse around thank giving, stable up until being seen in Dr Eisenberg's office and improved since admission. However even two months ago he notes he has been significantly short of breath on light exertion. He denies any chest pain, orthopnea, PND, palpitations, claudication (cannot walk far). Review of Systems Review of Systems: All systems reviewed & are unremarkable except as noted in HPI & below Physical Exam Constitutional: + ill appearing and + obese; no acute distress and no altered mental status Eyes: + anicteric sclerae; normal pupil size ENMT: external ear and nose normal, oropharynx normal Neck: trachea midline, no thyromegaly Respiratory: + respiratory distress (Mild respiratory distress) and + uses accessory muscles Auscultation: + diminished lung sounds (Markedly decreased breath sounds, Very poor air movement), + crackles (left greater than right sided basilar crackles) and + rales (Rales bilateral lung bases); no wheezes Cardiovascular: Rate/Rhythm: regular rate and regular rhythm Heart Sounds: normal S1 and normal S2; no click, no gallop and no murmur Extremities: + edema; no calf tenderness Gastrointestinal (Abdomen): normal bowel sounds, soft, nontender, no hepatosplenomegaly Musculoskeletal: no cyanosis or clubbing, extremities motor strength 5/5 Skin: extensive venous dermatitis changes on b/l LE with suspected overlying fungal changes in between toes and on feet. Neurologic: moves all extremities and awake; no focal motor deficits and not confused Speech / Cognition: normal speech Motor/Sensory: + sensory deficit (decreased on bottom of feet); no tremor and no pronator drift Psychiatric: A+Ox3, euthymic affect Results & Data Vital Signs (Past 12 Hours) Vital Signs Temp Pulse Pulse Resp BP BP Pulse Ox 11/11/19 15:06 36.5 C 83 20 134/79 92 11/11/19 11:43 36.7 C 87 22 120/77 89 L 11/11/19 08:05 36.7 C 83 22 139/75 89 L 11/11/19 07:39 83 11/11/19 07:28 78 19 89 L PG Care Time/CCT Total # of Minutes Spent Total Time Spent with Patient: Total time spent is greater than 50% in coordination of care (as documented) at patient's floor/unit and/or counseling patient: (1) Diabetes mellitus Diabetes mellitus complication status: with hyperglycemia Diabetes mellitus 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 childcare attendant insulin use: with school childcare attendant use Diabetes mellitus type: type 2 Qualified Code(s): E11.65 - Type 2 diabetes mellitus with hyperglycemia; Z79.4 - human resources compensation analyst (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
[2019-11-11] MEDS ORDERED: AZITHROMYCIN 250 MG TAB PO SCH (21:00)
[2019-11-11] MEDS: ATORVASTATIN 40 MG TAB PO SCH (21:32)
[2019-11-11] MEDS: INSULIN GLARGINE SOLOSTAR 100 UNITS/ML 3 ML PEN SC SCH (21:33)
[2019-11-11] MEDS ORDERED: PHARMACY GLYCEMIC MGMT CONSULT PRN (22:36)
[2019-11-11] MEDS ORDERED: INSULIN HUMAN REGULAR PER UNIT 5 UNITS in SYRINGE 4.95 ML IV ONE (22:45)
[2019-11-12] MEDS: INSULIN ASPART 100 UNITS/ML 3 ML PEN SC SCH ×6 (00:18→20:44)
[2019-11-12] MEDS: BUDESONIDE 0.5 MG/2 ML VIAL (PULMICORT) INH SCH ×2 (07:06→19:26)
[2019-11-12] MEDS: MULTIVITAMIN TAB PO SCH (08:35)
[2019-11-12] MEDS: LACTOBACILLUS ACIDOPHILUS (FLORANEX) TAB PO SCH ×3 (08:35→17:23)
[2019-11-12] MEDS: ASPIRIN 81 MG ECTAB PO SCH (08:35)
[2019-11-12] MEDS: APIXABAN 2.5 MG TAB PO SCH (08:35)
[2019-11-12] MEDS: METOPROLOL TARTRATE 25 MG TAB PO SCH ×2 (08:35→20:43)
[2019-11-12] MEDS: BUMETANIDE 2 MG in SYRINGE 0 ML IV SCH ×2 (08:37→17:24)
--- NOTE | 2019-11-12 10:15 | Cardiology Consultation ---
Date of Consultation November 12, 2019 Assessment & Plan (1) Congestive heart failure: His shortness of breath symptoms are likely multifactorial. He does have severe pulmonary disease and is oxygen dependent. His volume status is rather difficult to assess, but congestive heart failure could very well be playing a role in his symptoms. He has not had much output this admission; he is only negative 215 mL according to records. His IV Bumex dose was just increased from 1 mg BID to 2 mg BID today, and hopefully this dose will lead to increased diuresis. Would continue aggressive diuresis until there is a rise in his BUN/Creatinine. Continue to monitor I's&O's closely. Daily weights. (2) Atrial fibrillation: His arrhythmia is paroxysmal. He has been asymptomatic in regards to palpitations. Continue rate control strategy with metoprolol. Continue Eliquis for thromboembolic prophylaxis. (3) S/P coronary artery bypass graft x 4: He denies angina. Cardiac enzymes have been negative and ECG shows no acute ischemic changes. Continue current medical therapy including aspirin, high intensity statin, and beta abiodun therapy. Patient seen and discussed with Dr. Churchill. History of Present Illness Reason for Consultation: CHF Requesting Physician: Dr. Braswell Attending Physician: Vishal Braswell MD History of Present Illness Mr. Bauer is a 74-year-old male with a past medical history significant for coronary artery disease s/p inferoapical FL and CABG x4 in 2005, paroxysmal atrial fibrillation with history of right retinal artery occlusion, diastolic CHF, hypertension, dyslipidemia, type 2 diabetes mellitus, sleep apnea, chronic kidney disease, hx of empyema s/p VATS procedure in 2012, and chronic respiratory failure secondary to COPD and severe restrictive lung disease who was admitted on 11/10/19 with acute on chronic respiratory failure with hypoxia. Patient was seeing his Custom Ski Maker in the outpatient setting on the day of admission and was directly admitted from there due to his worsening respiratory status. The patient reports progressive shortness of breath over the previous 2 months. On the day of admission, his breathing progressed to the point where he was feeling short of breath with just walking 5-10 feet on ground level. He also noted worsening hypoxia. In addition, he noted shortness of breath with lying down and had to prop himself up to sleep at night. He reports chronic sinus congestion. He has noted a productive cough over the last 1-1.5 months. Since admission, he has noted improvement in his shortness of breath symptoms. He is now able to ambulate to the restroom and back with only mild dyspnea. He notes intermittent lower extremity edema. He chronically takes Bumex 1 mg daily to control his fluid status, but when he notes increased edema, he doubles his Bumex dose with improvement. He does not weigh himself daily, but states that his weight can fluctuate several pounds in short period of time depending on what he his eating. He denies chest pain or palpitations. He denies lightheadedness, syncope, or presyncope. He denies abnormal bleeding such as melena, hematochezia, or hematuria. Social history: Remote history of smoking 30 years ago. No alcohol or illicit drug use. Family history: His father sustained a FL at the age of 50. Allergies Allergy/AdvReac Type Severity Reaction Status Date / Time No Known Allergies Allergy Verified 11/10/19 14:00 Home Medications Home Medications Medication Instructions Recorded Confirmed Type amlodipine 2.5 mg tablet 2.5 mg PO QPM tab 07/06/19 11/10/19 History aspirin 81 mg tablet 81 mg PO DAILY tab 07/06/19 11/10/19 History atorvastatin 80 mg tablet 80 mg PO HS tab 07/06/19 11/10/19 History bumetanide 2 mg tablet 2 mg PO DAILY #90 tab 07/06/19 11/10/19 History glipizide 5 mg tablet, extended 5 mg PO DAILY tab 07/06/19 11/10/19 History release 24 hr insulin glargine 100) 100 unit/mL 15 unit SUBCUT QPM ml 07/06/19 11/10/19 History subcutaneous solution insulin lispro 100) 100 unit/mL 0 sliding scale dose SUBCUT TIDM 07/06/19 11/10/19 History subcutaneous solution PRN ml ipratropium-albuterol 0.5 mg-3 3 ml INHALATION TID #2 ml 07/06/19 11/10/19 History mg(2.5 mg base)/3 mL nebulization soln metoprolol tartrate 25 mg tablet 25 mg PO BID tab 07/06/19 11/10/19 History multivitamin 1 tab PO DAILY 07/06/19 11/10/19 History amoxicillin 875 mg-potassium 1 tab PO Q12H #20 tab 11/01/19 11/10/19 Rx clavulanate 125 mg tablet fluticasone fur. 100 mcg-umeclid 1 puffs INH DAILY #60 ea 11/10/19 11/10/19 Rx 62.5 mcg-vilant 25 mcg inhalat.powder ipratropium-albuterol 3 ml INHALATION HS PRN 11/10/19 11/10/19 History levalbuterol tartrate 45 2 puffs INH Q6H PRN #1 inhaler 11/10/19 11/10/19 Rx mcg/actuation aerosol inhaler Patient History Medical History (Updated 11/11/19 @ 23:13 by Vishal Braswell MD) Acute on chronic diastolic (congestive) heart failure Atrial fibrillation Benign hypertension (Acute 08/06/13) Chronic respiratory failure with hypoxia Diabetes mellitus (Acute 08/06/13) Hyperlipidemia Obstructive sleep apnea Pneumonia (Inactive 08/06/13) Restrictive lung disease Surgical History (Updated 11/11/19 @ 13:18 by Livan Grider PA-C) History of thoracentesis (Acute 08/06/13) S/P coronary artery bypass graft x 4 (Acute 08/06/13) Status post total replacement of hip (Acute 08/06/13) Family History (Updated 11/11/19 @ 13:18 by Livan Grider PA-C) Other Family history non-contributory Social History (Updated 11/11/19 @ 13:31 by Livan Grider PA-C) Preferred Language: Georgian Communication Ability: Effective Repairer Hairspring Required: No Beliefs That Will Affect Care: None Current Living Situation: Alone current occupational status: retired Other Information That Helps Us Care for You: No Feels Safe at Home: Yes Safety Concerns: Feels Safe At This Time Smoking Status: Former smoker Do You Dip or Chew Tobacco: No ; Number of Years Since Quit: 30 ; Hx Alcohol Use: Yes (Makes wine at home) Hx Substance Use: No Review of Systems Review of Systems: As noted in HPI. All other 10 point ROS are reviewed and otherwise negative at this time. Physical Exam Physical Exam: Constitutional: Alert, oriented, in no acute distress. Oxygen via nasal cannula HEENT: Head is atraumatic and normocephalic. EOMs intact. Sclera non-icteric. Face is symmetric. No perioral cyanosis. Mucous membranes moist Neck: Supple, no appreciable JVD Pulmonary: Normal respiratory effort, diminished breath sounds throughout Cardiac: Regular rate and rhythm, normal S1 and S2, no gallops, no rubs, 1/6 systolic murmur Extremities: Trace lower extremity edema bilaterally. No clubbing or cyanosis. Pulses intact Abdomen: Obese. Normal bowel sounds, soft, non-tender, no abdominal masses palpated Skin: Chronic venous stasis skin changes of bilateral lower extremities. No rash Neurological: Oriented to person, place, and time Results & Data Vital Signs (Past 12 Hours) Vital Signs Temp Pulse Pulse Resp BP BP Pulse Ox 11/12/19 08:01 72 11/12/19 07:09 97.7 F 73 16 128/71 93 11/12/19 04:00 97.5 F L 77 20 128/78 93 11/12/19 00:23 68 11/11/19 23:00 97.2 F L 79 22 122/76 92 Laboratory Results Laboratory Results WBC 9.22 K/uL (4.8-10.8) 11/10/19 19:11 RBC 3.86 M/uL (4.7-6.1) L 11/10/19 19:11 Hgb 10.9 g/dL (14.0-18.0) L 11/10/19 19:11 Hct 35.9 % (42-52) L 11/10/19 19:11 MCV 93.0 fL (80-100) 11/10/19 19:11 MCH 28.2 pg (25-34) 11/10/19 19:11 MCHC 30.4 g/dL (32-36) L 11/10/19 19:11 RDW Std Deviation 57.2 fL (36.4-46.3) H 11/10/19 19:11 RDW Coeff of Radha 16.9 % (11.5-14.5) H 11/10/19 19:11 Plt Count 209 K/uL (130-400) 11/10/19 19:11 MPV 9.0 fL (7.4-10.4) 11/10/19 19:11 Immature Gran % (Auto) 0.4 % 11/10/19 19:11 Neut % (Auto) 73.4 % 11/10/19 19:11 Lymph % (Auto) 12.8 % 11/10/19 19:11 Towner % (Auto) 8.9 % 11/10/19 19:11 Eos % (Auto) 4.1 % 11/10/19 19:11 Baso % (Auto) 0.4 % 11/10/19 19:11 Immature Gran # (Auto) 0.04 K/uL (0.00-0.02) H 11/10/19 19:11 Neut # (Auto) 6.76 K/uL (1.4-6.5) H 11/10/19 19:11 Lymph # (Auto) 1.18 K/uL (1.2-3.4) L 11/10/19 19:11 Towner # (Auto) 0.82 K/uL (0.11-0.59) H 11/10/19 19:11 Eos # (Auto) 0.38 K/uL (0-0.5) 11/10/19 19:11 Baso # (Auto) 0.04 K/uL (0-0.2) 11/10/19 19:11 Sodium 138 mmol/L (136-145) 11/10/19 19:11 Potassium 4.4 mmol/L (3.5-5.1) 11/10/19 19:11 Chloride 100 mmol/L (98-107) 11/10/19 19:11 Carbon Dioxide 37 mmol/L (21-32) H 11/10/19 19:11 Anion Gap 1.0 (3-11) L 11/10/19 19:11 BUN 26 mg/dl (7-18) H 11/10/19 19:11 Creatinine 1.55 mg/dl (0.6-1.4) H 11/10/19 19:11 Est Cr Clr Drug Dosing 53.1 ml/min 11/10/19 19:11 Est GFR ( Amer) 51.1 11/10/19 19:11 Est GFR (Non-Af Amer) 44.1 11/10/19 19:11 BUN/Creatinine Ratio 16.8 (10-20) 11/10/19 19:11 Glucose 129 mg/dl (70-99) H 11/10/19 19:11 POC Glucose 230 (70-99) H 11/12/19 07:37 Estimat Average Glucose 169 mg/dl 11/10/19 19:11 Hemoglobin A1c 7.5 % (4.5-5.6) H 11/10/19 19:11 Calcium 9.0 mg/dl (8.5-10.1) 11/10/19 19:11 Total Bilirubin 0.7 mg/dl (0.2-1) 11/10/19 19:11 AST 19 U/L (15-37) 11/10/19 19:11 ALT 35 U/L (12-78) 11/10/19 19:11 Alkaline Phosphatase 90 U/L (45-117) 11/10/19 19:11 Troponin I < 0.015 ng/ml (0-0.045) 11/10/19 19:11 NT-Pro-B Natriuret Pep 2970 pg/ml (0-900) H 11/10/19 19:11 Total Protein 8.1 gm/dl (6.4-8.2) 11/10/19 19:11 Albumin 3.1 gm/dl (3.4-5.0) L 11/10/19 19:11 Globulin 5.0 gm/dl (2.5-4.0) H 11/10/19 19:11 Albumin/Globulin Ratio 0.6 (0.9-2) L 11/10/19 19:11 Procalcitonin < 0.05 ng/ml (0-0.5) 11/10/19 21:03 Diagnostic Findings CXR: Congestive heart failure slightly improved from the prior exam. Chest CT: 1. Extensive architectural distortion and suspected dependent rounded atelectasis bilaterally affecting the right lung to a greater degree. The extent of atelectasis and scarring limits evaluation for pulmonary nodule. 2. Mild congestive change is suspected with diffuse mild added density of the lungs suggesting possible mild pulmonary edema. This is overall less severe than on the prior exam in 2017. 3. Cardiomegaly with postsurgical changes of CABG. ECG: Sinus rhythm. Nonspecific ST-T wave abnormality. Echo: 1. Normal LV size with mildly reduced systolic function. EF45%. Global hypokinesis. Moderate LVH. 2. Reduced RV systolic function. 3. Mild left atrial dilation. 4. Sclerotic aortic valve without significant stenosis. 5. Compared to prior study on 05/09/17, LV systolic function appears similar. PG Care Time/CCT Total # of Minutes Spent Total Time Spent with Patient: Total time spent is greater than 50% in coordination of care (as documented) at patient's floor/unit and/or counseling patient: (1) Congestive heart failure Heart failure type: systolic Heart failure chronicity: acute on chronic Qualified Code(s): I50.23 - Acute on chronic systolic (congestive) heart failure (2) Atrial fibrillation Atrial fibrillation type: longstanding persistent Qualified Code(s): I48.11 - Longstanding persistent atrial fibrillation
[2019-11-12 10:37] LABS: Basophils # (auto) 0.01 K/uL (0-0.2); Basophils % (auto) 0.1 %; Eosinophils # (auto) 0.04 K/uL (0-0.5); Eosinophils % (auto) 0.3 %; Hematocrit (blood only) 37.1 % (42-52); Hemoglobin 11.5 g/dL (14.0-18.0); Immature Granulocytes # (auto) 0.04 K/uL (0.00-0.02); Immature Granulocytes % (auto) 0.3 %; Lymphocytes # (auto) 0.82 K/uL (1.2-3.4); Mean Corpuscular Hemoglobin 28.3 pg (25-34); Mean Corpuscular Volume 91.4 fL (80-100); Mean Platelet Volume 9.8 fL (7.4-10.4); Monocytes # (auto) 0.81 K/uL (0.11-0.59); Monocytes % (auto) 6.9 %; Neutrophils # (auto) 10.07 K/uL (1.4-6.5); Neutrophils % (auto) 85.4 %; Platelet Count 226 K/uL (130-400); RDW Coefficient of Variation 17.1 % (11.5-14.5); Red Blood Count 4.06 M/uL (4.7-6.1); White Blood Count 11.79 K/uL (4.8-10.8)
[2019-11-12 11:02] LABS: Albumin Level 3.6 gm/dl (3.4-5.0); BUN Creatinine Ratio 24.7 (10-20); Calcium 9.8 mg/dl (8.5-10.1); Creatinine Clr Calc Pharmacy 42.8 ml/min; Est GFR (African American) 39.7; Est GFR (Non-African American) 34.2; Magnesium 2.3 mg/dl (1.8-2.4); Potassium 4.4 mmol/L (3.5-5.1)
[2019-11-12 11:04] LABS: Albumin Globulin Ratio 0.7 (0.9-2); Bilirubin,Total 0.6 mg/dl (0.2-1); Globulin 4.8 gm/dl (2.5-4.0); Total Protein 8.4 gm/dl (6.4-8.2)
--- NOTE | 2019-11-12 15:09 | Pharmacy Report ---
Glycemic Control Consultation - Date of Service November 12, 2019 - Scope Scope: Glycemic Pharmacist consulted by Dr Braswell on 11/11/19 for glycemic control and to write orders per [facility] ED inpatient glycemic control protocol - Objective Weight: 110.2 kg Accuchecks BSG (last 24hrs): 11/11/19 11/11/19 11/12/19 16:22 20:15 00:12 Glucose POC Glucose 265 H 303 H* 252 H 11/12/19 11/12/19 11/12/19 04:12 07:37 10:16 Glucose 252 H POC Glucose 254 H 230 H 11/12/19 11:44 Glucose POC Glucose 176 H Laboratory Data (last 24hrs): 11/12/19 10:16 Potassium 4.4 Carbon Dioxide 35 H Anion Gap 5.0 Creatinine 1.91 H D Est Cr Clr Drug Dosing 42.8 HbA1c: Hemoglobin A1c 7.5 % (4.5-5.6) H 11/10/19 19:11 - Recent Pertinent Medications Outpatient Anti-diabetic Regimen: * Glipizide, lantus 15u HS, Lispro SSI * A1c = 7.5 % 11/10/19 - Assessment & Plan Assessment & Plan: ASSESSMENT: * Pt is a 74yo M type II diabetic. P/w acute on chronic respiratory failure. PMHx consistent with: CHF, COPD (GOLD IV), AF. BSGs were severely elevated yesterday evening. Likely steroid induced. Last dose of glucocorticoids was AM of 11/11/19. I anticipate hyperglycemic effects to dissipate. No need to add additional lantus. We will resume his home Rx of lantus 15u HS. PLAN FOR INPATIENT GLYCEMIC CONTROL: * Holding outpatient oral diabetes medications * Basal insulin * as above, continue home Rx * Bolus insulin - tightened CF/CR due to hyperglycemia yesterday * NovoLog per scale ACHS or Q6hrs while NPO * Goal Range: Low 110 mg/dL - High 140 mg/dL * Correction Factor: 15 mg/dL/unit * Nutritional / Prandial insulin per carb ratio of 1 unit per 5 grams CHO consumed * Please note that the plan above was derived based on current level of insulin resistance and hospital stress. These recommendations are appropriate for inpatient admission only. Plan of care upon discharge will need to be reassessed to avoid potential outpatient hypo/hyperglycemia. Thank you.
--- NOTE | 2019-11-12 18:12 | Hospitalist Progress Note ---
Date of Service November 12, 2019 Assessment & Plan (1) Acute on chronic respiratory failure with hypoxemia: Aim to O2 sats > 94%, no CO2 retention on ABG. Plan to optimize pulmonary edema / heart failure status Reportedly optimized already from pulmonology point of view - multiple chronic e tiologies including COPD, obstructive sleep apnea, obesity hypoventilation. (2) Congestive heart failure: Acute on chronic systolic heart failure with global dysfunction. No change in echo since 2017. Bumex 2mg IV BID today. (3) COPD (chronic obstructive pulmonary disease): No current exacerbation. (4) Atrial fibrillation: Rate controlled on metoprolol Anticoagulation with apixaban (5) Restrictive lung disease: Severe with combined obstruction from PFTs 07/2019 (no significant change to 2018). No etiology described as cause on that note but suspected obesity hypoventilation. Main treatment - weight loss. (6) S/P coronary artery bypass graft x 4: ASA, statin, BB. Not on ACEi (will not start presently to allow higher pressure for diuretics). (7) Diabetes mellitus: HbA1C 7.5 Consult glycemic pharmacy for inaptient management Plan to switch to GLP-1 agonist on discharge (8) Bilateral lower extremity edema: Since his bypass. Likely combination of right sided heart failure and venous insufficiency (veins used in bypass). (9) Obstructive sleep apnea: Continue on BiPAP HS and when napping. (10) DVT prophylaxis: Apixaban 5mg BID (11) Discharge planning issues: PT/OT Subjective Patient sitting in chair this morning. He reports his shortness of breath is much improved and can now walk a number of steps without feeling significantly short of breath. He denies any chest pain. Reports leg swelling is decreased. No fevers or chills. Review of Systems Review of Systems: All systems reviewed & are unremarkable except as noted in HPI & below Physical Exam Constitutional: + ill appearing and + obese; no acute distress and no altered mental status Eyes: + anicteric sclerae; normal pupil size ENMT: external ear and nose normal, oropharynx normal Neck: trachea midline, no thyromegaly Respiratory: normal respiratory effort and + uses accessory muscles; no respiratory distress, no labored breathing and no retractions Auscultation: + diminished lung sounds (Throughout); no crackles, no rales and no wheezes Cardiovascular: Rate/Rhythm: regular rate and regular rhythm Heart Sounds: normal S1 and normal S2; no murmur Extremities: + edema; no calf tenderness Gastrointestinal (Abdomen): normal bowel sounds, soft, nontender, no hepatosplenomegaly Musculoskeletal: no cyanosis or clubbing, extremities motor strength 5/5 Skin: Extensive bilateral venous dermatitis changes Neurologic: moves all extremities and awake; no focal motor deficits and not confused Speech / Cognition: normal speech Motor/Sensory: + sensory deficit (Peripheral neuropathy from ankles distally); no tremor and no pronator drift Psychiatric: A+Ox3, euthymic affect Results & Data Vital Signs (Past 12 Hours) Vital Signs Temp Pulse Pulse Resp BP BP Pulse Ox 11/12/19 16:06 36.8 C 96 H 20 139/72 94 11/12/19 11:58 36.7 C 69 20 127/76 97 11/12/19 08:01 72 11/12/19 07:09 36.5 C 73 16 128/71 93 PG Care Time/CCT Total # of Minutes Spent Total Time Spent with Patient: Total time spent is greater than 50% in coordination of care (as documented) at patient's floor/unit and/or counseling patient: (1) Diabetes mellitus Diabetes mellitus complication status: with hyperglycemia Diabetes mellitus skilled nursing insulin use: with medical terminologist use Diabetes mellitus type: type 2 Qualified Code(s): E11.65 - Type 2 diabetes mellitus with hyperglycemia; 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
[2019-11-12] MEDS: APIXABAN 5 MG TABLET PO SCH (20:41)
[2019-11-12] MEDS: ATORVASTATIN 40 MG TAB PO SCH (20:42)
[2019-11-12] MEDS: INSULIN GLARGINE SOLOSTAR 100 UNITS/ML 3 ML PEN SC SCH (20:42)
[2019-11-13 07:25] LABS: BUN Creatinine Ratio 27.1 (10-20); Calcium 9.3 mg/dl (8.5-10.1); Creatinine Clr Calc Pharmacy 43.6 ml/min; Est GFR (African American) 40.4; Est GFR (Non-African American) 34.9
[2019-11-13] MEDS: BUDESONIDE 0.5 MG/2 ML VIAL (PULMICORT) INH SCH ×2 (07:41→19:08)
[2019-11-13] MEDS: LACTOBACILLUS ACIDOPHILUS (FLORANEX) TAB PO SCH ×3 (08:13→17:23)
[2019-11-13] MEDS: INSULIN ASPART 100 UNITS/ML 3 ML PEN SC SCH ×4 (08:14→21:03)
[2019-11-13] MEDS: ASPIRIN 81 MG ECTAB PO SCH (08:14)
[2019-11-13] MEDS: METOPROLOL TARTRATE 25 MG TAB PO SCH ×2 (08:14→21:06)
[2019-11-13] MEDS: MULTIVITAMIN TAB PO SCH (08:14)
[2019-11-13] MEDS: APIXABAN 5 MG TABLET PO SCH ×2 (08:14→21:04)
[2019-11-13] MEDS ORDERED: BUMETANIDE 2 MG in SYRINGE 0 ML IV ONE (10:00)
--- NOTE | 2019-11-13 14:56 | Pharmacy Report ---
Pharmacy Glycemic Short Note 2 - Date of Service November 13, 2019 - Glycemic Short BSG Results (Last 24 hours): 11/12/19 11/12/19 11/12/19 16:42 17:27 20:19 Glucose POC Glucose 66 L* 81 185 H 11/13/19 11/13/19 11/13/19 06:12 07:31 11:26 Glucose 129 H POC Glucose 130 H 149 H ASSESSMENT: * BSGs have been reasonable. He did have a low BSG yesterday evening around dinner, 66mg/dL. Likely due to tight CF/CR on correctional insulin, see plan detailed below. PLAN FOR INPATIENT GLYCEMIC CONTROL: * Hold outpatient oral diabetes medications * Basal insulin - continue * Lantus 15u HS * Bolus insulin - loosen * NovoLog per scale ACHS or Q6hrs while NPO * Goal Range: Low 110 mg/dL - High 140 mg/dL * Correction Factor: 20 mg/dL/unit * Nutritional / Prandial insulin per carb ratio of 1 unit per 7 grams CHO consumed
[2019-11-13] MEDS: BUMETANIDE 2 MG in SYRINGE 0 ML IV SCH (17:41)
--- NOTE | 2019-11-13 20:02 | Hospitalist Progress Note ---
Date of Service November 13, 2019 Assessment & Plan (1) Congestive heart failure: Acute on chronic systolic heart failure with global dysfunction. No change in echo since 2017. Given improvement in creatinine will continue on Bumex 2mg IV BID today. If creatinine continues to improve will consider increasing the dose tomorrow, although he reports a lot of urine output at this dose with negative balance of 2 L. No change in weight. (2) Acute on chronic respiratory failure with hypoxemia: Aim to O2 sats > 94%, no CO2 retention on ABG. Plan to optimize pulmonary edema / heart failure status as above. Despite improvement in fluid status his hypoxia has not improved at this stage. COPD, obstructive sleep apnea, obesity hypoventilation -optimized already (3) COPD (chronic obstructive pulmonary disease): No current exacerbation. Despite a number of days of admission he has not been able to have someone bring in his Trelegy Ellipta. We will therefore treat with Pulmicort, Brovana and Atrovent nebulizers to replace this. (4) Atrial fibrillation: Rate controlled on metoprolol Anticoagulation with apixaban (5) Restrictive lung disease: Severe with combined obstruction from PFTs 07/2019 (no significant change to 2018). No etiology described as cause on that note but suspected obesity hypoventilation. Main treatment - weight loss. (6) S/P coronary artery bypass graft x 4: ASA, statin, BB. Not on ACEi (will not start presently to allow higher pressure for diuretics). (7) Diabetes mellitus: HbA1C 7.5 Consult glycemic pharmacy for inpatient management Plan to switch to GLP-1 agonist on discharge (8) Bilateral lower extremity edema: Since his bypass. Likely combination of right sided heart failure and venous insufficiency (veins used in bypass). (9) Obstructive sleep apnea: Continue on BiPAP HS and when napping. (10) DVT prophylaxis: Apixaban 5mg BID (11) Discharge planning issues: PT/OT Subjective Patient feels shortness of breath much the same as yesterday but is much improved since admission. Difficulty using BiPAP overnight and keeping his oxygen up. Reports respiratory will be using a different machine tonight. No chest pain, fevers, chills. Review of Systems Review of Systems: All systems reviewed & are unremarkable except as noted in HPI & below Physical Exam Constitutional: + ill appearing (Chronically) and + obese; no acute distress and no altered mental status Eyes: + anicteric sclerae; normal pupil size ENMT: external ear and nose normal, oropharynx normal Neck: trachea midline, + short neck and + thick neck Respiratory: normal respiratory effort and + uses accessory muscles; no respiratory distress, no labored breathing and no retractions Auscultation: + diminished lung sounds (Throughout but improved from previous day); no crackles, no rales and no wheezes Cardiovascular: Rate/Rhythm: regular rate and regular rhythm Heart Sounds: normal S1 and normal S2; no murmur Extremities: + edema (3+ to knees, no wrinkling of skin at present); no calf tenderness Gastrointestinal (Abdomen): Inspection/Auscultation: normal bowel sounds; abdomen not distended Percussion/Palpation: abdomen soft; abdomen nontender, no guarding and abdomen not rigid Musculoskeletal: no cyanosis or clubbing, extremities motor strength 5/5 Skin: Chronic venous dermatitis changes Neurologic: moves all extremities and awake; no focal motor deficits and not confused Speech / Cognition: normal speech Motor/Sensory: + sensory deficit (Peripheral neuropathy from ankles distally); no tremor and no pronator drift Psychiatric: A+Ox3, euthymic affect Results & Data Vital Signs (Past 12 Hours) Vital Signs Temp Pulse Pulse Pulse Resp BP Pulse Ox 11/13/19 19:09 77 18 96 11/13/19 15:58 36.4 C L 86 18 126/73 95 11/13/19 15:25 74 11/13/19 11:12 36.5 C 73 16 136/83 91 PG Care Time/CCT Total # of Minutes Spent Total Time Spent with Patient: Total time spent is greater than 50% in coordination of care (as documented) at patient's floor/unit and/or counseling patient: (1) Congestive heart failure Heart failure type: systolic Heart failure chronicity: acute on chronic Qualified Code(s): I50.23 - Acute on chronic systolic (congestive) heart failure (2) COPD (chronic obstructive pulmonary disease) COPD type: unspecified COPD Qualified Code(s): J44.9 - Chronic obstructive pulmonary disease, unspecified (3) Atrial fibrillation Atrial fibrillation type: longstanding persistent Qualified Code(s): I48.11 - Longstanding persistent atrial fibrillation (4) Diabetes mellitus Diabetes mellitus type: type 2 Diabetes mellitus terminal clerk insulin use: with terminal clerk use Diabetes mellitus complication status: with hyperglycemia Qualified Code(s): E11.65 - Type 2 diabetes mellitus with hyperglycemia; 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
[2019-11-13] MEDS: ATORVASTATIN 40 MG TAB PO SCH (21:05)
[2019-11-13] MEDS: INSULIN GLARGINE SOLOSTAR 100 UNITS/ML 3 ML PEN SC SCH (21:05)
[2019-11-13] MEDS: IPRATROPIUM BROMIDE NEB SOLN 0.02% 2.5 ML VIAL NEB SCH (23:05)
[2019-11-14] MEDS: BUDESONIDE 0.5 MG/2 ML VIAL (PULMICORT) INH SCH ×2 (07:09→18:59)
[2019-11-14] MEDS: IPRATROPIUM BROMIDE NEB SOLN 0.02% 2.5 ML VIAL NEB SCH ×3 (07:09→23:13)
[2019-11-14] MEDS: ARFORMOTEROL TART 15MCG/2ML VIAL INH SCH ×2 (07:09→18:59)
[2019-11-14 07:18] LABS: BUN Creatinine Ratio 31.9 (10-20); Calcium 8.8 mg/dl (8.5-10.1); Creatinine Clr Calc Pharmacy 52.3 ml/min; Est GFR (African American) 50.7; Est GFR (Non-African American) 43.7; Magnesium 2.3 mg/dl (1.8-2.4)
[2019-11-14] MEDS: METOPROLOL TARTRATE 25 MG TAB PO SCH ×2 (08:03→21:42)
[2019-11-14] MEDS: APIXABAN 5 MG TABLET PO SCH ×2 (08:03→21:39)
[2019-11-14] MEDS: INSULIN ASPART 100 UNITS/ML 3 ML PEN SC SCH ×4 (08:03→21:44)
[2019-11-14] MEDS: ASPIRIN 81 MG ECTAB PO SCH (08:03)
[2019-11-14] MEDS: BUMETANIDE 2 MG in SYRINGE 0 ML IV SCH ×2 (08:03→17:06)
[2019-11-14] MEDS: MULTIVITAMIN TAB PO SCH (08:03)
[2019-11-14] MEDS ORDERED: BUMETANIDE 2 MG in SYRINGE 0 ML IV ONE (12:00)
--- NOTE | 2019-11-14 21:17 | Hospitalist Progress Note ---
Date of Service November 14, 2019 Assessment & Plan (1) Congestive heart failure: Acute on chronic systolic heart failure with global dysfunction. No change in echo since 2017. No change in weight however negative balance 6L since admission. BUN increasing but Cr now improved to 1.5. Will give total of 6mg bumex today as still significantly hypervolemic on exam but likely 4mg daily adequate rate as per I&Os at a good rate. I suspect his oral intake is higher than that recorded. (2) Acute on chronic respiratory failure with hypoxemia: Aim to O2 sats > 94%, no CO2 retention on ABG. Plan to optimize pulmonary edema / heart failure status as above. Despite improvement in fluid status his resting hypoxia has not improved at this stage, however exertionally he feels much improved. COPD, obstructive sleep apnea, obesity hypoventilation - optimized already as per pulmonology consult (3) COPD (chronic obstructive pulmonary disease): No current exacerbation. On Trelegy Ellipta at home but unable to bring this in. While admitted continue with Pulmicort, Brovana and Atrovent nebulizers to replace maintenance inhalers. (4) Atrial fibrillation: Paroxysmal. Normal sinus rhythm since admitted Continue metoprolol for rate control if converts Anticoagulation with apixaban (5) Restrictive lung disease: Severe with combined obstruction from PFTs 07/2019 (no significant change to 2018). No etiology described as cause on that note but suspected obesity hypoventilation. Main treatment = weight loss. (6) S/P coronary artery bypass graft x 4: ASA, statin, BB. Not on ACEi (will not start presently to allow higher pressure for diuretics). 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 Likely combination of right sided heart failure and venous insufficiency (veins used in bypass). Continue on diuretics. Fungal culture pending, will defer antifungals for lower extremity as nothing seen on BRANDON prep on skin samples. (9) Obstructive sleep apnea: Continue on BiPAP HS and when napping. (10) Tinea pedis of both feet: BRANDON negative. However this was from skin samples from his miles rather than feet. Culture pending. Recommend treatment with topical clotrimazole twice daily for 4 weeks. Can apply to miles as well as feet but with special attention between toes to avoid secondary bacterial infections. Consider oral treatment if fungal culture positive and topical treatment unsuccessful. (11) DVT prophylaxis: Apixaban 5mg BID (12) Discharge planning issues: PT/OT. Continued inpatient stay due to need for IV diuretics. Subjective Patient reports leak from BiPAP overnight. He gets the same issues with his BiPAP machine at home and believes the BiPAP machine here has a higher pressure therefore prefers to keep trying on our equipment. He feels significantly less short of breath since admission but not a big difference in the last 2 days. Continuing to pass a lot of urine on current Bumex dosing. He does note his legs have started to decrease in size. Review of Systems Review of Systems: All systems reviewed & are unremarkable except as noted in HPI & below Physical Exam Constitutional: well developed and + obese; no acute distress and no altered mental status Eyes: + anicteric sclerae; normal pupil size ENMT: external ear and nose normal, oropharynx normal Neck: trachea midline, + short neck and + thick neck Respiratory: normal respiratory effort; no respiratory distress, no labored breathing, no retractions and does not use accessory muscles Auscultation: + diminished lung sounds (Mostly bibasal, air entry improving daily); no crackles, no rales and no wheezes Cardiovascular: Rate/Rhythm: regular rate and regular rhythm Heart Sounds: normal S1 and normal S2; no murmur Extremities: + edema (3+ to knees, no wrinkling of skin at present); no calf tenderness Gastrointestinal (Abdomen): Inspection/Auscultation: normal bowel sounds; abdomen not distended Percussion/Palpation: abdomen soft; abdomen nontender, no guarding and abdomen not rigid Musculoskeletal: no cyanosis or clubbing, extremities motor strength 5/5 Skin: Bilateral lower extremity venous dermatitis, suspected chronic hyperkeratotic tinea pedis especially between toes however fungal culture pending and nothing on BRANDON. 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); no tremor and no pronator drift Psychiatric: A+Ox3, euthymic affect Results & Data Vital Signs (Past 12 Hours) Vital Signs Temp Pulse Pulse Pulse Resp BP BP 11/14/19 19:19 36.4 C L 74 20 130/73 11/14/19 19:01 78 18 11/14/19 15:38 36.7 C 69 19 123/65 11/14/19 15:16 78 16 11/14/19 15:14 71 11/14/19 12:05 36.5 C 69 18 128/75 Pulse Ox 11/14/19 19:19 92 11/14/19 19:01 92 11/14/19 15:38 98 11/14/19 15:16 96 11/14/19 15:14 11/14/19 12:05 98 PG Care Time/CCT Total # of Minutes Spent Total Time Spent with Patient: Total time spent is greater than 50% in coordination of care (as documented) at patient's floor/unit and/or counseling patient: (1) Congestive heart failure Heart failure type: systolic Heart failure chronicity: acute on chronic Qualified Code(s): I50.23 - Acute on chronic systolic (congestive) heart failure (2) COPD (chronic obstructive pulmonary disease) COPD type: unspecified COPD Qualified Code(s): J44.9 - Chronic obstructive pulmonary disease, unspecified (3) Atrial fibrillation Atrial fibrillation type: longstanding persistent Qualified Code(s): I48.11 - Longstanding persistent atrial fibrillation (4) Diabetes mellitus Diabetes mellitus type: type 2 Diabetes mellitus buttermaker insulin use: with penitentiary use Diabetes mellitus complication status: with hyperglycemia Qualified Code(s): E11.65 - Type 2 diabetes mellitus with hyperglycemia; Z79.4 - [facility] (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
[2019-11-14] MEDS: INSULIN GLARGINE SOLOSTAR 100 UNITS/ML 3 ML PEN SC SCH (21:40)
[2019-11-14] MEDS: ATORVASTATIN 40 MG TAB PO SCH (21:42)
[2019-11-14] MEDS: CLOTRIMAZOLE 1% CR 15 GM TUBE EXT SCH (23:09)
[2019-11-15 06:23] LABS: BUN Creatinine Ratio 29.8 (10-20); Calcium 8.6 mg/dl (8.5-10.1); Creatinine Clr Calc Pharmacy 51.7 ml/min; Est GFR (African American) 49.9; Est GFR (Non-African American) 43.1; Potassium 3.9 mmol/L (3.5-5.1)
[2019-11-15] MEDS: ARFORMOTEROL TART 15MCG/2ML VIAL INH SCH ×2 (07:18→19:23)
[2019-11-15] MEDS: BUDESONIDE 0.5 MG/2 ML VIAL (PULMICORT) INH SCH ×2 (07:18→19:23)
[2019-11-15] MEDS: IPRATROPIUM BROMIDE NEB SOLN 0.02% 2.5 ML VIAL NEB SCH ×3 (07:18→23:17)
[2019-11-15] MEDS: BUMETANIDE 2 MG in SYRINGE 0 ML IV SCH ×2 (07:53→17:48)
[2019-11-15] MEDS: MULTIVITAMIN TAB PO SCH (07:53)
[2019-11-15] MEDS: METOPROLOL TARTRATE 25 MG TAB PO SCH ×2 (07:53→21:29)
[2019-11-15] MEDS: ASPIRIN 81 MG ECTAB PO SCH (07:53)
[2019-11-15] MEDS: APIXABAN 5 MG TABLET PO SCH ×2 (07:53→21:28)
[2019-11-15] MEDS: CLOTRIMAZOLE 1% CR 15 GM TUBE EXT SCH ×2 (07:53→21:36)
[2019-11-15] MEDS: INSULIN ASPART 100 UNITS/ML 3 ML PEN SC SCH ×4 (08:26→21:30)
[2019-11-15] MEDS ORDERED: POTASSIUM CHLORIDE 20 MEQ TABCR PO ONE (09:45)
--- NOTE | 2019-11-15 20:34 | Hospitalist Progress Note ---
Date of Service November 15, 2019 Assessment & Plan (1) Congestive heart failure: Acute on chronic diastolic and right sided heart failure with global dysfunction. No change in echo since 2017. LVEF 45% Likely has Pulm HTN No change in weight but weight not done today - however negative balance 6L since admission -continue Bumex 2mg IV bid for now and likely convert to po diuretics for tomorrow given significant clinical improvement continue tele monitoring, replace lytes as needed -continue daily weights, strict I/Os -treat TRACEY as below (2) Acute on chronic respiratory failure with hypoxemia: Aim to O2 sats > 94%, no CO2 retention on ABG. Plan to continue to optimize pulmonary edema / heart failure status as above. Much improved symptomatically Back to his baseline 5LNC COPD, obstructive sleep apnea, obesity hypoventilation - optimized already as per pulmonology consult (3) COPD (chronic obstructive pulmonary disease): No current exacerbation. On Trelegy Ellipta at home but unable to bring this in. While admitted continue with Pulmicort, Brovana and Atrovent nebulizers to replace maintenance inhalers. (4) Atrial fibrillation: Paroxysmal. Normal sinus rhythm since admitted Continue metoprolol for rate control if converts Anticoagulation with apixaban (5) Restrictive lung disease: Severe with combined obstruction from PFTs 07/2019 (no significant change to 2018). No etiology described as cause on that note but suspected obesity hypoventilation. Main treatment = weight loss. (6) S/P coronary artery bypass graft x 4: ASA, statin, BB. Not on ACEi (will not start presently to allow higher pressure for diuretics). 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 Likely combination of right sided heart failure and venous insufficiency (veins used in bypass). Now much improved but persists Continue on diuretics. Fungal culture pending, will defer antifungals for lower extremity as nothing seen on BRANDON prep on skin samples. Suspect skin changes are from chronic woody edema (9) Obstructive sleep apnea: Continue on BiPAP HS and when napping. (10) Tinea pedis of both feet: BRANDON negative. However this was from skin samples from his miles rather than feet. Culture pending. Recommend treatment with topical clotrimazole twice daily for 4 weeks. Can apply to miles as well as feet but with special attention between toes to avoid secondary bacterial infections. Consider oral treatment if fungal culture positive and topical treatment unsuccessful. 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 Continued inpatient stay due to need for IV diuretics. Dispo-possibly to home tomorrow Subjective Pt feeling much better today. still urinating a lot. Was able to ambulate down the yoon without stopping which is a huge improvement. Weight not done today. I/O net neg 6.6L Denies chest pain. Feels his legs are much less swollen tele with sinus rhythm with first deg AV block Review of Systems Review of Systems: All systems reviewed & are unremarkable except as noted in HPI & below Physical Exam Constitutional: WD/WN, vitals as above Eyes: + anicteric sclerae Neck: trachea midline, no thyromegaly Respiratory: normal respiratory effort; no labored breathing Auscultation: lungs clear to auscultation bilaterally and + diminished lung sounds (throughout) Cardiovascular: Rate/Rhythm: regular rate and regular rhythm Heart Sounds: no murmur Extremities: + edema (2+ woody edema legs bilat to the knees) Chest (Breasts): Chest: normal inspection of chest Gastrointestinal (Abdomen): normal bowel sounds, soft, nontender, no hepatosplenomegaly Musculoskeletal: Extremities: no cyanosis and no clubbing Skin: + lichenification (covering legs bilat) Neurologic: moves all extremities and awake; no focal motor deficits Psychiatric: A+Ox3, euthymic affect Results & Data Vital Signs (Past 12 Hours) Vital Signs Temp Pulse Pulse Resp BP Pulse Ox 11/15/19 19:49 36.6 C 89 20 132/81 92 11/15/19 19:26 72 18 90 11/15/19 15:34 36.7 C 72 20 129/76 91 11/15/19 15:29 71 11/15/19 15:14 72 18 91 11/15/19 09:00 73 Laboratory Results 12/16/19 12/16/19 12/16/19 Range/Units 16:45 11:47 07:33 Sodium (136-145) mmol/L Potassium (3.5-5.1) mmol/L Chloride (98-107) mmol/L Carbon Dioxide (21-32) mmol/L Anion Gap (3-11) BUN (7-18) mg/dl Creatinine (0.6-1.4) mg/dl Est Cr Clr Drug Dosing ml/min Est GFR ( Amer) Est GFR (Non-Af Amer) BUN/Creatinine Ratio (10-20) Glucose (70-99) mg/dl POC Glucose 132 H 200 H 152 H (70-99) Calcium (8.5-10.1) mg/dl 11/15/19 11/14/19 Range/Units 05:22 21:35 Sodium 138 (136-145) mmol/L Potassium 3.9 (3.5-5.1) mmol/L Chloride 97 L (98-107) mmol/L Carbon Dioxide 39 H (21-32) mmol/L Anion Gap 2.0 L (3-11) BUN 47 H (7-18) mg/dl Creatinine 1.58 H (0.6-1.4) mg/dl Est Cr Clr Drug Dosing 51.7 ml/min Est GFR ( Amer) 49.9 Est GFR (Non-Af Amer) 43.1 BUN/Creatinine Ratio 29.8 H (10-20) Glucose 139 H (70-99) mg/dl POC Glucose 155 H (70-99) Calcium 8.6 (8.5-10.1) mg/dl PG Care Time/CCT Total # of Minutes Spent Total Time Spent with Patient: Total time spent is greater than 50% in coordination of care (as documented) at patient's floor/unit and/or counseling patient: (1) Congestive heart failure Heart failure type: systolic Heart failure chronicity: acute on chronic Qualified Code(s): I50.23 - Acute on chronic systolic (congestive) heart failure (2) COPD (chronic obstructive pulmonary disease) COPD type: unspecified COPD Qualified Code(s): J44.9 - Chronic obstructive pulmonary disease, unspecified (3) Atrial fibrillation Atrial fibrillation type: longstanding persistent Qualified Code(s): I48.11 - Longstanding persistent atrial fibrillation (4) Diabetes mellitus Diabetes mellitus type: type 2 Diabetes mellitus fpc insulin use: with terminologist use Diabetes mellitus complication status: with hyperglycemia Qualified Code(s): E11.65 - Type 2 diabetes mellitus with hyperglycemia; Z79.4 - [facility] (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
[2019-11-15] MEDS ORDERED: INSULIN GLARGINE SOLOSTAR 100 UNITS/ML 3 ML PEN SC SCH (21:00)
[2019-11-15] MEDS: ATORVASTATIN 40 MG TAB PO SCH (21:28)
[2019-11-16 06:21] LABS: BUN Creatinine Ratio 28.8 (10-20); Calcium 8.7 mg/dl (8.5-10.1); Creatinine Clr Calc Pharmacy 52.7 ml/min; Est GFR (African American) 51.1; Est GFR (Non-African American) 44.1; Potassium 3.9 mmol/L (3.5-5.1)
[2019-11-16] MEDS: ARFORMOTEROL TART 15MCG/2ML VIAL INH SCH (06:58)
[2019-11-16] MEDS: BUDESONIDE 0.5 MG/2 ML VIAL (PULMICORT) INH SCH (06:58)
[2019-11-16] MEDS: IPRATROPIUM BROMIDE NEB SOLN 0.02% 2.5 ML VIAL NEB SCH ×2 (06:58→14:59)
[2019-11-16] MEDS: METOPROLOL TARTRATE 25 MG TAB PO SCH (08:34)
[2019-11-16] MEDS: BUMETANIDE 2 MG in SYRINGE 0 ML IV SCH (08:34)
[2019-11-16] MEDS: INSULIN ASPART 100 UNITS/ML 3 ML PEN SC SCH ×2 (08:34→12:26)
[2019-11-16] MEDS: ASPIRIN 81 MG ECTAB PO SCH (08:35)
[2019-11-16] MEDS: APIXABAN 5 MG TABLET PO SCH (08:35)
[2019-11-16] MEDS: CLOTRIMAZOLE 1% CR 15 GM TUBE EXT SCH (08:35)
[2019-11-16] MEDS: MULTIVITAMIN TAB PO SCH (08:35)
--- NOTE | 2019-11-16 13:29 | Discharge Summary ---
Date of Service November 16, 2019 Admission HPI Per Admitting Provider Toni Bauer is a 74 year old gentleman with a past medical history significant for chronic hypoxic respiratory failure with severe restrictive pattern and emphysema (Most recent FEV1 29% FVC 32%) on 5L of Oxygen at home, CAD s/p SC in 2005 and CABG x4 (No recent echo cardiogram but elevated BNP in October), atrial fibrillation (Paroxysmal, Rate controlled with metoprolol, previously on xarelto which was discontinued recently secondary to nosebleeding), HTN, DMII (On insulin), severe TRACEY (on bipap at home 11/05 but noncompliant) Dyslipidemia, and CKD. Mr. Muñoz has noticed a progressive worsening of his shortness of breath at home. He has been more dyspneic with exertion and has had to prop himself up more at night in order to sleep. He describes a tightening in his chest when he tries to lie down flat. He had a CT recently to evaluate his lungs which showed some pulmonary edema and cardiomegaly. He had an office visit with his hogshead cooper Dr. Eisenberg at which time he desaturated down to 76% O2 sat with minimal activity despite being at 6L of O2. He was then sent here for direct admission. He tells me his only other recent illness is that he has been having URI symptoms since this past weekend including nasal congestion, increased cough, with increased sputum production, and shortness of breath. Currently he is breathing comfortably on his home O2 requirement of 5L though in the course of talking to me he begins coughing and gets out of breath and unable to finish sentences. He tells me he had an empyema several years ago (2012 per records review) and was operated on which led to a large amount of scarring, he also had a VATS procedure and there is a 7-8 mm pulmonary nodule present as well. Patient on trelegy inhaleras well as xoponex inhaler. Inhalers do not seem to be helping his dyspnea. 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 Occasionally drinks alcohol Patient tells me he is noncompliant with the BiPAP at night because he is unable to sleep with the mask on. He does wear it sometimes while awake during the day and watching "the ball game on TV" and will occasionally drift off with the mask on. He denies any fevers, chills, sweats, fatigue or somnolence beyond his baseline, he denies any GI symptoms, chest pain, or other concerns. He does endorse on observation of his grossly swollen legs that they are red and slightly tender bilaterally. Principal Diagnosis Acute on chronic diastolic and right sided heart failure Discharge Exam Constitutional WD/WN, vitals as above Eyes + anicteric sclerae Neck trachea midline, no thyromegaly Respiratory normal respiratory effort; no labored breathing Auscultation: lungs clear to auscultation bilaterally and + diminished lung sounds (throughout) Cardiovascular Rate/Rhythm: regular rate and regular rhythm Heart Sounds: no murmur Extremities: + edema (2+ woody edema legs bilat to the knees) Chest (Breasts) Chest: normal inspection of chest Gastrointestinal (Abdomen) normal bowel sounds, soft, nontender, no hepatosplenomegaly Musculoskeletal Extremities: no cyanosis and no clubbing Skin + lichenification (covering legs bilat) Neurologic moves all extremities and awake; no focal motor deficits Psychiatric A+Ox3, euthymic affect Discharge Data Allergies Allergy/AdvReac Type Severity Reaction Status Date / Time No Known Allergies Allergy Verified 11/10/19 14:00 Consultations 11/10/19 18:24 Consult Pulmonology Routine 11/11/19 23:55 Consult Cardiology Routine 11/14/19 21:09 Consult Pulmonary Rehabilitation Routine 11/14/19 21:17 Consult [facility] pharmacy data analyst Routine Ordered Studies 11/10/19 19:11 US venous doppler LE Urgent CXR Hospital Course (1) Congestive heart failure: Acute on chronic diastolic and right sided heart failure with global dysfunction. No change in echo since 2017. LVEF 45% Likely has Pulm HTN Had a fairly significant decrease in weight prior to discharge after any days of IV diuresis - net negative balance 6L since admission -received Bumex 2mg IV bid and will convert to po Bumex 2mg po bid on discharge -continue daily weights, low sodium diet at home -treat TRACEY as below (2) Acute on chronic respiratory failure with hypoxemia: Aim to O2 sats > 94%, no CO2 retention on ABG. Plan to continue to optimize pulmonary edema / heart failure status as above. Much improved symptomatically Back to his baseline 5LNC COPD, obstructive sleep apnea, obesity hypoventilation - optimized already as per pulmonology consult (3) COPD (chronic obstructive pulmonary disease): No current exacerbation. On Trelegy Ellipta at home but unable to bring this in. While admitted continue with Pulmicort, Brovana and Atrovent nebulizers to replace maintenance inhalers. (4) Atrial fibrillation: Paroxysmal. Normal sinus rhythm since admitted Continue metoprolol for rate control Anticoagulation with apixaban which was started this admission (5) Restrictive lung disease: Severe with combined obstruction from PFTs 07/2019 (no significant change to 2018). No etiology described as cause on that note but suspected obesity hypoventilation. Main treatment = weight loss. (6) S/P coronary artery bypass graft x 4: ASA, statin, BB. (7) Diabetes mellitus: HbA1C 7.5 continue basal bolus insulin (8) Bilateral lower extremity edema: Since his bypass. Likely combination of right sided heart failure and venous insufficiency (veins used in bypass). Now much improved but persists Continue on diuretics. Fungal culture no growth, will defer antifungals for lower extremity as nothing seen on BRANDON prep on skin samples. Suspect skin changes are from chronic woody edema -continue topical clotrimazole (9) Obstructive sleep apnea: Continue on BiPAP HS and when napping. (10) Tinea pedis of both feet: BRANDON negative. However this was from skin samples from his miles rather than feet. Culture pending. Recommend treatment with topical clotrimazole twice daily for 4 weeks. Can apply to miles as well as feet but with special attention between toes to avoid secondary bacterial infections. Consider oral treatment if fungal culture positive and topical treatment unsuccessful. 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 -renally dose meds -avoid nephrotoxins (12) DVT prophylaxis: Apixaban 5mg BID (13) Discharge planning issues: Dispo-dc to home Total Time Total Time Spent Total Time Spent (In Minutes): 35 min Total Time Includes: Examination of the Patient, Discharge Planning and Medication Reconciliation Discharge Plan Discharge Items Patient Disposition: Home - Home Health Services Reason For Visit: ACUTE ON CHRONIC RESPIRATORY FAILURE Discharge Diagnosis: Acute on chronic hypoxic respiratory failure, Acute on chronic diastolic and right sided heart failure Condition on Discharge: Fair Goals: You have been hospitalized for an acute medical problem. During your stay at [facility], we have made an effort to correct the problem that brought you to the hospital while keeping you as comfortable as possible. Medications were used to bring your condition under control and your discharge instructions will include directions for any medications you should take after leaving the hospital. Please make sure you see your Primary Care Provider as part of your follow up plan. Activity: Resume your previous activity Non-emergency contact: Primary Care Provider Call non-emergency contact if: you have any medication questions and your symptoms worsen Follow-up/Referrals: Malena John CRNP [Primary Care Provider] - 11/19/19 10:50 am (A follow up appt. has been made for you with ROJAS Richmond on at 10:50am.) Diet: Carb Consistent or DM2 and Low Sodium (2gm) Fluids: 1800ml (7 cups) Addtl Attending Provider Instructions: You were admitted with overload of fluid from congestive heart failure. You were given diuretics through the IV and lost 8-10 lbs of fluid. Please continue to take the Bumex but will be an increased dose of 3mg twice a day. Please follow up with your PCP within 1 week as scheduled for you. Call your Primary Care doctor if any of the following symptoms or problems start or get worse: * Shortness of breath or difficulty breathing * Wake up at night short of breath * Chest pain * Cough * Swelling of your hands, feet, or legs * More fatigued or tired with your normal activity * Palpitations - sudden fast heart beats WEIGHT * Weigh yourself every morning after using the bathroom. * Use the same scale. * Wear the same amount of clothing. * Write your weight down on a chart. * Call your Primary Care doctor if you gain more than 2-3 pounds in 1-2 days. MEDICATIONS * Use this discharge instruction sheet for medication instructions. * Take your medications at the time your doctor ordered. * Do not skip a dose of your medicines. * If you miss a dose of medicine, take it as soon as possible, but DO NOT DOUBLE A DOSE. * Read your medicine information when you get home. * Know all of the side effects of your medicine. If in doubt, ask your pharmacist * Call your Primary Care doctor's office if you have any side effects. * Be sure all of your doctors know what medicine and herbs you take (including cold, flu, and herbal medicine). Take the following with you to your follow-up doctor appointments: * Weight Chart * Medication List * List of questions Do not drink excessive alcohol, beer or wine. Pending Studies at Discharge: No Stand-Alone Forms: My [facility], Smoking Cessation Medications and DC Order Prescriptions: New Eliquis 5 mg Tablet 5 mg PO BID Qty: 60 RF: 0 clotrimazole 1 % Cream 1 applic EXT BID Qty: 15 RF: 0 Dermacerin Cream 1 applic EXT BID Qty: 2568 RF: 0 Continued metoprolol tartrate 25 mg tablet 25 mg PO BID RF: 0 insulin lispro 100 unit/mL solution 0 sliding scale dose subcut TIDM PRN (Reason: Hyperglycemia) RF: 0 aspirin 81 mg tablet 81 mg PO DAILY RF: 0 glipizide 5 mg tablet extended release 24hr 5 mg PO DAILY RF: 0 atorvastatin 80 mg tablet 80 mg PO HS RF: 0 multivitamin [Daily Multi-Vitamin] tablet 1 tab PO DAILY RF: 0 ipratropium-albuterol 0.5 mg-3 mg(2.5 mg base)/3 mL solution for nebulization 3 ml inhalation TID Qty: 2 RF: 0 Trelegy Ellipta 100-62.5-25 mcg blister with device 1 puffs INH DAILY Qty: 60 RF: 5 levalbuterol tartrate [Xopenex HFA] 45 mcg/actuation HFA aerosol inhaler 2 puffs INH Q6H PRN (Reason: shortness of breath) Qty: 1 RF: 5 ipratropium-albuterol 0.5 mg-3 mg(2.5 mg base)/3 mL solution for nebulization 3 ml INHALATION HS PRN (Reason: Shortness Of Breath Or Wheezing) RF: 0 Changed insulin glargine 100 unit/mL solution 17 unit subcut QPM Qty: 0 RF: 0 bumetanide 2 mg tablet 3 mg PO BID17 Qty: 90 RF: 0 Discontinued amoxicillin-pot clavulanate 875-125 mg tablet 1 tab PO Q12H Qty: 20 RF: 0 amlodipine 2.5 mg tablet 2.5 mg PO QPM RF: 0 Discharge Orders: Discharge Order (Routine); Ordered 11/16/19 Ordered By: Betty Grande Admission Data Admit Date/Time: 11/10/19 16:32 Attending Provider: Betty Grande Admit Provider: Carmen Campos Primary Care Provider: Malena John Other Providers: Jones Mendez ; Emeterio Estrada Jr Other Interventions: Discharge Summary Assessment (RN) Last Done: 11/16/19 13:54 DC Date/Time DO NOT enter until pt leaves facility: 11/16/19 15:31
--- NOTE | 2019-11-16 15:32 | Pharmacy Report ---
Pharmacy Glycemic Short Note 2 - Date of Service November 16, 2019 - Glycemic Short BSG Results (Last 24 hours): 11/15/19 11/15/19 11/16/19 16:45 21:15 05:28 Glucose 120 H POC Glucose 132 H 169 H 11/16/19 11/16/19 07:43 11:34 Glucose POC Glucose 125 H 242 H ASSESSMENT: 11/16 * BSGs have been well controlled over the past 24 hours * Has experienced hyperglycemia at lunch past two days, will adjust morning carb ratio, tends to trend down for dinner so will keep same for lunch, dinner, HS * Fasting within goal range today, continue current lantus 11/14 * BSGs have been reasonable. He did have a low BSG yesterday evening around dinner, 66mg/dL. Likely due to tight CF/CR on correctional insulin, see plan detailed below. PLAN FOR INPATIENT GLYCEMIC CONTROL: * Hold outpatient oral diabetes medications * Basal insulin * Lantus 17u HS * Bolus insulin - loosen * NovoLog per scale ACHS or Q6hrs while NPO * Goal Range: Low 110 mg/dL - High 140 mg/dL * Correction Factor: 20 mg/dL/unit * Nutritional / Prandial insulin per carb ratio of 1 unit per 6 grams CHO consumed with breakfast, 7 grams CHO with lunch, dinner, HS PLAN FOR DISCHARGE Patient's A1c 7.5%, patient can likely resume home regimen if not experiencing frequent hypoglycemic events. May consider GLP-1 agonist
== END 2019-11-16 15:31 | disposition home health service (06) | DRG 291 ==
LOC: 4W 16:32 → SUATTDRO 16:32 → 2N 18:38

== ENCOUNTER 2020-09-12 08:52 | Inpatient (IN) ==
[2020-09-12] MEDS ORDERED: AMPICILLIN/SULBACTAM SOD 3,000 MG in 0.9 % SODIUM CHLORIDE 100 ML IV STA (09:21)
--- NOTE | 2020-09-12 09:29 | Emergency Department Note ---
History of Present Illness General Chief complaint: Shortness of Breath/Dyspnea Stated complaint: TROUBLE BREATHING Time Seen by Provider: 09/12/20 09:04 Source: patient Mode of arrival: ambulatory Limitations: no limitations History of Present Illness Provider complaint: Shortness of breath and right leg infection Maximum Pain Intensity: 10 The patient is a 75-year-old male who presents to the ED with a chief complaint of worsening shortness of breath over his baseline for the past 3 to 4 days. He states that his shortness of breath is worse with exertion. He states that he has a home pulse ox that drops into the 70s if he moves just a short distance. He uses 5 L of home oxygen 24 hours a day. The patient also reports that his right leg is painful, swollen and red for the past week or 2. Denies any nausea or vomiting. No abdominal pains. No chest pains. The patient is chronically on apixaban for A. fib. Home Medications Home Medications Medication Instructions Recorded Confirmed Type atorvastatin 80 mg tablet 80 mg PO HS tab 07/06/19 09/12/20 History glipizide 5 mg tablet, extended 5 mg PO QAM tab 07/06/19 09/12/20 History release 24 hr insulin lispro 100 unit/mL 0 sliding scale dose SUBCUT TIDM 07/06/19 09/12/20 History subcutaneous solution PRN ml metoprolol tartrate 25 mg tablet 25 mg PO BID tab 07/06/19 09/12/20 History multivitamin 1 tab PO QAM 07/06/19 09/12/20 History ipratropium-albuterol 3 ml INHALATION HS PRN 11/10/19 09/12/20 History levalbuterol tartrate 45 2 puffs INH Q6H PRN #1 inhaler 11/10/19 09/12/20 Rx mcg/actuation aerosol inhaler aspirin 81 mg PO QAM 07/20/20 09/12/20 History bumetanide [Bumex] 3 mg PO BID 07/20/20 09/12/20 History tnmpyhdzuik-lwrwptmdr-pjcvmrws 1 puffs INH QAM 07/20/20 09/12/20 History [Trelegy Ellipta] insulin glargine [Lantus U-100 17 unit SUBCUT HS 07/20/20 09/12/20 History Insulin] apixaban [Eliquis] 5 mg PO HS 09/12/20 09/12/20 History Allergies Allergy/AdvReac Type Severity Reaction Status Date / Time No Known Allergies Allergy Verified 09/12/20 10:59 Past Med/Surg History Medical History Atrial fibrillation pt unaware Benign hypertension (08/06/13) Chronic anticoagulation pt unaware as to why Chronic respiratory failure with hypoxia CKD (chronic kidney disease) stage 3, GFR 30-59 ml/min monitoring Congestive heart failure Diabetes mellitus (08/06/13) IDDM (Type 2) Fibrosis of lung Hyperlipidemia Ischemic cardiomyopathy Myocardial Infarction 2005. Follows with Dr. Estrada Obstructive sleep apnea pt denies. states second test was negative. 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 Family History Father Acute myocardial infarction Family/Other Coronary heart disease Other Family history non-contributory No family history of adverse response to anesthesia Social History Smoking Status: Former smoker Number of Years Since Quit: 30; Second Hand Exposure: No; Hx Alcohol Use: Yes (Makes wine at home) Alcohol type: beer and wine Hx Substance Use: No Preferred Language: Swedish Communication Ability: Effective Is/It Project Manager Required: No Beliefs That Will Affect Care: None Current Living Situation: Alone current occupational status: retired Feels Safe at Home: Yes Assistive Devices: Cane and Oxygen - Continuous Review of Systems A total of 10 systems reviewed and were otherwise negative Physical Exam Vital Signs Vital Signs - 24 hr 09/12/20 09:08 09/12/20 09:20 09/12/20 09:22 Temperature 36.6 C Temperature Source Oral Pulse Rate 81 Pulse Rate [Apical] Pulse Rhythm Regular Pulse Rhythm [Apical] Pulse Strength Normal Respiratory Rate 28 H Respiratory Effort / Characteristics Non-Labored Spontaneous Respiratory Depth Normal Respiratory Pattern Regular Blood Pressure 111/70 Blood Pressure [Right Arm] Blood Pressure Mean 83 Blood Pressure Mean [Right Arm] Blood Pressure Position Sitting Blood Pressure Position [Right Arm] Pulse Oximetry 89 L 6 L 94 Oxygen Delivery Method Nasal Cannula Nasal Cannula Nasal Cannula Oxygen Flow Rate 5 6 Sepsis Recent Fever Within 48 Hours No Sepsis New/Unexplained Change in Mental Status N/A Sepsis Action Taken by Nursing No Action Required Oxygen Flow Rate - Titration 6 Pulse Oximetry Post Tiitration 96 09/12/20 09:55 Temperature Temperature Source Pulse Rate Pulse Rate [Apical] 74 Pulse Rhythm Pulse Rhythm [Apical] Irregular Pulse Strength Respiratory Rate 21 Respiratory Effort / Characteristics Non-Labored Respiratory Depth Normal Respiratory Pattern Blood Pressure Blood Pressure [Right Arm] 109/64 Blood Pressure Mean Blood Pressure Mean [Right Arm] 79 Blood Pressure Position Blood Pressure Position [Right Arm] Lying Pulse Oximetry 98 Oxygen Delivery Method Nasal Cannula Oxygen Flow Rate 6 Sepsis Recent Fever Within 48 Hours Sepsis New/Unexplained Change in Mental Status Sepsis Action Taken by Nursing Oxygen Flow Rate - Titration Pulse Oximetry Post Tiitration CONSTITUTIONAL/VITAL SIGNS: Reviewed / noted above. GENERAL: Non-toxic in appearance. INTEGUMENTARY: Warm, dry, and [place]. HEAD: Normocephalic. EYES: without scleral icterus or trauma. ENT/OROPHARYNX: clear and moist. LYMPHADENOPATHY/NECK: Is supple without lymphadenopathy or meningismus. RESPIRATORY: Lungs clear and equal. Mild increased work of breathing. CARDIOVASCULAR: Regular rate and rhythm. GI/ABDOMEN: Soft and nontender. No organomegaly or pulsatile mass. No rebound or guarding. Normal bowel sounds. EXTREMITIES: Warm and well perfused. Right leg redness, ulcerations, tenderness and edema. Left leg has some chronic findings. BACK: No CVA tenderness. NEUROLOGICAL: Intact without focal deficits. PSYCHIATRIC: normal affect. MUSCULOSKELETAL: Normally developed with good muscle tone. TRIAGE NURSING DOCUMENTATION REVIEWED. Course Administered Medications Discontinued Medications Ampicillin Sodium/Sulbactam Sodium 3,000 mg/ Sodium Chloride 108 mls @ 200 mls/hr IV NOW STA; Protocol Stop: 09/12/20 09:53 Last Infusion: 09/12/20 10:28 Dose: 0 mls/hr Documented by: [id number] Admin: 09/12/20 09:55 Dose: 200 mls/hr Documented by: [id number] Morphine Sulfate (Morphine Sulfate 4 Mg/Ml 1 Ml Carp\Vial) 4 mg IV NOW STA Stop: 09/12/20 10:24 Last Admin: 09/12/20 10:33 Dose: 4 mg Documented by: [id number] Medical Decision Making Differential Diagnosis The differential was considered includes acute myocardial infarction, acute coronary syndrome, myocarditis, pericarditis, pericardial effusions /tamponad, esophageal perforation, pulmonary embolism, pneumonia, pneumothorax, cardiomyopathy, congestive heart, anemia , COPD/asthma exacerbation.Cellulitis, abscess, MRSA infection, DVT, necrotizing fasciitis, dermatitis, drug eruption, allergic reaction, as well as other pathologies. Medical Records Attestation: I reviewed the patient's medical records. Home Medications Current Medication List: was personally reviewed by me Laboratory Data Attestation: I reviewed the patient's lab results. Result diagrams: 09/12/20 09:20 09/12/20 09:20 Lab Results 09/12/20 09/12/20 09/12/20 Range/Units 09:20 09:20 09:20 WBC 8.93 (4.8-10.8) K/uL RBC 3.84 L (4.7-6.1) M/uL Hgb 11.4 L (14.0-18.0) g/dL Hct 35.2 L (42-52) % MCV 91.7 (80-100) fL MCH 29.7 (25-34) pg MCHC 32.4 (32-36) g/dL RDW Std Deviation 56.3 H (36.4-46.3) fL RDW Coeff of Radha 17.0 H (11.5-14.5) % Plt Count 220 (130-400) K/uL MPV 9.2 (7.4-10.4) fL Immature Gran % (Auto) 0.9 % Neut % (Auto) 59.3 % Lymph % (Auto) 12.5 % [place] % (Auto) 19.9 % Eos % (Auto) 7.1 % Baso % (Auto) 0.3 % Neut # (Auto) 5.29 (1.4-6.5) K/uL Lymph # (Auto) 1.12 L (1.2-3.4) K/uL [place] # (Auto) 1.78 H (0.11-0.59) K/uL Eos # (Auto) 0.63 H (0-0.5) K/uL Baso # (Auto) 0.03 (0-0.2) K/uL Immature Gran # (Auto) 0.08 H (0.00-0.02) K/uL PT 13.0 H (9.0-12.0) Seconds INR 1.2 H (0.9-1.1) Sodium 134 L (136-145) mmol/L Potassium 4.1 (3.5-5.1) mmol/L Chloride 97 L (98-107) mmol/L Carbon Dioxide 30 (21-32) mmol/L Anion Gap 7.0 (3-11) BUN 75 H (7-18) mg/dl Creatinine 2.56 H (0.6-1.4) mg/dl Est Cr Clr Drug Dosing 31.3 ml/min Est GFR ( Amer) 27.7 Est GFR (Non-Af Amer) 23.9 BUN/Creatinine Ratio 29.2 H (10-20) Glucose 295 H (70-99) mg/dl Lactate (0.4-2.0) mmol/L Calcium 9.8 (8.5-10.1) mg/dl Total Bilirubin 1.0 (0.2-1) mg/dl AST 34 (15-37) U/L ALT 35 (12-78) U/L Alkaline Phosphatase 119 H (45-117) U/L Total Creatine Kinase 87 (39-308) U/L Troponin I 0.031 (0-0.045) ng/ml Total Protein 8.2 (6.4-8.2) gm/dl Albumin 3.2 L (3.4-5.0) gm/dl Globulin 5.0 H (2.5-4.0) gm/dl Albumin/Globulin Ratio 0.6 L (0.9-2) 09/12/20 Range/Units 09:39 WBC (4.8-10.8) K/uL RBC (4.7-6.1) M/uL Hgb (14.0-18.0) g/dL Hct (42-52) % MCV (80-100) fL MCH (25-34) pg MCHC (32-36) g/dL RDW Std Deviation (36.4-46.3) fL RDW Coeff of Radha (11.5-14.5) % Plt Count (130-400) K/uL MPV (7.4-10.4) fL Immature Gran % (Auto) % Neut % (Auto) % Lymph % (Auto) % [place] % (Auto) % Eos % (Auto) % Baso % (Auto) % Neut # (Auto) (1.4-6.5) K/uL Lymph # (Auto) (1.2-3.4) K/uL [place] # (Auto) (0.11-0.59) K/uL Eos # (Auto) (0-0.5) K/uL Baso # (Auto) (0-0.2) K/uL Immature Gran # (Auto) (0.00-0.02) K/uL PT (9.0-12.0) Seconds INR (0.9-1.1) Sodium (136-145) mmol/L Potassium (3.5-5.1) mmol/L Chloride (98-107) mmol/L Carbon Dioxide (21-32) mmol/L Anion Gap (3-11) BUN (7-18) mg/dl Creatinine (0.6-1.4) mg/dl Est Cr Clr Drug Dosing ml/min Est GFR ( Amer) Est GFR (Non-Af Amer) BUN/Creatinine Ratio (10-20) Glucose (70-99) mg/dl Lactate 1.7 (0.4-2.0) mmol/L Calcium (8.5-10.1) mg/dl Total Bilirubin (0.2-1) mg/dl AST (15-37) U/L ALT (12-78) U/L Alkaline Phosphatase (45-117) U/L Total Creatine Kinase (39-308) U/L Troponin I (0-0.045) ng/ml Total Protein (6.4-8.2) gm/dl Albumin (3.4-5.0) gm/dl Globulin (2.5-4.0) gm/dl Albumin/Globulin Ratio (0.9-2) Imaging Data Radiologist's Impression: XR chest 1V portable CLINICAL HISTORY: weakness COMPARISON STUDY: 11/10/2019 FINDINGS: The heart remains enlarged. There are postsurgical changes of a midline sternotomy. There are small pleural effusions. There is diffuse elevation of interstitium consistent with congestive failure/fluid overload. There is no lobar consolidation. There is a persistent opacity at the level of the left hemidiaphragm, likely representing area of atelectasis/scarring. This can be followed on subsequent radiographs.[ IMPRESSION: Persistent congestive heart failure pattern with small bilateral pleural effusions. ECG Data Attestation: I personally reviewed and interpreted this ECG as follows: Rate (beats per minute): 79 Rhythm: + atrial fibrillation ECG ST segments: no ST elevation ECG Findings: no PVCs MDM Narrative The patient presents with shortness of breath that is worsened over his baseline COPD over the past 4 to 5 days. He also reports a week and a half or so of right leg cellulitis. His vital signs here reveal a pulse ox of 89% on 5 L. He is saturating 92% on 6 L. He uses 5 L at home on a 24-hour basis. His exam reveals right leg redness, ulcerations, weeping and tenderness as well as edema suggestive of a cellulitis. The patient CBC was normal. His glucose was 295. BUN is 75 and creatinine is 2.56. This is above the patient's baseline. His lactic acid level was normal. EKG showed chronic A. fib. The patient was started on IV Unasyn. He will be seen by the hospitalist for further inpatient evaluation and care. He was given IV morphine for his leg pain. Impression & Plan Cellulitis of leg, right, Acute dyspnea, CHF (congestive heart failure), Acute kidney injury superimposed on chronic kidney disease Discharge Plan Visit Data Chief Complaint: Shortness of Breath/Dyspnea Stated Complaint: TROUBLE BREATHING ED Provider: Edwin Frost Discharge Problem: Cellulitis of leg, right, Acute dyspnea, CHF (congestive heart failure), Acute kidney injury superimposed on chronic kidney disease Patient Disposition: Being Evaluated by Hospitalist Forms Stand Alone Forms: My [employer] Prescriptions Prescriptions: No Action metoprolol tartrate 25 mg tablet 25 mg PO BID RF: 0 insulin lispro [Humalog U-100 Insulin] 100 unit/mL solution 0 sliding scale dose subcut TIDM PRN (Reason: Hyperglycemia) RF: 0 glipizide 5 mg tablet extended release 24hr 5 mg PO QAM RF: 0 atorvastatin 80 mg tablet 80 mg PO HS RF: 0 multivitamin [Daily Multi-Vitamin] tablet 1 tab PO QAM RF: 0 levalbuterol tartrate [Xopenex HFA] 45 mcg/actuation HFA aerosol inhaler 2 puffs INH Q6H PRN (Reason: shortness of breath) Qty: 1 RF: 5 ipratropium-albuterol 0.5 mg-3 mg(2.5 mg base)/3 mL solution for nebulization 3 ml INHALATION HS PRN (Reason: Shortness Of Breath Or Wheezing) RF: 0 aspirin 81 mg Tablet,Delayed Release (Dr/Ec) 81 mg PO QAM RF: 0 Lantus U-100 Insulin 100 unit/mL solution 17 unit subcut HS RF: 0 Trelegy Ellipta 100-62.5-25 mcg blister with device 1 puffs INH QAM RF: 0 bumetanide [Bumex] 2 mg Tablet 3 mg PO BID RF: 0 Eliquis 5 mg tablet 5 mg PO HS RF: 0 Referrals Referrals: Malena John CRNP [Primary Care Provider] - Discharge Problem: CHF (congestive heart failure) Qualifiers: Heart failure type: unspecified Heart failure chronicity: acute on chronic Qualified Code(s): I50.9 - Heart failure, unspecified
[2020-09-12 09:39] LABS: Basophils # (auto) 0.03 K/uL (0-0.2); Basophils % (auto) 0.3 %; Eosinophils # (auto) 0.63 K/uL (0-0.5); Eosinophils % (auto) 7.1 %; Hematocrit (blood only) 35.2 % (42-52); Hemoglobin 11.4 g/dL (14.0-18.0); Immature Granulocytes # (auto) 0.08 K/uL (0.00-0.02); Immature Granulocytes % (auto) 0.9 %; Lymphocytes # (auto) 1.12 K/uL (1.2-3.4); Lymphocytes % (auto) 12.5 %; Mean Corpuscular Hemoglobin 29.7 pg (25-34); Mean Corpuscular Hgb Conc 32.4 g/dL (32-36); Mean Corpuscular Volume 91.7 fL (80-100); Mean Platelet Volume 9.2 fL (7.4-10.4); Monocytes # (auto) 1.78 K/uL (0.11-0.59); Monocytes % (auto) 19.9 %; Neutrophils # (auto) 5.29 K/uL (1.4-6.5); Neutrophils % (auto) 59.3 %; Platelet Count 220 K/uL (130-400); RDW Standard Deviation 56.3 fL (36.4-46.3); Red Blood Count 3.84 M/uL (4.7-6.1); White Blood Count 8.93 K/uL (4.8-10.8)
[2020-09-12 09:50] LABS: INR 1.2 (0.9-1.1)
[2020-09-12 09:55] LABS: Albumin Level 3.2 gm/dl (3.4-5.0); BUN Creatinine Ratio 29.2 (10-20); Calcium 9.8 mg/dl (8.5-10.1); Creatinine Clr Calc Pharmacy 31.3 ml/min; Est GFR (African American) 27.7; Est GFR (Non-African American) 23.9; Potassium 4.1 mmol/L (3.5-5.1)
[2020-09-12 10:00] LABS: Albumin Globulin Ratio 0.6 (0.9-2); Total Protein 8.2 gm/dl (6.4-8.2); Troponin I 0.031 ng/ml (0-0.045)
--- NOTE | 2020-09-12 10:15 | XRay Report ---
XR chest 1V portable CLINICAL HISTORY: weakness COMPARISON STUDY: 11/10/2019 FINDINGS: The heart remains enlarged. There are postsurgical changes of a midline sternotomy. There a re small pleural effusions. There is diffuse elevation of interstitium consistent with congestive ba lure/fluid overload. There is no lobar consolidation. There is a persistent opacity at the level of t he left hemidiaphragm, likely representing area of atelectasis/scarring. This can be followed on subs equent radiographs.[ IMPRESSION: Persistent congestive heart failure pattern with small bilateral pleural effusions. ACT 112: Negative or not required by law. Electronically signed by: Gomez Robertson M.D. 09/12/2020 10:13 AM
[2020-09-12] MEDS ORDERED: MoRPHine SULFATE 4 MG/ML 1 ML CARP\\VIAL IV STA (10:23)
[2020-09-12 12:26] LABS: Appearance Urine Clear (Clear); Bacteria Urine Automated Negative (Negative); Bilirubin Urine Negative (Negative); Blood Urine Trace (Negative); Color Urine Yellow; Epithelial Cell Urine Auto >30 /lpf (0-5); Glucose Urine UA Negative (Negative); Ketones Urine Negative (Negative); Leukocyte Esterase Urine Negative (Negative); Nitrite Urine Negative (Negative); Protein Urine 2+ (Negative); RBC Urine Automated 0-4 /hpf (0-4); Specific Gravity Urine 1.016 (1.000-1.030); Urobilinogen Urine Negative (Negative)
--- NOTE | 2020-09-12 12:58 | History & Physical Report ---
Date of Service September 12, 2020 Assessment & Plan (1) Cellulitis of leg, right: Continue Unasyn 3 g IV every 6 hourly (renal dosing per pharmacy recommendations) Wound care nurse consult (2) Acute kidney injury: Suspect secondary to reduced cardiac output +/- diabetes nephropathy. Unclear how acute since last lab test in January. Renal US pending. After ultrasound will dose diuretics accordingly. (3) Acute diastolic heart failure: Likely right-sided heart failure due to severe COPD. Improved SOBOE with diuresis on admission in October Elevated BNP. Low-sodium diet, fluid restriction 1500 mL. Daily weights, strict I&Os. Pending renal will dose diuretics. Patient reports compliance with Bumex 3 mg p.o. twice daily at home which is been a stable dose since his discharge back in October. (4) Shortness of breath on exertion: Multifactorial secondary to right-sided heart failure, COPD, likely obesity hypoventilation. (5) Tinea pedis of both feet: Trichophyton species prior to microbiology wound culture in October Use terbinafine cream on non-areas on bilateral lower extremities. Consider terbinafine p.o. daily continues to have problem with fungus on bilateral lower extremities. (6) COPD (chronic obstructive pulmonary disease): Continue Trelegy Ellipta or hospital formulary equivalent DuoNebs 4 times daily as needed (7) S/P coronary artery bypass graft x 4: Continue aspirin, apixaban, metoprolol, atorvastatin, no CORRINA or arm secondary to CKD/PROSPER. (8) Diabetes mellitus: HbA1c with a.m. labs. 7.5 in October 2019. Continue Lantus at bedtime @18 units, NovoLog sliding scale for correction and carb coverage. (9) Atrial fibrillation: Rate controlled on metoprolol tartrate 25 mg p.o. Continue apixaban at reduced dose due to recurrent epistaxis 2.5 mg p.o. twice daily Admission and Anticipated Discharge Date Admission Date: 09/12/2020 History of Present Illness Chief Complaint: Shortness of breath on exertion, bilateral leg pain, increased erythema on right leg. Primary Care Provider: ROJAS Richmond Toni Bauer is a 75-year-old male with heart failure with reduced ejection fraction, severe COPD who presents to the ER with shortness of breath on exertion, bilateral leg swelling with open wounds. He no longer feels like he can cope at home and cannot ambulate with his current leg swelling. Bilateral leg swelling occurred over the last week. Right-sided greater than left, which is usually the case for him. Right side started blistering and is now having open wounds with significant pain especially on ambulation. No fevers or chills. He has not been seen by wound care for this. Reports his right leg appears much more erythematous compared to the left. Regarding his shortness of breath on exertion he reports is been progressively worse over the last week. Associated bilateral leg swelling at the same time period. No associated chest pain, diaphoresis, nausea, vomiting, abdominal pain. No change in bowel habit. He has been on the same dose of Bumex since October - 2 mg p.o. twice daily. He reports compliance with this medication no significant change to his usual diet. He reports feeling similar to his shortness of breath admission in October 2019. On that occasion he was diagnosed with acute on chronic right-sided heart failure and was diuresed with a negative balance of 6 L and felt significantly improved. However his weight did not change significantly. Of note he reports any taking apixaban once a day on the advice of his PCP due to recurrent epistaxis. In the ER he was suspected to have right-sided cellulitis and started on Unasyn. Allergies Allergy/AdvReac Type Severity Reaction Status Date / Time No Known Allergies Allergy Verified 09/12/20 10:59 Home Medications Home Medications Medication Instructions Recorded Confirmed Type atorvastatin 80 mg tablet 80 mg PO HS tab 07/06/19 09/12/20 History glipizide 5 mg tablet, extended 5 mg PO QAM tab 07/06/19 09/12/20 History release 24 hr insulin lispro 100 unit/mL 0 sliding scale dose SUBCUT TIDM 07/06/19 09/12/20 History subcutaneous solution PRN ml metoprolol tartrate 25 mg tablet 25 mg PO BID tab 07/06/19 09/12/20 History multivitamin 1 tab PO QAM 07/06/19 09/12/20 History ipratropium-albuterol 3 ml INHALATION HS PRN 11/10/19 09/12/20 History levalbuterol tartrate 45 2 puffs INH Q6H PRN #1 inhaler 11/10/19 09/12/20 Rx mcg/actuation aerosol inhaler aspirin 81 mg PO QAM 07/20/20 09/12/20 History bumetanide [Bumex] 3 mg PO BID 07/20/20 09/12/20 History ffuowgkcjrp-yshvpmvwy-nbgwehxy 1 puffs INH QAM 07/20/20 09/12/20 History [Trelegy Ellipta] insulin glargine [Lantus U-100 17 unit SUBCUT HS 07/20/20 09/12/20 History Insulin] apixaban [Eliquis] 5 mg PO HS 09/12/20 09/12/20 History Past Med/Surg History Medical History Atrial fibrillation pt unaware Benign hypertension (08/06/13) Chronic anticoagulation pt unaware as to why Chronic respiratory failure with hypoxia CKD (chronic kidney disease) stage 3, GFR 30-59 ml/min monitoring Congestive heart failure Diabetes mellitus (08/06/13) IDDM (Type 2) Fibrosis of lung Hyperlipidemia Ischemic cardiomyopathy Myocardial Infarction 2005. Follows with Dr. Estrada Obstructive sleep apnea pt denies. states second test was negative. 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) [address] 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 Family History Father Acute myocardial infarction Family/Other Coronary heart disease Other Family history non-contributory No family history of adverse response to anesthesia Social History Smoking Status: Former smoker Smoking End Date: 35 yr ago; Number of Years Since Quit: 30; Second Hand Exposure: No; Do You Dip or Chew Tobacco: No; Tobacco Cessation Education Requested by Patient: No Hx Alcohol Use: No Hx Substance Use: No Preferred Language: [place] Leonean Communication Ability: Effective Mitten Sewer Required: No Beliefs That Will Affect Care: None Current Living Situation: Alone current occupational status: retired Other Information That Helps Us Care for You: No Feels Safe at Home: Yes Safety Concerns: Feels Safe At This Time Assistive Devices: Oxygen - Continuous Review of Systems Review of Systems: All systems reviewed & are unremarkable except as noted in HPI & below Physical Exam Constitutional: well developed and + obese; + not well nourished, no acute distress and no altered mental status Eyes: + anicteric sclerae; normal pupil size ENMT: external ear and nose normal, oropharynx normal Neck: + short neck and + thick neck Respiratory: normal respiratory effort (At rest) and able to speak in complete sentences; no respiratory distress, no labored breathing and does not use accessory muscles Auscultation: + diminished lung sounds (Poor air entry throughout); no crackles, no rales, no rhonchi and no wheezes Cardiovascular: Rate/Rhythm: regular rate and + irregularly irregular Heart Sounds: no murmur Vessels: no JVD Extremities: normal capillary refill (Prolonged bilateral toes, equal, approximately 6 seconds) and + edema (2+ lower extremity edema to lower abdomen, equal bilaterally) Gastrointestinal (Abdomen): Inspection/Auscultation: + abdomen distended and normal bowel sounds Percussion/Palpation: abdomen soft; abdomen nontender, no guarding and abdomen not rigid Skin: + ulcer (Right leg open blisters), + skin tightening (Bilateral lower extremities), + crusts (With the appearing edema bilaterally), + erythema (Bilateral lower extremity not extending beyond ankle or knee, R > L, significant warmth to right side) and + nail abnormality (Onychomycosis) Neurologic: moves all extremities and awake; no focal motor deficits (None lateralizing) and not confused Motor/Sensory: + sensory deficit (Bilateral equal stocking distribution numbness in feet); no tremor Psychiatric: Orientation: alert and oriented x 3 Affect: euthymic affect Results & Data Results & Data ([facility]) Vital Signs (Past 12 Hours) Vital Signs Temp Pulse Pulse Resp BP BP Pulse Ox 09/12/20 12:00 78 18 135/85 96 09/12/20 09:55 74 21 109/64 98 09/12/20 09:22 94 09/12/20 09:20 6 L 10/13/20 09:08 36.6 C 81 28 H 111/70 89 L Diagnostic Findings XR chest 1V portable IMPRESSION: Persistent congestive heart failure pattern with small bilateral pleural effusions. ECG Indication: SOB/dyspnea Rate (beats per minute): 79 Rhythm: atrial fibrillation Findings: no acute ischemic change Comparison ECG Date: from (November 11, 2019) Code Status & VTE Plan Code Status DNR/DNI as discussed with patient VTE Prophylaxis Plan VTE Prophylaxis will be ordered: Yes PG Care Time/CCT Total # of Minutes Spent Total Time Spent with Patient: Total time spent is greater than 50% in coordination of care (as documented) at patient's floor/unit and/or counseling patient: Coding Level of Care Code 42158 Initial Inpt Care Lvl 3 Diagnoses Cellulitis of leg, right L03.115 Acute kidney injury N17.9 Acute diastolic heart failure I50.31 Shortness of breath on exertion R06.02 Tinea pedis of both feet B35.3 COPD (chronic obstructive pulmonary disease) J44.9 COPD type: unspecified COPD S/P coronary artery bypass graft x 4 Z95.1 Diabetes mellitus E11.65; Z79.4 Diabetes mellitus complication status: with hyperglycemia Diabetes mellitus rodent exterminator insulin use: with penitentiary use Diabetes mellitus type: type 2 Atrial fibrillation I48.11 Atrial fibrillation type: longstanding persistent (1) Diabetes mellitus Diabetes mellitus complication status: with hyperglycemia Diabetes mellitus penitentiary insulin use: with rodent exterminator use Diabetes mellitus type: type 2 Qualified Code(s): E11.65 - Type 2 diabetes mellitus with hyperglycemia; Z79.4 - FDC (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 (2) Atrial fibrillation Atrial fibrillation type: longstanding persistent Qualified Code(s): I48.11 - Longstanding persistent atrial fibrillation (3) COPD (chronic obstructive pulmonary disease) COPD type: unspecified COPD Qualified Code(s): J44.9 - Chronic obstructive pulmonary disease, unspecified
[2020-09-12 13:00] LABS: Mucus Urine Present (None Prsent)
[2020-09-12] MEDS ORDERED: GLUCOSE 10 TABS/TUBE PO PRN (14:03)
[2020-09-12] MEDS ORDERED: CARBOHYDRATES FOR HYPOGLYCEMIA PO PRN (14:03)
[2020-09-12] MEDS ORDERED: GLUCAGON FOR INJ 1 MG VIAL SQ PRN (14:03)
[2020-09-12] MEDS ORDERED: GLUCOSE 40% GEL 15 GM TUBE PO PRN (14:03)
[2020-09-12] MEDS ORDERED: DEXTROSE 50% 50 ML SYRINGE IV PRN (14:03)
--- NOTE | 2020-09-12 14:20 | Electrocardiogram Report ---
Test Reason : Blood Pressure : / mmHG Vent. Rate : 079 BPM Atrial Rate : 075 BPM P-R Int : 000 ms QRS Dur : 088 ms QT Int : 384 ms P-R-T Axes : 000 055 208 degrees QTc Int : 440 ms Atrial fibrillation Possible Inferior infarct , age undetermined Abnormal ECG When compared with ECG of 11-NOV-2019 07:06, Atrial fibrillation has replaced Sinus rhythm Confirmed by Michael Churchill ([id number]) on 09/12/2020 2:19:43 PM Referred By: REFERRED SELF Confirmed By:Michael Churchill
[2020-09-12] MEDS ORDERED: HYDROmorphone INJ 0.5 MG/0.5 ML SYR IV PRN (16:33)
--- NOTE | 2020-09-12 16:51 | Ultrasound Report ---
RENAL ULTRASOUND CLINICAL HISTORY: Acute kidney injury. COMPARISON STUDY: CT of the abdomen and pelvis August 06, 2013. TECHNIQUE: Sonography of the kidneys and the urinary bladder was performed. FINDINGS: This exam is mildly compromised by suboptimal penetration, particularly affecting visualiza tion of the left kidney. There is no hydronephrosis. The right kidney measures 11.1 x 7.1 x 7.5 cm an d the left kidney measures 12.9 x 6.9 x 7.3 cm. No renal mass or calculus is identified although sens itivity is significantly diminished on this exam. Right ureteral jet was not identified. Bladder is o therwise unremarkable. IMPRESSION: 1. No hydronephrosis. 2. Exam moderately compromised by suboptimal penetration. ACT 112: Negative or not required by law. Electronically signed by: Quang Lawton M.D. 09/12/2020 4:49 PM
[2020-09-12] MEDS: oxyCODONE HCL IR 5 MG TAB (IMMEDIATE RELEASE) PO PRN ×2 (17:04→23:59)
[2020-09-12] MEDS: INSULIN ASPART 100 UNITS/ML 3 ML PEN SC SCH ×2 (17:37→20:11)
[2020-09-12] MEDS: AMPICILLIN/SULBACTAM SOD 3,000 MG in 0.9 % SODIUM CHLORIDE 100 ML IV SCH ×2 (17:41→23:37)
[2020-09-12] MEDS ORDERED: BUMETANIDE 4 MG in SYRINGE 0 ML IV ONE (19:00)
[2020-09-12] MEDS: TERBINAFINE CR 30 GM TUBE EXT SCH (20:08)
[2020-09-12] MEDS: ATORVASTATIN 40 MG TAB PO SCH (20:09)
[2020-09-12] MEDS: INSULIN GLARGINE SOLOSTAR 100 UNITS/ML 3 ML PEN SC SCH (20:10)
[2020-09-12] MEDS: METOPROLOL TARTRATE 25 MG TAB PO SCH (20:10)
[2020-09-12] MEDS ORDERED: APIXABAN 2.5 MG TAB PO SCH (21:00)
[2020-09-12] MEDS: OXYMETAZOLINE 0.05% 30 ML BTL PRN (22:23)
[2020-09-13 06:05] LABS: Total Protein Urine Random 98.6 mg/dl (0-11.9)
[2020-09-13] MEDS: AMPICILLIN/SULBACTAM SOD 3,000 MG in 0.9 % SODIUM CHLORIDE 100 ML IV SCH ×4 (06:29→23:22)
[2020-09-13 06:56] LABS: Basophils # (auto) 0.05 K/uL (0-0.2); Basophils % (auto) 0.5 %; Eosinophils # (auto) 0.12 K/uL (0-0.5); Eosinophils % (auto) 1.3 %; Hematocrit (blood only) 34.6 % (42-52); Hemoglobin 10.9 g/dL (14.0-18.0); Immature Granulocytes # (auto) 0.09 K/uL (0.00-0.02); Lymphocytes # (auto) 0.66 K/uL (1.2-3.4); Lymphocytes % (auto) 7.2 %; Mean Corpuscular Hemoglobin 29.1 pg (25-34); Mean Corpuscular Hgb Conc 31.5 g/dL (32-36); Mean Corpuscular Volume 92.5 fL (80-100); Mean Platelet Volume 9.2 fL (7.4-10.4); Monocytes % (auto) 18.6 %; Neutrophils # (auto) 6.51 K/uL (1.4-6.5); Neutrophils % (auto) 71.4 %; Platelet Count 186 K/uL (130-400); RDW Coefficient of Variation 17.2 % (11.5-14.5); RDW Standard Deviation 58.7 fL (36.4-46.3); Red Blood Count 3.74 M/uL (4.7-6.1); White Blood Count 9.13 K/uL (4.8-10.8)
[2020-09-13 07:29] LABS: Potassium 4.4 mmol/L (3.5-5.1)
[2020-09-13 07:30] LABS: BUN Creatinine Ratio 32.6 (10-20); Calcium 9.3 mg/dl (8.5-10.1); Creatinine Clr Calc Pharmacy 33.2 ml/min; Est GFR (African American) 30.5; Est GFR (Non-African American) 26.3
[2020-09-13 07:57] LABS: Estimated Average Glucose 200 mg/dl; Hemoglobin A1C 8.6 % (4.5-5.6)
[2020-09-13] MEDS ORDERED: ASPIRIN 81 MG ECTAB PO SCH (09:00)
[2020-09-13] MEDS: METOPROLOL TARTRATE 25 MG TAB PO SCH ×2 (09:03→21:11)
[2020-09-13] MEDS: MULTIVITAMIN TAB PO SCH (09:03)
[2020-09-13] MEDS: BUMETANIDE 4 MG in SYRINGE 0 ML IV SCH ×2 (09:04→17:14)
[2020-09-13] MEDS: FLUTICASONE FUROATE 100MCG 14 PUFFS/INHALER INH SCH (09:04)
[2020-09-13] MEDS: UMECLIDINIUM/VILANTEROL 62.5/25MCG 7 PUFFS/INHALER INH SCH (09:04)
[2020-09-13] MEDS: INSULIN ASPART 100 UNITS/ML 3 ML PEN SC SCH ×4 (09:07→21:12)
[2020-09-13] MEDS: oxyCODONE HCL IR 5 MG TAB (IMMEDIATE RELEASE) PO PRN ×2 (10:42→19:54)
--- NOTE | 2020-09-13 11:43 | Hospitalist Progress Note ---
Date of Service September 13, 2020 Assessment & Plan (1) Cellulitis of leg, right: Acute hypoxic respiratory failure in patient with acute on chronic diastolic HF: - On admission with hypoxia requiring supplemental O2[place] [address] on admission, with lung and extremity exam suggestive of significant fluid overload. - Continuing Bumex 4mg IV BID at this time for diuresis. - Echocardiogram performed this AM which showed no significant change from previous Echo, EF 50-55% with RV volume overload. - Suspect dietary indiscretion plays a significant role here as patient's diuretic dose has not changed, and his Echo does not show changes in heart function since last Echo. - Will further discuss dietary modification when patient is more medically stable. - Low Sodium heart healthy diet with 1500mL fluid restriction. Acute renal failure on CKD: - On arrival with creatinine 2.56, baseline 1.8. - Patient does not appear dehydrated, in fact significantly fluid overloaded. - Renal ultrasound performed without acute pathology. - Clinical picture is consistent with cardiorenal syndrome, continue diuretics. - Holding renal toxic medications, renally dosing medications otherwise. Bilateral LE cellulitis and open wounds: - On arrival patient with bilateral LE swelling and cellulitis with R>L erythema and RLE open wounds that are painful. - Patient was started on Unasyn, no known risk factors for MRSA/Pseudomonas. - BCx x2 drawn, negative to date. - Wound care nurse consult placed. History of anemia with epistaxis: - On admission with Hgb 11.4 which is his baseline. - This AM Hgb 10.9 in the setting of acute nosebleed, which has since stopped this afternoon. - Further stressed this afternoon need for pressure in the event of bleeding restarting, and adequate packing to the area with tissues. - Have added Afrin q12h, can titrate up if needed and improves epistaxis. - Low threshold for Rhinorocket if necessary to stop bleeding; patient aware this may be necessary and is amenable if needed. - Holding Eliquis. Atrial fibrillation: - Holding Eliquis in setting of nosebleed. - Patient refuses medication moving forward. - Rate controlled on metoprolol 25mg BID, continue. DM2: - Lantus 18u HS with SSI, DM2 diet. - Hgb A1c this admission 8.6%; suggests poor control. - Will further discuss home medications and dietary modification following improvement in respiratory status. COPD: - Nebs q4h as needed. - Continue home fluticasone INH, umeclidinium/vilanterol. HLD: - Continue home atorvastatin. HTN: - Continue Bumex, metoprolol. Code Status: DNR/DNI FENGI: DM2, Heart Healthy, Low Sodium, fluid restriction 1500mL (2) Acute respiratory failure with hypoxia: (3) Acute kidney injury superimposed on chronic kidney disease: (4) Acute on chronic diastolic (congestive) heart failure: (5) Atrial fibrillation: (6) COPD (chronic obstructive pulmonary disease): (7) Hyperlipidemia: (8) Ischemic cardiomyopathy: (9) Anemia: (10) Nosebleed: (11) Cardiorenal syndrome: (12) Bilateral lower extremity edema: (13) Diabetes mellitus: (14) Benign hypertension: Admission and Anticipated Discharge Date Admission Date: September 12, 2020 Supervising Physician Co-Signing Physician Notes I personally examined the patient and verified all marsh points of history and exam, discussed case, and agree with decision making with Dr Schwarz. nosebleed ongoing when i first see him - although in discussion at the bedside w dr schwarz it is significantly less than before. when revisiting a few hours later, he is asleep and appearing more comfortable with no visible nosebleed fairly restless and agitated due to nosebleed vitals noted restless but no dyspnea or pain appearing type of distress. heent L nare packed loosely w gauze, gauze fairly saturated but not dripping, R nostril small trickle of blood. lungs scattered rales no accessory muscles no wheeze good air entry. bl LE venous stasis changes, RLE dressed no erythema tracking proximal to dressing, leg very tender. cn 2-12 grossly intact no gross motor or sensory deficits epistaxis - fortunately to this point not really any significant acute blood loss anemia - continue supportive care, low threshold to repeat afrin and/or pack posteriorly - but fortunately when repeated visit this afternoon it appeared that bleeding had stopped acute on chronic HFpEF - diuresing, follow. continue O2 and supportive care RLE cellulitis - unasyn for now, follow PROSPER - likely relates to CHF, anticipate improvement w ongoing diuresis otherwise as above Subjective Patient overnight had nosebleed specifically of the left side, which was noted by nursing and night physician to be copious in amount. It was noted that the patient was not very directable with regard to holding pressure, and not blowing his nose to try to keep the bleeding from starting/not stopping. He was converted to Oxymask overnight ue to hypoxia to 87% on nasal cannula and difficulty breathing with bloody nose. On my interview this morning patient had nosebleed which "makes it difficult to breathe" and so he was advised to breathe through his mouth, which improved his sensation of breathlessness. Reports today that he has had many nosebleeds on Eliquis, and that he "won't take it anymore after this". Denies chest pain, confirms pain in bilateral lower extremities, and notes that he has been dealing with worsening swelling in his LE bilaterally for about one week. Has noticed some opening wounds on his RLE in particular. H as not missed any Bumex medication. Denies increased salt intake. No palpitations, fevers or chills, abdominal pain, diarrhea, nausea or vomiting. Review of Systems Review of Systems: All systems reviewed & are unremarkable except as noted in HPI & below Constitutional: no fever, no chills and no malaise Respiratory: + dyspnea; no cough Cardiovascular: + edema; no chest pain and no palpitations Gastrointestinal: no abdominal pain, no constipation and no diarrhea/loose stools Physical Exam Constitutional: well developed, + ill appearing and + frail appearing; no acute distress Eyes: + anicteric sclerae; no corneal abnormality ENMT: Mouth: no oral mucosal abnormality and oral mucous membranes not dry Neck: normal visual inspection and trachea midline Respiratory: + tachypneic Auscultation: + crackles (Diffuse throughout) Cardiovascular: Rate/Rhythm: + irregularly irregular Heart Sounds: no murmur Extremities: + edema; no calf tenderness HR irregularly irregular Gastrointestinal (Abdomen): normal bowel sounds, soft, nontender, no hepatosplenomegaly Musculoskeletal: Extremities: no cyanosis and no clubbing Skin: + lesion (RLE multiple small ulcerations, bandage over bilateral LE) Neurologic: moves all extremities Motor/Sensory: no tremor and no asterixis Psychiatric: Orientation: alert and oriented x 3 Results & Data Results & [facility] ([facility]) Vital Signs (Past 12 Hours) Vital Signs Temp Pulse Pulse Resp BP BP Pulse Ox 09/13/20 11:18 36.7 C 94 H 20 131/81 93 09/13/20 07:22 36.6 C 89 20 107/52 L 93 09/13/20 04:31 37.1 C 95 H 18 133/79 90 09/13/20 00:47 98 H Resident Activity Tracking Resident Involvement: Resident Care Provided Care Provided: Adult Hospital Medicine (1) Diabetes mellitus Diabetes mellitus complication status: with hyperglycemia Diabetes mellitus nursing home insulin use: with nursing home use Diabetes mellitus type: type 2 Qualified Code(s): E11.65 - Type 2 diabetes mellitus with hyperglycemia; Z79.4 - terminal operator (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 (2) Atrial fibrillation Atrial fibrillation type: longstanding persistent Qualified Code(s): I48.11 - Longstanding persistent atrial fibrillation (3) Hyperlipidemia Hyperlipidemia type: unspecified Qualified Code(s): E78.5 - Hyperlipidemia, unspecified (4) Cardiorenal syndrome Heart failure presence: with heart failure Hypertensive chronic kidney disease stage: stage 1-4 or unspecified chronic kidney disease Qualified Code(s): I13.0 - Hypertensive heart and chronic kidney disease with heart failure and stage 1 through stage 4 chronic kidney disease, or unspecified chronic kidney disease (5) COPD (chronic obstructive pulmonary disease) COPD type: unspecified COPD Qualified Code(s): J44.9 - Chronic obstructive pulmonary disease, unspecified
[2020-09-13] MEDS: OXYMETAZOLINE 0.05% 30 ML BTL PRN (12:23)
--- NOTE | 2020-09-13 12:26 | Nephrology Consultation ---
Date of Consultation September 13, 2020 Assessment & Plan (1) Acute kidney injury superimposed on chronic kidney disease: Baseline creatinine 1.5-1.8 mg/dL. Non-oliguric PROSPER. Clinically consistent with acute CRS. US without evidence of obstruction. Urine microscopy acellular. Creatinine slightly improved this AM. No emergent indication for dialysis. Glipizide held. Medications appropriately dosed for kidney function. Document I/O's and daily AM weight. Repeat metabolic profile tomorrow AM. (2) Acute diastolic heart failure: Negative fluid balance with diuretics. Predominately R heart failure on exam. TTE pending. (3) Ischemic cardiomyopathy: No acute evidence of ischemic. (4) Anemia: Chronic, stable. Hgb >10. No role for EUSEBIO therapy at this time. (5) Cellulitis of leg, right: Zosyn dosed for kidney dysfunction. History of Present Illness Reason for Consultation: PROSPER Requesting Physician: Edilson Jones DO Attending Physician: Edilson Jones DO History of Present Illness Mr. Toni Bauer is a 75-year-old male with DMII, atrial fibrillation, coronary artery disease, history of CHF (predominately R heart) with preserved LVEF, and severe COPD. He has CKD III with a baseline creatinine of 1.5-1.8 mg/dL. Toni presented to [facility] yesterday with shortness of breath and edema of the right lower extremity. He was admitted with acute on chronic CHF and cellulitis of the right leg. Treatment has included IV Bumex and Zosyn. Toni is non-oliguric and has diuresed >2.5 L since admission. Baseline serum creatinine is 1.5-1.7 mg/dL. 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 UA on admission notable for +2 protein and dipstick + blood. Microscopy is acellular. CK is not elevated. Renal US demonstrates normal sized right and left kidney without evidence of obstruction. Cortical atrophy is mild and asymmetric. Creatinine was found to be 2.56 mg/dL on admission and has improved to 2.36 mg/dL this AM. Toni has clinically improved. No fevers or chills. Cultures pending. TTE was being obtained when I evaluated the patient this morning. Allergies Allergy/AdvReac Type Severity Reaction Status Date / Time No Known Allergies Allergy Verified 09/12/20 10:59 Home Medications Home Medications Medication Instructions Recorded Confirmed Type atorvastatin 80 mg tablet 80 mg PO HS tab 07/06/19 09/12/20 History glipizide 5 mg tablet, extended 5 mg PO QAM tab 07/06/19 09/12/20 History release 24 hr insulin lispro 100 unit/mL 0 sliding scale dose SUBCUT TIDM 07/06/19 09/12/20 History subcutaneous solution PRN ml metoprolol tartrate 25 mg tablet 25 mg PO BID tab 07/06/19 09/12/20 History multivitamin 1 tab PO QAM 07/06/19 09/12/20 History ipratropium-albuterol 3 ml INHALATION HS PRN 11/10/19 09/12/20 History levalbuterol tartrate 45 2 puffs INH Q6H PRN #1 inhaler 11/10/19 09/12/20 Rx mcg/actuation aerosol inhaler aspirin 81 mg PO QAM 07/20/20 09/12/20 History bumetanide [Bumex] 3 mg PO BID 07/20/20 09/12/20 History bazlqlfutxc-hlkhvhddk-gwfxhamb 1 puffs INH QAM 07/20/20 09/12/20 History [Trelegy Ellipta] insulin glargine [Lantus U-100 17 unit SUBCUT HS 07/20/20 09/12/20 History Insulin] apixaban [Eliquis] 5 mg PO HS 09/12/20 09/12/20 History Patient History Medical History Atrial fibrillation pt unaware Benign hypertension (08/06/13) Chronic anticoagulation pt unaware as to why Chronic respiratory failure with hypoxia CKD (chronic kidney disease) stage 3, GFR 30-59 ml/min monitoring Congestive heart failure Diabetes mellitus (08/06/13) IDDM (Type 2) Fibrosis of lung Hyperlipidemia Ischemic cardiomyopathy Myocardial Infarction 2005. Follows with Dr. Estrada Obstructive sleep apnea pt denies. states second test was negative. 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 Family History Father Acute myocardial infarction Family/Other Coronary heart disease Other Family history non-contributory No family history of adverse response to anesthesia Social History Smoking Status: Former smoker Smoking End Date: 35 yr ago; Number of Years Since Quit: 30; Second Hand Exposure: No; Do You Dip or Chew Tobacco: No; Tobacco Cessation Education Requested by Patient: No Hx Alcohol Use: No Hx Substance Use: No Preferred Language: Uzbek Communication Ability: Effective 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: No Beliefs That Will Affect Care: None Current Living Situation: Alone current occupational status: retired Other Information That Helps Us Care for You: No Feels Safe at Home: Yes Safety Concerns: Feels Safe At This Time Assistive Devices: Oxygen - Continuous Review of Systems Constitutional: + fatigue, + weakness and + weight loss Eyes: no problem reported Ear, Nose, Mouth, Throat: no problem reported Respiratory: no problem reported Cardiovascular: no problem reported Gastrointestinal: no problem reported Musculoskeletal: no problem reported Integumentary: no problem reported Neurologic: no problem reported Psychiatric: no problem reported Endocrine: no problem reported Hematologic / Lymphatic: no problem reported Physical Exam Constitutional: well developed, + ill appearing and + frail appearing; no acute distress Eyes: + anicteric sclerae; no corneal abnormality ENMT: Mouth: no oral mucosal abnormality and oral mucous membranes not dry Neck: normal visual inspection and trachea midline Respiratory: + tachypneic Auscultation: + rales Cardiovascular: Rate/Rhythm: regular rate and + irregularly irregular Heart Sounds: normal S1 and normal S2 Vessels: + JVD Extremities: + edema; no calf tenderness Musculoskeletal: Extremities: no cyanosis and no clubbing Skin: normal turgor; no lesions Neurologic: Motor/Sensory: no tremor and no asterixis Psychiatric: Orientation: alert and oriented x 3 Results & Data ([facility]) Vital Signs (Past 12 Hours) Vital Signs Temp Pulse Pulse Resp BP BP Pulse Ox 09/13/20 11:18 36.7 C 94 H 20 131/81 93 09/13/20 07:22 36.6 C 89 20 107/52 L 93 09/13/20 04:31 37.1 C 95 H 18 133/79 90 09/13/20 00:47 98 H Laboratory Results Laboratory Results - last 24 hr 09/12/20 09/12/20 09/12/20 09:20 12:09 16:50 WBC RBC Hgb Hct MCV MCH MCHC RDW Std Deviation RDW Coeff of Radha Plt Count MPV Immature Gran % (Auto) Neut % (Auto) Lymph % (Auto) [place] % (Auto) Eos % (Auto) Baso % (Auto) Neut # (Auto) Lymph # (Auto) [place] # (Auto) Eos # (Auto) Baso # (Auto) Immature Gran # (Auto) Sodium Potassium Chloride Carbon Dioxide Anion Gap BUN Creatinine Est Cr Clr Drug Dosing Est GFR ( Amer) Est GFR (Non-Af Amer) BUN/Creatinine Ratio Glucose POC Glucose 249 H Estimat Average Glucose Hemoglobin A1c Calcium NT-Pro-B Natriuret Pep 58521 H Urine Color Yellow Urine Appearance Clear Urine pH 5.0 Ur Specific [place] 1.016 Urine Protein 2+ H Urine Glucose (UA) Negative Urine Ketones Negative Urine Blood Trace H Urine Nitrite Negative Urine Bilirubin Negative Urine Urobilinogen Negative Ur Leukocyte Esterase Negative Urine WBC (Auto) 1-5 Urine RBC (Auto) 0-4 U Hyaline Cast (Auto) 1-5 U Epithel Cells (Auto) >30 H Urine Bacteria (Auto) Negative Ur Renal Epithelial Cell Not Reportable Urine Mucus Present A Ur Random Creatinine U Random Total Protein Protein/Creatinin Ratio 09/12/20 09/13/20 09/13/20 20:04 04:55 06:32 WBC 9.13 RBC 3.74 L Hgb 10.9 L Hct 34.6 L MCV 92.5 MCH 29.1 MCHC 31.5 L RDW Std Deviation 58.7 H RDW Coeff of Radha 17.2 H Plt Count 186 MPV 9.2 Immature Gran % (Auto) 1.0 Neut % (Auto) 71.4 Lymph % (Auto) 7.2 [place] % (Auto) 18.6 Eos % (Auto) 1.3 Baso % (Auto) 0.5 Neut # (Auto) 6.51 H Lymph # (Auto) 0.66 L [place] # (Auto) 1.70 H Eos # (Auto) 0.12 Baso # (Auto) 0.05 Immature Gran # (Auto) 0.09 H Sodium Potassium Chloride Carbon Dioxide Anion Gap BUN Creatinine Est Cr Clr Drug Dosing Est GFR ( Amer) Est GFR (Non-Af Amer) BUN/Creatinine Ratio Glucose POC Glucose 221 H Estimat Average Glucose Hemoglobin A1c Calcium NT-Pro-B Natriuret Pep Urine Color Urine Appearance Urine pH Ur Specific [place] Urine Protein Urine Glucose (UA) Urine Ketones Urine Blood Urine Nitrite Urine Bilirubin Urine Urobilinogen Ur Leukocyte Esterase Urine WBC (Auto) Urine RBC (Auto) U Hyaline Cast (Auto) U Epithel Cells (Auto) Urine Bacteria (Auto) Ur Renal Epithelial Cell Urine Mucus Ur Random Creatinine 49.0 U Random Total Protein 98.6 H Protein/Creatinin Ratio 2.0 H 09/13/20 09/13/20 09/13/20 06:32 06:32 07:37 WBC RBC Hgb Hct MCV MCH MCHC RDW Std Deviation RDW Coeff of Radha Plt Count MPV Immature Gran % (Auto) Neut % (Auto) Lymph % (Auto) [place] % (Auto) Eos % (Auto) Baso % (Auto) Neut # (Auto) Lymph # (Auto) [place] # (Auto) Eos # (Auto) Baso # (Auto) Immature Gran # (Auto) Sodium 137 Potassium 4.4 Chloride 99 Carbon Dioxide 31 Anion Gap 6.0 BUN 77 H Creatinine 2.36 H Est Cr Clr Drug Dosing 33.2 Est GFR ( Amer) 30.5 Est GFR (Non-Af Amer) 26.3 BUN/Creatinine Ratio 32.6 H Glucose 182 H POC Glucose 175 H Estimat Average Glucose 200 Hemoglobin A1c 8.6 H Calcium 9.3 NT-Pro-B Natriuret Pep 30445 H Urine Color Urine Appearance Urine pH Ur Specific [place] Urine Protein Urine Glucose (UA) Urine Ketones Urine Blood Urine Nitrite Urine Bilirubin Urine Urobilinogen Ur Leukocyte Esterase Urine WBC (Auto) Urine RBC (Auto) U Hyaline Cast (Auto) U Epithel Cells (Auto) Urine Bacteria (Auto) Ur Renal Epithelial Cell Urine Mucus Ur Random Creatinine U Random Total Protein Protein/Creatinin Ratio 09/13/20 11:47 WBC RBC Hgb Hct MCV MCH MCHC RDW Std Deviation RDW Coeff of Rahda Plt Count MPV Immature Gran % (Auto) Neut % (Auto) Lymph % (Auto) [place] % (Auto) Eos % (Auto) Baso % (Auto) Neut # (Auto) Lymph # (Auto) [place] # (Auto) Eos # (Auto) Baso # (Auto) Immature Gran # (Auto) Sodium Potassium Chloride Carbon Dioxide Anion Gap BUN Creatinine Est Cr Clr Drug Dosing Est GFR ( Amer) Est GFR (Non-Af Amer) BUN/Creatinine Ratio Glucose POC Glucose 192 H Estimat Average Glucose Hemoglobin A1c Calcium NT-Pro-B Natriuret Pep Urine Color Urine Appearance Urine pH Ur Specific [place] Urine Protein Urine Glucose (UA) Urine Ketones Urine Blood Urine Nitrite Urine Bilirubin Urine Urobilinogen Ur Leukocyte Esterase Urine WBC (Auto) Urine RBC (Auto) U Hyaline Cast (Auto) U Epithel Cells (Auto) Urine Bacteria (Auto) Ur Renal Epithelial Cell Urine Mucus Ur Random Creatinine U Random Total Protein Protein/Creatinin Ratio PG Care Time/CCT Total # of Minutes Spent Total Time Spent with Patient: Total time spent is greater than 50% in coordination of care (as documented) at patient's floor/unit and/or counseling patient: Coding Level of Care Code 97887 Inpt Consult Level 4 Diagnoses Acute kidney injury superimposed on chronic kidney disease N17.9; N18.9 Acute diastolic heart failure I50.31 Ischemic cardiomyopathy I25.5 Anemia D64.9 Cellulitis of leg, right L03.115
--- NOTE | 2020-09-13 12:46 | XCELERA ---
[id number]
[2020-09-13] MEDS: TERBINAFINE CR 30 GM TUBE EXT SCH ×2 (14:28→21:10)
--- NOTE | 2020-09-13 16:22 | Billing Data ---
Date of Service September 13, 2020 Coding Level of Care Code 04361 Subseq Hosp Care Lvl 3
[2020-09-13] MEDS ORDERED: LORazepam 0.5 MG TAB PO PRN (17:28)
[2020-09-13] MEDS: ATORVASTATIN 40 MG TAB PO SCH (21:11)
[2020-09-13] MEDS: INSULIN GLARGINE SOLOSTAR 100 UNITS/ML 3 ML PEN SC SCH (21:11)
[2020-09-14] MEDS: AMPICILLIN/SULBACTAM SOD 3,000 MG in 0.9 % SODIUM CHLORIDE 100 ML IV SCH ×3 (05:33→18:02)
[2020-09-14] MEDS: oxyCODONE HCL IR 5 MG TAB (IMMEDIATE RELEASE) PO PRN ×5 (05:46→22:50)
[2020-09-14 06:23] LABS: Basophils # (auto) 0.05 K/uL (0-0.2); Basophils % (auto) 0.5 %; Eosinophils # (auto) 0.51 K/uL (0-0.5); Eosinophils % (auto) 4.6 %; Hematocrit (blood only) 32.3 % (42-52); Hemoglobin 10.1 g/dL (14.0-18.0); Immature Granulocytes # (auto) 0.11 K/uL (0.00-0.02); Lymphocytes # (auto) 1.04 K/uL (1.2-3.4); Lymphocytes % (auto) 9.4 %; Mean Corpuscular Hemoglobin 28.9 pg (25-34); Mean Corpuscular Hgb Conc 31.3 g/dL (32-36); Mean Corpuscular Volume 92.3 fL (80-100); Mean Platelet Volume 8.9 fL (7.4-10.4); Monocytes # (auto) 2.01 K/uL (0.11-0.59); Monocytes % (auto) 18.2 %; Neutrophils # (auto) 7.32 K/uL (1.4-6.5); Neutrophils % (auto) 66.3 %; Nucleated RBC # (auto) 0.03 K/uL (0-0); Nucleated RBC % (auto) 0.3 %; Platelet Count 185 K/uL (130-400); RDW Coefficient of Variation 16.9 % (11.5-14.5); RDW Standard Deviation 57.8 fL (36.4-46.3); White Blood Count 11.04 K/uL (4.8-10.8)
[2020-09-14 07:17] LABS: Albumin Level 2.9 gm/dl (3.4-5.0); BUN Creatinine Ratio 35.1 (10-20); Calcium 9.3 mg/dl (8.5-10.1); Creatinine Clr Calc Pharmacy 31.7 ml/min; Est GFR (African American) 28.7; Est GFR (Non-African American) 24.8; Phosphorus 3.9 mg/dl (2.5-4.9); Potassium 4.3 mmol/L (3.5-5.1)
[2020-09-14] MEDS: OXYMETAZOLINE 0.05% 30 ML BTL PRN (07:45)
[2020-09-14] MEDS: UMECLIDINIUM/VILANTEROL 62.5/25MCG 7 PUFFS/INHALER INH SCH (07:46)
[2020-09-14] MEDS: FLUTICASONE FUROATE 100MCG 14 PUFFS/INHALER INH SCH (07:46)
[2020-09-14] MEDS: BUMETANIDE 4 MG in SYRINGE 0 ML IV SCH (07:47)
[2020-09-14] MEDS: METOPROLOL TARTRATE 25 MG TAB PO SCH ×2 (07:48→21:18)
[2020-09-14] MEDS: TERBINAFINE CR 30 GM TUBE EXT SCH ×2 (07:48→21:19)
[2020-09-14] MEDS: MULTIVITAMIN TAB PO SCH (07:48)
[2020-09-14] MEDS: INSULIN ASPART 100 UNITS/ML 3 ML PEN SC SCH ×4 (08:46→21:19)
--- NOTE | 2020-09-14 09:12 | Hospitalist Progress Note ---
Date of Service September 14, 2020 Assessment & Plan (1) Cellulitis of leg, right: 75 yo M PMHx CKD, diastolic HF, COPD, CAD with ischemic cardiomyopathy, HTN, DM2 not well controlled admitted for acute hypoxemic respiratory failure and bilateral LE cellulitis/swelling. Acute hypoxic respiratory failure in patient with acute on chronic diastolic HF: - On admission with hypoxia requiring supplemental O2, at highest requiring Oxymask 8L[place] [address] on admission -> 08826 09/13; with lung and extremity exam suggestive of fluid overload however somewhat improved today. - Echocardiogram performed this admission showed no significant change from previous Echo, EF 50-55% with RV volume overload. - Suspect dietary indiscretion plays a significant role here as patient's diuretic dose has not changed, and his Echo does not show changes in heart function since last Echo. - Patient's weight stable and fluid balance ~+150mL today. - Will further discuss dietary modification when patient is more medically stable. - Low Sodium heart healthy diet with 1500mL fluid restriction. - Received Bumex 4mg IV this AM for diuresis. Will monitor closely, reassessing in the afternoon and checking repeat BMP. May start Bumex drip in afternoon if needed for more titrateable diuresis. Acute renal failure on CKD: - This admission with creatinine 2.56 -> 2.36 -> 2.48 despite diuresis. Patient's last recorded baseline was about 8 months ago, about 1.8. - Patient does not appear dehydrated, in fact appears fluid overloaded. - Renal ultrasound performed without acute pathology. - No casts in urine suggestive of ATN. - Clinical picture likely consistent with cardiorenal syndrome, continue diuretics per Nephrology recommendations. - BMP repeat at 3PM today, will consider Bumex drip at 1mg/hr at that time pending his renal function. - Holding renal toxic medications, renally dosing medications otherwise. Bilateral LE cellulitis and open wounds: - On arrival patient with bilateral LE swelling and cellulitis with R>L erythema and RLE open wounds that are painful. - Patient was started on Unasyn, no known risk factors for MRSA/Pseudomonas. - BCx x2 drawn, negative to date. - WBC fairly stable, and patient's symptoms improving. Will escalate antibiotic coverage if no continued improvement. - Wound care nurse consult placed. History of anemia with epistaxis: - On admission with Hgb 11.4 which is his baseline. - Hgb 10.9 -> 10.1 in the setting of acute nosebleed, which has since stopped yesterday afternoon. - Nasal packing with 4x4 and Afrin q12h PRN bleeding, can titrate up if needed for epistaxis. - Can Rhinorocket if necessary to stop bleeding; patient aware this may be necessary and is amenable if needed. - Holding Eliquis. Atrial fibrillation: - Holding Eliquis in setting of nosebleed. - Patient refuses medication moving forward. - Rate controlled on metoprolol 25mg BID, continue. - Telemetry continues to be in AFib, no symptoms. DM2: - Lantus 18u HS with SSI, DM2 diet. - Hgb A1c this admission 8.6%; suggests poor control. - Will further discuss home medications and dietary modification following improvement in respiratory status. COPD: - Nebs q4h as needed. - Continue home fluticasone INH, umeclidinium/vilanterol. HLD: - Continue home atorvastatin. HTN: - Continue Bumex, metoprolol. Code Status: DNR/DNI FENGI: DM2, Heart Healthy, Low Sodium, fluid restriction 1500mL DVT ppx: Dispo: Med/Surg with Telemetry (2) Acute respiratory failure with hypoxia: (3) Acute kidney injury superimposed on chronic kidney disease: (4) Acute on chronic diastolic (congestive) heart failure: (5) Atrial fibrillation: (6) COPD (chronic obstructive pulmonary disease): (7) Hyperlipidemia: (8) Ischemic cardiomyopathy: (9) Anemia: (10) Nosebleed: (11) Cardiorenal syndrome: (12) Bilateral lower extremity edema: (13) Diabetes mellitus: (14) Benign hypertension: Admission and Anticipated Discharge Date Admission Date: September 12, 2020 Supervising Physician Co-Signing Physician Notes I personally examined the patient and verified all marsh points of history and exam, discussed case, and agree with decision making with Dr Rodriguez. feeling better than yesterday able to breathe easier no further major nosebleeding but has had a little bit of an on/off trickle. leg feels about the same not really better but not worse. d/w nephrology, input appreciated. vitals noted nad heent nc at mmm lungs bibasilar rales no rhonchi no wheeze good effort able to titrate down to about 4L oxymask and maintain O2 sats no accessory muscles. no ongoing noselbeeding. RLE ongoing very tender, dressed - wound images noted - no erythema tracking outside of dressings. epistaxis - appears to have resolved, probably did have a mild degree of acute blood loss anemia reflected by Hgb now vs at admission. continue to hold eliquis, follow. acute on chronic HFpEF - Cr increased a little suggesting as dry as we can diurese to - but still sounds wet - breathing is of course a higher priority - ongoing diuresis but follow closely - BMP later this afternoon. see prosper as well. RLE cellulitis - chronic venous ulcers of R and L lower leg - unasyn for now, follow, given ulcerations, chronic venous stasis, anticipate slow ipmrovement PROSPER - likely relates to CHF, follow w diuresis. worse but still sounds wet - pe rhaps still poor forward flow, but also ??worse baseline given that most recent prior Cr on record was from about 8 months ago and he does have several reasons (CHF, DM) that could progress CKD during that time. continue to follow closely w diuresis DM - acutely sugars improving - continue insulin management. 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 continue insulin management for now. follow. otherwise as above Subjective Patient overnight without acute events. Slept well, feels tired this AM but stated that "this is because I did not sleep for 3 days before coming in". No nosebleeds overnight. Denies abdominal pain, chest pain. Reports shortness of breath if he takes off the oxymask but feels comfortable on it. In room decreased Oxymask to 4.5L with continued comfort. Some leg pain bilaterally, R>L, but improved from yesterday. Mild nausea after "swallowing blood yesterday, but no vomiting and tolerated breakfast well. Had appetite "for the first time in days". Review of Systems Review of Systems: All systems reviewed & are unremarkable except as noted in HPI & below Constitutional: no fever, no chills and no malaise Respiratory: no cough and no dyspnea Cardiovascular: no chest pain, no palpitations and no edema Gastrointestinal: no abdominal pain, no constipation and no diarrhea/loose stools Physical Exam Constitutional: well developed, + obese and + frail appearing; no acute distress Eyes: + anicteric sclerae; no corneal abnormality ENMT: Mouth: no oral mucosal abnormality and oral mucous membranes not dry Neck: normal visual inspection and trachea midline Respiratory: Auscultation: + crackles (bilateral bases) Normal respiratory rate, saturating to 91-92% on 4.5LNC and breathing comfortably Cardiovascular: Rate/Rhythm: + irregularly irregular Heart Sounds: no murmur Extremities: + edema (2+ bilateral LE); no calf tenderness HR irregularly irregular Gastrointestinal (Abdomen): normal bowel sounds, soft, nontender, no hepatosplenomegaly Musculoskeletal: Extremities: no cyanosis and no clubbing Skin: + lesion (RLE multiple small ulcerations, bandage over bilateral LE) Neurologic: moves all extremities Motor/Sensory: no tremor and no asterixis Psychiatric: Orientation: alert and oriented x 3 Results & Data Results & Data ([facility]) Vital Signs (Past 12 Hours) Vital Signs Temp Pulse Pulse Resp BP Pulse Ox 09/14/20 07:31 36.7 C 89 20 112/74 98 09/14/20 03:26 36.6 C 87 18 121/73 98 09/14/20 00:00 85 09/13/20 22:00 36.6 C 90 18 109/69 97 Resident Activity Tracking Resident Involvement: Resident Care Provided Care Provided: Adult Hospital Medicine (1) Diabetes mellitus Diabetes mellitus complication status: with hyperglycemia Diabetes mellitus group home insulin use: with 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 use Diabetes mellitus type: type 2 Qualified Code(s): E11.65 - Type 2 diabetes mellitus with hyperglycemia; 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 (2) Atrial fibrillation Atrial fibrillation type: longstanding persistent Qualified Code(s): I48.11 - Longstanding persistent atrial fibrillation (3) Hyperlipidemia Hyperlipidemia type: unspecified Qualified Code(s): E78.5 - Hyperlipidemia, unspecified (4) Cardiorenal syndrome Heart failure presence: with heart failure Hypertensive chronic kidney disease stage: stage 1-4 or unspecified chronic kidney disease Qualified Code(s): I13.0 - Hypertensive heart and chronic kidney disease with heart failure and stage 1 through stage 4 chronic kidney disease, or unspecified chronic kidney disease (5) COPD (chronic obstructive pulmonary disease) COPD type: unspecified COPD Qualified Code(s): J44.9 - Chronic obstructive pulmonary disease, unspecified
--- NOTE | 2020-09-14 11:24 | Nephrology Progress Note ---
Date of Service September 14, 2020 Assessment & Plan (1) Acute kidney injury superimposed on chronic kidney disease: Baseline creatinine 1.5-1.8 mg/dL. Non-oliguric PROSPER. Clinically consistent with acute CRS. US without evidence of obstruction. Urine microscopy acellular. Creatinine stable this AM. No emergent indication for dialysis. Glipizide held. Medications appropriately dosed for kidney function. Document I/O's and daily AM weight. Repeat metabolic profile tomorrow AM. (2) Acute diastolic heart failure: I/O's matched with Bumex 4 mg IV BID. Consider switching to gtt @ 1 mg/hr. Predominately R heart failure on exam. TTE consistent with this. (3) Ischemic cardiomyopathy: No acute evidence of ischemic. (4) Anemia: Chronic, stable. Hgb >10. No role for EUSEBIO therapy at this time. (5) Cellulitis of leg, right: Zosyn dosed for kidney dysfunction. Admission and Anticipated Discharge Date Admission Date: September 12, 2020 Subjective No acute events overnight. Breathing improved slightly. Feeling very tired this AM. I/O's matched. No urinary complaints. Edema persists. Erythema in legs improving. Review of Systems Review of Systems: All systems reviewed & are unremarkable except as noted in HPI & below Physical Exam Constitutional: well developed and + frail appearing; no acute distress Eyes: + anicteric sclerae; no corneal abnormality ENMT: Mouth: no oral mucosal abnormality and oral mucous membranes not dry Neck: normal visual inspection and trachea midline Respiratory: normal respiratory effort Auscultation: + rales (few, improved) Cardiovascular: Rate/Rhythm: regular rate and + irregularly irregular Heart Sounds: normal S1 and normal S2 Vessels: + JVD Extremities: + edema; no calf tenderness Musculoskeletal: Extremities: no cyanosis and no clubbing Skin: normal turgor; no lesions Neurologic: Motor/Sensory: no tremor and no asterixis Psychiatric: Orientation: alert and oriented x 3 Results & Data ([facility]) Vital Signs (Past 12 Hours) Vital Signs Temp Pulse Pulse Resp BP Pulse Ox 09/14/20 07:31 36.7 C 89 20 112/74 98 09/14/20 03:26 36.6 C 87 18 121/73 98 09/14/20 00:00 85 Laboratory Results Laboratory Results - last 24 hr 09/13/20 09/13/20 09/13/20 11:47 16:39 20:10 WBC RBC Hgb Hct MCV MCH MCHC RDW Std Deviation RDW Coeff of Radha Plt Count MPV Immature Gran % (Auto) Neut % (Auto) Lymph % (Auto) [place] % (Auto) Eos % (Auto) Baso % (Auto) Neut # (Auto) Lymph # (Auto) [place] # (Auto) Eos # (Auto) Baso # (Auto) Immature Gran # (Auto) Absolute Nucleated RBC Nucleated RBC % (auto) Sodium Potassium Chloride Carbon Dioxide Anion Gap BUN Creatinine Est Cr Clr Drug Dosing Est GFR ( Amer) Est GFR (Non-Af Amer) BUN/Creatinine Ratio Glucose POC Glucose 192 H 241 H 207 H Calcium Phosphorus Albumin 09/14/20 09/14/20 09/14/20 06:05 06:05 07:35 WBC 11.04 H RBC 3.50 L Hgb 10.1 L Hct 32.3 L MCV 92.3 MCH 28.9 MCHC 31.3 L RDW Std Deviation 57.8 H RDW Coeff of Radha 16.9 H Plt Count 185 MPV 8.9 Immature Gran % (Auto) 1.0 Neut % (Auto) 66.3 Lymph % (Auto) 9.4 [place] % (Auto) 18.2 Eos % (Auto) 4.6 Baso % (Auto) 0.5 Neut # (Auto) 7.32 H Lymph # (Auto) 1.04 L [place] # (Auto) 2.01 H Eos # (Auto) 0.51 H Baso # (Auto) 0.05 Immature Gran # (Auto) 0.11 H Absolute Nucleated RBC 0.03 H Nucleated RBC % (auto) 0.3 Sodium 135 L Potassium 4.3 Chloride 97 L Carbon Dioxide 33 H Anion Gap 5.0 BUN 87 H Creatinine 2.48 H Est Cr Clr Drug Dosing 31.7 Est GFR ( Amer) 28.7 Est GFR (Non-Af Amer) 24.8 BUN/Creatinine Ratio 35.1 H Glucose 151 H POC Glucose 137 H Calcium 9.3 Phosphorus 3.9 Albumin 2.9 L PG Care Time/CCT Total # of Minutes Spent Total Time Spent with Patient: Total time spent is greater than 50% in coordination of care (as documented) at patient's floor/unit and/or counseling patient: Coding Level of Care Code 07032 Subseq Hosp Care Lvl 3 Diagnoses Acute kidney injury superimposed on chronic kidney disease N17.9; N18.9 Acute diastolic heart failure I50.31 Ischemic cardiomyopathy I25.5 Anemia D64.9 Cellulitis of leg, right L03.115
--- NOTE | 2020-09-14 12:52 | Billing Data ---
Date of Service September 14, 2020 Coding Level of Care Code 00333 Subseq Hosp Care Lvl 3
[2020-09-14] MEDS: BUMETANIDE 10 MG in DEXTROSE 5% 10 ML IV SCH ×2 (13:34→22:11)
[2020-09-14 16:16] LABS: BUN Creatinine Ratio 36.2 (10-20); Calcium 9.6 mg/dl (8.5-10.1); Creatinine Clr Calc Pharmacy 33.1 ml/min; Est GFR (African American) 30.4; Est GFR (Non-African American) 26.2; Potassium 4.1 mmol/L (3.5-5.1)
[2020-09-14] MEDS: INSULIN GLARGINE SOLOSTAR 100 UNITS/ML 3 ML PEN SC SCH (21:17)
[2020-09-14] MEDS: ATORVASTATIN 40 MG TAB PO SCH (21:18)
[2020-09-15] MEDS: AMPICILLIN/SULBACTAM SOD 3,000 MG in 0.9 % SODIUM CHLORIDE 100 ML IV SCH ×5 (00:02→23:51)
[2020-09-15] MEDS: oxyCODONE HCL IR 5 MG TAB (IMMEDIATE RELEASE) PO PRN ×4 (05:58→21:49)
[2020-09-15] MEDS: BUMETANIDE 10 MG in DEXTROSE 5% 10 ML IV SCH ×2 (05:58→17:36)
[2020-09-15 06:12] LABS: Basophils # (auto) 0.05 K/uL (0-0.2); Basophils % (auto) 0.5 %; Eosinophils # (auto) 0.74 K/uL (0-0.5); Eosinophils % (auto) 7.4 %; Hemoglobin 10.4 g/dL (14.0-18.0); Immature Granulocytes # (auto) 0.08 K/uL (0.00-0.02); Immature Granulocytes % (auto) 0.8 %; Lymphocytes # (auto) 1.02 K/uL (1.2-3.4); Lymphocytes % (auto) 10.2 %; Mean Corpuscular Hemoglobin 29.1 pg (25-34); Mean Corpuscular Hgb Conc 31.5 g/dL (32-36); Mean Corpuscular Volume 92.4 fL (80-100); Mean Platelet Volume 9.5 fL (7.4-10.4); Monocytes # (auto) 1.51 K/uL (0.11-0.59); Monocytes % (auto) 15.1 %; Neutrophils # (auto) 6.61 K/uL (1.4-6.5); Platelet Count 203 K/uL (130-400); RDW Coefficient of Variation 16.8 % (11.5-14.5); RDW Standard Deviation 56.9 fL (36.4-46.3); Red Blood Count 3.57 M/uL (4.7-6.1); White Blood Count 10.01 K/uL (4.8-10.8)
[2020-09-15 06:37] LABS: Calcium 9.4 mg/dl (8.5-10.1); Est GFR (African American) 30.4; Est GFR (Non-African American) 26.2; Potassium 4.3 mmol/L (3.5-5.1)
--- NOTE | 2020-09-15 07:55 | Hospitalist Progress Note ---
Date of Service September 15, 2020 Assessment & Plan (1) Cellulitis of leg, right: 75 yo M PMHx CKD, diastolic HF, COPD, CAD with ischemic cardiomyopathy, HTN, DM2 not well controlled admitted for acute hypoxemic respiratory failure and bilateral LE cellulitis/swelling. Acute hypoxic respiratory failure in patient with acute on chronic diastolic HF: - On admission with hypoxia requiring supplemental O2, at highest requiring [place]ym[place] 8L[place] [address] on admission -> 38982 09/13; with lung and extremity exam suggestive of fluid overload however somewhat improved today. - Echocardiogram performed this admission showed no significant change from previous Echo, EF 50-55% with RV volume overload. - Suspect dietary indiscretion plays a significant role here as patient's diuretic dose has not changed, and his Echo does not show changes in heart function since last Echo. - Patient's weight stable and fluid balance ~+150mL today. - Will further discuss dietary modification when patient is more medically stable. - Low Sodium heart healthy diet with 1500mL fluid restriction. - Received Bumex gtt 1mg/hr overnight, 500mg Diuril x1 this AM. Continue to closely monitor fluid status, and titrate oxygen as needed to maintain O2 90- 92%. Acute renal failure on CKD: - Today with creatinine 2.37, stable despite diuresis. Patient's last recorded baseline was about 8 months ago, about 1.8. - Patient continues to appear fluid overloaded. - Renal ultrasound performed without acute pathology. - No casts in urine suggestive of ATN. - Clinical picture consistent with cardiorenal syndrome, continue diuretics per Nephrology recommendations. - BMP repeat tomorrow AM, and continue Bumex drip. - Holding renal toxic medications, renally dosing medications otherwise. Bilateral LE cellulitis and open wounds: - On arrival patient with bilateral LE swelling and cellulitis with R>L erythema and RLE open wounds that are painful. - Patient was started on Unasyn, no known risk factors for MRSA/Pseudomonas. - BCx x2 drawn, negative to date. - WBC stable, however symptoms and wounds look about the same despite 48 hours of Abx. - Wound care nurse consult placed. - Wound culture performed, have added Daptomycin to cover for MRSA. Will further escalate to cover for Pseudomonas pending symptoms/culture. History of anemia with epistaxis: - Resolved. - On admission with Hgb 11.4 which is his baseline. - Hgb 10.9 -> 10.4 in the setting of acute nosebleed, which has since stopped yesterday afternoon. - Nasal packing with 4x4 and Afrin q12h PRN bleeding. - Holding Eliquis. Atrial fibrillation: - Holding Eliquis in setting of nosebleed. - Patient refuses medication moving forward. - Rate controlled on metoprolol 25mg BID, continue. - Telemetry continues to be in AFib, no symptoms. DM2: - Lantus 18u HS with SSI, DM2 diet. - Hgb A1c this admission 8.6%; suggests poor control. - Will further discuss home medications and dietary modification following improvement in respiratory status. COPD: - Nebs q4h as needed. - Continue home fluticasone INH, umeclidinium/vilanterol. HLD: - Continue home atorvastatin. HTN: - Continue Bumex, metoprolol. Code Status: DNR/DNI FENGI: DM2, Heart Healthy, Low Sodium, fluid restriction 1500mL DVT ppx: Heparin 5000u q12h Dispo: Med/Surg with Telemetry Admission and Anticipated Discharge Date Admission Date: September 12, 2020 Supervising Physician Co-Signing Physician Notes I personally examined the patient and verified all marsh points of history and exam, discussed case, and agree with decision making with Dr Oconnor. breathing a little better legs about the same vitals noted nad heent nc at mmm lungs bibasilar rales but more faint than yesterday no rhonchi no wheeze good effort no accessory muscles. no ongoing noselbeeding. RLE ongoing very tender, dressing removed - anterior miles large ulcer (bilobed about 3cm medial connected with about 2cm lateral, then a separate distal medial ulcer) all with green yellow exudate, all exquisitely tender. culture sent, redressed. epistaxis - appears to have resolved, probably did have a mild degree of acute blood loss anemia reflected by Hgb now vs at admission. continue to hold eliquis, follow. (ok to start DVT proph) acute on chronic HFpEF - seems to be improving w bumex drip - continue. follow BMP. RLE cellulitis - chronic venous ulcers of R and L lower leg - has been on unasyn for 2 days minimal improvement. cultures sent of exudate from wounds. cover MRSA - add dapto PROSPER - likely relates to CHF, follow w diuresis. suspect yesterday's findings early in the day were not so much true worsening from before as wobbling within the range he was at. DM - acutely sugars fairly reasonable - continue to titrate insulin management. 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 continue insulin management for now. follow. otherwise as above Subjective Overnight patient slept well again, no acute events. Still with pain specifically in RLE, especially with dressing changes. Pain medications are helping. Feels comfortable at 6L Oxymask sitting in his chair next to his bed. Reports some shortness of breath with exertion such as getting up from bed to get to his chair. No fevers or chills, abdominal or chest pain, nausea. No further epistaxis. Review of Systems Review of Systems: All systems reviewed & are unremarkable except as noted in Subjective Constitutional: no fever, no chills and no malaise Respiratory: + dyspnea; no cough Cardiovascular: + edema; no chest pain and no palpitations Gastrointestinal: no abdominal pain, no constipation and no diarrhea/loose stools Physical Exam Constitutional: well developed, + obese and + frail appearing; no acute distress Eyes: + anicteric sclerae; no corneal abnormality ENMT: Mouth: no oral mucosal abnormality and oral mucous membranes not dry Neck: normal visual inspection and trachea midline Respiratory: Auscultation: + crackles (bilateral bases) Normal respiratory rate, saturating to 93% on 6L Oxymask and breathing comfortably Cardiovascular: Rate/Rhythm: + irregularly irregular Heart Sounds: no murmur Extremities: + edema (2+ bilateral LE); no calf tenderness HR irregularly irregular Gastrointestinal (Abdomen): normal bowel sounds, soft, nontender, no hepatosplenomegaly Musculoskeletal: Extremities: no cyanosis and no clubbing Skin: + lesion (RLE multiple 3cm lesions on RLE with purulent drainage, very tender) Neurologic: moves all extremities Motor/Sensory: no tremor and no asterixis Psychiatric: Orientation: alert and oriented x 3 Results & Data Results & Data ([facility]) Vital Signs (Past 12 Hours) Vital Signs Temp Pulse Pulse Resp BP Pulse Ox 09/15/20 07:34 36.9 C 87 16 131/78 93 09/15/20 07:16 87 09/15/20 04:16 18 97 09/15/20 04:00 36.5 C 80 18 135/77 99 09/14/20 23:56 85 09/14/20 23:35 37 C 86 19 114/73 96 Resident Activity Tracking Resident Involvement: Resident Care Provided Care Provided: Adult Hospital Medicine
[2020-09-15] MEDS: UMECLIDINIUM/VILANTEROL 62.5/25MCG 7 PUFFS/INHALER INH SCH (07:58)
[2020-09-15] MEDS: FLUTICASONE FUROATE 100MCG 14 PUFFS/INHALER INH SCH (07:59)
[2020-09-15] MEDS: METOPROLOL TARTRATE 25 MG TAB PO SCH ×2 (08:00→21:13)
[2020-09-15] MEDS: MULTIVITAMIN TAB PO SCH (08:00)
[2020-09-15] MEDS: TERBINAFINE CR 30 GM TUBE EXT SCH ×2 (08:00→21:14)
[2020-09-15] MEDS: INSULIN ASPART 100 UNITS/ML 3 ML PEN SC SCH ×4 (08:11→21:12)
[2020-09-15] MEDS ORDERED: CHLOROTHIAZIDE SODIUM 500 MG in DEXTROSE 5% 50 ML IV ONE (08:30)
[2020-09-15] MEDS: DAPTOmycin 350 MG in SYRINGE 0 ML IV SCH (11:48)
--- NOTE | 2020-09-15 11:57 | Nephrology Progress Note ---
Date of Service September 15, 2020 Assessment & Plan (1) Acute kidney injury superimposed on chronic kidney disease: Baseline creatinine 1.5-1.8 mg/dL. Non-oliguric PROSPER. Clinically consistent with acute CRS. US without evidence of obstruction. Urine microscopy acellular. Creatinine stable this AM. No emergent indication for dialysis. 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 Glipizide held. Medications appropriately dosed for kidney function. Dose reduc tion in Unasyn may be considered (I'll defer to pharmacy for recommended dose - concentrating the medication may also help reduce obligatory fluid intake). Document I/O's and daily AM weight. Repeat metabolic profile tomorrow AM. (2) Acute diastolic heart failure: Predominately R heart failure on exam. TTE consistent with this. LVEF preserved. I/O's matched with Bumex 4 mg IV BID. Following additional 4 mg IV Bumex yesterday AM, a gtt @ 1 mg/hr was started in the afternoon. IV Diuril 500 mg provided this AM to encourage negative fluid balance. Fluid restriction to 1 L daily and dietary sodium restriction (<2000 mg daily) enforced. (3) Ischemic cardiomyopathy: (4) Anemia: Chronic, stable. Hgb >10. No role for EUSEBIO therapy at this time. (5) Cellulitis of leg, right: Unasyn dosed for kidney dysfunction. Admission and Anticipated Discharge Date Admission Date: September 12, 2020 Subjective No acute events overnight. No fevers or chills. Appetite decreased but fair. Breathing improving. Dyspnea with minimal exertion persists. Edema also improving. Review of Systems Review of Systems: All systems reviewed & are unremarkable except as noted in HPI & below Physical Exam Constitutional: well developed and + frail appearing; no acute distress Eyes: + anicteric sclerae; no corneal abnormality ENMT: Mouth: + dry oral mucous membranes; no oral mucosal abnormality Neck: normal visual inspection and trachea midline Respiratory: normal respiratory effort Auscultation: + rales (few bibasilar R>L) Cardiovascular: Rate/Rhythm: regular rate and + irregularly irregular Heart Sounds: normal S1 and normal S2 Vessels: + JVD Extremities: + edema; no calf tenderness Musculoskeletal: Extremities: no cyanosis and no clubbing Skin: normal turgor; no lesions Neurologic: Motor/Sensory: no tremor and no asterixis Psychiatric: Orientation: alert and oriented x 3 Results & Data ([facility]) Vital Signs (Past 12 Hours) Vital Signs Temp Pulse Pulse Resp BP Pulse Ox 09/15/20 11:40 36.7 C 93 H 16 126/67 95 09/15/20 07:34 36.9 C 87 16 131/78 93 09/15/20 07:16 87 09/15/20 04:16 18 97 09/15/20 04:00 36.5 C 80 18 135/77 99 09/14/20 23:56 85 Laboratory Results Laboratory Results - last 24 hr 09/14/20 09/14/20 09/14/20 15:49 16:27 21:14 WBC RBC Hgb Hct MCV MCH MCHC RDW Std Deviation RDW Coeff of Radha Plt Count MPV Immature Gran % (Auto) Neut % (Auto) Lymph % (Auto) [place] % (Auto) Eos % (Auto) Baso % (Auto) Neut # (Auto) Lymph # (Auto) [place] # (Auto) Eos # (Auto) Baso # (Auto) Immature Gran # (Auto) Sodium 134 L Potassium 4.1 Chloride 96 L Carbon Dioxide 32 Anion Gap 6.0 BUN 86 H Creatinine 2.37 H Est Cr Clr Drug Dosing 33.1 Est GFR ( Amer) 30.4 Est GFR (Non-Af Amer) 26.2 BUN/Creatinine Ratio 36.2 H Glucose 148 H POC Glucose 165 H 189 H Calcium 9.6 09/15/20 09/15/20 09/15/20 05:47 05:47 07:46 WBC 10.01 RBC 3.57 L Hgb 10.4 L Hct 33.0 L MCV 92.4 MCH 29.1 MCHC 31.5 L RDW Std Deviation 56.9 H RDW Coeff of Radha 16.8 H Plt Count 203 MPV 9.5 Immature Gran % (Auto) 0.8 Neut % (Auto) 66.0 Lymph % (Auto) 10.2 [place] % (Auto) 15.1 Eos % (Auto) 7.4 Baso % (Auto) 0.5 Neut # (Auto) 6.61 H Lymph # (Auto) 1.02 L [place] # (Auto) 1.51 H Eos # (Auto) 0.74 H Baso # (Auto) 0.05 Immature Gran # (Auto) 0.08 H Sodium 135 L Potassium 4.3 Chloride 96 L Carbon Dioxide 35 H Anion Gap 5.0 BUN 81 H Creatinine 2.37 H Est Cr Clr Drug Dosing 33.0 Est GFR ( Amer) 30.4 Est GFR (Non-Af Amer) 26.2 BUN/Creatinine Ratio 34.0 H Glucose 188 H POC Glucose 202 H Calcium 9.4 PG Care Time/CCT Total # of Minutes Spent Total Time Spent with Patient: Total time spent is greater than 50% in coordination of care (as documented) at patient's floor/unit and/or counseling patient: Coding Level of Care Code 06234 Subseq Hosp Care Lvl 3 Diagnoses Acute kidney injury superimposed on chronic kidney disease N17.9; N18.9 Acute diastolic heart failure I50.31 Ischemic cardiomyopathy I25.5 Anemia D64.9 Cellulitis of leg, right L03.115
[2020-09-15] MEDS ORDERED: Nursing to Pharmacy Communication SCH (17:00)
--- NOTE | 2020-09-15 17:06 | Billing Data ---
Date of Service September 15, 2020 Coding Level of Care Code 16989 Subseq Hosp Care Lvl 3
[2020-09-15] MEDS: INSULIN GLARGINE SOLOSTAR 100 UNITS/ML 3 ML PEN SC SCH (21:13)
[2020-09-15] MEDS: HEPARIN SOD 5,000 UNIT/0.5 ML VIAL SQ SCH (21:14)
[2020-09-16] MEDS: BUMETANIDE 10 MG in DEXTROSE 5% 10 ML IV SCH ×2 (03:02→09:12)
[2020-09-16] MEDS: oxyCODONE HCL IR 5 MG TAB (IMMEDIATE RELEASE) PO PRN ×4 (03:29→19:24)
[2020-09-16] MEDS: AMPICILLIN/SULBACTAM SOD 3,000 MG in 0.9 % SODIUM CHLORIDE 100 ML IV SCH ×3 (05:53→18:16)
[2020-09-16 07:12] LABS: Basophils # (auto) 0.05 K/uL (0-0.2); Basophils % (auto) 0.5 %; Eosinophils # (auto) 0.83 K/uL (0-0.5); Eosinophils % (auto) 7.8 %; Hematocrit (blood only) 30.7 % (42-52); Hemoglobin 9.7 g/dL (14.0-18.0); Immature Granulocytes # (auto) 0.09 K/uL (0.00-0.02); Immature Granulocytes % (auto) 0.8 %; Lymphocytes # (auto) 0.98 K/uL (1.2-3.4); Lymphocytes % (auto) 9.2 %; Mean Corpuscular Hgb Conc 31.6 g/dL (32-36); Mean Corpuscular Volume 91.9 fL (80-100); Mean Platelet Volume 9.3 fL (7.4-10.4); Monocytes # (auto) 1.83 K/uL (0.11-0.59); Monocytes % (auto) 17.2 %; Neutrophils # (auto) 6.88 K/uL (1.4-6.5); Neutrophils % (auto) 64.5 %; Nucleated RBC # (auto) 0.02 K/uL (0-0); Nucleated RBC % (auto) 0.2 %; Platelet Count 234 K/uL (130-400); RDW Standard Deviation 56.3 fL (36.4-46.3); Red Blood Count 3.34 M/uL (4.7-6.1); White Blood Count 10.66 K/uL (4.8-10.8)
[2020-09-16 07:38] LABS: BUN Creatinine Ratio 32.3 (10-20); Calcium 9.5 mg/dl (8.5-10.1); Creatinine Clr Calc Pharmacy 29.5 ml/min; Est GFR (African American) 26.9; Est GFR (Non-African American) 23.2; Potassium 3.4 mmol/L (3.5-5.1)
--- NOTE | 2020-09-16 08:32 | Hospitalist Progress Note ---
Date of Service September 16, 2020 Assessment & Plan (1) Cellulitis of leg, right: 75 yo M PMHx CKD, diastolic HF, COPD, CAD with ischemic cardiomyopathy, HTN, DM2 not well controlled admitted for acute hypoxemic respiratory failure and bilateral LE cellulitis/swelling. Acute hypoxic respiratory failure in patient with acute on chronic diastolic HF: - On admission with hypoxia requiring supplemental O2, at highest requiring [place] 8L[place] [address] on admission -> 00468 09/13; with lung and extremity exam suggestive of fluid overload however somewhat improved today. - Echocardiogram performed this admission showed no significant change from previous Echo, EF 50-55% with RV volume overload. - Suspect dietary indiscretion plays a significant role here as patient's diuretic dose has not changed, and his Echo does not show changes in heart function since last Echo. - Patient's weight stable and fluid balance ~+150mL today. - Will further discuss dietary modification when patient is more medically stable. - Low Sodium heart healthy diet with 1500mL fluid restriction. - Received Bumex gtt 1mg/hr overnight, 500mg Diuril x1 this AM. Continue to closely monitor fluid status, and titrate oxygen as needed to maintain O2 90- 92%. Acute renal failure on CKD: - Today with creatinine 2.37, stable despite diuresis. Patient's last recorded baseline was about 8 months ago, about 1.8. - Patient continues to appear fluid overloaded. - Renal ultrasound performed without acute pathology. - No casts in urine suggestive of ATN. - Clinical picture consistent with cardiorenal syndrome, continue diuretics per Nephrology recommendations. - BMP repeat tomorrow AM, and continue Bumex drip. - Holding renal toxic medications, renally dosing medications otherwise. Bilateral LE cellulitis and open wounds: - On arrival patient with bilateral LE swelling and cellulitis with R>L erythema and RLE open wounds that are painful. - Patient was started on Unasyn, no known risk factors for MRSA/Pseudomonas. - BCx x2 drawn, negative to date. - WBC stable, however symptoms and wounds look about the same despite 48 hours of Abx. - Wound care nurse consult placed. - Wound culture performed, have added Daptomycin to cover for MRSA. Will further escalate to cover for Pseudomonas pending symptoms/culture. History of anemia with epistaxis: - Resolved. - On admission with Hgb 11.4 which is his baseline. - Hgb 10.9 -> 10.4 in the setting of acute nosebleed, which has since stopped yesterday afternoon. - Nasal packing with 4x4 and Afrin q12h PRN bleeding. - Holding Eliquis. Atrial fibrillation: - Holding Eliquis in setting of nosebleed. - Patient refuses medication moving forward. - Rate controlled on metoprolol 25mg BID, continue. - Telemetry continues to be in AFib, no symptoms. DM2: - Lantus 18u HS with SSI, DM2 diet. - Hgb A1c this admission 8.6%; suggests poor control. - Will further discuss home medications and dietary modification following improvement in respiratory status. COPD: - Nebs q4h as needed. - Continue home fluticasone INH, umeclidinium/vilanterol. HLD: - Continue home atorvastatin. HTN: - Continue Bumex, metoprolol. Code Status: DNR/DNI FENGI: DM2, Heart Healthy, Low Sodium, fluid restriction 1500mL DVT ppx: Heparin 5000u q12h Dispo: Med/Surg with Telemetry Admission and Anticipated Discharge Date Admission Date: September 12, 2020 Results & Data Results & Data ([facility]) Vital Signs (Past 12 Hours) Vital Signs Temp Pulse Pulse Resp BP Pulse Ox 09/16/20 07:46 37.0 C 86 20 135/74 93 09/16/20 03:38 36.4 C L 79 19 120/74 91 09/15/20 23:56 82 09/15/20 23:30 36.6 C 82 18 117/74 97
[2020-09-16] MEDS: METOPROLOL TARTRATE 25 MG TAB PO SCH ×2 (09:08→20:35)
[2020-09-16] MEDS: TERBINAFINE CR 30 GM TUBE EXT SCH ×2 (09:08→23:35)
[2020-09-16] MEDS: MULTIVITAMIN TAB PO SCH (09:08)
[2020-09-16] MEDS: FLUTICASONE FUROATE 100MCG 14 PUFFS/INHALER INH SCH (09:09)
[2020-09-16] MEDS: INSULIN ASPART 100 UNITS/ML 3 ML PEN SC SCH ×4 (09:09→20:37)
[2020-09-16] MEDS: UMECLIDINIUM/VILANTEROL 62.5/25MCG 7 PUFFS/INHALER INH SCH (09:09)
[2020-09-16] MEDS: HEPARIN SOD 5,000 UNIT/0.5 ML VIAL SQ SCH ×2 (09:09→20:36)
--- NOTE | 2020-09-16 10:16 | Nephrology Progress Note ---
Date of Service September 16, 2020 Assessment & Plan (1) Acute kidney injury superimposed on chronic kidney disease: * Non-oliguric PROSPER c/w acute CRS. Patient has evidence of R volume overload on 09/13/20 echocardiogram. He was admitted w/ progressive LE swelling and cellulitis * US negative for obstruction * Urine microscopy acellular * Diuretic therapy has rendered patient euvolemic. Creatinine continues to slowly trend upward. Electrolyte balance is acceptable. No acute indication for [employer] at this time * Monitor serial PRP (2) Chronic kidney disease with active medical management without dialysis, stage 3 (moderate): * Baseline creatinine 1.5-1.8 mg/dL (3) Acute diastolic heart failure: * Predominately R heart failure on exam. TTE consistent with this. LVEF preserved. * Clinically euvolemic. Will change to Bumex 3 mg IV BID (home regimen Bumex 3 mg po BID) * Continue fluid restriction of 1 L daily and dietary sodium restriction (<2000 mg daily) enforced (4) Ischemic cardiomyopathy: * Quiescent (5) Anemia: * Chronic, stable. Hgb >10. No role for EUSEBIO therapy at this time. (6) Cellulitis of leg, right: * IV Unasyn as per primary service Admission and Anticipated Discharge Date Admission Date: September 12, 2020 Subjective Mr. Bauer was seen & examined in his hospital room this morning. He reports that his LE swelling has resolved. He is breathing comfortably flat in bed on O2 NC. He voices no new medical concerns Review of Systems Constitutional: + weakness; no fever Eyes: no problem reported Ear, Nose, Mouth, Throat: no problem reported Respiratory: + dyspnea on exertion Cardiovascular: no chest pain, no palpitations and no edema Gastrointestinal: no abdominal pain, no nausea and no diarrhea/loose stools Genitourinary: no dysuria, no urinary hesitancy and no hematuria Musculoskeletal: no back pain Integumentary: no rash Neurologic: no falls and no dizziness Physical Exam Constitutional: not in distress Eyes: PERRL, conjunctivae normal, anicteric sclerae ENMT: external ear and nose normal, oropharynx normal Neck: trachea midline, no thyromegaly Respiratory: normal respiratory effort, lungs clear to auscultation Cardiovascular: Rate/Rhythm: regular rate and regular rhythm Pretibial edema has resolved. Patient has wrinkling of the skin of both legs. R LE remains wrapped Gastrointestinal (Abdomen): normal bowel sounds, soft, nontender, no hepatosplenomegaly Musculoskeletal: Extremities: no cyanosis Skin: no rashes, warm and dry Neurologic: awake; not confused Results & Data ([facility]) Vital Signs (Past 12 Hours) Vital Signs Temp Pulse Pulse Resp BP Pulse Ox 09/16/20 07:46 37.0 C 86 20 135/74 93 09/16/20 03:38 36.4 C L 79 19 120/74 91 09/15/20 23:56 82 09/15/20 23:30 36.6 C 82 18 117/74 97 Laboratory Results Laboratory Tests 09/16/20 09/16/20 06:59 06:59 WBC 10.66 Hgb 9.7 L Hct 30.7 L Plt Count 234 Sodium 132 L Potassium 3.4 L D Chloride 92 L Carbon Dioxide 32 BUN 85 H Creatinine 2.62 H Glucose 149 H PG Care Time/CCT Total # of Minutes Spent Total Time Spent with Patient: Total time spent is greater than 50% in coordination of care (as documented) at patient's floor/unit and/or counseling patient: Coding Level of Care Code 35063 Subseq Hosp Care Lvl 3 Diagnoses Acute kidney injury superimposed on chronic kidney disease N17.9; N18.9 Chronic kidney disease with active medical management without dialysis, stage 3 (moderate) N18.30 Acute diastolic heart failure I50.31 Ischemic cardiomyopathy I25.5 Anemia D64.9 Cellulitis of leg, right L03.115
[2020-09-16] MEDS: DAPTOmycin 350 MG in SYRINGE 0 ML IV SCH (13:15)
[2020-09-16] MEDS: BUMETANIDE 3 MG in SYRINGE 0 ML IV SCH (18:16)
--- NOTE | 2020-09-16 18:49 | Billing Data ---
Date of Service September 16, 2020 Coding Level of Care Code 09829 Subseq Hosp Care Lvl 3
[2020-09-16] MEDS: INSULIN GLARGINE SOLOSTAR 100 UNITS/ML 3 ML PEN SC SCH (20:44)
[2020-09-17] MEDS: AMPICILLIN/SULBACTAM SOD 3,000 MG in 0.9 % SODIUM CHLORIDE 100 ML IV SCH ×2 (00:57→05:37)
[2020-09-17] MEDS: oxyCODONE HCL IR 5 MG TAB (IMMEDIATE RELEASE) PO PRN ×2 (05:40→11:41)
[2020-09-17] MEDS ORDERED: POLYETHYLENE (MIRALAX) 17 GM PACK PO PRN (05:56)
[2020-09-17 06:44] LABS: Hematocrit (blood only) 31.2 % (42-52); Hemoglobin 9.9 g/dL (14.0-18.0); Mean Corpuscular Hemoglobin 29.1 pg (25-34); Mean Corpuscular Hgb Conc 31.7 g/dL (32-36); Mean Corpuscular Volume 91.8 fL (80-100); Mean Platelet Volume 9.5 fL (7.4-10.4); Platelet Count 222 K/uL (130-400); RDW Coefficient of Variation 17.1 % (11.5-14.5); RDW Standard Deviation 56.1 fL (36.4-46.3); White Blood Count 11.34 K/uL (4.8-10.8)
[2020-09-17 07:18] LABS: BUN Creatinine Ratio 30.1 (10-20); Calcium 8.9 mg/dl (8.5-10.1); Creatinine Clr Calc Pharmacy 28.2 ml/min; Est GFR (African American) 25.1; Est GFR (Non-African American) 21.7; Magnesium 2.9 mg/dl (1.8-2.4); Potassium 3.7 mmol/L (3.5-5.1)
[2020-09-17] MEDS: MULTIVITAMIN TAB PO SCH (08:29)
[2020-09-17] MEDS: FLUTICASONE FUROATE 100MCG 14 PUFFS/INHALER INH SCH (08:29)
[2020-09-17] MEDS: UMECLIDINIUM/VILANTEROL 62.5/25MCG 7 PUFFS/INHALER INH SCH (08:29)
[2020-09-17] MEDS: METOPROLOL TARTRATE 25 MG TAB PO SCH ×2 (08:29→20:54)
[2020-09-17] MEDS: BUMETANIDE 3 MG in SYRINGE 0 ML IV SCH (08:29)
[2020-09-17] MEDS: TERBINAFINE CR 30 GM TUBE EXT SCH ×2 (08:30→20:49)
[2020-09-17] MEDS: INSULIN ASPART 100 UNITS/ML 3 ML PEN SC SCH ×4 (08:30→20:54)
[2020-09-17] MEDS: HEPARIN SOD 5,000 UNIT/0.5 ML VIAL SQ SCH ×2 (08:30→20:49)
--- NOTE | 2020-09-17 09:58 | Nephrology Progress Note ---
Date of Service September 17, 2020 Assessment & Plan (1) Acute kidney injury superimposed on chronic kidney disease: * Non-oliguric PROSPER c/w acute CRS. R volume overload noted on 09/13/20 echocardiogram. Patient admitted w/ progressive LE swelling and cellulitis * US negative for obstruction * Urine microscopy acellular * Patient is now euvolemic. Creatinine continues to slowly trend upward. Electrolyte balance is acceptable. 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 Will hold diuretic today * Monitor serial PRP (2) Chronic kidney disease with active medical management without dialysis, stage 3 (moderate): * Baseline creatinine 1.5-1.8 mg/dL (3) Acute diastolic heart failure: * Predominately R heart failure on exam. TTE consistent with this. LVEF preserved. * Clinically euvolemic. Hold diuretic today (home regimen Bumex 3 mg po BID) * Continue fluid restriction of 1 L daily and dietary sodium restriction (<2000 mg daily) enforced (4) Ischemic cardiomyopathy: * Quiescent (5) Anemia: * Chronic, stable. Hgb >10. No role for EUSEBIO therapy at this time. (6) Cellulitis of leg, right: * IV antibiotic therapy as per primary service Admission and Anticipated Discharge Date Admission Date: September 12, 2020 Subjective Mr. Bauer was seen & examined in his hospital room this morning. He reports that his LE swelling has resolved. He is breathing comfortably flat in bed on O2 NC. He voices no new medical concerns Review of Systems Constitutional: + weakness; no fever Eyes: no problem reported Respiratory: + dyspnea on exertion Cardiovascular: no chest pain Gastrointestinal: no abdominal pain Genitourinary: no dysuria and no hematuria Integumentary: + rash Physical Exam Constitutional: not in distress Eyes: PERRL, conjunctivae normal, anicteric sclerae ENMT: external ear and nose normal, oropharynx normal Neck: trachea midline, no thyromegaly Respiratory: normal respiratory effort, lungs clear to auscultation Cardiovascular: Rate/Rhythm: regular rate and regular rhythm Extremities: no edema (LE edema has resolved. RLE remains wrapped) Gastrointestinal (Abdomen): normal bowel sounds, soft, nontender, no hepatosplenomegaly Neurologic: awake; not confused Results & Data ([facility]) Vital Signs (Past 12 Hours) Vital Signs Temp Pulse Pulse Resp BP Pulse Ox 09/17/20 07:45 36.9 C 83 18 124/79 97 09/17/20 07:13 89 09/17/20 03:39 36.6 C 86 18 128/77 97 09/16/20 23:11 75 09/16/20 22:20 36.5 C 85 18 124/72 98 Laboratory Results Laboratory Tests 09/17/20 09/17/20 06:00 06:00 WBC 11.34 H Hgb 9.9 L Hct 31.2 L Plt Count 222 Sodium 134 L Potassium 3.7 Chloride 91 L Carbon Dioxide 31 BUN 83 H Creatinine 2.77 H Glucose 127 H PG Care Time/CCT Total # of Minutes Spent Total Time Spent with Patient: Total time spent is greater than 50% in coordination of care (as documented) at patient's floor/unit and/or counseling patient: Coding Level of Care Code 50674 Subseq Hosp Care Lvl 3 Diagnoses Acute kidney injury superimposed on chronic kidney disease N17.9; N18.9 Chronic kidney disease with active medical management without dialysis, stage 3 (moderate) N18.30 Acute diastolic heart failure I50.31 Ischemic cardiomyopathy I25.5 Anemia D64.9 Cellulitis of leg, right L03.115
[2020-09-17] MEDS ORDERED: ALBUT/IPRATROP 3MG/0.5MG NEB 3 ML VIAL NEB PRN (10:23)
[2020-09-17] MEDS: DAPTOmycin 350 MG in SYRINGE 0 ML IV SCH (11:42)
--- NOTE | 2020-09-17 13:26 | Hospitalist Progress Note ---
Date of Service September 17, 2020 Assessment & Plan (1) Cellulitis of leg, right: 75 yo M PMHx CKD, diastolic HF, COPD, CAD with ischemic cardiomyopathy, HTN, DM2 not well controlled admitted for acute hypoxemic respiratory failure and bilateral LE cellulitis/swelling. Acute hypoxic respiratory failure in patient with acute on chronic diastolic HF: improving - On admission with hypoxia requiring supplemental O2, at highest requiring Oxymask 8L. - BNP 45546, with lung and extremity exam suggestive of fluid overload - No change from previous Echo, EF 50-55% with RV volume overload. - Low Sodium heart healthy diet with 1500mL fluid restriction. - Bumex discontinued yesterday, converted to Bumex 4 mg TID. WIll switch to PO bumex today in setting of increasing creatinine and ability to tolerate PO. Acute renal failure on CKD due to CardioRenal Syndrome: -baseline Creatitine 8 months ago 1.8. 2.77 today with concern for increased baseline and worsened baseline disease. - Renal ultrasound negative, no indication for ATN - No casts in urine suggestive of ATN. - appreciate Nephrology's continuing recommendations - Holding renal toxic medications, renally dosing medications otherwise. Bilateral LE cellulitis and open wounds: - On arrival patient with bilateral LE swelling and cellulitis with R>L erythema and RLE open wounds that are painful. - BCx x2 drawn, negative to date. - started on Unasyn without improvement, discotinued. - wounds mildly improved with daptomycin addition, drying of previous oozing wounds - Wound care nurse consult placed. - Wound culture negative for abnormal growth - venous stasis skin changes likely under wounds and contributing to delayed healing History of anemia with epistaxis:resolved - Hgb 11.4 -> 10.4 in the setting of acute nosebleed, which has since stopped Atrial fibrillation: - Held Eliquis in setting of nosebleed; however Patient refuses medication moving forward. - Rate controlled on metoprolol 25mg BID, continue. - Telemetry continues to be in AFib, no symptoms. DM2: - Lantus 18u HS with SSI, DM2 diet. - Hgb A1c this admission 8.6%; suggests poor control. - Will further discuss home medications and dietary modification following improvement in respiratory status. COPD: - Nebs q4h as needed. - Continue home fluticasone INH, umeclidinium/vilanterol. HLD: - Continue home atorvastatin. HTN: - Continue Bumex, metoprolol. Code Status: DNR/DNI FENGI: DM2, Heart Healthy, Low Sodium, fluid restriction 1000mL DVT ppx: Heparin 5000u q12h Dispo: Med/Surg with Telemetry Admission and Anticipated Discharge Date Admission Date: September 12, 2020 Supervising Physician Co-Signing Physician Notes I personally examined the patient and verified all marsh points of history and exam, discussed case, and agree with decision making with Dr Oconnor. breathing a little better legs doing better adamant that he doesn't want to go to rehab vitals noted nad heent nc at mmm lungs seem to be clear - somewhat subpar exam due to positioning and effort but no rales no rhonchi no wheeze good effort no accessory muscles. no ongoing noselbeeding. RLE erythema appearing to be improved. nursing noted at last dressing change ulcers were dry. epistaxis - appears to have resolved, probably did have a mild degree of acute blood loss anemia reflected by Hgb now vs at admission. continue to hold eliquis, follow. (ok to use DVT proph) acute on chronic HFpEF - seems to be improving - might be as dry as we can get him. notes that he lives on 4-5L at home. home dose of bumex and follow RLE cellulitis - chronic venous ulcers of R and L lower leg - had been on unasyn for 2 days minimal improvement. improved drastically on dapto. continue for now - probably transtiion to doxy once he's doing well enough for home. PROSPER - likely relates to CHF, follow w diuresis. concern on cardiorenal vs worsening of baseline CHF DM - acutely sugars overall reasonable - continue to titrate insulin management. 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 continue insulin management for now. follow. otherwise as above Subjective Describes his lower extremity swelling as improving. Less trouble breathing however back on oxymask today. no complaints otherwise. Review of Systems Constitutional: no fever, no chills, no body aches and no fatigue Respiratory: no cough and no dyspnea Cardiovascular: + edema; no chest pain and no dyspnea Integumentary: + rash, + non-healing lesions and + wounds Physical Exam Physical Exam: Pulm: CTA BL, mild end expiratory wheeze, no crackles or rhonchi throughout lung gibbons Card: afib, no mrg Extremity: bilateral skin changes mildly improved from yesterday, clinical counselor with less exudate and calmer erythema Results & Data Results & Data ([facility]) Vital Signs (Past 12 Hours) Vital Signs Temp Pulse Pulse Resp BP Pulse Ox 09/17/20 11:18 36.4 C L 90 20 122/81 95 09/17/20 07:45 36.9 C 83 18 124/79 97 09/17/20 07:13 89 09/17/20 03:39 36.6 C 86 18 128/77 97 Laboratory Results WBC 11.34 K/uL (4.8-10.8) H 09/17/20 06:00 RBC 3.40 M/uL (4.7-6.1) L 09/17/20 06:00 Hgb 9.9 g/dL (14.0-18.0) L 09/17/20 06:00 Hct 31.2 % (42-52) L 09/17/20 06:00 MCV 91.8 fL (80-100) 09/17/20 06:00 MCH 29.1 pg (25-34) 09/17/20 06:00 MCHC 31.7 g/dL (32-36) L 09/17/20 06:00 RDW Std Deviation 56.1 fL (36.4-46.3) H 09/17/20 06:00 RDW Coeff of Radha 17.1 % (11.5-14.5) H 09/17/20 06:00 Plt Count 222 K/uL (130-400) 09/17/20 06:00 MPV 9.5 fL (7.4-10.4) 09/17/20 06:00 Immature Gran % (Auto) 0.8 % 09/16/20 06:59 Neut % (Auto) 64.5 % 09/16/20 06:59 Lymph % (Auto) 9.2 % 09/16/20 06:59 [place] % (Auto) 17.2 % 09/16/20 06:59 Eos % (Auto) 7.8 % 09/16/20 06:59 Baso % (Auto) 0.5 % 09/16/20 06:59 Neut # (Auto) 6.88 K/uL (1.4-6.5) H 09/16/20 06:59 Lymph # (Auto) 0.98 K/uL (1.2-3.4) L 09/16/20 06:59 [place] # (Auto) 1.83 K/uL (0.11-0.59) H 09/16/20 06:59 Eos # (Auto) 0.83 K/uL (0-0.5) H 09/16/20 06:59 Baso # (Auto) 0.05 K/uL (0-0.2) 09/16/20 06:59 Immature Gran # (Auto) 0.09 K/uL (0.00-0.02) H 09/16/20 06:59 Absolute Nucleated RBC 0.02 K/uL (0-0) H 09/16/20 06:59 Nucleated RBC % (auto) 0.2 % 09/16/20 06:59 PT 13.0 Seconds (9.0-12.0) H 09/12/20 09:20 INR 1.2 (0.9-1.1) H 09/12/20 09:20 Sodium 134 mmol/L (136-145) L 09/17/20 06:00 Potassium 3.7 mmol/L (3.5-5.1) 09/17/20 06:00 Chloride 91 mmol/L (98-107) L 09/17/20 06:00 Carbon Dioxide 31 mmol/L (21-32) 09/17/20 06:00 Anion Gap 12.0 (3-11) H 09/17/20 06:00 BUN 83 mg/dl (7-18) H 09/17/20 06:00 Creatinine 2.77 mg/dl (0.6-1.4) H 09/17/20 06:00 Est Cr Clr Drug Dosing 28.2 ml/min 09/17/20 06:00 Est GFR ( Amer) 25.1 09/17/20 06:00 Est GFR (Non-Af Amer) 21.7 09/17/20 06:00 BUN/Creatinine Ratio 30.1 (10-20) H 09/17/20 06:00 Glucose 127 mg/dl (70-99) H 09/17/20 06:00 POC Glucose 161 mg/dl (70-99) H 09/17/20 11:34 Estimat Average Glucose 200 mg/dl 09/13/20 06:32 Hemoglobin A1c 8.6 % (4.5-5.6) H 09/13/20 06:32 Lactate 1.7 mmol/L (0.4-2.0) 09/12/20 09:39 Calcium 8.9 mg/dl (8.5-10.1) 09/17/20 06:00 Phosphorus 3.9 mg/dl (2.5-4.9) 09/14/20 06:05 Magnesium 2.9 mg/dl (1.8-2.4) H 09/17/20 06:00 Total Bilirubin 1.0 mg/dl (0.2-1) 09/12/20 09:20 AST 34 U/L (15-37) 09/12/20 09:20 ALT 35 U/L (12-78) 09/12/20 09:20 Alkaline Phosphatase 119 U/L (45-117) H 09/12/20 09:20 Total Creatine Kinase 87 U/L (39-308) 09/12/20 09:20 Troponin I 0.031 ng/ml (0-0.045) 09/12/20 09:20 NT-Pro-B Natriuret Pep 55417 pg/ml (0-900) H 09/13/20 06:32 Total Protein 8.2 gm/dl (6.4-8.2) 09/12/20 09:20 Albumin 2.9 gm/dl (3.4-5.0) L 09/14/20 06:05 Globulin 5.0 gm/dl (2.5-4.0) H 09/12/20 09:20 Albumin/Globulin Ratio 0.6 (0.9-2) L 09/12/20 09:20 Urine Color Yellow 09/12/20 12:09 Urine Appearance Clear (Clear) 09/12/20 12:09 Urine pH 5.0 (4.5-7.5) 09/12/20 12:09 Ur Specific [place] 1.016 (1.000-1.030) 09/12/20 12:09 Urine Protein 2+ (Negative) H 09/12/20 12:09 Urine Glucose (UA) Negative (Negative) 09/12/20 12:09 Urine Ketones Negative (Negative) 09/12/20 12:09 Urine Blood Trace (Negative) H 09/12/20 12:09 Urine Nitrite Negative (Negative) 09/12/20 12:09 Urine Bilirubin Negative (Negative) 09/12/20 12:09 Urine Urobilinogen Negative (Negative) 09/12/20 12:09 Ur Leukocyte Esterase Negative (Negative) 09/12/20 12:09 Urine WBC (Auto) 1-5 /hpf (0-5) 09/12/20 12:09 Urine RBC (Auto) 0-4 /hpf (0-4) 09/12/20 12:09 U Hyaline Cast (Auto) 1-5 /lpf (0-5) 09/12/20 12:09 U Epithel Cells (Auto) >30 /lpf (0-5) H 09/12/20 12:09 Urine Bacteria (Auto) Negative (Negative) 09/12/20 12:09 Ur Renal Epithelial Cell Not Reportable 09/12/20 12:09 Urine Mucus Present (None Prsent) A 09/12/20 12:09 Ur Random Creatinine 49.0 mg/dl 09/13/20 04:55 U Random Total Protein 98.6 mg/dl (0-11.9) H 09/13/20 04:55 Protein/Creatinin Ratio 2.0 (0-0.2) H 09/13/20 04:55 UOP: -2.2L for stay Resident Activity Tracking Resident Involvement: Resident Care Provided Care Provided: Adult Hospital Medicine
--- NOTE | 2020-09-17 17:18 | Billing Data ---
Date of Service September 17, 2020 Coding Level of Care Code 26115 Subseq Hosp Care Lvl 3
[2020-09-17] MEDS: POLYETHYLENE (MIRALAX) 17 GM PACK PO SCH (17:39)
[2020-09-17] MEDS: INSULIN GLARGINE SOLOSTAR 100 UNITS/ML 3 ML PEN SC SCH (20:50)
[2020-09-18 06:53] LABS: BUN Creatinine Ratio 28.4 (10-20); Creatinine Clr Calc Pharmacy 21.4 ml/min; Est GFR (African American) 17.8; Est GFR (Non-African American) 15.3; Potassium 3.8 mmol/L (3.5-5.1)
[2020-09-18] MEDS: ONDANSETRON INJ 2 MG/ML 2 ML VIAL IV PRN (07:41)
[2020-09-18] MEDS: POLYETHYLENE (MIRALAX) 17 GM PACK PO SCH (07:42)
[2020-09-18] MEDS: oxyCODONE HCL IR 5 MG TAB (IMMEDIATE RELEASE) PO PRN ×4 (07:42→22:50)
[2020-09-18] MEDS: FLUTICASONE FUROATE 100MCG 14 PUFFS/INHALER INH SCH (07:43)
[2020-09-18] MEDS: UMECLIDINIUM/VILANTEROL 62.5/25MCG 7 PUFFS/INHALER INH SCH (07:44)
[2020-09-18] MEDS: METOPROLOL TARTRATE 25 MG TAB PO SCH ×2 (07:45→20:43)
[2020-09-18] MEDS: MULTIVITAMIN TAB PO SCH (07:45)
[2020-09-18] MEDS: TERBINAFINE CR 30 GM TUBE EXT SCH ×2 (07:45→20:44)
--- NOTE | 2020-09-18 08:43 | XRay Report ---
XR chest 1V portable HISTORY: 75 years-old Male increased o2 demand acute hypoxia COMPARISON: Chest radiograph 09/12/2020 TECHNIQUE: Portable AP view of the chest FINDINGS: Moderate cardiomegaly. Prior median sternotomy and CABG. No pneumothorax. Pulmonary vascular congesti on with unchanged interstitial coarsening. Small pleural effusions with bibasilar opacities. Degenera tive changes of the shoulders and spine. IMPRESSION: 1. Cardiomegaly with persistent pulmonary edema. 2. Small pleural effusions with mild bibasilar opacities ACT 112: Negative or not required by law. The above report was generated using voice recognition software. It may contain grammatical, syntax o r spelling errors. Electronically signed by: Blair Chowdary M.D. 09/18/2020 8:42 AM
[2020-09-18] MEDS: INSULIN ASPART 100 UNITS/ML 3 ML PEN SC SCH ×4 (08:48→20:45)
[2020-09-18] MEDS: HEPARIN SOD 5,000 UNIT/0.5 ML VIAL SQ SCH ×2 (08:49→20:46)
[2020-09-18] MEDS ORDERED: BUMETANIDE 1 MG TAB PO SCH (09:00)
[2020-09-18] MEDS ORDERED: SODIUM CHLORIDE 0.9% 1000ML 1,000 ML IV SCH (09:30)
--- NOTE | 2020-09-18 09:33 | Nephrology Progress Note ---
Date of Service September 18, 2020 Assessment & Plan (1) Acute kidney injury superimposed on chronic kidney disease: * Non-oliguric PROSPER c/w acute CRS. R volume overload noted on 09/13/20 echocardiogram. Patient admitted w/ progressive LE swelling and cellulitis * US negative for obstruction * Urine microscopy acellular * Patient is now clinically volume contracted. Creatinine continues to slowly trend upward. Electrolyte balance is acceptable. 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 TTE consistent with this. LVEF preserved. * Clinically euvolemic. Hold diuretic today (home regimen Bumex 3 mg po BID) (4) Ischemic cardiomyopathy: * Quiescent (5) Anemia: * Chronic, stable. Hgb ~10. No role for EUSEBIO therapy at this time. (6) Cellulitis of leg, right: * Day #6 IV antibiotic therapy. Consider changing to oral regimen Admission and Anticipated Discharge Date Admission Date: September 12, 2020 Subjective Mr. Bauer was seen & examined in his hospital room this morning. His LE swelling has resolved. He is breathing comfortably on O2 NC. He voices no new medical concerns Review of Systems Constitutional: + weakness; no fever Eyes: no problem reported Ear, Nose, Mouth, Throat: no problem reported Respiratory: + dyspnea on exertion Cardiovascular: no chest pain and no edema Gastrointestinal: no abdominal pain, no vomiting and no diarrhea/loose stools Genitourinary: no dysuria, no urinary hesitancy and no hematuria Musculoskeletal: no back pain Integumentary: + rash Neurologic: no falls and no dizziness Physical Exam Constitutional: not in distress Eyes: PERRL, conjunctivae normal, anicteric sclerae ENMT: external ear and nose normal, oropharynx normal Neck: trachea midline, no thyromegaly Respiratory: normal respiratory effort, lungs clear to auscultation Cardiovascular: Rate/Rhythm: regular rate and regular rhythm Extremities: no edema (LE edema has resolved. RLE remains wrapped) Gastrointestinal (Abdomen): normal bowel sounds, soft, nontender, no hepatospl enomegaly Musculoskeletal: Extremities: no cyanosis Skin: no rashes, warm and dry Neurologic: awake; not confused Results & Data ([facility]) Vital Signs (Past 12 Hours) Vital Signs Temp Pulse Pulse Resp BP BP Pulse Ox 09/18/20 07:55 36.7 C 64 20 122/74 95 09/18/20 03:35 36.7 C 79 18 127/75 97 09/18/20 00:26 72 09/17/20 23:28 36.5 C 76 18 120/79 97 Laboratory Results Laboratory Tests 09/18/20 05:43 Sodium 133 L Potassium 3.8 Chloride 90 L Carbon Dioxide 33 H BUN 105 H Creatinine 3.69 H D Glucose 76 PG Care Time/CCT Total # of Minutes Spent Total Time Spent with Patient: Total time spent is greater than 50% in coordination of care (as documented) at patient's floor/unit and/or counseling patient: Coding Level of Care Code 46745 Subseq Hosp Care Lvl 3 Diagnoses Acute kidney injury superimposed on chronic kidney disease N17.9; N18.9 Chronic kidney disease with active medical management without dialysis, stage 3 (moderate) N18.30 Acute diastolic heart failure I50.31 Ischemic cardiomyopathy I25.5 Anemia D64.9 Cellulitis of leg, right L03.115
--- NOTE | 2020-09-18 12:31 | Hospitalist Progress Note ---
Date of Service September 18, 2020 Assessment & Plan (1) Cellulitis of leg, right: 75 yo M PMHx CKD, diastolic HF, COPD, CAD with ischemic cardiomyopathy, HTN, DM2 not well controlled admitted for acute hypoxemic respiratory failure and bilateral LE cellulitis/swelling. Acute hypoxic respiratory failure in patient with acute on chronic diastolic HF: improving - On admission with hypoxia requiring supplemental O2, at highest requiring Oxymask 8L. - Saturating well on 6LNC this afternoon on team interview, was on Oxymask overnight for comfort as opposed to dyspnea. Acute on chronic HFpEF - BNP 46530, with lung and extremity exam suggestive of fluid overload - No change from previous Echo, EF 50-55% with RV volume overload. - Low Sodium heart healthy diet with 1000mL fluid restriction. - Bumex held today due to worsening PROSPER, will continue to monitor respiratory status given fluid repletion 1L as below. Acute renal failure on CKD: - Baseline Creatinine 8 months ago 1.8. - 09/17 was 2.77 despite fairly dry exam. Bumex held yesterday afternoon. - Today with creatinine 3.69 despite holding Bumex yesterday afternoon. - EKG without changes, potassium level normal, UO 700mL in 24 hours -> no indication for dialysis at this time. - Renal ultrasound negative. - No casts in urine suggestive of ATN. - Appreciate Nephrology's continuing recommendations -> initially due to CRS, now appears to be some prerenal component. - Will give 1L NSS - Holding renal toxic medications, renally dosing medications otherwise. - Repeat BMP AM. Bilateral LE cellulitis and open wounds: - On arrival patient with bilateral LE swelling and cellulitis with R>L erythema and RLE open wounds that are painful. - Venous stasis contributory to delayed skin healing. - Wound culture with multiple jihan in small numbers. - BCx x2 drawn, negative to date. - Started on Unasyn on admission without significant improvement, fairly significant improvement following start of Daptomycin. - Unasyn d/c'ed yesterday after 6 days of treatment. - Continue wound care by wound care nursing. History of anemia with epistaxis: resolved - Hgb 11.4 -> 10.4 in the setting of acute nosebleed, which has since stopped. - Patient refuses Eliquis as below due to epistaxis. Atrial fibrillation: - Rate controlled on metoprolol 25mg BID, continue. - Telemetry continues to be in AFib, no symptoms. - Held Eliquis in setting of nosebleed; however Patient refuses medication moving forward. - Had extensive discussion with team and with Mr. Bauer today about Eliquis treatment moving forward. Educated patient that his ChadsVasc score gives hi ma 10% risk of CVA, and that CVA can be debilitating and even cause . Patient continues to refuse Eliquis despite this education, and understands that not taking Eliquis puts him at significantly increased risk of CVA. DM2: - Increasing Lantus to 25u qHS with SSI, DM2 diet. - Hgb A1c this admission 8.6%; suggests poor control. - Holding glipizide in setting of PROSPER. - Will require medication dose changes (likely to Lantus dosing) prior to d/c for tighter glucose control. COPD: - Nebs q4h as needed. - Continue home fluticasone INH, umeclidinium/vilanterol. HLD: - Continue home atorvastatin. HTN: - Continue Bumex, metoprolol. Code Status: DNR/DNI FENGI: DM2, Heart Healthy, Low Sodium, fluid restriction 1000mL DVT ppx: Heparin 5000u q12h Dispo: Med/Surg with Telemetry for continued monitoring for vitals and EKG changes in the setting of current treatment of hypoxic respiratory failure and PROSPER Admission and Anticipated Discharge Date Admission Date: September 12, 2020 Supervising Physician Co-Signing Physician Notes Resident Physician Supervision Note: I independently interviewed and examined the patient and verified the marsh history and physical, reviewed labs and image studies, discussed the case with the resident Dr. Oconnor and agree with the findings and care plan. Subjective Patient without acute events overnight. States that he feels comfortable on 6LNC while eating breakfast and again this afternoon on repeat visit. Denies chest pain, abdominal pain, fevers or chills, nausea or vomiting. Reports that his RLE pain is significantly improved as compared to admission. Review of Systems Review of Systems: All systems reviewed & are unremarkable except as noted in Subjective Constitutional: no fever and no chills Respiratory: + dyspnea on exertion; no cough and no wheezing Cardiovascular: no chest pain, no palpitations and no edema Gastrointestinal: no abdominal pain, no nausea, no vomiting, no constipation and no diarrhea/loose stools Genitourinary: no dysuria and no hematuria Physical Exam Constitutional: well developed and + obese; no acute distress Eyes: + anicteric sclerae; no corneal abnormality ENMT: Mouth: no oral mucosal abnormality and oral mucous membranes not dry Neck: normal visual inspection and trachea midline Respiratory: normal respiratory effort, lungs clear to auscultation Normal respiratory rate, saturating to 98% on 6LNC Cardiovascular: Rate/Rhythm: + irregularly irregular Heart Sounds: no murmur Extremities: no calf tenderness HR irregularly irregular Gastrointestinal (Abdomen): normal bowel sounds, soft, nontender, no hepatosplenomegaly Musculoskeletal: Extremities: no cyanosis and no clubbing Skin: + lesion (RLE wrapped, erythema has receded significantly from last visualization Fri) Neurologic: moves all extremities Motor/Sensory: no tremor and no asterixis Psychiatric: Orientation: alert and oriented x 3 Affect: euthymic affect Results & Data Results & Data ([facility]) Vital Signs (Past 12 Hours) Vital Signs Temp Pulse Pulse Resp BP BP Pulse Ox 09/18/20 11:29 36.5 C 71 20 107/65 97 09/18/20 08:00 69 09/18/20 07:55 36.7 C 64 20 122/74 95 09/18/20 03:35 36.7 C 79 18 127/75 97 Resident Activity Tracking Resident Involvement: Resident Care Provided Care Provided: Adult Hospital Medicine
[2020-09-18 14:19] LABS: Appearance Urine Cloudy (Clear); Bilirubin Urine Negative (Negative); Blood Urine Negative (Negative); Color Urine Dark Yellow; Glucose Urine UA Negative (Negative); Ketones Urine Negative (Negative); Leukocyte Esterase Urine Negative (Negative); Nitrite Urine Negative (Negative); Protein Urine 2+ (Negative); RBC Urine Automated 0-4 /hpf (0-4); Specific Gravity Urine 1.019 (1.000-1.030); Urobilinogen Urine Negative (Negative)
[2020-09-18 14:37] LABS: Mucus Urine Present (None Prsent)
[2020-09-18 14:38] LABS: Bacteria Urine Automated 1+ (Negative)
[2020-09-18] MEDS: INSULIN GLARGINE SOLOSTAR 100 UNITS/ML 3 ML PEN SC SCH (20:45)
[2020-09-18] MEDS: POLYETHYLENE (MIRALAX) 17 GM PACK PO PRN (22:51)
[2020-09-19 06:21] LABS: Hematocrit (blood only) 32.9 % (42-52); Hemoglobin 10.4 g/dL (14.0-18.0); Mean Corpuscular Hemoglobin 28.8 pg (25-34); Mean Corpuscular Hgb Conc 31.6 g/dL (32-36); Mean Corpuscular Volume 91.1 fL (80-100); Mean Platelet Volume 9.7 fL (7.4-10.4); Platelet Count 260 K/uL (130-400); RDW Coefficient of Variation 16.8 % (11.5-14.5); RDW Standard Deviation 55.8 fL (36.4-46.3); Red Blood Count 3.61 M/uL (4.7-6.1); White Blood Count 12.21 K/uL (4.8-10.8)
[2020-09-19 07:25] LABS: BUN Creatinine Ratio 24.2 (10-20); Calcium 8.6 mg/dl (8.5-10.1); Creatinine Clr Calc Pharmacy 15.8 ml/min; Est GFR (African American) 12.3; Est GFR (Non-African American) 10.6
[2020-09-19] MEDS: FLUTICASONE FUROATE 100MCG 14 PUFFS/INHALER INH SCH (07:52)
[2020-09-19] MEDS: METOPROLOL TARTRATE 25 MG TAB PO SCH ×2 (07:52→21:56)
[2020-09-19] MEDS: MULTIVITAMIN TAB PO SCH (07:53)
[2020-09-19] MEDS: POLYETHYLENE (MIRALAX) 17 GM PACK PO SCH (07:53)
[2020-09-19] MEDS: TERBINAFINE CR 30 GM TUBE EXT SCH ×2 (07:54→21:55)
[2020-09-19] MEDS: UMECLIDINIUM/VILANTEROL 62.5/25MCG 7 PUFFS/INHALER INH SCH (07:54)
[2020-09-19] MEDS: oxyCODONE HCL IR 5 MG TAB (IMMEDIATE RELEASE) PO PRN ×3 (07:57→21:54)
[2020-09-19] MEDS: HEPARIN SOD 5,000 UNIT/0.5 ML VIAL SQ SCH ×2 (08:44→21:54)
[2020-09-19] MEDS: INSULIN ASPART 100 UNITS/ML 3 ML PEN SC SCH ×4 (08:45→21:56)
--- NOTE | 2020-09-19 09:16 | Hospitalist Progress Note ---
Date of Service September 19, 2020 Assessment & Plan (1) Cellulitis of leg, right: 75 yo M PMHx CKD, diastolic HF, COPD, CAD with ischemic cardiomyopathy, HTN, DM2 not well controlled admitted for acute hypoxemic respiratory failure and bilateral LE cellulitis/swelling. Acute hypoxic respiratory failure in patient with acute on chronic diastolic HF: - On admission with hypoxia requiring supplemental O2, at highest requiring Oxymask 8L. - Saturating well on 5LNC this morning which is his baseline requirement at home. Acute on chronic diastolic HF - BNP 17774, with lung and extremity exam suggestive of fluid overload - No change from previous Echo, EF 50-55% with RV volume overload. - Low Sodium heart healthy diet with 1000mL fluid restriction. - Diuresed ~3L initially - concern of overdiuresis. Has received IV hydration since then. - Continue to hold Bumex given PROSPER, Acute renal failure on CKD: - Baseline Creatinine 8 months ago 1.8. - 09/17 was 2.77 despite fairly dry exam. - Today with creatinine 4.99 despite holding Bumex for 36 hours. - EKG without changes, potassium level 4.3, UO ~700mL in 24 hours with net negative 1190mL this admission -> no indication for dialysis at this time. - Since admission patient has lost about 4kg body weight. - Renal ultrasound negative for obstruction. - No casts in urine suggestive of ATN. - Appreciate Nephrology's continuing recommendations -> initially due to CRS, then prerenal component due to overdiuresis. - Holding renal toxic medications, renally dosing medications. - Continue to hold Bumex. - Hold off on giving more fluid at this time as patient is euvolemic. - Repeat BMP AM. Bilateral LE cellulitis and open wounds: - On arrival patient with bilateral LE swelling and cellulitis with R>L erythema and RLE open wounds that are painful. - Venous stasis contributory to delayed skin healing. - Wound culture with multiple jihan in small numbers. - BCx x2 drawn, negative to date. - Started on Unasyn on admission without significant improvement, fairly significant improvement following start of Daptomycin. - Unasyn d/c'ed 09/17 after 6 days of treatment. - Continue wound care by wound care nursing. History of anemia with epistaxis: resolved - Hgb 11.4 -> 10.4 in the setting of acute nosebleed, which has since stopped. - Patient refuses Eliquis as below due to epistaxis. Atrial fibrillation: - Held Eliquis in setting of nosebleed; however Patient refuses medication moving forward. - Rate controlled on metoprolol 25mg BID, continue. - Telemetry continues to be in AFib, no symptoms. - Had extensive discussion with team and with Mr. Bauer today about Eliquis treatment moving forward. Educated patient that his ChadsVasc score gives him a 10% risk of CVA, and that CVA can be debilitating and even cause . Patient continues to refuse Eliquis despite this education, and understands that not taking Eliquis puts him at significantly increased risk of CVA. DM2: - Continue Lantus to 25u qHS with SSI, DM2 diet. - Hgb A1c this admission 8.6%; suggests poor control. - Holding glipizide in setting of PROSPER. - Will require medication dose changes (likely to Lantus dosing) prior to d/c for tighter glucose control. COPD: - Nebs q4h as needed. - Continue home fluticasone INH, umeclidinium/vilanterol. HLD: - Continue home atorvastatin. HTN: - Continue Bumex, metoprolol. Code Status: DNR/DNI FENGI: DM2, Heart Healthy, Low Sodium, fluid restriction 1000mL DVT ppx: Heparin 5000u q12h Dispo: Med/Surg with Telemetry for continued monitoring for vitals and EKG changes in the setting of current treatment of hypoxic respiratory failure and PROSPER Admission and Anticipated Discharge Date Admission Date: September 12, 2020 Supervising Physician Co-Signing Physician Notes Resident Physician Supervision Note: I independently interviewed and examined the patient and verified the marsh history and physical, reviewed labs and image studies, discussed the case with the resident Dr. Oconnor and agree with the findings and care plan. Subjective Patient asked for Miralax overnight for complaints of constipation. This AM does not feel short of breath, denies chest pain, nausea or vomiting. No fevers or chills. Vitals stable overnight and felt comfortable on home oxygen 5LNC. Is frustrated this morning over "his kidney numbers", which continue to climb. Review of Systems Review of Systems: All systems reviewed & are unremarkable except as noted in Subjective Constitutional: no fever, no chills and no malaise Respiratory: no cough and no dyspnea (as compared to baseline) Cardiovascular: no chest pain, no palpitations and no edema Gastrointestinal: + constipation; no abdominal pain and no diarrhea/loose stools Physical Exam Constitutional: well developed and + obese Eyes: PERRL, conjunctivae normal, anicteric sclerae ENMT: external ear and nose normal, oropharynx normal Neck: normal visual inspection Respiratory: normal respiratory effort, lungs clear to auscultation Cardiovascular: HR irregularly irregular, no murmurs Gastrointestinal (Abdomen): normal bowel sounds, soft, nontender, no hepatosplenomegaly Musculoskeletal: Extremities: no cyanosis and no clubbing Skin: + lesion RLE wrapped, decrease in purulent drainage compared to Friday Psychiatric: A+Ox3, euthymic affect Results & Data Results & Data ([facility]) Vital Signs (Past 12 Hours) Vital Signs Temp Pulse Pulse Resp BP BP Pulse Ox 09/19/20 07:47 36.8 C 99 H 20 125/74 92 09/19/20 07:28 75 09/19/20 04:00 36.5 C 80 18 115/76 95 09/18/20 23:57 36.3 C L 75 18 114/73 96 09/18/20 22:20 74 Resident Activity Tracking Resident Involvement: Resident Care Provided Care Provided: Adult Hospital Medicine
--- NOTE | 2020-09-19 10:09 | Nephrology Progress Note ---
Date of Service September 19, 2020 Assessment & Plan (1) Acute kidney injury superimposed on chronic kidney disease: * Non-oliguric PROSPER c/w acute CRS. R volume overload noted on 09/13/20 echocardiogram. Patient admitted w/ progressive LE swelling and cellulitis * US negative for obstruction * Urine microscopy acellular * Patient is now clinically volume contracted. Creatinine continues to slowly trend upward. Electrolyte balance is acceptable. 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 No casts reported. Proteinuria is on the basis of DM and R sided heart failure * Monitor serial PRP (2) Chronic kidney disease with active medical management without dialysis, stage 3 (moderate): * Baseline creatinine 1.5-1.8 mg/dL (3) Acute diastolic heart failure: * Predominately R heart failure on exam. TTE consistent with this. LVEF preserved. * Clinically euvolemic. Hold diuretic today (home regimen Bumex 3 mg po BID) (4) Ischemic cardiomyopathy: * Quiescent (5) Anemia: * Chronic, stable. Hgb ~10. No role for EUSEBIO therapy at this time. (6) Cellulitis of leg, right: * Patient has completed 7 days IV daptomycin therapy. Given worsening kidney function recommend changing to oral PCN based regimen Admission and Anticipated Discharge Date Admission Date: September 12, 2020 Subjective Mr. Bauer was seen & examined in his hospital room this morning. His LE swelling has resolved. He is breathing comfortably on O2 NC. He voices no new medical concerns Review of Systems Constitutional: + weakness; no fever Eyes: no problem reported Ear, Nose, Mouth, Throat: no problem reported Respiratory: + dyspnea on exertion Cardiovascular: no chest pain, no palpitations and no edema Gastrointestinal: no abdominal pain, no nausea and no diarrhea/loose stools Genitourinary: no dysuria, no urinary hesitancy and no hematuria Musculoskeletal: no back pain Integumentary: + rash Neurologic: no dizziness and no confusion Physical Exam Constitutional: not in distress Eyes: PERRL, conjunctivae normal, anicteric sclerae ENMT: external ear and nose normal, oropharynx normal Neck: trachea midline, no thyromegaly Respiratory: normal respiratory effort, lungs clear to auscultation Cardiovascular: Rate/Rhythm: regular rate and regular rhythm Extremities: no edema (LE edema has resolved. RLE remains wrapped) Gastrointestinal (Abdomen): normal bowel sounds, soft, nontender, no hepatosplenomegaly Musculoskeletal: Extremities: no cyanosis Skin: no rashes, warm and dry Neurologic: awake; not confused Results & Data ([facility]) Vital Signs (Past 12 Hours) Vital Signs Temp Pulse Pulse Resp BP BP Pulse Ox 09/19/20 07:47 36.8 C 99 H 20 125/74 92 09/19/20 07:28 75 09/19/20 04:00 36.5 C 80 18 115/76 95 09/18/20 23:57 36.3 C L 75 18 114/73 96 09/18/20 22:20 74 Laboratory Results Laboratory Tests 09/19/20 09/19/20 09/19/20 05:51 05:51 07:32 WBC 12.21 H Hgb 10.4 L Hct 32.9 L Plt Count 260 Sodium 128 L Potassium 4.5 D Chloride 88 L Carbon Dioxide 31 BUN 121 H Creatinine 4.99 H* D Glucose 181 H Laboratory Tests 09/13/20 09/18/20 04:55 13:25 Urine Color Dark Yellow Urine Appearance Cloudy A Urine pH 5.0 Ur Specific [place] 1.019 Urine Protein 2+ H Urine Glucose (UA) Negative Urine Blood Negative Urine RBC (Auto) 0-4 Protein/Creatinin Ratio 2.0 H PG Care Time/CCT Total # of Minutes Spent Total Time Spent with Patient: Total time spent is greater than 50% in coordination of care (as documented) at patient's floor/unit and/or counseling patient: Coding Level of Care Code 65254 Subseq Hosp Care Lvl 3 Diagnoses Acute kidney injury superimposed on chronic kidney disease N17.9; N18.9 Chronic kidney disease with active medical management without dialysis, stage 3 (moderate) N18.30 Acute diastolic heart failure I50.31 Ischemic cardiomyopathy I25.5 Anemia D64.9 Cellulitis of leg, right L03.115
[2020-09-19] MEDS ORDERED: DAPTOmycin 350 MG in SYRINGE 0 ML IV SCH (11:00)
[2020-09-19] MEDS: INSULIN GLARGINE SOLOSTAR 100 UNITS/ML 3 ML PEN SC SCH (21:55)
[2020-09-19] MEDS: DOXYCYCLINE HYCLATE 100 MG CAP PO SCH (21:57)
[2020-09-20] MEDS: POLYETHYLENE (MIRALAX) 17 GM PACK PO PRN (04:32)
[2020-09-20 06:15] LABS: Basophils # (auto) 0.06 K/uL (0-0.2); Basophils % (auto) 0.4 %; Eosinophils # (auto) 0.43 K/uL (0-0.5); Eosinophils % (auto) 3.2 %; Hematocrit (blood only) 33.1 % (42-52); Hemoglobin 10.7 g/dL (14.0-18.0); Immature Granulocytes # (auto) 0.36 K/uL (0.00-0.02); Immature Granulocytes % (auto) 2.7 %; Lymphocytes # (auto) 1.03 K/uL (1.2-3.4); Lymphocytes % (auto) 7.6 %; Mean Corpuscular Hemoglobin 29.2 pg (25-34); Mean Corpuscular Hgb Conc 32.3 g/dL (32-36); Mean Corpuscular Volume 90.2 fL (80-100); Mean Platelet Volume 9.3 fL (7.4-10.4); Monocytes # (auto) 1.75 K/uL (0.11-0.59); Monocytes % (auto) 12.9 %; Neutrophils # (auto) 9.93 K/uL (1.4-6.5); Neutrophils % (auto) 73.2 %; Nucleated RBC # (auto) 0.04 K/uL (0-0); Nucleated RBC % (auto) 0.3 %; Platelet Count 274 K/uL (130-400); RDW Coefficient of Variation 16.9 % (11.5-14.5); RDW Standard Deviation 54.9 fL (36.4-46.3); Red Blood Count 3.67 M/uL (4.7-6.1); White Blood Count 13.56 K/uL (4.8-10.8)
[2020-09-20 06:26] LABS: INR 1.3 (0.9-1.1); Prothrombin Time 13.9 Seconds (9.0-12.0)
[2020-09-20 07:02] LABS: Albumin Globulin Ratio 0.5 (0.9-2); Albumin Level 2.7 gm/dl (3.4-5.0); BUN Creatinine Ratio 24.4 (10-20); Bilirubin,Total 1.1 mg/dl (0.2-1); Creatinine Clr Calc Pharmacy 14.6 ml/min; Est GFR (African American) 11.3; Est GFR (Non-African American) 9.7; Potassium 4.4 mmol/L (3.5-5.1); Total Protein 7.7 gm/dl (6.4-8.2)
[2020-09-20] MEDS: ONDANSETRON INJ 2 MG/ML 2 ML VIAL IV PRN (08:30)
[2020-09-20] MEDS: oxyCODONE HCL IR 5 MG TAB (IMMEDIATE RELEASE) PO PRN ×2 (08:30→20:15)
[2020-09-20] MEDS: UMECLIDINIUM/VILANTEROL 62.5/25MCG 7 PUFFS/INHALER INH SCH (08:33)
[2020-09-20] MEDS: MULTIVITAMIN TAB PO SCH (08:33)
[2020-09-20] MEDS: FLUTICASONE FUROATE 100MCG 14 PUFFS/INHALER INH SCH (08:33)
[2020-09-20] MEDS: METOPROLOL TARTRATE 25 MG TAB PO SCH ×2 (08:34→20:13)
[2020-09-20] MEDS: TERBINAFINE CR 30 GM TUBE EXT SCH ×2 (08:34→20:11)
[2020-09-20] MEDS: DOXYCYCLINE HYCLATE 100 MG CAP PO SCH ×2 (08:34→20:13)
[2020-09-20] MEDS: HEPARIN SOD 5,000 UNIT/0.5 ML VIAL SQ SCH ×2 (08:35→20:12)
[2020-09-20] MEDS: POLYETHYLENE (MIRALAX) 17 GM PACK PO SCH (08:35)
[2020-09-20] MEDS: INSULIN ASPART 100 UNITS/ML 3 ML PEN SC SCH ×4 (08:36→21:37)
--- NOTE | 2020-09-20 10:12 | Hospitalist Progress Note ---
Date of Service September 20, 2020 Assessment & Plan (1) Cellulitis of leg, right: 75 yo M PMHx CKD, diastolic HF, COPD, CAD with ischemic cardiomyopathy, HTN, DM2 not well controlled admitted for acute hypoxemic respiratory failure and bilateral LE cellulitis/swelling. Acute hypoxic respiratory failure in patient with acute on chronic diastolic HF: - On admission with hypoxia requiring supplemental O2, at highest requiring Oxymask 8L. - Saturating well on 5LNC this morning which is his baseline requirement at home. Acute on chronic diastolic HF - BNP 32622, with lung and extremity exam suggestive of fluid overload - No change from previous Echo, EF 50-55% with RV volume overload. - Diuresed ~3L initially. - Continue to hold Bumex given PROSPER. - Low Sodium heart healthy diet with 1000mL fluid restriction. Acute renal failure on CKD: - Baseline Creatinine 8 months ago 1.8. - 09/17 was 2.77 despite fairly dry exam. - Today with creatinine 5.39 despite holding Bumex and gentle hydration with 1L NSS. - EKG without changes, potassium level 4.4, UO ~500mL in 24 hours with net negative 160mL this admission. - Since admission patient has lost about 3.5kg body weight. - Renal ultrasound negative for obstruction. - No casts in urine suggestive of ATN. - Appreciate Nephrology's continuing recommendations -> initially due to CRS, then suspected prerenal component due to overdiuresis. - Holding renal toxic medications, renally dosing medications. - Continue to hold Bumex. - Normosol 1000mL at rate of 80mL/hr for gentle hydration. - Repeat BMP AM. - Patient made aware today that if renal function continues to decline he may require dialysis; he is amenable to this if necessary. Bilateral LE cellulitis and open wounds: - On arrival patient with bilateral LE swelling and cellulitis with R>L erythema and RLE open wounds that are painful. - Venous stasis contributory to delayed skin healing. - Wound culture with multiple jihan in small numbers. - BCx x2 drawn, negative to date. - Started on Unasyn on admission without significant improvement, fairly significant improvement following start of Daptomycin. - Unasyn d/c'ed 09/17 after 6 days of treatment. - 09/19 d/c'ed daptomycin in favor of doxycycline BID. - Continue wound care by wound care nursing. History of anemia with epistaxis: resolved - Hgb 11.4 -> 10.7 in the setting of acute nosebleed, which has since stopped. - Patient refuses Eliquis as below due to epistaxis. Atrial fibrillation: - Held Eliquis in setting of nosebleed; however Patient refuses medication moving forward. - Rate controlled on metoprolol 25mg BID, continue. - Telemetry continues to be in AFib, no symptoms. - Had extensive discussion with team and with Mr. Bauer today about Eliquis treatment moving forward. Educated patient that his ChadsVasc score gives him a 10% risk of CVA, and that CVA can be debilitating and even cause . Patient continues to refuse Eliquis despite this education, and understands that not taking Eliquis puts him at significantly increased risk of CVA. Hyponatremia: - Suspected to be secondary to diuresis, PROSPER, low sodium diet. - Normosol as above. - Repeat BMP AM. DM2: - Continue Lantus to 25u qHS with SSI, DM2 diet. - Hgb A1c this admission 8.6%; suggests poor control. - Holding glipizide in setting of PROSPER. - Will require medication dose changes (likely to Lantus dosing) prior to d/c for tighter glucose control. COPD: - Nebs q4h as needed. - Continue home fluticasone INH, umeclidinium/vilanterol. HLD: - Continue home atorvastatin. HTN: - Holding Bumex, continue metoprolol. Code Status: DNR/DNI FENGI: DM2, Heart Healthy, Low Sodium, fluid restriction 1000mL DVT ppx: Heparin 5000u q12h Dispo: Med/Surg with Telemetry for continued monitoring for vitals and EKG changes in the setting of current treatment of hypoxic respiratory failure and PROSPER Admission and Anticipated Discharge Date Admission Date: September 12, 2020 Supervising Physician Co-Signing Physician Notes Resident Physician Supervision Note: I independently interviewed and examined the patient and verified the marsh history and physical, reviewed labs and image studies, discussed the case with the resident Dr. Oconnor and agree with the findings and care plan. Subjective Patient without acute events overnight. This AM comfortable eating breakfast during my interview and exam. Saturating well on baseline 5LNC. Reports feeling tired, and has some dyspnea with walking to the bathroom. Review of Systems Review of Systems: All systems reviewed & are unremarkable except as noted in HPI & below Constitutional: + fatigue; no fever and no chills Respiratory: + dyspnea (with walking to bathroom); no cough Cardiovascular: no chest pain, no palpitations and no edema Gastrointestinal: no abdominal pain, no constipation and no diarrhea/loose stools Physical Exam Constitutional: well developed and + obese Eyes: PERRL, conjunctivae normal, anicteric sclerae ENMT: external ear and nose normal, oropharynx normal Neck: normal visual inspection Respiratory: normal respiratory effort, lungs clear to auscultation saturating 94% on 5LNC Cardiovascular: Extremities: no edema HR irregularly irregular, no murmurs Gastrointestinal (Abdomen): normal bowel sounds, soft, nontender, no hepatosplenomegaly Musculoskeletal: Extremities: no cyanosis and no clubbing Skin: + lesion RLE wrapped, decrease in redness compared to previous ex aminations Psychiatric: A+Ox3, euthymic affect Results & Data Results & Data ([facility]) Vital Signs (Past 12 Hours) Vital Signs Temp Pulse Pulse Resp BP BP Pulse Ox 09/20/20 08:02 36.3 C L 71 20 116/71 94 09/20/20 04:00 36.8 C 76 18 111/74 93 09/20/20 00:00 36.9 C 67 72 18 124/79 97 Resident Activity Tracking Resident Involvement: Resident Care Provided Care Provided: Adult Hospital Medicine
--- NOTE | 2020-09-20 13:20 | Nephrology Progress Note ---
Date of Service September 20, 2020 Assessment & Plan (1) Acute kidney injury superimposed on chronic kidney disease: * Non-oliguric PROSPER c/w acute CRS. R volume overload noted on 09/13/20 echocardiogram. Patient admitted w/ progressive LE swelling and cellulitis * US negative for obstruction * Urine microscopy acellular * Patient is now clinically volume contracted. Creatinine continues to slowly trend upward. Electrolyte balance is acceptable. No acute indication for SYSTEMS SUPPORT SPECIALIST at this time * Continue to hold diuretics. Will provide gentle hydration w/ Normosol today * Urine sediment is nonnephritic. No casts reported. Proteinuria is on the basis of DM and R sided heart failure * Monitor serial PRP * If patient fails to stabilize w/ gentle hydration, may need to consider SYSTEMS SUPPORT SPECIALIST. Discussed in detail w/ patient today. He is accepting of HD if needed (2) Chronic kidney disease with active medical management without dialysis, stage 3 (moderate): * Baseline creatinine 1.5-1.8 mg/dL (3) Acute diastolic heart failure: * Predominately R heart failure on exam. TTE consistent with this. LVEF preserved. * Clinically euvolemic. Hold diuretic today (home regimen Bumex 3 mg po BID) (4) Ischemic cardiomyopathy: * Quiescent (5) Anemia: * Chronic, stable. Hgb ~10. No role for EUSEBIO therapy at this time. (6) Cellulitis of leg, right: * Daptomycin has been converted to oral doxycycline Admission and Anticipated Discharge Date Admission Date: September 12, 2020 Subjective Mr. Bauer was seen & examined in his hospital room this morning. His LE swelling has resolved. He is breathing comfortably on O2 NC. He voices no new medical concerns Review of Systems Constitutional: + weakness; no fever Eyes: no problem reported Ear, Nose, Mouth, Throat: no problem reported Respiratory: + dyspnea on exertion Cardiovascular: no chest pain, no palpitations and no edema Gastrointestinal: no abdominal pain, no nausea, no vomiting and no diarrhea/loose stools Genitourinary: no dysuria, no urinary hesitancy and no hematuria Musculoskeletal: no back pain Integumentary: + rash Neurologic: no dizziness and no confusion Physical Exam Constitutional: not in distress Eyes: PERRL, conjunctivae normal, anicteric sclerae ENMT: external ear and nose normal, oropharynx normal Neck: trachea midline, no thyromegaly Respiratory: normal respiratory effort, lungs clear to auscultation Cardiovascular: Rate/Rhythm: regular rate and regular rhythm Extremities: no edema (LE edema has resolved. RLE remains wrapped) Gastrointestinal (Abdomen): normal bowel sounds, soft, nontender, no hepatosplenomegaly Musculoskeletal: Extremities: no cyanosis Skin: no rashes, warm and dry Neurologic: awake; not confused Results & Data ([facility]) Vital Signs (Past 12 Hours) Vital Signs Temp Pulse Pulse Resp BP BP Pulse Ox 09/20/20 08:02 36.3 C L 71 20 116/71 94 09/20/20 08:00 72 09/20/20 04:00 36.8 C 76 18 111/74 93 Laboratory Results Laboratory Tests 09/20/20 09/20/20 05:51 05:51 WBC 13.56 H Hgb 10.7 L Hct 33.1 L Plt Count 274 Sodium 127 L Potassium 4.4 Chloride 87 L BUN 131 H Creatinine 5.38 H* D Glucose 108 H Laboratory Tests 09/20/20 05:51 INR 1.3 H PG Care Time/CCT Total # of Minutes Spent Total Time Spent with Patient: Total time spent is greater than 50% in coordination of care (as documented) at patient's floor/unit and/or counseling patient: Coding Level of Care Code 00443 Subseq Hosp Care Lvl 3 Diagnoses Acute kidney injury superimposed on chronic kidney disease N17.9; N18.9 Chronic kidney disease with active medical management without dialysis, stage 3 (moderate) N18.30 Acute diastolic heart failure I50.31 Ischemic cardiomyopathy I25.5 Anemia D64.9 Cellulitis of leg, right L03.115
[2020-09-20] MEDS ORDERED: NORMOSOL-R 1,000 ML IV SCH (13:30)
[2020-09-20] MEDS: INSULIN GLARGINE SOLOSTAR 100 UNITS/ML 3 ML PEN SC SCH (21:36)
[2020-09-21] MEDS: FLUTICASONE FUROATE 100MCG 14 PUFFS/INHALER INH SCH (08:01)
[2020-09-21] MEDS: UMECLIDINIUM/VILANTEROL 62.5/25MCG 7 PUFFS/INHALER INH SCH (08:02)
[2020-09-21] MEDS: METOPROLOL TARTRATE 25 MG TAB PO SCH ×2 (08:03→20:46)
[2020-09-21] MEDS: DOXYCYCLINE HYCLATE 100 MG CAP PO SCH ×2 (08:03→20:47)
[2020-09-21] MEDS: TERBINAFINE CR 30 GM TUBE EXT SCH ×2 (08:03→20:51)
[2020-09-21] MEDS: POLYETHYLENE (MIRALAX) 17 GM PACK PO SCH (08:03)
[2020-09-21] MEDS: MULTIVITAMIN TAB PO SCH (08:03)
[2020-09-21] MEDS: INSULIN ASPART 100 UNITS/ML 3 ML PEN SC SCH ×4 (08:24→20:50)
[2020-09-21] MEDS: HEPARIN SOD 5,000 UNIT/0.5 ML VIAL SQ SCH ×2 (08:27→20:47)
[2020-09-21 08:58] LABS: Basophils # (auto) 0.06 K/uL (0-0.2); Basophils % (auto) 0.5 %; Eosinophils % (auto) 6.3 %; Hematocrit (blood only) 32.5 % (42-52); Hemoglobin 10.4 g/dL (14.0-18.0); Immature Granulocytes # (auto) 0.32 K/uL (0.00-0.02); Immature Granulocytes % (auto) 2.5 %; Lymphocytes # (auto) 1.96 K/uL (1.2-3.4); Lymphocytes % (auto) 15.4 %; Mean Corpuscular Hemoglobin 28.6 pg (25-34); Mean Corpuscular Volume 89.3 fL (80-100); Mean Platelet Volume 9.8 fL (7.4-10.4); Monocytes # (auto) 0.59 K/uL (0.11-0.59); Monocytes % (auto) 4.6 %; Neutrophils # (auto) 9.01 K/uL (1.4-6.5); Neutrophils % (auto) 70.7 %; Platelet Count 291 K/uL (130-400); RDW Coefficient of Variation 17.2 % (11.5-14.5); RDW Standard Deviation 55.6 fL (36.4-46.3); Red Blood Count 3.64 M/uL (4.7-6.1); White Blood Count 12.74 K/uL (4.8-10.8)
[2020-09-21 09:34] LABS: Calcium 8.6 mg/dl (8.5-10.1); Est GFR (African American) 12.4; Est GFR (Non-African American) 10.7; Potassium 3.9 mmol/L (3.5-5.1)
--- NOTE | 2020-09-21 10:10 | Hospitalist Progress Note ---
Date of Service September 21, 2020 Assessment & Plan (1) Cellulitis of leg, right: 75 yo M PMHx CKD, diastolic HF, COPD, CAD with ischemic cardiomyopathy, HTN, DM2 not well controlled admitted for acute hypoxemic respiratory failure and bilateral LE cellulitis/swelling. Acute hypoxic respiratory failure in patient with acute on chronic diastolic HF: - On admission with hypoxia requiring supplemental O2, at highest requiring Oxymask 8L. - Saturating well on 5LNC which is his baseline requirement at home, without signs of fluid overload on lung exam. - With any exercise or walking patient requires both help from physical therapy as well as frequent standing breaks. Despite this, adamantly refuses acute rehab facility on discharge. Acute on chronic diastolic HF - Admission BNP 20596 with signs at that time of fluid overload. - No change from previous Echo, EF 50-55% with RV volume overload. - Diuresed ~3L initially. - Continue to hold Bumex given PROSPER; appears to have increased peripheral edema today however no pulmonary findings suggestive of fluid overload. - Low Sodium heart healthy diet with 1000mL fluid restriction. Acute renal failure on CKD: - Baseline Creatinine 8 months ago 1.8. - 09/17 was 2.77 despite fairly dry exam. - Today with creatinine 4.96, decreased from 5.39 yesterday after receiving 1L Normosol. - EKG without changes, potassium level 4.4, UO ~1100mL in 24 hours with net negative ~250mL this admission. - Since admission patient has lost about 3.kg body weight. - Renal ultrasound negative for obstruction. - No casts in urine suggestive of ATN. - Appreciate Nephrology's continuing recommendations -> initially due to CRS, then suspected prerenal component due to overdiuresis. - Holding renal toxic medications, renally dosing medications. - Continue to hold Bumex. - Repeat BMP AM. - Patient made aware that if renal function continues to decline he may require dialysis; he is amenable to this if necessary. Bilateral LE cellulitis and open wounds: - On arrival - bilateral LE swelling and cellulitis, R>L erythema and RLE open wounds that are painful. . - Venous stasis contributory to delayed skin healing. - Wound culture with multiple jihan in small numbers. - BCx x2 drawn, negative to date. - Started on Unasyn on admission without significant improvement, fairly significant improvement following start of Daptomycin. - Unasyn d/c'ed 09/17 after 6 days of treatment. - 09/19 d/c'ed daptomycin in favor of doxycycline BID. Can consider reescalation of antibiotics if patient's wounds worsen. - Continue wound care by wound care nursing. Today wound care noted RLE wound to be 5x5cm in size, which is significantly decreased. - Continue doxycycline. Goal of antibiotics to be about 2 weeks; to complete around 09/25. History of anemia with epistaxis: resolved - Hgb 11.4 -> 10.4 in the setting of nosebleed earlier in admission, which has since stopped. - Patient refuses Eliquis as below due to epistaxis. Atrial fibrillation: - Held Eliquis in setting of nosebleed; however Patient refuses medication moving forward. - Rate controlled on metoprolol 25mg BID, continue. - Telemetry continues to be in AFib, no symptoms. - Had extensive discussion with team and with Mr. Bauer this admission about Eliquis treatment moving forward. Educated patient that his ChadsVasc score gives him a 10% risk of CVA, and that CVA can be debilitating and even cause . Patient continues to refuse Eliquis despite this education, and underst ands that not taking Eliquis puts him at significantly increased risk of CVA. Continuing to decline resuming eliquis. Hyponatremia: - Na 129 today from 127 yesterday. - Suspected to be secondary to diuresis, PROSPER, low sodium diet. - Repeat BMP AM. DM2: - Continue Lantus to 25u qHS with SSI, DM2 diet. - Hgb A1c this admission 8.6%; suggests poor control. - Holding glipizide in setting of PROSPER. - Will require medication dose changes (likely to Lantus dosing) prior to d/c for tighter glucose control. COPD: - Nebs q4h as needed. - Continue home fluticasone INH, umeclidinium/vilanterol. HLD: - Continue home atorvastatin. HTN: - Holding Bumex, continue metoprolol. Code Status: DNR/DNI FENGI: DM2, Heart Healthy, Low Sodium, fluid restriction 1000mL DVT ppx: Heparin 5000u q12h Dispo: Med/Surg with Telemetry for continued monitoring for vitals and EKG changes in the setting of current treatment of hypoxic respiratory failure and PROSPER Admission and Anticipated Discharge Date Admission Date: September 12, 2020 Supervising Physician Co-Signing Physician Notes Resident Physician Supervision Note: I independently interviewed and examined the patient and verified the marsh history and physical, reviewed labs and image studies, discussed the case with the resident Dr. Oconnor and agree with the findings and care plan. Subjective Patient without acute events overnight. This AM denies SOB, chest pain, nausea or vomiting, feels tired, states his leg pain continues to improve but that he believes it looks redder today than last time he saw his RLE. Overnight had output of urine about 1100mL. Review of Systems Review of Systems: All systems reviewed & are unremarkable except as noted in HPI & below Constitutional: + fatigue; no fever and no chills Respiratory: + dyspnea on exertion; no cough Cardiovascular: no chest pain, no palpitations and no edema Gastrointestinal: no abdominal pain, no constipation and no diarrhea/loose stools Physical Exam Constitutional: well developed and + obese Eyes: PERRL, conjunctivae normal, anicteric sclerae ENMT: external ear and nose normal, oropharynx normal Neck: normal visual inspection Respiratory: normal respiratory effort, lungs clear to auscultation saturating 94% on 5LNC Cardiovascular: Extremities: no edema HR irregularly irregular, no murmurs Gastrointestinal (Abdomen): normal bowel sounds, soft, nontender, no hepatosplenomegaly Musculoskeletal: Extremities: no cyanosis and no clubbing Skin: + lesion RLE wrapped, Psychiatric: A+Ox3, euthymic affect Results & Data Results & Data ([facility]) Vital Signs (Past 12 Hours) Vital Signs Temp Pulse Pulse Resp BP BP Pulse Ox 09/21/20 08:07 36.7 C 69 18 109/72 98 09/21/20 04:36 36.5 C 60 18 115/74 96 09/20/20 23:21 36.4 C L 68 20 118/76 97 09/20/20 23:20 68 Resident Activity Tracking Resident Involvement: Resident Care Provided Care Provided: Adult Hospital Medicine
--- NOTE | 2020-09-21 10:13 | Nephrology Progress Note ---
Date of Service September 21, 2020 Assessment & Plan (1) Acute kidney injury superimposed on chronic kidney disease: * Non-oliguric PROSPER c/w acute CRS. R volume overload noted on 09/13/20 echocardiogram. Patient admitted w/ progressive LE swelling and cellulitis * US negative for obstruction * Urine microscopy acellular * Creatinine continues to slowly trend upward. Electrolyte balance is acceptable. Patient has no uremic symptoms. He remains nonoliguric. No acute indication for COIL WINDING MACHINES SET UP MECHANIC at this time * Urine sediment is nonnephritic. No casts reported. Proteinuria is on the basis of DM and R sided heart failure * Monitor serial PRP * If patient fails to stabilize, may need to consider COIL WINDING MACHINES SET UP MECHANIC. Discussed in detail w/ patient. He is accepting of HD if needed (2) Chronic kidney disease with active medical management without dialysis, stage 3 (moderate): * Baseline creatinine 1.5-1.8 mg/dL (3) Acute diastolic heart failure: * Predominately R heart failure on exam. TTE consistent with this. LVEF preserved. * Clinically euvolemic. Continue to hold diuretic (home regimen Bumex 3 mg po BID) (4) Ischemic cardiomyopathy: * Quiescent (5) Anemia: * Chronic, stable. Hgb ~10. No role for EUSEBIO therapy at this time. (6) Cellulitis of leg, right: * Daptomycin has been converted to oral doxycycline Admission and Anticipated Discharge Date Admission Date: September 12, 2020 Subjective Mr. Bauer was seen & examined in his hospital room this morning. His LE swelling has resolved. He is breathing comfortably on O2 NC. He voices no new medical concerns Review of Systems Constitutional: + weakness; no fever Eyes: no problem reported Ear, Nose, Mouth, Throat: no problem reported Respiratory: + dyspnea on exertion Cardiovascular: no chest pain and no edema Gastrointestinal: no abdominal pain, no nausea and no diarrhea/loose stools Genitourinary: no dysuria, no urinary hesitancy and no hematuria Musculoskeletal: no back pain Integumentary: + rash Neurologic: no confusion Physical Exam Constitutional: not in distress Eyes: PERRL, conjunctivae normal, anicteric sclerae ENMT: external ear and nose normal, oropharynx normal Neck: trachea midline, no thyromegaly Respiratory: normal respiratory effort, lungs clear to auscultation Cardiovascular: Rate/Rhythm: regular rate and regular rhythm Extremities: no edema (LE edema has resolved. RLE remains wrapped) Gastrointestinal (Abdomen): normal bowel sounds, soft, nontender, no hepatosplenomegaly Musculoskeletal: Extremities: no cyanosis Skin: no rashes, warm and dry Neurologic: awake; not confused Results & Data ([facility]) Vital Signs (Past 12 Hours) Vital Signs Temp Pulse Pulse Resp BP BP Pulse Ox 09/21/20 08:07 36.7 C 69 18 109/72 98 09/21/20 04:36 36.5 C 60 18 115/74 96 09/20/20 23:21 36.4 C L 68 20 118/76 97 09/20/20 23:20 68 Laboratory Results Laboratory Tests 09/13/20 09/18/20 09/20/20 04:55 13:25 05:51 Sodium 127 L Potassium 4.4 Chloride 87 L Carbon Dioxide 31 BUN 131 H Creatinine 5.38 H* D Glucose 108 H Urine Color Dark Yellow Urine pH 5.0 Urine Protein 2+ H Urine Glucose (UA) Negative Urine Blood Negative Urine WBC (Auto) 1-5 Urine RBC (Auto) 0-4 Protein/Creatinin Ratio 2.0 H PG Care Time/CCT Total # of Minutes Spent Total Time Spent with Patient: Total time spent is greater than 50% in coordination of care (as documented) at patient's floor/unit and/or counseling patient: Coding Level of Care Code 85113 Subseq Hosp Care Lvl 3 Diagnoses Acute kidney injury superimposed on chronic kidney disease N17.9; N18.9 Chronic kidney disease with active medical management without dialysis, stage 3 (moderate) N18.30 Acute diastolic heart failure I50.31 Ischemic cardiomyopathy I25.5 Anemia D64.9 Cellulitis of leg, right L03.115
[2020-09-21] MEDS: INSULIN GLARGINE SOLOSTAR 100 UNITS/ML 3 ML PEN SC SCH (20:45)
[2020-09-21] MEDS: oxyCODONE HCL IR 5 MG TAB (IMMEDIATE RELEASE) PO PRN (20:55)
[2020-09-22 06:49] LABS: Basophils # (auto) 0.09 K/uL (0-0.2); Basophils % (auto) 0.7 %; Eosinophils # (auto) 0.72 K/uL (0-0.5); Eosinophils % (auto) 5.6 %; Hematocrit (blood only) 31.8 % (42-52); Hemoglobin 10.1 g/dL (14.0-18.0); Immature Granulocytes % (auto) 3.1 %; Lymphocytes # (auto) 1.94 K/uL (1.2-3.4); Lymphocytes % (auto) 15.2 %; Mean Corpuscular Hemoglobin 28.5 pg (25-34); Mean Corpuscular Hgb Conc 31.8 g/dL (32-36); Mean Corpuscular Volume 89.6 fL (80-100); Mean Platelet Volume 9.4 fL (7.4-10.4); Monocytes # (auto) 0.69 K/uL (0.11-0.59); Monocytes % (auto) 5.4 %; Neutrophils # (auto) 8.91 K/uL (1.4-6.5); Nucleated RBC # (auto) 0.03 K/uL (0-0); Nucleated RBC % (auto) 0.3 %; Platelet Count 311 K/uL (130-400); RDW Coefficient of Variation 17.6 % (11.5-14.5); RDW Standard Deviation 57.1 fL (36.4-46.3); Red Blood Count 3.55 M/uL (4.7-6.1); White Blood Count 12.75 K/uL (4.8-10.8)
[2020-09-22 07:36] LABS: BUN Creatinine Ratio 26.7 (10-20); Calcium 8.6 mg/dl (8.5-10.1); Creatinine Clr Calc Pharmacy 17.2 ml/min; Est GFR (African American) 13.5; Est GFR (Non-African American) 11.7; Potassium 4.4 mmol/L (3.5-5.1)
--- NOTE | 2020-09-22 08:11 | Hospitalist Progress Note ---
Date of Service September 22, 2020 Assessment & Plan (1) Cellulitis of leg, right: 75 yo M PMHx CKD, diastolic HF, COPD, CAD with ischemic cardiomyopathy, HTN, DM2 not well controlled admitted for acute hypoxemic respiratory failure and bilateral LE cellulitis/swelling. Acute hypoxic respiratory failure in patient with acute on chronic diastolic HF: - On admission with hypoxia requiring supplemental O2, at highest requiring Oxymask 8L. - Saturating well on 5LNC which is his baseline requirement at home, without signs of fluid overload on lung exam. - With any exercise or walking patient requires both help from physical therapy as well as frequent standing breaks. Despite this, adamantly refuses acute rehab facility on discharge. - Prior to patient's discharge, will need to determine if he has new oxygen requirement for ambulation. Patient is clinically dry at this time. Acute on chronic diastolic HF: - Admission BNP 58188 with signs at that time of fluid overload. - No change from previous Echo, EF 50-55% with RV volume overload. - Diuresed ~3L initially. - Continue to hold Bumex given PROSPER; no peripheral edema noted, and no pulmonary findings suggestive of fluid overload. - Low Sodium heart healthy diet with 1000mL fluid restriction. Acute renal failure on CKD: - Baseline Creatinine 8 months ago 1.8. - 09/17 was 2.77 despite fairly dry exam. - Today with creatinine 4.63, decreased from 4.96 yesterday. - EKG without changes, potassium level 4.4, UO ~900mL in 24 hours with net negative ~400mL this admission. - Since admission patient has lost about 3kg body weight. - Renal ultrasound negative for obstruction. - No casts in urine suggestive of ATN. - Appreciate Nephrology's continuing recommendations -> initially due to CRS, then suspected prerenal component due to overdiuresis. - Holding renal toxic medications, renally dosing medications. - Continue to hold Bumex and closely monitor fluid status. - Repeat BMP AM. - Patient made aware that if renal function begins to decline again he may require dialysis; he is amenable to this if necessary. Bilateral LE cellulitis and open wounds: - On arrival patient with bilateral LE swelling and cellulitis with R>L erythema and RLE open wounds that are painful. On admission patient's RLE wound noted to be 57i13kg in size. - Venous stasis contributory to delayed skin healing. - Wound culture with multiple jihan in small numbers. - BCx x2 drawn, negative to date. - Started on Unasyn on admission without significant improvement, fairly significant improvement following start of Daptomycin. - Unasyn d/c'ed 09/17 after 6 days of treatment. - 09/19 d/c'ed daptomycin in favor of doxycycline BID. Can consider reescalation of antibiotics if patient's wounds worsen. - Continue wound care by wound care nursing. Today wound care noted RLE wound to be 5x5cm in size, which is significantly decreased. - Continue doxycycline. Goal of antibiotics to be about 2 weeks; to complete around 09/25. History of anemia with epistaxis: resolved - Hgb 11.4 -> 10.4 in the setting of nosebleed earlier in admission, which has since stopped. - Patient refuses Eliquis as below due to epistaxis. Atrial fibrillation: - Held Eliquis in setting of nosebleed; however Patient refuses medication moving forward. - Rate controlled on metoprolol 25mg BID, continue. - Telemetry continues to be in AFib, no symptoms. - Had extensive discussion with team and with Mr. Bauer this admission about Eliquis treatment moving forward. Educated patient that his ChadsVasc score gives him a 10% risk of CVA, and that CVA can be debilitating and even cause . Patient continues to refuse Eliquis despite this education, and underst ands that not taking Eliquis puts him at significantly increased risk of CVA. Hyponatremia: - Na 130, trending slowly upward. - Suspected to be secondary to diuresis, PROSPER, low sodium diet. - Repeat BMP AM. DM2: - Continue Lantus to 25u qHS with SSI, DM2 diet. - Hgb A1c this admission 8.6%; suggests poor control. - Holding glipizide in setting of PROSPER. - Will require medication dose changes (likely to Lantus dosing) prior to d/c for tighter glucose control. COPD: - Nebs q4h as needed. - Continue home fluticasone INH, umeclidinium/vilanterol. HLD: - Continue home atorvastatin. HTN: - Holding Bumex, continue metoprolol. Code Status: DNR/DNI FENGI: DM2, Heart Healthy, Low Sodium, fluid restriction 1000mL DVT ppx: Heparin 5000u q12h Dispo: Med/Surg with Telemetry for continued monitoring for vitals and EKG changes in the setting of current treatment of hypoxic respiratory failure and PROSPER Admission and Anticipated Discharge Date Admission Date: September 12, 2020 Supervising Physician Co-Signing Physician Notes Resident Physician Supervision Note: I independently interviewed and examined the patient and verified the marsh history and physical, reviewed labs and image studies, discussed the case with the resident Dr. Oconnor and agree with the findings and care plan. Subjective Patient without acute events overnight. Denies shortness of breath at rest, has dyspnea on any level of exertion. Denies fevers or chills, nausea or vomiting, no epistaxis, no chest pain or abdominal pain. Review of Systems Review of Systems: All systems reviewed & are unremarkable except as noted in HPI & below Constitutional: + fatigue; no fever and no chills Respiratory: + dyspnea on exertion; no cough Cardiovascular: no chest pain, no palpitations and no edema Gastrointestinal: no abdominal pain, no constipation and no diarrhea/loose stools Physical Exam Constitutional: well developed and + obese Eyes: PERRL, conjunctivae normal, anicteric sclerae ENMT: external ear and nose normal, oropharynx normal Neck: normal visual inspection Respiratory: normal respiratory effort, lungs clear to auscultation saturating 94% on 5LNC Cardiovascular: Extremities: no edema HR irregularly irregular, no murmurs Gastrointestinal (Abdomen): normal bowel sounds, soft, nontender, no hepatosplenomegaly Musculoskeletal: Extremities: no cyanosis and no clubbing Skin: + lesion RLE wrapped Psychiatric: A+Ox3, euthymic affect Results & Data Results & Data ([facility]) Vital Signs (Past 12 Hours) Vital Signs Temp Pulse Resp BP Pulse Ox 09/22/20 08:02 36.2 C L 61 18 108/73 92 09/22/20 04:34 36.8 C 68 20 115/67 95 09/21/20 23:54 36.6 C 55 L 20 136/86 94 Resident Activity Tracking Resident Involvement: Resident Care Provided Care Provided: Adult [facility] Medicine
[2020-09-22] MEDS: METOPROLOL TARTRATE 25 MG TAB PO SCH ×2 (09:39→19:36)
[2020-09-22] MEDS: DOXYCYCLINE HYCLATE 100 MG CAP PO SCH ×2 (09:39→19:36)
[2020-09-22] MEDS: UMECLIDINIUM/VILANTEROL 62.5/25MCG 7 PUFFS/INHALER INH SCH (09:39)
[2020-09-22] MEDS: MULTIVITAMIN TAB PO SCH (09:39)
[2020-09-22] MEDS: FLUTICASONE FUROATE 100MCG 14 PUFFS/INHALER INH SCH (09:39)
[2020-09-22] MEDS: HEPARIN SOD 5,000 UNIT/0.5 ML VIAL SQ SCH ×2 (09:40→20:56)
[2020-09-22] MEDS: POLYETHYLENE (MIRALAX) 17 GM PACK PO SCH (09:40)
[2020-09-22] MEDS: TERBINAFINE CR 30 GM TUBE EXT SCH ×2 (09:40→19:35)
[2020-09-22] MEDS: INSULIN ASPART 100 UNITS/ML 3 ML PEN SC SCH ×4 (09:41→20:37)
--- NOTE | 2020-09-22 10:23 | Nephrology Progress Note ---
Date of Service September 22, 2020 Assessment & Plan (1) Acute kidney injury superimposed on chronic kidney disease: * Non-oliguric PROSPER c/w acute CRS. R heart volume overload noted on 09/13/20 echocardiogram. Patient admitted w/ progressive LE swelling and cellulitis * US negative for obstruction * Urine microscopy acellular * Now in recovery phase of PROSPER. Cr 5.38 --> 4.63. Electrolyte balance is acceptable. Patient has no uremic symptoms. He remains nonoliguric. No acute indication for MEDICAL CLAIMS ANALYST at this time * Urine sediment is nonnephritic. No casts reported. Proteinuria is on the basis of DM and R sided heart failure * Monitor serial PRP (2) Chronic kidney disease with active medical management without dialysis, stage 3 (moderate): * Baseline creatinine 1.5-1.8 mg/dL (3) Acute diastolic heart failure: * Predominately R heart failure on exam. TTE consistent with this. LVEF preserved. * Clinically euvolemic. Continue to hold diuretic (home regimen Bumex 3 mg po BID) (4) Ischemic cardiomyopathy: * Quiescent (5) Anemia: * Chronic, stable. Hgb ~10. No role for EUSEBIO therapy at this time. (6) Cellulitis of leg, right: * Daptomycin has been converted to oral doxycycline Admission and Anticipated Discharge Date Admission Date: September 12, 2020 Subjective Mr. Bauer was seen & examined in his hospital room this morning. His LE swelling has resolved. He is breathing comfortably on O2 NC. He voices no new medical concerns Review of Systems Constitutional: + weakness; no fever Eyes: no problem reported Ear, Nose, Mouth, Throat: no problem reported Respiratory: + dyspnea on exertion Cardiovascular: no chest pain and no edema Gastrointestinal: no abdominal pain, no vomiting and no diarrhea/loose stools Genitourinary: no dysuria, no urinary hesitancy and no hematuria Musculoskeletal: no back pain Integumentary: + rash Neurologic: no dizziness and no confusion Physical Exam Constitutional: not in distress Eyes: PERRL, conjunctivae normal, anicteric sclerae ENMT: external ear and nose normal, oropharynx normal Neck: trachea midline, no thyromegaly Respiratory: normal respiratory effort, lungs clear to auscultation Cardiovascular: Rate/Rhythm: regular rate and regular rhythm Extremities: no edema (LE edema has resolved. RLE remains wrapped) Gastrointestinal (Abdomen): normal bowel sounds, soft, nontender, no hepatosplenomegaly Musculoskeletal: Extremities: no cyanosis Skin: no rashes, warm and dry Neurologic: awake; not confused Results & Data ([facility]) Vital Signs (Past 12 Hours) Vital Signs Temp Pulse Resp BP Pulse Ox 09/22/20 08:02 36.2 C L 61 18 108/73 92 09/22/20 04:34 36.8 C 68 20 115/67 95 09/21/20 23:54 36.6 C 55 L 20 136/86 94 Laboratory Results Laboratory Tests 09/22/20 09/22/20 05:58 05:58 WBC 12.75 H Hgb 10.1 L Hct 31.8 L Plt Count 311 Sodium 130 L Potassium 4.4 Chloride 90 L Carbon Dioxide 31 BUN 124 H Creatinine 4.63 H* D Glucose 75 PG Care Time/CCT Total # of Minutes Spent Total Time Spent with Patient: Total time spent is greater than 50% in coordination of care (as documented) at patient's floor/unit and/or counseling patient: Coding Level of Care Code 00716 Subseq Hosp Care Lvl 3 Diagnoses Acute kidney injury superimposed on chronic kidney disease N17.9; N18.9 Chronic kidney disease with active medical management without dialysis, stage 3 (moderate) N18.30 Acute diastolic heart failure I50.31 Ischemic cardiomyopathy I25.5 Anemia D64.9 Cellulitis of leg, right L03.115
[2020-09-22] MEDS: oxyCODONE HCL IR 5 MG TAB (IMMEDIATE RELEASE) PO PRN (19:34)
[2020-09-22] MEDS: INSULIN GLARGINE SOLOSTAR 100 UNITS/ML 3 ML PEN SC SCH (20:55)
[2020-09-23 07:14] LABS: Hematocrit (blood only) 33.3 % (42-52); Hemoglobin 10.4 g/dL (14.0-18.0); Mean Corpuscular Hemoglobin 28.3 pg (25-34); Mean Corpuscular Hgb Conc 31.2 g/dL (32-36); Mean Corpuscular Volume 90.5 fL (80-100); Mean Platelet Volume 9.6 fL (7.4-10.4); Platelet Count 310 K/uL (130-400); RDW Coefficient of Variation 17.5 % (11.5-14.5); Red Blood Count 3.68 M/uL (4.7-6.1); White Blood Count 11.89 K/uL (4.8-10.8)
[2020-09-23 07:48] LABS: BUN Creatinine Ratio 29.7 (10-20); Calcium 8.8 mg/dl (8.5-10.1); Est GFR (African American) 16.2; Potassium 3.9 mmol/L (3.5-5.1)
[2020-09-23] MEDS: FLUTICASONE FUROATE 100MCG 14 PUFFS/INHALER INH SCH (09:10)
[2020-09-23] MEDS: METOPROLOL TARTRATE 25 MG TAB PO SCH ×2 (09:10→21:32)
[2020-09-23] MEDS: UMECLIDINIUM/VILANTEROL 62.5/25MCG 7 PUFFS/INHALER INH SCH (09:10)
[2020-09-23] MEDS: DOXYCYCLINE HYCLATE 100 MG CAP PO SCH ×2 (09:10→21:34)
[2020-09-23] MEDS: MULTIVITAMIN TAB PO SCH (09:10)
[2020-09-23] MEDS: POLYETHYLENE (MIRALAX) 17 GM PACK PO SCH (09:11)
[2020-09-23] MEDS: HEPARIN SOD 5,000 UNIT/0.5 ML VIAL SQ SCH ×2 (09:11→21:30)
[2020-09-23] MEDS: TERBINAFINE CR 30 GM TUBE EXT SCH ×2 (09:11→21:31)
[2020-09-23] MEDS: INSULIN ASPART 100 UNITS/ML 3 ML PEN SC SCH ×4 (09:13→21:32)
--- NOTE | 2020-09-23 12:46 | Nephrology Progress Note ---
Date of Service September 23, 2020 Assessment & Plan (1) Acute kidney injury superimposed on chronic kidney disease: Toni has PMH of DMII,A fib, CAD, CHF (predominately R heart) with preserved LVEF, and severe COPD and CKD III b/l cr 1.5-1.8 mg/dL. admitted to the hospital with progressive with shortness of breath and edema of the right lower extremity with acute on chronic CHF and cellulitis of the right leg. on admission creatinine was 2.6 which to rapidly worsen and peaked to 5.3 with aggressive diuresis for shortness of breath and lower extremity edema. Diuretics has been on hold and he continues to make decent amount of urine. Creatinine down to 4.0, sodium improved to 131. he has been off of Bumex and daptomycin. -- Continue to keep off of diuretics, strictly monitor intake and output. -- Expect that trend in improvement of creatinine will continue, will need to m onitor electrolyte. -- avoid IV for fluid will follow (2) Cardiorenal syndrome: (3) Acute on chronic diastolic (congestive) heart failure: (4) Anemia: Admission and Anticipated Discharge Date Admission Date: September 12, 2020 Subjective Toni was seen and examined in his room this morning. Overall he is feeling much better, continues to have lower extremity edema and weeping ulceration but improved significantly from prior. Denies any shortness of breath or chest herbert n. Kidney function continues to improve, creatinine down to 4.6 today, sodium slightly improved to 131. Review of Systems Review of Systems: All systems reviewed & are unremarkable except as noted in HPI & below Physical Exam Constitutional: WD/WN, vitals as above no acute distress Respiratory: normal respiratory effort, lungs clear to auscultation Cardiovascular: Rate/Rhythm: regular rate and regular rhythm Heart Sounds: normal S1 and normal S2 Extremities: + edema (b/l lower extremity edema, erythema, superficial ulceration and oozing) Skin: + ulcer and + erythema Neurologic: awake; no focal motor deficits and not confused Psychiatric: A+Ox3, euthymic affect Results & Data ([facility]) Vital Signs (Past 12 Hours) Vital Signs Temp Pulse Pulse Resp BP BP Pulse Ox 09/23/20 11:59 36.5 C 56 L 20 109/67 94 09/23/20 11:56 73 09/23/20 08:28 36.3 C L 72 18 132/87 95 09/23/20 04:25 36.4 C L 69 20 106/67 92 PG Care Time/CCT Total # of Minutes Spent Total Time Spent with Patient: Total time spent is greater than 50% in coordination of care (as documented) at patient's floor/unit and/or counseling patient: Coding Level of Care Code 52794 Subseq Hosp Care Lvl 3 Diagnoses Acute kidney injury superimposed on chronic kidney disease N17.9; N18.9 Cardiorenal syndrome I13.0 Heart failure presence: with heart failure Hypertensive chronic kidney disease stage: stage 1-4 or unspecified chronic kidney disease Acute on chronic diastolic (congestive) heart failure I50.33 Anemia D64.9 (1) Cardiorenal syndrome Heart failure presence: with heart failure Hypertensive chronic kidney disease stage: stage 1-4 or unspecified chronic kidney disease Qualified Code(s): I13.0 - Hypertensive heart and chronic kidney disease with heart failure and stage 1 through stage 4 chronic kidney disease, or unspecified chronic kidney disease
--- NOTE | 2020-09-23 16:32 | Hospitalist Progress Note ---
Date of Service September 23, 2020 Assessment & Plan (1) Cellulitis of leg, right: 75 yo M PMHx CKD, diastolic HF, COPD, CAD with ischemic cardiomyopathy, HTN, DM2 not well controlled admitted for acute hypoxemic respiratory failure and bilateral LE cellulitis/swelling. Acute hypoxic respiratory failure in patient with acute on chronic diastolic HF: - On admission with hypoxia requiring supplemental O2, at highest requiring Oxymask 8L. - Saturating well on 5LNC which is his baseline requirement at home - With any exercise or walking patient requires both help from physical therapy as well as frequent standing breaks. Despite this, adamantly refuses acute rehab facility on discharge, but is amenable to home health services - Prior to patient's discharge, will need to determine if he has new oxygen requirement for ambulation Acute on chronic diastolic HF: - Admission BNP 59616 with signs of fluid overload. - No change from previous Echo, EF 50-55% with RV volume overload. - Diuresed 10 liters since admission - patient with continued signs of volume overload, however will continue to hold Bumex in setting of PROSPER - Low Sodium heart healthy diet with 1000mL fluid restriction. Acute renal failure on CKD: - Cr peaked at 5.3, down to 3.99 today. - baseline Cr ~1.5- 1.8 - BUN/CR ratio 27 - Renal ultrasound negative for obstruction. - No casts in urine suggestive of ATN. - Appreciate Nephrology's continuing recommendations -> initially due to CRS, then suspected prerenal component due to overdiuresis. - Holding renal toxic medications, renally dosing medications. Daptomycin has been discontinued. - Continue to hold Bumex and closely monitor fluid status. - Repeat BMP AM. - Patient made aware that if renal function begins to decline again he may require dialysis; he is amenable to this if necessary. Bilateral LE cellulitis and open wounds: - On arrival patient with bilateral LE swelling and cellulitis with R>L erythema and RLE open wounds that are painful. On admission patient's RLE wound noted to be [id number] in size. - Venous stasis contributory to delayed skin healing. - Wound culture with multiple jihan in small numbers. - BCx x2 drawn, negative to date. - Started on Unasyn on admission without significant improvement, fairly significant improvement following start of Daptomycin. - Unasyn d/c'ed 10/18 after 6 days of treatment. - 09/19 d/c'ed daptomycin in favor of doxycycline BID. Can consider reescalation of antibiotics if patient's wounds worsen. - Continue wound care by wound care nursing. Today wound care noted RLE wound to be 5x5cm in size, which is significantly decreased. - Continue doxycycline. Goal of antibiotics to be about 2 weeks; to complete 09/25. History of anemia with epistaxis: resolved - Hgb 11.4 -> 10.4 in the setting of nosebleed earlier in admission, which has since stopped. - Patient refuses Eliquis as below due to epistaxis. Atrial fibrillation: - Rate controlled on metoprolol 25mg BID, continue. - Telemetry continues to be in AFib, no symptoms. - Held Eliquis in setting of nosebleed; Refuses to continue. - Had extensive discussion with team and with Mr. Bauer this admission about Eliquis. Educated patient that his ChadsVasc score gives him a 10% risk of CVA, and that CVA can be debilitating and even cause . Patient continues to refuse Eliquis despite this education, and understands that not taking Eliquis puts him at significantly increased risk of CVA. Hyponatremia: - Na 131 today, continues to gradually trend up - Suspected to be secondary to diuresis, PROSPER, low sodium diet. - Repeat BMP AM. DM2: - Hgb A1c this admission 8.6%; suggests poor control. - Holding glipizide in setting of PROSPER. - patient has been hypoglycemic for previous two mornings, will reduce Lantus dosing from 25 to 20 U qHS - Will require medication dose changes (likely to Lantus dosing) prior to d/c for tighter glucose control. COPD: - Nebs q4h as needed. - Continue home fluticasone INH, umeclidinium/vilanterol. HLD: - Continue home atorvastatin. HTN: - Holding Bumex, continue metoprolol. Code Status: DNR/DNI FENGI: DM2, Heart Healthy, Low Sodium, fluid restriction 1000mL DVT ppx: Heparin 5000u q12h Dispo: downgrade to Med/surg; CM working to arrange home health services Admission and Anticipated Discharge Date Admission Date: September 12, 2020 Supervising Physician Co-Signing Physician Notes Resident Physician Supervision Note: I independently interviewed and examined the patient and verified the marsh history and physical, reviewed labs and image studies, discussed the case with the resident Dr. Rogers and agree with the findings and care plan. Subjective No acute events overnight. Feeling well today. Continues to refuse the idea of inpatient rehab stay. Is fine with home health services. Review of Systems Integumentary: + wounds Physical Exam Constitutional: WD/WN, vitals as above cooperative Eyes: + anicteric sclerae ENMT: external ear and nose normal, oropharynx normal Neck: normal visual inspection Respiratory: normal respiratory effort, lungs clear to auscultation Auscultation: + rales (bilateral lung bases); no crackles Cardiovascular: Rate/Rhythm: regular rate and + irregularly irregular Heart Sounds: normal S1 and normal S2 Vessels: + JVD Gastrointestinal (Abdomen): normal bowel sounds, soft, nontender, no hepatosplenomegaly Skin: + wound (b/l LE, bandages in place) Psychiatric: A+Ox3, euthymic affect Results & Data Results & Data ([facility]) Vital Signs (Past 12 Hours) Vital Signs Temp Pulse Pulse Resp BP BP Pulse Ox 09/23/20 16:14 36.6 C 68 20 119/68 98 09/23/20 11:59 36.5 C 56 L 20 109/67 94 09/23/20 11:56 73 09/23/20 08:28 36.3 C L 72 18 132/87 95 09/23/20 04:25 36.4 C L 69 20 106/67 92 Resident Activity Tracking Resident Involvement: Resident Care Provided Care Provided: Adult Hospital Medicine
[2020-09-23] MEDS: INSULIN GLARGINE SOLOSTAR 100 UNITS/ML 3 ML PEN SC SCH (21:34)
[2020-09-23] MEDS: oxyCODONE HCL IR 5 MG TAB (IMMEDIATE RELEASE) PO PRN (21:46)
[2020-09-24 06:19] LABS: Hematocrit (blood only) 32.2 % (42-52); Mean Corpuscular Hemoglobin 28.2 pg (25-34); Mean Corpuscular Hgb Conc 31.1 g/dL (32-36); Mean Platelet Volume 9.6 fL (7.4-10.4); Platelet Count 317 K/uL (130-400); RDW Coefficient of Variation 17.7 % (11.5-14.5); RDW Standard Deviation 58.6 fL (36.4-46.3); Red Blood Count 3.54 M/uL (4.7-6.1); White Blood Count 12.28 K/uL (4.8-10.8)
[2020-09-24 06:46] LABS: Albumin Level 2.4 gm/dl (3.4-5.0); BUN Creatinine Ratio 33.1 (10-20); Calcium 8.5 mg/dl (8.5-10.1); Creatinine Clr Calc Pharmacy 23.6 ml/min; Est GFR (African American) 19.8; Est GFR (Non-African American) 17.1; Potassium 4.1 mmol/L (3.5-5.1)
[2020-09-24 06:53] LABS: Ferritin 73.3 ng/ml (8-388); Phosphorus 4.2 mg/dl (2.5-4.9)
[2020-09-24] MEDS: METOPROLOL TARTRATE 25 MG TAB PO SCH ×2 (08:02→20:50)
[2020-09-24] MEDS: DOXYCYCLINE HYCLATE 100 MG CAP PO SCH ×2 (08:03→20:51)
[2020-09-24] MEDS: TERBINAFINE CR 30 GM TUBE EXT SCH ×2 (08:03→20:49)
[2020-09-24] MEDS: POLYETHYLENE (MIRALAX) 17 GM PACK PO SCH (08:03)
[2020-09-24] MEDS: MULTIVITAMIN TAB PO SCH (08:03)
[2020-09-24] MEDS: UMECLIDINIUM/VILANTEROL 62.5/25MCG 7 PUFFS/INHALER INH SCH (08:04)
[2020-09-24] MEDS: FLUTICASONE FUROATE 100MCG 14 PUFFS/INHALER INH SCH (08:04)
[2020-09-24] MEDS: HEPARIN SOD 5,000 UNIT/0.5 ML VIAL SQ SCH ×2 (08:04→20:48)
[2020-09-24] MEDS: INSULIN ASPART 100 UNITS/ML 3 ML PEN SC SCH ×4 (08:04→20:52)
[2020-09-24] MEDS ORDERED: IRON SUCROSE 200 MG in 0.9 % SODIUM CHLORIDE 100 ML IV ONE (10:00)
--- NOTE | 2020-09-24 10:58 | Hospitalist Progress Note ---
Date of Service September 24, 2020 Assessment & Plan (1) Cellulitis of leg, right: 75 yo M with complex past medical history, admitted for acute hypoxemic respiratory failure and bilateral LE cellulitis/swelling, found to be in acute exacerbation of his chronic diastolic heart failure. Patient was initially diuresed, but subsequently went into cardiorenal syndrome. Renal function improving with hold of lasix. Acute hypoxic respiratory failure in patient with acute on chronic diastolic HF: - small bilateral pleural effusions noted on CXR on admission - highest requirement during hospital stay was 8L via Oxymask - currently satting 93% on 6LNC - home O2 requirement is 5LNC - Prior to patient's discharge, will need to determine if he has new oxygen requirement for ambulation Acute on chronic diastolic HF: - Admission BNP 07822 with signs of fluid overload. - Echo 09/13/20 showed no change from study in 10/2019; LV EF 50-55% with RV volume overload. - Diuresed 2.3 liters since admission - weight 113 kg on admission, down to 110kg today - patient with continued signs of volume overload, however will continue to hold Bumex in setting of PROSPER - Low Sodium heart healthy diet with 1000mL fluid restriction. Acute renal failure on CKD: - Cr peaked at 5.3, down to 3.38 today. - baseline Cr ~1.5- 1.8 - BUN remains elevated at 112. BUN/CR ratio 33 - Renal ultrasound negative for obstruction. - No casts in urine suggestive of ATN. - Appreciate Nephrology's continuing recommendations -> initially due to CRS, then suspected prerenal component due to overdiuresis. - Holding renal toxic medications, renally dosing medications. Daptomycin has been discontinued. - Continue to hold Bumex and closely monitor fluid status. - Daily renal function panel - Patient made aware that if renal function begins to decline again he may require dialysis; he is amenable to this if necessary. Bilateral LE cellulitis and open wounds: - On arrival patient with bilateral LE swelling and cellulitis with R>L erythema and RLE open wounds that are painful. On admission patient's RLE wound noted to be [id number] in size. - Wound culture with multiple jihan in small numbers. - BCx x2 drawn, final: negative. - Patient received 6 day course of Unasyn without significant improvement. - therapy escalated to Daptomycin, which resulted in improvement. However Dapto had to be discontinued after two days due to elevated Cr - doxycycline BID started on 09/21 - continue until 09/26 for total of 2 week antimicrobial course. - wounds have reduced in size since admission - wound care nurse following - Venous stasis and uncontrolled diabetes mellitus contributory to delayed skin healing History of anemia with epistaxis: - Hgb 11.4 on admission, down to 10.4 --> 10.0 - MCV normal at 91 - iron low at 30, transferrin saturation low, ferritin at lwo end of normal range - patient was anticoagulated on Eliquis on admission and had episode of epistaxis (Eliquis has since been held) - there is certainly an element of acute blood loss + iron deficiency - chart review indicates anemia has existed since at least 2017 - start 5 day course of IV Venofer + oral ferrous sulfate supplement - patient reports last colonoscopy was 6 years ago Atrial fibrillation: - Rate controlled on metoprolol 25mg BID, continue. - patient refusing Eliquis due to recurrent epistaxis - Had extensive discussion with team and with Mr. Bauer this admission about Eliquis. Educated patient that his ChadsVasc score gives him a 10% risk of CVA, and that CVA can be debilitating and even cause . Patient continues to refuse Eliquis despite this education, and understands that not taking Eliquis puts him at significantly increased risk of CVA. Hyponatremia: - Na 131 today, gradually trending up since admission - Suspected to be secondary to diuresis, PROSPER, low sodium diet. - Repeat BMP AM. DM2: - Hgb A1c this admission 8.6%; above goal - Holding glipizide in setting of PROSPER. - nighttime Lantus dosing from 25 to 20 U qHS due to hypoglycemia in am - Will require medication dose changes (likely to Lantus dosing) prior to d/c for tighter glucose control. COPD: - Nebs q4h as needed. - Continue home fluticasone INH, umeclidinium/vilanterol. HLD: - Continue home atorvastatin. HTN: - Holding Bumex, continue metoprolol. Code Status: DNR/DNI FENGI: DM2, Heart Healthy, Low Sodium, fluid restriction 1000mL DVT ppx: Heparin 5000u q12h Dispo: Med/surg; CM working to arrange home health services Admission and Anticipated Discharge Date Admission Date: September 12, 2020 Supervising Physician Co-Signing Physician Notes Resident Physician Supervision Note: I independently interviewed and examined the patient and verified the marsh history and physical, reviewed labs and image studies, discussed the case with the resident Dr. Rogers and agree with the findings and care plan. Subjective No acute events overnight. Feeling 'about the same' today. Says breathing is improved from admission, but still feels the need to "cough fluid up." Continues to refuse the idea of inpatient rehab stay. Is fine with home health services. Review of Systems Integumentary: + wounds Physical Exam Constitutional: WD/WN, vitals as above cooperative Eyes: + anicteric sclerae ENMT: external ear and nose normal, oropharynx normal Neck: normal visual inspection Respiratory: normal respiratory effort, lungs clear to auscultation Auscultation: + rales (bilateral lung bases); no crackles Cardiovascular: Rate/Rhythm: regular rate and + irregularly irregular Heart Sounds: normal S1 and normal S2 Vessels: + JVD Gastrointestinal (Abdomen): normal bowel sounds, soft, nontender, no hepatosplenomegaly Skin: + wound (b/l LE, bandages in place) Psychiatric: A+Ox3, euthymic affect Results & Data Results & Data ([facility]) Vital Signs (Past 12 Hours) Vital Signs Temp Pulse Pulse Resp BP Pulse Ox 09/24/20 07:56 36.5 C 77 18 127/76 93 09/24/20 07:40 78 09/24/20 04:00 36.7 C 69 18 107/66 94 09/23/20 23:41 75 09/23/20 23:36 36.4 C L 82 18 120/79 93 Resident Activity Tracking Resident Involvement: Resident Care Provided Care Provided: Adult Hospital Medicine
--- NOTE | 2020-09-24 11:52 | Nephrology Progress Note ---
Date of Service September 24, 2020 Assessment & Plan (1) Acute kidney injury superimposed on chronic kidney disease: Toni has PMH of DMII,A fib, CAD, CHF (predominately R heart) with preserved LVEF, and severe COPD and CKD III b/l cr 1.5-1.8 mg/dL. admitted to the hospital with progressive with shortness of breath and edema of the right lower extremity with acute on chronic CHF and cellulitis of the right leg. on admission creatinine was 2.6 which to rapidly worsen and peaked to 5.3 with aggressive diuresis for shortness of breath and lower extremity edema. Diuretics has been on hold and he continues to make decent amount of urine. Creatinine down to 4.0, sodium improved to 131. he has been off of Bumex and daptomycin. -- Continue to keep off of diuretics, strictly monitor intake and output. -- Expect that trend in improvement of creatinine will continue, will need to monitor electrolyte. -- avoid IV for fluid -- start IV Venofer daily for 5 dose -- hold discharge at this time, although patient is extremely frustrated and like to be discharged, explained the need for inpatient monitoring for continued improvement in renal function, monitoring urine output and decision about diuretic prior to discharge. -- Will need close monitoring of labs and follow-up with Dr. Hutchinson at [facility] after discharge will follow (2) Cardiorenal syndrome: (3) Acute on chronic diastolic (congestive) heart failure: (4) Anemia: Admission and Anticipated Discharge Date Admission Date: September 12, 2020 Subjective Toni was seen and examined in his room this morning. Overall he is feeling well, but extremely frustrated that he still has to stay in hospital. lower extremity edema improved significantly from prior. Denies any shortness of breath or chest pain. Kidney function continues to improve slowly, creatinine down to 3.4, BUN still quite elevated around 111, sodium stable at 131. decent urine output off diuretics, net negative more than 1 L. Review of Systems Review of Systems: All systems reviewed & are unremarkable except as noted in HPI & below Physical Exam Constitutional: WD/WN, vitals as above no acute distress Respiratory: normal respiratory effort, lungs clear to auscultation Cardiovascular: Rate/Rhythm: regular rate and regular rhythm Heart Sounds: normal S1 and normal S2 Extremities: + edema (b/l lower extremity edema, erythema, superficial ulceration and oozing) Skin: + ulcer and + erythema Neurologic: awake; no focal motor deficits and not confused Psychiatric: A+Ox3, euthymic affect Results & Data ([facility]) Vital Signs (Past 12 Hours) Vital Signs Temp Pulse Pulse Resp BP Pulse Ox 09/24/20 07:56 36.5 C 77 18 127/76 93 09/24/20 07:40 78 09/24/20 04:00 36.7 C 69 18 107/66 94 PG Care Time/CCT Total # of Minutes Spent Total Time Spent with Patient: Total time spent is greater than 50% in coordination of care (as documented) at patient's floor/unit and/or counseling patient: Coding Level of Care Code 90140 Subseq Hosp Care Lvl 3 Diagnoses Acute kidney injury superimposed on chronic kidney disease N17.9; N18.9 Cardiorenal syndrome I13.0 Heart failure presence: with heart failure Hypertensive chronic kidney disease stage: stage 1-4 or unspecified chronic kidney disease Acute on chronic diastolic (congestive) heart failure I50.33 Anemia D64.9 (1) Cardiorenal syndrome Heart failure presence: with heart failure Hypertensive chronic kidney disease stage: stage 1-4 or unspecified chronic kidney disease Qualified Code(s): I13.0 - Hypertensive heart and chronic kidney disease with heart failure and stage 1 through stage 4 chronic kidney disease, or unspecified chronic kidney disease
[2020-09-24] MEDS: FERROUS SULFATE 325 MG TAB PO SCH (12:11)
[2020-09-24] MEDS ORDERED: MELATONIN 3 MG TAB PO PRN (17:41)
[2020-09-24] MEDS: INSULIN GLARGINE SOLOSTAR 100 UNITS/ML 3 ML PEN SC SCH (20:50)
[2020-09-25 07:09] LABS: Albumin Level 2.3 gm/dl (3.4-5.0); BUN Creatinine Ratio 32.1 (10-20); Calcium 8.6 mg/dl (8.5-10.1); Creatinine Clr Calc Pharmacy 26.7 ml/min; Est GFR (African American) 23.3; Est GFR (Non-African American) 20.1; Phosphorus 3.7 mg/dl (2.5-4.9)
[2020-09-25] MEDS: UMECLIDINIUM/VILANTEROL 62.5/25MCG 7 PUFFS/INHALER INH SCH (07:48)
[2020-09-25] MEDS: FLUTICASONE FUROATE 100MCG 14 PUFFS/INHALER INH SCH (07:48)
[2020-09-25] MEDS: MULTIVITAMIN TAB PO SCH (07:49)
[2020-09-25] MEDS: METOPROLOL TARTRATE 25 MG TAB PO SCH ×2 (07:49→20:47)
[2020-09-25] MEDS: DOXYCYCLINE HYCLATE 100 MG CAP PO SCH ×2 (07:49→20:48)
[2020-09-25] MEDS: POLYETHYLENE (MIRALAX) 17 GM PACK PO SCH (07:50)
[2020-09-25] MEDS: TERBINAFINE CR 30 GM TUBE EXT SCH ×2 (07:51→20:46)
[2020-09-25] MEDS: INSULIN ASPART 100 UNITS/ML 3 ML PEN SC SCH ×4 (08:16→20:21)
[2020-09-25] MEDS: HEPARIN SOD 5,000 UNIT/0.5 ML VIAL SQ SCH ×2 (08:17→20:20)
--- NOTE | 2020-09-25 10:15 | Nephrology Progress Note ---
Date of Service September 25, 2020 Assessment & Plan (1) Acute kidney injury superimposed on chronic kidney disease: Toni has PMH of DMII,A fib, CAD, CHF (predominately R heart) with preserved LVEF, and severe COPD and CKD III b/l cr 1.5-1.8 mg/dL. admitted to the hospital with progressive with shortness of breath and edema of the right lower extremity with acute on chronic CHF and cellulitis of the right leg. on admission creatinine was 2.6 which to rapidly worsen and peaked to 5.3 with aggressive diuresis for shortness of breath and lower extremity edema. Diuretics has been on hold and he continues to make decent amount of urine. slow improvement in renal function,Creatinine down to 3.0, BUN 94 and sodium 133. decent urine output, he has been off of Bumex and daptomycin. -- As patient has been anxious and frustrated to go home, has been having decent urine output off of diuretics and lower extremity edema improved and has been stable, kidney function continues to improve slowly, okay to be discharged with close outpatient lab monitoring. Advise renal panel on Friday and Friday this week and then weekly, sent the result to Dr. Hanson. Reminded patient that there is slim chance that kidney function may again worsen or develop critical electrolyte abnormality and may need to come back to hospital. patient verbalized understanding and still would like to get discharged. -- Will need close monitoring of labs and follow-up in next 2-3 weeks with at [facility] after discharge, as per patient preference -- also needs follow-up with [facility] -- patient requested transportation help to and from out pt physician visit, request case management to set up transportation on discharge if possible -- difficult to comment on Xarelto as an anticoagulant as patient has been refusing Eliquis as well as warfarin which would be preferable considering creatinine clearance less than 15. will follow (2) Cardiorenal syndrome: (3) Acute on chronic diastolic (congestive) heart failure: (4) Anemia: Admission and Anticipated Discharge Date Admission Date: September 12, 2020 Subjective Toni was seen and examined in his room this morning. Overall he is feels About the same, lower extremity edema improved. Denies any shortness of breath or chest pain. Kidney function continues to improve slowly, creatinine down to 3.0, BUN 95, sodium 133. decent urine output off diuretics, net even. Review of Systems Review of Systems: All systems reviewed & are unremarkable except as noted in HPI & below Physical Exam Constitutional: WD/WN, vitals as above no acute distress Respiratory: normal respiratory effort, lungs clear to auscultation Cardiovascular: Rate/Rhythm: regular rate and regular rhythm Heart Sounds: normal S1 and normal S2 Extremities: + edema (b/l lower extremity edema, erythema, superficial ulceration and oozing) Skin: + ulcer and + erythema Neurologic: awake; no focal motor deficits and not confused Psychiatric: A+Ox3, euthymic affect Results & Data ([facility]) Vital Signs (Past 12 Hours) Vital Signs Temp Pulse Pulse Resp BP Pulse Ox 09/25/20 07:16 36.5 C 70 18 115/70 90 09/25/20 04:00 36.5 C 75 18 125/78 92 09/25/20 00:00 72 09/24/20 23:12 36.9 C 86 18 129/77 93 PG Care Time/CCT Total # of Minutes Spent Total Time Spent with Patient: Total time spent is greater than 50% in coordination of care (as documented) at patient's floor/unit and/or counseling patient: Coding Level of Care Code 71481 Subseq Hosp Care Lvl 3 Diagnoses Acute kidney injury superimposed on chronic kidney disease N17.9; N18.9 Cardiorenal syndrome I13.0 Heart failure presence: with heart failure Hypertensive chronic kidney disease stage: stage 1-4 or unspecified chronic kidney disease Acute on chronic diastolic (congestive) heart failure I50.33 Anemia D64.9 (1) Cardiorenal syndrome Heart failure presence: with heart failure Hypertensive chronic kidney disease stage: stage 1-4 or unspecified chronic kidney disease Qualified Code(s): I13.0 - Hypertensive heart and chronic kidney disease with heart failure and stage 1 through stage 4 chronic kidney disease, or unspecified chronic kidney disease
[2020-09-25] MEDS: FERROUS SULFATE 325 MG TAB PO SCH (11:55)
--- NOTE | 2020-09-25 13:31 | Hospitalist Progress Note ---
Date of Service September 25, 2020 Assessment & Plan (1) Cellulitis of leg, right: 75 yo M with complex past medical history, admitted for acute hypoxemic respiratory failure and bilateral LE cellulitis/swelling, found to be in acute exacerbation of his chronic diastolic heart failure. Patient was initially diuresed, but subsequently went into cardiorenal syndrome. Renal function improving with hold of lasix. Acute hypoxic respiratory failure in patient with acute on chronic diastolic HF: resolved - small bilateral pleural effusions noted on CXR on admission - highest requirement during hospital stay was 8L via Oxymask - currently satting 97% on home O2 requirement of 5LNC. Requires 6LNC when exercising. Acute on chronic diastolic HF: resolved - Admission BNP 77499 with signs of fluid overload. - Echo 09/13/20 showed no change from study in 10/2019; LV EF 50-55% with RV volume overload. - Diuresed 2.3 liters since admission - holding bumex due to cardiorenal syndrome, PROSPER during diuresis - Low Sodium heart healthy diet with 1000mL fluid restriction. Acute renal failure on CKD: resolving - Cr peaked at 5.3, down to 2.95 today. - baseline Cr 1.8 Bilateral LE cellulitis and open wounds: resolving - On arrival patient with bilateral LE swelling and cellulitis with R>L erythema and RLE open wounds that are painful. On admission patient's RLE wound noted to be [id number] in size. - Wound culture with multiple jihan in small numbers. - BCx x2 drawn, final: negative. - Patient received 6 day course of Unasyn without significant improvement. - therapy escalated to Daptomycin, which resulted in improvement. However Dapto had to be discontinued after two days due to elevated Cr - doxycycline BID started on 09/21 - continue until 09/26 for total of 2 week antimicrobial course. - wounds have reduced in size since admission - wound care nurse following - Venous stasis and uncontrolled diabetes mellitus contributory to delayed skin healing History of anemia with epistaxis: resolved - Hgb 11.4 on admission, down to 10.4 --> 10.0 - MCV normal at 91 - iron low at 30, transferrin saturation low, ferritin at lwo end of normal range - patient was anticoagulated on Eliquis on admission and had episode of epistaxis (Eliquis has since been held) - there is certainly an element of acute blood loss + iron deficiency - chart review indicates anemia has existed since at least 2017 - start 5 day course of IV Venofer + oral ferrous sulfate supplement - patient reports last colonoscopy was 6 years ago - patient not amenable to going back on eliquis after nosebleed. is open to discussion with Dr. 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 Atrial fibrillation: stable - Rate controlled on metoprolol 25mg BID, continue. - patient refusing Eliquis due to recurrent epistaxis - Had extensive discussion with team and with Mr. Bauer this admission about Eliquis. Educated patient that his ChadsVasc score gives him a 10% risk of CVA, and that CVA can be debilitating and even cause . Patient continues to refuse Eliquis despite this education, and understands that not taking Eliquis puts him at significantly increased risk of CVA. Hyponatremia: stable - Na 133 today, gradually trending up since admission - Suspected to be secondary to diuresis, PROSPER, low sodium diet. - Repeat BMP AM. DM2: - Hgb A1c this admission 8.6%; above goal - Holding glipizide in setting of PROSPER. - nighttime Lantus dosing from 25 to 20 U qHS due to hypoglycemia in am - Will require medication dose changes (likely to Lantus dosing) prior to d/c for tighter glucose control. COPD: - Nebs q4h as needed. - Continue home fluticasone INH, umeclidinium/vilanterol. HLD: - Continue home atorvastatin. HTN: - Holding Bumex, continue metoprolol. Code Status: DNR/DNI FENGI: DM2, Heart Healthy, Low Sodium, fluid restriction 1000mL DVT ppx: Heparin 5000u q12h Dispo: Med/surg; pending approval to acute rehab Admission and Anticipated Discharge Date Admission Date: September 12, 2020 Supervising Physician Co-Signing Physician Notes I personally examined the patient and verified all marsh points of history and exam, discussed case, and agree with decision making with Dr Banuelos. feeling better ovreall aware that he's weak enough he should go to rehab now more willing vitals noted nad heent nc at mmm breathing unlabored no accessory muscles good effort acute on chronic [facility]pEF - [facility] RLE cellulitis - chronic venous ulcers of R and L lower leg -now off abx PROSPER - likely relates to CHF and diuresis. follow closely DM - acutely sugars overall reasonable - continue current plan stable for rehab once bed available Subjective Doing well this morning. States leg cellulitis has improved greatly during course of admission. Newly okay with the idea of going to acute rehab for streng htening as he realizes now that his family will not be able to care for him at home alone. Review of Systems Constitutional: no fever, no chills, no body aches and no fatigue Respiratory: no cough and no dyspnea Cardiovascular: no chest pain, no dyspnea and no edema Gastrointestinal: no abdominal pain, no nausea, no vomiting, no constipation and no diarrhea/loose stools Physical Exam Constitutional: WD/WN, vitals as above no acute distress Respiratory: normal respiratory effort, lungs clear to auscultation Cardiovascular: Rate/Rhythm: regular rate and regular rhythm Heart Sounds: normal S1 and normal S2 Extremities: + edema b/l lower extremity edema, erythema, with superficial skin damage much improved Skin: + erythema; no ulcers Neurologic: awake; no focal motor deficits and not confused Psychiatric: A+Ox3, euthymic affect Results & Data Results & Data ([facility]) Vital Signs (Past 12 Hours) Vital Signs Temp Pulse Resp BP Pulse Ox 09/25/20 10:59 36.6 C 70 18 107/64 97 09/25/20 07:16 36.5 C 70 18 115/70 90 09/25/20 04:00 36.5 C 75 18 125/78 92 Laboratory Results WBC 12.28 K/uL (4.8-10.8) H 09/24/20 05:49 RBC 3.54 M/uL (4.7-6.1) L 09/24/20 05:49 Hgb 10.0 g/dL (14.0-18.0) L 09/24/20 05:49 Hct 32.2 % (42-52) L 09/24/20 05:49 MCV 91.0 fL (80-100) 09/24/20 05:49 MCH 28.2 pg (25-34) 09/24/20 05:49 MCHC 31.1 g/dL (32-36) L 09/24/20 05:49 RDW Std Deviation 58.6 fL (36.4-46.3) H 09/24/20 05:49 RDW Coeff of Radha 17.7 % (11.5-14.5) H 09/24/20 05:49 Plt Count 317 K/uL (130-400) 09/24/20 05:49 MPV 9.6 fL (7.4-10.4) 09/24/20 05:49 Immature Gran % (Auto) 3.1 % 09/22/20 05:58 Neut % (Auto) 70.0 % 09/22/20 05:58 Lymph % (Auto) 15.2 % 09/22/20 05:58 [place] % (Auto) 5.4 % 09/22/20 05:58 Eos % (Auto) 5.6 % 09/22/20 05:58 Baso % (Auto) 0.7 % 09/22/20 05:58 Neut # (Auto) 8.91 K/uL (1.4-6.5) H 09/22/20 05:58 Lymph # (Auto) 1.94 K/uL (1.2-3.4) 09/22/20 05:58 [place] # (Auto) 0.69 K/uL (0.11-0.59) H 09/22/20 05:58 Eos # (Auto) 0.72 K/uL (0-0.5) H 09/22/20 05:58 Baso # (Auto) 0.09 K/uL (0-0.2) 09/22/20 05:58 Immature Gran # (Auto) 0.40 K/uL (0.00-0.02) H 09/22/20 05:58 Absolute Nucleated RBC 0.03 K/uL (0-0) H 09/22/20 05:58 Nucleated RBC % (auto) 0.3 % 09/22/20 05:58 PT 13.9 Seconds (9.0-12.0) H 09/20/20 05:51 INR 1.3 (0.9-1.1) H 09/20/20 05:51 Sodium 133 mmol/L (136-145) L 09/25/20 06:10 Potassium 4.0 mmol/L (3.5-5.1) 09/25/20 06:10 Chloride 93 mmol/L (98-107) L 09/25/20 06:10 Carbon Dioxide 34 mmol/L (21-32) H 09/25/20 06:10 Anion Gap 6.0 (3-11) 09/25/20 06:10 BUN 95 mg/dl (7-18) H 09/25/20 06:10 Creatinine 2.95 mg/dl (0.6-1.4) H D 09/25/20 06:10 Est Cr Clr Drug Dosing 26.7 ml/min 09/25/20 06:10 Est GFR ( Amer) 23.3 09/25/20 06:10 Est GFR (Non-Af Amer) 20.1 09/25/20 06:10 BUN/Creatinine Ratio 32.1 (10-20) H 09/25/20 06:10 Glucose 97 mg/dl (70-99) 09/25/20 06:10 POC Glucose 227 mg/dl (70-99) H 09/25/20 11:37 Estimat Average Glucose 200 mg/dl 09/13/20 06:32 Hemoglobin A1c 8.6 % (4.5-5.6) H 09/13/20 06:32 Lactate 1.7 mmol/L (0.4-2.0) 09/12/20 09:39 Calcium 8.6 mg/dl (8.5-10.1) 09/25/20 06:10 Phosphorus 3.7 mg/dl (2.5-4.9) 09/25/20 06:10 Magnesium 2.9 mg/dl (1.8-2.4) H 09/17/20 06:00 Iron 30 mcg/dl (35-175) L 09/24/20 05:49 Transferrin 209 mg/dl (200-360) 09/24/20 05:49 Transferrin % Sat 10 % (20-50) L 09/24/20 05:49 Ferritin 73.3 ng/ml (8-388) 09/24/20 05:49 Total Bilirubin 1.1 mg/dl (0.2-1) H 09/20/20 05:51 AST 46 U/L (15-37) H 09/20/20 05:51 ALT 37 U/L (12-78) 09/20/20 05:51 Alkaline Phosphatase 107 U/L (45-117) 09/20/20 05:51 Total Creatine Kinase 87 U/L (39-308) 09/12/20 09:20 Troponin I 0.031 ng/ml (0-0.045) 09/12/20 09:20 NT-Pro-B Natriuret Pep 35129 pg/ml (0-900) H 09/13/20 06:32 Total Protein 7.7 gm/dl (6.4-8.2) 09/20/20 05:51 Albumin 2.3 gm/dl (3.4-5.0) L 09/25/20 06:10 Globulin 5.0 gm/dl (2.5-4.0) H 09/20/20 05:51 Albumin/Globulin Ratio 0.5 (0.9-2) L 09/20/20 05:51 Urine Color Dark Yellow 09/18/20 13:25 Urine Appearance Cloudy (Clear) A 09/18/20 13:25 Urine pH 5.0 (4.5-7.5) 09/18/20 13:25 Ur Specific [place] 1.019 (1.000-1.030) 09/18/20 13:25 Urine Protein 2+ (Negative) H 09/18/20 13:25 Urine Glucose (UA) Negative (Negative) 09/18/20 13:25 Urine Ketones Negative (Negative) 09/18/20 13:25 Urine Blood Negative (Negative) 09/18/20 13:25 Urine Nitrite Negative (Negative) 09/18/20 13:25 Urine Bilirubin Negative (Negative) 09/18/20 13:25 Urine Urobilinogen Negative (Negative) 09/18/20 13:25 Ur Leukocyte Esterase Negative (Negative) 09/18/20 13:25 Urine WBC (Auto) 1-5 /hpf (0-5) 09/18/20 13:25 Urine RBC (Auto) 0-4 /hpf (0-4) 09/18/20 13:25 U Hyaline Cast (Auto) 1-5 /lpf (0-5) 09/18/20 13:25 U Epithel Cells (Auto) 10-20 /lpf (0-5) H 09/18/20 13:25 Urine Bacteria (Auto) 1+ (Negative) H 09/18/20 13:25 Ur Renal Epithelial Cell Not Reportable 09/12/20 12:09 Urine Mucus Present (None Prsent) A 09/18/20 13:25 Urine Yeast Not Reportable 09/18/20 13:25 Ur Random Creatinine 49.0 mg/dl 09/13/20 04:55 U Random Total Protein 98.6 mg/dl (0-11.9) H 09/13/20 04:55 Protein/Creatinin Ratio 2.0 (0-0.2) H 09/13/20 04:55 Resident Activity Tracking Resident Involvement: Resident Care Provided Care Provided: Adult Hospital Medicine
--- NOTE | 2020-09-25 18:21 | Billing Data ---
Date of Service September 25, 2020 Coding Level of Care Code 64217 Subseq Hosp Care Lvl 2
[2020-09-25] MEDS: INSULIN GLARGINE SOLOSTAR 100 UNITS/ML 3 ML PEN SC SCH (20:45)
[2020-09-26] MEDS: INSULIN ASPART 100 UNITS/ML 3 ML PEN SC SCH ×4 (08:25→20:47)
[2020-09-26] MEDS: FLUTICASONE FUROATE 100MCG 14 PUFFS/INHALER INH SCH (08:26)
[2020-09-26] MEDS: UMECLIDINIUM/VILANTEROL 62.5/25MCG 7 PUFFS/INHALER INH SCH (08:26)
[2020-09-26] MEDS: HEPARIN SOD 5,000 UNIT/0.5 ML VIAL SQ SCH (08:26)
[2020-09-26] MEDS: MULTIVITAMIN TAB PO SCH (08:27)
[2020-09-26] MEDS: DOXYCYCLINE HYCLATE 100 MG CAP PO SCH (08:27)
[2020-09-26] MEDS: METOPROLOL TARTRATE 25 MG TAB PO SCH ×2 (08:27→20:47)
[2020-09-26] MEDS: TERBINAFINE CR 30 GM TUBE EXT SCH ×2 (08:27→20:45)
[2020-09-26] MEDS: POLYETHYLENE (MIRALAX) 17 GM PACK PO SCH (08:27)
[2020-09-26 08:58] LABS: Albumin Level 2.4 gm/dl (3.4-5.0); BUN Creatinine Ratio 29.7 (10-20); Calcium 8.8 mg/dl (8.5-10.1); Creatinine Clr Calc Pharmacy 27.3 ml/min; Est GFR (African American) 23.6; Est GFR (Non-African American) 20.3; Potassium 4.1 mmol/L (3.5-5.1)
[2020-09-26 09:18] LABS: Phosphorus 3.1 mg/dl (2.5-4.9)
[2020-09-26] MEDS ORDERED: FAMOTIDINE 20 MG TAB PO PRN (09:26)
--- NOTE | 2020-09-26 09:29 | Hospitalist Progress Note ---
Date of Service September 26, 2020 Assessment & Plan (1) Cellulitis of leg, right: 75 yo M with PMH CKD3, Diastolic CHF, Anemia, COPD, Ischemic cardiomyopathy, DM2, CAD s/p CABGx4, admitted for acute hypoxemic respiratory failure and bilateral LE cellulitis/swelling, found to be in acute exacerbation of his chronic diastolic heart failure. Patient was initially diuresed, but subsequently went into cardiorenal syndrome. Renal function improving with hold of diuretics. Acute hypoxic respiratory failure in patient with acute on chronic diastolic HF: resolved - O2 saturations flip between 5 and 6L requirements depending on proximity to physical therapy sessions Acute on chronic diastolic HF: resolved - Admission BNP 86180 with signs of fluid overload. - Echo 09/13/20 showed no change from study in 10/2019; LV EF 50-55% with RV volume overload. - Diuresed 2.3 liters. - holding bumex due to cardiorenal syndrome, PROSPER during diuresis - Low Sodium heart healthy diet with 1000mL fluid restriction. Acute renal failure on CKD: resolving - Cr peaked at 5.3, down to 2.95 today. - previous baseline Cr 1.8 Bilateral LE cellulitis and open wounds: resolving - On arrival patient with bilateral LE swelling and cellulitis with R>L erythema and RLE open wounds that are painful. On admission patient's RLE wound noted to be [id number] in size. - Wound culture with multiple jihan in small numbers. BCx x2 drawn, final: negative. - 8 days of antibiotics (Unasyn and Dapto) unsuccessful in controlling cellulitis without exacerbating kidney disease. Cellulitis improved on 5 day BID Doxycycline therapy to complete 2 weeks of antibiotics. - wound care nurse following - Venous stasis and uncontrolled diabetes mellitus contributory to delayed skin healing History of anemia with epistaxis: resolved - Mild anemia likely secondary to iron deficiency + chronic kidney disease - previously on 5 mg Eliquis BID for afib anticoagulation, stopped after 1 day of epistaxis at beginning of hospitalization. - pt okay with scaling back Eliquis dose to 2.5 mg BID. Atrial fibrillation: stable - Rate controlled on metoprolol 25mg BID, anticoagulation with Eliquis 2.5 mg BID Hyponatremia: stable - Na 133 today, gradually trending up since admission - Suspected to be secondary to diuresis, PROSPER, low sodium diet. - Will need to continue BMP every few days going forward in rehab DM2: - Hgb A1c this admission 8.6%; above goal - Holding glipizide in setting of PROSPER. - SSI adjusted to correction factor 20, ins:cho 1:10 COPD: - Nebs q4h as needed. - Continue home fluticasone INH, umeclidinium/vilanterol. HLD: - Continue home atorvastatin. HTN: - Holding Bumex, continue metoprolol. Code Status: DNR/DNI FEN/GI: DM2, Heart Healthy, Low Sodium, fluid restriction 1000mL DVT ppx: anticoagulated on Eliquis Dispo: Med/surg; pending approval to acute rehab Admission and Anticipated Discharge Date Admission Date: September 12, 2020 Supervising Physician Co-Signing Physician Notes I personally examined the patient and verified all marsh points of history and exam, discussed case, and agree with decision making with Dr Banuelos. awaiting rehab approval. discussed nosebleed vs stroke risk and lower dosing of eliquis to match renal function (that was not known to be worse when on dosing prior to admission) - is Ok w resuming eliquis at lower dosing vitals noted nad heent nc at mmm breathing unlabored no accessory muscles good effort acute on chronic HFpEF - continue current care and follow, dry side of euvolemic. continue to follow closely both inpt and after discharge RLE cellulitis - chronic venous ulcers of R and L lower leg -now off abx and doing OK PROSPER - likely relates to CHF and diuresis. follow closely, renal dose meds DM - acutely sugars overall acceptable - continue current plan afib - resume eliquis at lower dosing stable for rehab once bed available Subjective Discussed Toni's progress with him and his [id number] at bedside. He continues to feel well and is anxious to get out of the hospital. some concern for heartburn/gaseous abdominal distension overnight that led to him sleeping poorly last night. Review of Systems Constitutional: no fever, no chills, no body aches and no fatigue Respiratory: no cough and no dyspnea Cardiovascular: no chest pain, no dyspnea and no edema Gastrointestinal: + bloating; no abdominal pain, no nausea, no vomiting, no constipation and no diarrhea/loose stools Physical Exam Constitutional: WD/WN, vitals as above no acute distress Respiratory: normal respiratory effort, lungs clear to auscultation Cardiovascular: Rate/Rhythm: regular rate and regular rhythm Heart Sounds: normal S1 and normal S2 Extremities: + edema b/l lower extremity edema, erythema, with superficial skin damage much improved Skin: + erythema; no ulcers Neurologic: awake; no focal motor deficits and not confused Psychiatric: A+Ox3, euthymic affect Results & Data Results & Data ([facility]) Vital Signs (Past 12 Hours) Vital Signs Temp Pulse Pulse Resp BP BP Pulse Ox 09/26/20 07:18 36.4 C L 72 18 111/71 92 09/26/20 04:00 36.8 C 78 20 116/73 93 09/26/20 00:16 36.6 C 71 20 117/71 93 09/25/20 22:20 68 Laboratory Results WBC 12.28 K/uL (4.8-10.8) H 09/24/20 05:49 RBC 3.54 M/uL (4.7-6.1) L 09/24/20 05:49 Hgb 10.0 g/dL (14.0-18.0) L 09/24/20 05:49 Hct 32.2 % (42-52) L 09/24/20 05:49 MCV 91.0 fL (80-100) 09/24/20 05:49 MCH 28.2 pg (25-34) 09/24/20 05:49 MCHC 31.1 g/dL (32-36) L 09/24/20 05:49 RDW Std Deviation 58.6 fL (36.4-46.3) H 09/24/20 05:49 RDW Coeff of Radha 17.7 % (11.5-14.5) H 09/24/20 05:49 Plt Count 317 K/uL (130-400) 09/24/20 05:49 MPV 9.6 fL (7.4-10.4) 09/24/20 05:49 Immature Gran % (Auto) 3.1 % 09/22/20 05:58 Neut % (Auto) 70.0 % 09/22/20 05:58 Lymph % (Auto) 15.2 % 09/22/20 05:58 [place] % (Auto) 5.4 % 09/22/20 05:58 Eos % (Auto) 5.6 % 09/22/20 05:58 Baso % (Auto) 0.7 % 09/22/20 05:58 Neut # (Auto) 8.91 K/uL (1.4-6.5) H 09/22/20 05:58 Lymph # (Auto) 1.94 K/uL (1.2-3.4) 09/22/20 05:58 [place] # (Auto) 0.69 K/uL (0.11-0.59) H 09/22/20 05:58 Eos # (Auto) 0.72 K/uL (0-0.5) H 09/22/20 05:58 Baso # (Auto) 0.09 K/uL (0-0.2) 09/22/20 05:58 Immature Gran # (Auto) 0.40 K/uL (0.00-0.02) H 09/22/20 05:58 Absolute Nucleated RBC 0.03 K/uL (0-0) H 09/22/20 05:58 Nucleated RBC % (auto) 0.3 % 09/22/20 05:58 PT 13.9 Seconds (9.0-12.0) H 09/20/20 05:51 INR 1.3 (0.9-1.1) H 09/20/20 05:51 Sodium 132 mmol/L (136-145) L 09/26/20 08:06 Potassium 4.1 mmol/L (3.5-5.1) 09/26/20 08:06 Chloride 93 mmol/L (98-107) L 09/26/20 08:06 Carbon Dioxide 33 mmol/L (21-32) H 09/26/20 08:06 Anion Gap 6.0 (3-11) 09/26/20 08:06 BUN 87 mg/dl (7-18) H 09/26/20 08:06 Creatinine 2.92 mg/dl (0.6-1.4) H 09/26/20 08:06 Est Cr Clr Drug Dosing 27.3 ml/min 09/26/20 08:06 Est GFR ( Amer) 23.6 09/26/20 08:06 Est GFR (Non-Af Amer) 20.3 09/26/20 08:06 BUN/Creatinine Ratio 29.7 (10-20) H 09/26/20 08:06 Glucose 107 mg/dl (70-99) H 09/26/20 08:06 POC Glucose 220 mg/dl (70-99) H 09/26/20 11:58 Estimat Average Glucose 200 mg/dl 09/13/20 06:32 Hemoglobin A1c 8.6 % (4.5-5.6) H 09/13/20 06:32 Lactate 1.7 mmol/L (0.4-2.0) 09/12/20 09:39 Calcium 8.8 mg/dl (8.5-10.1) 09/26/20 08:06 Phosphorus 3.1 mg/dl (2.5-4.9) 09/26/20 08:06 Magnesium 2.9 mg/dl (1.8-2.4) H 09/17/20 06:00 Iron 30 mcg/dl (35-175) L 09/24/20 05:49 Transferrin 209 mg/dl (200-360) 09/24/20 05:49 Transferrin % Sat 10 % (20-50) L 09/24/20 05:49 Ferritin 73.3 ng/ml (8-388) 09/24/20 05:49 Total Bilirubin 1.1 mg/dl (0.2-1) H 09/20/20 05:51 AST 46 U/L (15-37) H 09/20/20 05:51 ALT 37 U/L (12-78) 09/20/20 05:51 Alkaline Phosphatase 107 U/L (45-117) 09/20/20 05:51 Total Creatine Kinase 87 U/L (39-308) 09/12/20 09:20 Troponin I 0.031 ng/ml (0-0.045) 09/12/20 09:20 NT-Pro-B Natriuret Pep 95044 pg/ml (0-900) H 09/13/20 06:32 Total Protein 7.7 gm/dl (6.4-8.2) 09/20/20 05:51 Albumin 2.4 gm/dl (3.4-5.0) L 09/26/20 08:06 Globulin 5.0 gm/dl (2.5-4.0) H 09/20/20 05:51 Albumin/Globulin Ratio 0.5 (0.9-2) L 09/20/20 05:51 Urine Color Dark Yellow 09/18/20 13:25 Urine Appearance Cloudy (Clear) A 09/18/20 13:25 Urine pH 5.0 (4.5-7.5) 09/18/20 13:25 Ur Specific [place] 1.019 (1.000-1.030) 09/18/20 13:25 Urine Protein 2+ (Negative) H 09/18/20 13:25 Urine Glucose (UA) Negative (Negative) 09/18/20 13:25 Urine Ketones Negative (Negative) 09/18/20 13:25 Urine Blood Negative (Negative) 09/18/20 13:25 Urine Nitrite Negative (Negative) 09/18/20 13:25 Urine Bilirubin Negative (Negative) 09/18/20 13:25 Urine Urobilinogen Negative (Negative) 09/18/20 13:25 Ur Leukocyte Esterase Negative (Negative) 09/18/20 13:25 Urine WBC (Auto) 1-5 /hpf (0-5) 09/18/20 13:25 Urine RBC (Auto) 0-4 /hpf (0-4) 09/18/20 13:25 U Hyaline Cast (Auto) 1-5 /lpf (0-5) 09/18/20 13:25 U Epithel Cells (Auto) 10-20 /lpf (0-5) H 09/18/20 13:25 Urine Bacteria (Auto) 1+ (Negative) H 09/18/20 13:25 Ur Renal Epithelial Cell Not Reportable 09/12/20 12:09 Urine Mucus Present (None Prsent) A 09/18/20 13:25 Urine Yeast Not Reportable 09/18/20 13:25 Ur Random Creatinine 49.0 mg/dl 09/13/20 04:55 U Random Total Protein 98.6 mg/dl (0-11.9) H 09/13/20 04:55 Protein/Creatinin Ratio 2.0 (0-0.2) H 09/13/20 04:55 Resident Activity Tracking Resident Involvement: Resident Care Provided Care Provided: Adult Hospital Medicine
--- NOTE | 2020-09-26 11:43 | Nephrology Progress Note ---
Date of Service September 26, 2020 Assessment & Plan (1) Acute kidney injury superimposed on chronic kidney disease: Toni has PMH of DMII,A fib, CAD, CHF (predominately R heart) with preserved LVEF, and severe COPD and CKD III b/l cr 1.5-1.8 mg/dL. admitted to the hospital with progressive with shortness of breath and edema of the right lower extremity with acute on chronic CHF and cellulitis of the right leg. on admission creatinine was 2.6 which to rapidly worsen and peaked to 5.3 with aggressive diuresis for shortness of breath and lower extremity edema. Diuretics has been on hold and he continues to make decent amount of urine. Renal function staying relatively stable with slow improvement in renal function. decent urine output, he has been off of Bumex and daptomycin. -- Will need close monitoring of labs and follow-up in next 2-3 weeks with at CKD Clinic after discharge, as per patient preference. -- also needs to follow-up with Heart failure Clinic -- patient requested transportation help to and from out pt physician visit, request case management to set up transportation on discharge if possible -- difficult to comment on Xarelto as an anticoagulant as patient has been refusing Eliquis as well as warfarin which would be preferable considering creatinine clearance less than 15. will follow (2) Cardiorenal syndrome: (3) Acute on chronic diastolic (congestive) heart failure: (4) Anemia: Admission and Anticipated Discharge Date Admission Date: September 12, 2020 Subjective Toni was seen and examined in his room this morning. Overall he is feels about the same, lower extremity edema improved. Denies any shortness of breath or chest pain. Kidney function continues to improve slowly, decent urine output off diuretics, net even. Review of Systems Review of Systems: All systems reviewed & are unremarkable except as noted in HPI & below Physical Exam Constitutional: well developed and well nourished; no acute distress Respiratory: normal respiratory effort; no respiratory distress Auscultation: + diminished lung sounds Cardiovascular: Rate/Rhythm: regular rate and regular rhythm Heart Sounds: normal S1 and normal S2 Extremities: + edema Skin: + ulcer, + induration and + erythema Neurologic: moves all extremities and awake; not confused Psychiatric: A+Ox3, euthymic affect Results & Data ([facility]) Vital Signs (Past 12 Hours) Vital Signs Temp Pulse Resp BP BP Pulse Ox 09/26/20 07:18 36.4 C L 72 18 111/71 92 09/26/20 04:00 36.8 C 78 20 116/73 93 09/26/20 00:16 36.6 C 71 20 117/71 93 PG Care Time/CCT Total # of Minutes Spent Total Time Spent with Patient: Total time spent is greater than 50% in coordination of care (as documented) at patient's floor/unit and/or counseling patient: Coding Level of Care Code 22947 Subseq Hosp Care Lvl 3 Diagnoses Acute kidney injury superimposed on chronic kidney disease N17.9; N18.9 Cardiorenal syndrome I13.0 Heart failure presence: with heart failure Hypertensive chronic kidney disease stage: stage 1-4 or unspecified chronic kidney disease Acute on chronic diastolic (congestive) heart failure I50.33 Anemia D64.9 (1) Cardiorenal syndrome Heart failure presence: with heart failure Hypertensive chronic kidney disease stage: stage 1-4 or unspecified chronic kidney disease Qualified Code(s): I13.0 - Hypertensive heart and chronic kidney disease with heart failure and stage 1 through stage 4 chronic kidney disease, or unspecified chronic kidney disease
[2020-09-26] MEDS: FERROUS SULFATE 325 MG TAB PO SCH (12:02)
--- NOTE | 2020-09-26 17:28 | Billing Data ---
Date of Service September 26, 2020 Coding Level of Care Code 85766 Subseq Hosp Care Lvl 2
[2020-09-26] MEDS ORDERED: ACETAMINOPHEN 500 MG TAB PO PRN (20:31)
[2020-09-26] MEDS: APIXABAN 2.5 MG TAB PO SCH (20:45)
[2020-09-26] MEDS: INSULIN GLARGINE SOLOSTAR 100 UNITS/ML 3 ML PEN SC SCH (20:46)
[2020-09-27] MEDS ORDERED: IBUPROFEN 200 MG TAB PO PRN (07:16)
--- NOTE | 2020-09-27 07:21 | Hospitalist Progress Note ---
Date of Service September 27, 2020 Assessment & Plan (1) Cellulitis of leg, right: 75 yo M with PMH CKD3, Diastolic CHF, Anemia, COPD, Ischemic cardiomyopathy, DM2, CAD s/p CABGx4, admitted for acute hypoxemic respiratory failure and bilateral LE cellulitis/swelling, found to be in acute exacerbation of his chronic diastolic heart failure. Patient was initially diuresed, but subsequently went into cardiorenal syndrome. Renal function improving with hold of diuretics. Acute hypoxic respiratory failure in patient with acute on chronic diastolic HF: resolved - O2 saturations flip between 5 and 6L requirements depending on proximity to physical therapy sessions Acute on chronic diastolic HF: resolved - Admission BNP 33382 with signs of fluid overload. - Echo 09/13/20 showed no change from study in 10/2019; LV EF 50-55% with RV volume overload. - Diuresed 2.3 liters. - holding bumex due to cardiorenal syndrome, PROSPER during diuresis - Low Sodium heart healthy diet with 1000mL fluid restriction. Acute renal failure on CKD: resolving - Cr peaked at 5.3, down to 2.71 today. - previous baseline Cr 1.8, new baseline likely in 2.5+range Bilateral LE cellulitis and open wounds: resolving - On arrival patient with bilateral LE swelling and cellulitis with R>L erythema and RLE open wounds that are painful. On admission patient's RLE wound noted to be [id number] in size. - Wound culture with multiple jihan in small numbers. BCx x2 drawn, final: negative. - 8 days of antibiotics (Unasyn and Dapto) unsuccessful in controlling cellulitis without exacerbating kidney disease. Cellulitis improved on 5 day BID Doxycycline therapy to complete 2 weeks of antibiotics. - wound care nurse following - Venous stasis and uncontrolled diabetes mellitus contributory to delayed skin healing DM2: - Hgb A1c this admission 8.6%; above goal - Holding glipizide in setting of PROSPER. - SSI adjusted to correction factor 20, ins:cho 1:10 COPD: - Nebs q4h as needed. - Continue home fluticasone INH, umeclidinium/vilanterol. - humidified oxygen Code Status: DNR/DNI FEN/GI: DM2, Heart Healthy, Low Sodium, fluid restriction 1000mL DVT ppx: anticoagulated on Eliquis 2.5 mg BID Dispo: Med/surg; bed and transport approved for [facility] 09/28 Admission and Anticipated Discharge Date Admission Date: September 12, 2020 Supervising Physician Co-Signing Physician Notes I personally examined the patient and verified all marsh points of history and exam, discussed case, and agree with decision making with Dr Banuelos. rehab denied. dr banuelos appealed - appeal denied. pt OK w SNF for rehab instead. vitals noted nad heent nc at mmm breathing unlabored no accessory muscles good effort acute on chronic HFpEF - continue current care and follow, close ongoing f/u as outpt as well RLE cellulitis - chronic venous ulcers of R and L lower leg - still off abx and doing OK PROSPER - likely relates to CHF and diuresis. follow closely, renal dose meds, showing a slow degree of improvement but not sure of what his current/new baseline will be - follow closely DM - acutely sugars remain acceptable - continue current plan afib - rate controlled, anticoagulated rehab/snf once bed available Subjective Says he had a brief nosebleed episode last night after starting the 2.5 mg Eliquis. Didn't sleep well, otherwise no complaints. Review of Systems Constitutional: no fever, no chills, no body aches and no fatigue Respiratory: no cough and no dyspnea Cardiovascular: no chest pain, no dyspnea and no edema Physical Exam Constitutional: WD/WN, vitals as above no acute distress Respiratory: normal respiratory effort, lungs clear to auscultation Cardiovascular: Rate/Rhythm: regular rate and regular rhythm Heart Sounds: normal S1 and normal S2 Extremities: + edema Skin: + erythema; no ulcers Neurologic: awake; no focal motor deficits and not confused Psychiatric: A+Ox3, euthymic affect Results & Data Results & Data ([facility]) Vital Signs (Past 12 Hours) Vital Signs Temp Pulse Pulse Resp BP Pulse Ox 09/27/20 04:34 36.3 C L 69 18 107/71 91 09/27/20 00:11 67 09/26/20 22:57 36.6 C 79 18 115/90 91 Laboratory Results WBC 12.28 K/uL (4.8-10.8) H 09/24/20 05:49 RBC 3.54 M/uL (4.7-6.1) L 09/24/20 05:49 Hgb 10.0 g/dL (14.0-18.0) L 09/24/20 05:49 Hct 32.2 % (42-52) L 09/24/20 05:49 MCV 91.0 fL (80-100) 09/24/20 05:49 MCH 28.2 pg (25-34) 09/24/20 05:49 MCHC 31.1 g/dL (32-36) L 09/24/20 05:49 RDW Std Deviation 58.6 fL (36.4-46.3) H 09/24/20 05:49 RDW Coeff of Radha 17.7 % (11.5-14.5) H 09/24/20 05:49 Plt Count 317 K/uL (130-400) 09/24/20 05:49 MPV 9.6 fL (7.4-10.4) 09/24/20 05:49 Immature Gran % (Auto) 3.1 % 09/22/20 05:58 Neut % (Auto) 70.0 % 09/22/20 05:58 Lymph % (Auto) 15.2 % 09/22/20 05:58 Alcorn % (Auto) 5.4 % 09/22/20 05:58 Eos % (Auto) 5.6 % 09/22/20 05:58 Baso % (Auto) 0.7 % 09/22/20 05:58 Neut # (Auto) 8.91 K/uL (1.4-6.5) H 09/22/20 05:58 Lymph # (Auto) 1.94 K/uL (1.2-3.4) 09/22/20 05:58 Alcorn # (Auto) 0.69 K/uL (0.11-0.59) H 09/22/20 05:58 Eos # (Auto) 0.72 K/uL (0-0.5) H 09/22/20 05:58 Baso # (Auto) 0.09 K/uL (0-0.2) 09/22/20 05:58 Immature Gran # (Auto) 0.40 K/uL (0.00-0.02) H 09/22/20 05:58 Absolute Nucleated RBC 0.03 K/uL (0-0) H 09/22/20 05:58 Nucleated RBC % (auto) 0.3 % 09/22/20 05:58 PT 13.9 Seconds (9.0-12.0) H 09/20/20 05:51 INR 1.3 (0.9-1.1) H 09/20/20 05:51 Sodium 132 mmol/L (136-145) L 09/27/20 07:55 Potassium 3.6 mmol/L (3.5-5.1) 09/27/20 07:55 Chloride 94 mmol/L (98-107) L 09/27/20 07:55 Carbon Dioxide 34 mmol/L (21-32) H 09/27/20 07:55 Anion Gap 4.0 (3-11) 09/27/20 07:55 BUN 86 mg/dl (7-18) H 09/27/20 07:55 Creatinine 2.71 mg/dl (0.6-1.4) H 09/27/20 07:55 Est Cr Clr Drug Dosing 29.3 ml/min 09/27/20 07:55 Est GFR ( Amer) 25.8 09/27/20 07:55 Est GFR (Non-Af Amer) 22.3 09/27/20 07:55 BUN/Creatinine Ratio 31.5 (-) H 09/27/20 07:55 Glucose 70 mg/dl (70-99) 09/27/20 07:55 POC Glucose 129 mg/dl (70-99) H 09/27/20 16:30 Estimat Average Glucose 200 mg/dl 09/13/20 06:32 Hemoglobin A1c 8.6 % (4.5-5.6) H 09/13/20 06:32 Lactate 1.7 mmol/L (0.4-2.0) 09/12/20 09:39 Calcium 8.8 mg/dl (8.5-10.1) 09/27/20 07:55 Phosphorus 3.2 mg/dl (2.5-4.9) 09/27/20 07:55 Magnesium 2.9 mg/dl (1.8-2.4) H 09/17/20 06:00 Iron 30 mcg/dl (35-175) L 09/24/20 05:49 Transferrin 209 mg/dl (200-360) 09/24/20 05:49 Transferrin % Sat 10 % (20-50) L 09/24/20 05:49 Ferritin 73.3 ng/ml (8-388) 09/24/20 05:49 Total Bilirubin 1.1 mg/dl (0.2-1) H 09/20/20 05:51 AST 46 U/L (15-37) H 09/20/20 05:51 ALT 37 U/L (12-78) 09/20/20 05:51 Alkaline Phosphatase 107 U/L (45-117) 09/20/20 05:51 Total Creatine Kinase 87 U/L (39-308) 09/12/20 09:20 Troponin I 0.031 ng/ml (0-0.045) 09/12/20 09:20 NT-Pro-B Natriuret Pep 01550 pg/ml (0-900) H 09/13/20 06:32 Total Protein 7.7 gm/dl (6.4-8.2) 09/20/20 05:51 Albumin 2.4 gm/dl (3.4-5.0) L 09/27/20 07:55 Globulin 5.0 gm/dl (2.5-4.0) H 09/20/20 05:51 Albumin/Globulin Ratio 0.5 (0.9-2) L 09/20/20 05:51 Urine Color Dark Yellow 09/18/20 13:25 Urine Appearance Cloudy (Clear) A 09/18/20 13:25 Urine pH 5.0 (4.5-7.5) 09/18/20 13:25 Ur Specific Banks 1.019 (1.000-1.030) 09/18/20 13:25 Urine Protein 2+ (Negative) H 09/18/20 13:25 Urine Glucose (UA) Negative (Negative) 09/18/20 13:25 Urine Ketones Negative (Negative) 09/18/20 13:25 Urine Blood Negative (Negative) 09/18/20 13:25 Urine Nitrite Negative (Negative) 09/18/20 13:25 Urine Bilirubin Negative (Negative) 09/18/20 13:25 Urine Urobilinogen Negative (Negative) 09/18/20 13:25 Ur Leukocyte Esterase Negative (Negative) 09/18/20 13:25 Urine WBC (Auto) 1-5 /hpf (0-5) 09/18/20 13:25 Urine RBC (Auto) 0-4 /hpf (0-4) 09/18/20 13:25 U Hyaline Cast (Auto) 1-5 /lpf (0-5) 09/18/20 13:25 U Epithel Cells (Auto) 10-20 /lpf (0-5) H 09/18/20 13:25 Urine Bacteria (Auto) 1+ (Negative) H 09/18/20 13:25 Ur Renal Epithelial Cell Not Reportable 09/12/20 12:09 Urine Mucus Present (None Prsent) A 09/18/20 13:25 Urine Yeast Not Reportable 09/18/20 13:25 Ur Random Creatinine 49.0 mg/dl 09/13/20 04:55 U Random Total Protein 98.6 mg/dl (0-11.9) H 09/13/20 04:55 Protein/Creatinin Ratio 2.0 (0-0.2) H 09/13/20 04:55 [facility]19 [facility] 09/27/20 14:30 SARS-CoV-2, RNA, NAAT NEGATIVE (NEGATIVE) 09/27/20 14:30 Resident Activity Tracking Resident Involvement: Resident Care Provided Care Provided: Adult [facility]
[2020-09-27 08:50] LABS: Albumin Level 2.4 gm/dl (3.4-5.0); BUN Creatinine Ratio 31.5 (10-20); Calcium 8.8 mg/dl (8.5-10.1); Creatinine Clr Calc Pharmacy 29.3 ml/min; Est GFR (African American) 25.8; Est GFR (Non-African American) 22.3; Phosphorus 3.2 mg/dl (2.5-4.9); Potassium 3.6 mmol/L (3.5-5.1)
[2020-09-27] MEDS: FLUTICASONE FUROATE 100MCG 14 PUFFS/INHALER INH SCH (09:08)
[2020-09-27] MEDS: APIXABAN 2.5 MG TAB PO SCH ×2 (09:09→20:13)
[2020-09-27] MEDS: MULTIVITAMIN TAB PO SCH (09:09)
[2020-09-27] MEDS: METOPROLOL TARTRATE 25 MG TAB PO SCH ×2 (09:09→20:14)
[2020-09-27] MEDS: TERBINAFINE CR 30 GM TUBE EXT SCH ×2 (09:10→20:13)
[2020-09-27] MEDS: UMECLIDINIUM/VILANTEROL 62.5/25MCG 7 PUFFS/INHALER INH SCH (09:10)
[2020-09-27] MEDS: POLYETHYLENE (MIRALAX) 17 GM PACK PO SCH (09:10)
[2020-09-27] MEDS: INSULIN ASPART 100 UNITS/ML 3 ML PEN SC SCH ×4 (09:13→20:16)
--- NOTE | 2020-09-27 11:46 | Nephrology Progress Note ---
Date of Service September 27, 2020 Assessment & Plan (1) Acute kidney injury superimposed on chronic kidney disease: Toni has PMH of DMII,A fib, CAD, CHF (predominately R heart) with preserved LVEF, and severe COPD and CKD III b/l cr 1.5-1.8 mg/dL. admitted to the hospital with progressive with shortness of breath and edema of the right lower extremity with acute on chronic CHF and cellulitis of the right leg. on admission creatinine was 2.6 which to rapidly worsen and peaked to 5.3 with aggressive diuresis for shortness of breath and lower extremity edema. Diuretics has been on hold and he continues to make decent amount of urine. Renal function staying relatively stable with slow improvement in renal function. decent urine output, he has been off of Bumex and daptomycin. -- Bumex 1 mg x 1 dose now, continue 1 mg daily on DC -- Will need close monitoring of labs and follow-up in next 2-3 weeks with at CKD Clinic after discharge, as per patient preference. -- also needs to follow-up with Heart failure Clinic -- patient requested transportation help to and from out pt physician visit, request case management to set up transportation on discharge if possible will follow (2) Cardiorenal syndrome: (3) Acute on chronic diastolic (congestive) heart failure: (4) Anemia: Admission and Anticipated Discharge Date Admission Date: September 12, 2020 Subjective Toni was seen and examined in his room this morning. feeling poorly this morning he was not able to sleep last night, felt restless through the night. Denies any shortness of breath or chest pain. Kidney function continues to improve slowly. . Review of Systems Review of Systems: All systems reviewed & are unremarkable except as noted in HPI & below Physical Exam Constitutional: WD/WN, vitals as above well developed and well nourished; no acute distress Respiratory: normal respiratory effort, lungs clear to auscultation normal respiratory effort; no respiratory distress Auscultation: + diminished lung sounds and + crackles Cardiovascular: Rate/Rhythm: regular rate and regular rhythm Heart Sounds: normal S1 and normal S2 Extremities: + edema Skin: + ulcer, + induration and + erythema Neurologic: moves all extremities and awake; no focal motor deficits and not confused Psychiatric: A+Ox3, euthymic affect Results & Data ([facility]) Vital Signs (Past 12 Hours) Vital Signs Temp Pulse Pulse Resp BP BP Pulse Ox 09/27/20 11:13 36.8 C 67 18 115/67 95 09/27/20 07:30 64 09/27/20 07:25 36.4 C L 89 18 126/71 94 09/27/20 04:34 36.3 C L 69 18 107/71 91 09/27/20 00:11 67 PG Care Time/CCT Total # of Minutes Spent Total Time Spent with Patient: Total time spent is greater than 50% in coordination of care (as documented) at patient's floor/unit and/or counseling patient: Coding Level of Care Code 18098 Subseq Hosp Care Lvl 3 Diagnoses Acute kidney injury superimposed on chronic kidney disease N17.9; N18.9 Cardiorenal syndrome I13.0 Heart failure presence: with heart failure Hypertensive chronic kidney disease stage: stage 1-4 or unspecified chronic kidney disease Acute on chronic diastolic (congestive) heart failure I50.33 Anemia D64.9 (1) Cardiorenal syndrome Heart failure presence: with heart failure Hypertensive chronic kidney disease stage: stage 1-4 or unspecified chronic kidney disease Qualified Code(s): I13.0 - Hypertensive heart and chronic kidney disease with heart failure and stage 1 through stage 4 chronic kidney disease, or unspecified chronic kidney disease
[2020-09-27] MEDS: BUMETANIDE 1 MG TAB PO SCH (12:39)
[2020-09-27] MEDS: FERROUS SULFATE 325 MG TAB PO SCH (12:40)
[2020-09-27] MEDS ORDERED: SODIUM CHLORIDE 0.65% NA SOLN 45 ML (OCEAN) PRN (17:32)
--- NOTE | 2020-09-27 18:46 | Billing Data ---
Date of Service September 27, 2020 Coding Level of Care Code 76808 Subseq Hosp Care Lvl 2
[2020-09-27] MEDS: INSULIN GLARGINE SOLOSTAR 100 UNITS/ML 3 ML PEN SC SCH (20:13)
[2020-09-27 23:46] VITALS: O2SAT 93
[2020-09-28 07:40] LABS: Albumin Level 2.2 gm/dl (3.4-5.0); Calcium 8.6 mg/dl (8.5-10.1); Creatinine Clr Calc Pharmacy 31.9 ml/min; Est GFR (African American) 28.6; Est GFR (Non-African American) 24.7; Phosphorus 2.9 mg/dl (2.5-4.9); Potassium 3.7 mmol/L (3.5-5.1)
[2020-09-28] MEDS: BUMETANIDE 1 MG TAB PO SCH (08:20)
[2020-09-28] MEDS: UMECLIDINIUM/VILANTEROL 62.5/25MCG 7 PUFFS/INHALER INH SCH (08:21)
[2020-09-28] MEDS: MULTIVITAMIN TAB PO SCH (08:23)
[2020-09-28] MEDS: METOPROLOL TARTRATE 25 MG TAB PO SCH (08:23)
[2020-09-28] MEDS: APIXABAN 2.5 MG TAB PO SCH (08:23)
[2020-09-28] MEDS: FLUTICASONE FUROATE 100MCG 14 PUFFS/INHALER INH SCH (08:23)
[2020-09-28] MEDS: TERBINAFINE CR 30 GM TUBE EXT SCH (08:24)
[2020-09-28] MEDS: POLYETHYLENE (MIRALAX) 17 GM PACK PO SCH (08:25)
[2020-09-28] MEDS: INSULIN ASPART 100 UNITS/ML 3 ML PEN SC SCH (08:31)
[2020-09-28 08:37] VITALS: TEMP 97.3
[2020-09-28 10:01] VITALS: BP 121/74; PULSE 72
--- NOTE | 2020-09-28 10:01 | Discharge Summary ---
Date of Service September 28, 2020 Admission HPI Per Admitting Provider Toni Bauer is a 75-year-old male with heart failure with reduced ejection fraction, severe COPD who presents to the ER with shortness of breath on exertion, bilateral leg swelling with open wounds. He no longer feels like he can cope at home and cannot ambulate with his current leg swelling. Bilateral leg swelling occurred over the last week. Right-sided greater than left, which is usually the case for him. Right side started blistering and is now having open wounds with significant pain especially on ambulation. No fevers or chills. He has not been seen by wound care for this. Reports his right leg shreyas ears much more erythematous compared to the left. Regarding his shortness of breath on exertion he reports is been progressively worse over the last week. Associated bilateral leg swelling at the same time period. No associated chest pain, diaphoresis, nausea, vomiting, abdominal pain. No change in bowel habit. He has been on the same dose of Bumex since October - 2 mg p.o. twice daily. He reports compliance with this medication no significant change to his usual diet. He reports feeling similar to his shortness of breath admission in October 2019. On that occasion he was diagnosed with acute on chronic right-sided heart failure and was diuresed with a negative balance of 6 L and felt significantly improved. However his weight did not change significantly. Of note he reports any taking apixaban once a day on the advice of his PCP due to recurrent epistaxis. In the ER he was suspected to have right-sided cellulitis and started on Unasyn. Admission Exam Per Admitting Provider Constitutional: well developed and + obese; + not well nourished, no acute distress and no altered mental status Eyes: + anicteric sclerae; normal pupil size ENMT: external ear and nose normal, oropharynx normal Neck: + short neck and + thick neck Respiratory: normal respiratory effort (At rest) and able to speak in complete sentences; no respiratory distress, no labored breathing and does not use accessory muscles Auscultation: + diminished lung sounds (Poor air entry throughout); no crackles, no rales, no rhonchi and no wheezes Cardiovascular: Rate/Rhythm: regular rate and + irregularly irregular Heart Sounds: no murmur Vessels: no JVD Extremities: normal capillary refill (Prolonged bilateral toes, equal, approximately 6 seconds) and + edema (2+ lower extremity edema to lower abdomen, equal bilaterally) Gastrointestinal (Abdomen): Inspection/Auscultation: + abdomen distended and normal bowel sounds Percussion/Palpation: abdomen soft; abdomen nontender, no guarding and abdomen not rigid Skin: + ulcer (Right leg open blisters), + skin tightening (Bilateral lower extremities), + crusts (With the appearing edema bilaterally), + erythema (Bilateral lower extremity not extending beyond ankle or knee, R > L, significant warmth to right side) and + nail abnormality (Onychomycosis) Neurologic: moves all extremities and awake; no focal motor deficits (None lateralizing) and not confused Motor/Sensory: + sensory deficit (Bilateral equal stocking distribution numbness in feet); no tremor Psychiatric: Orientation: alert and oriented x 3 Affect: euthymic affect Principal Diagnosis Acute on Chronic Hypoxic Respiratory Failure, Acute Congestive Heart Failure Exacerbation Discharge Exam Constitutional cooperative; no acute distress and not ill appearing Neck normal visual inspection Respiratory normal respiratory effort, able to speak in complete sentences and + pursed lip breathing; no respiratory distress, no cough and no audible wheezes Auscultation: lungs clear to auscultation bilaterally; no crackles, no rales, no rhonchi and no wheezes Cardiovascular Rate/Rhythm: regular rate and regular rhythm Heart Sounds: normal S1 and normal S2; no gallop, no murmur and no cardiac rub Vessels: posterior tibial pulses present Extremities: no pedal edema and no edema Gastrointestinal (Abdomen) Inspection/Auscultation: abdomen normal to inspection and normal bowel sounds; abdomen not distended Percussion/Palpation: abdomen soft; abdomen nontender, no guarding, abdomen not rigid and no abdominal mass Discharge Data Allergies Allergy/AdvReac Type Severity Reaction Status Date / Time No Known Allergies Allergy Verified 09/12/20 10:59 Consultations 09/12/20 11:50 ED Decision to Admit Stat 09/12/20 18:46 Consult Nephrology Routine Ordered Studies 09/12/20 16:30 US renal/blad retro comp Urgent Hospital Course (1) Cellulitis of leg, right: 75 yo M with PMH CKD3, Diastolic CHF, Anemia, COPD, Ischemic cardiomyopathy, DM2, CAD s/p CABGx4, admitted for acute hypoxemic respiratory failure and bilateral LE cellulitis/swelling, found to be in acute exacerbation of his chronic diastolic heart failure. Patient was initially diuresed, but subsequently had diuretics decreased due to his cardiorenal syndrome. Acute hypoxic respiratory failure in patient with acute on chronic diastolic HF - Secondary to CHF exacerbation, improved with fluid diuresis - O2 saturations flip between 5 and 6L requirements depending on proximity to physical therapy sessions - Notably has dry nasal passages and avoids epistaxis with nasal saline sprays and humidified oxygen - Echo 09/13/20 showed no change from study in 10/2019; LV EF 50-55% with RV volume overload. - follow up with heart failure clinic Acute renal failure on CKD: resolving - secondary to aggressive diuresis with bumex drip - Cr peaked at 5.3, down to 2.49 today. - previous baseline Cr 1.8, new baseline likely higher - able to tolerate 1 mg Bumex daily at discharge - Low Sodium heart healthy diet with 1000mL fluid restriction. - follow up with Nephrology, weekly BMP Bilateral LE cellulitis and open wounds: resolving - On arrival patient with bilateral LE swelling and cellulitis with R>L erythema and RLE open wounds that are painful, [id number] in size. Culture negative. - 8 days of antibiotics (Unasyn and Dapto) unsuccessful in controlling cellulitis without exacerbating kidney disease. Cellulitis improved on 5 day BID Doxycycline therapy to complete 2 weeks of antibiotics. DM2: - Hgb A1c this admission 8.6%; above goal - consider increasing outpatient diabetic regimen All other medical conditions managed per home regimen. New Medications - Eliquis 2.5 mg BID - Bumex 1 mg daily Total Time Total Time Spent Total Time Spent (In Minutes): <30 Discharge Plan Discharge Items Patient Disposition: Transfer [facility] Reason For Visit: ACUTE SYSTOLIC CHF,PROSPER,CELLULITIS Discharge Diagnosis: Systolic CHF exacerbation, BL cellulitis, Cardiorenal syndrome Activity: Resume your previous activity Exercise/Sports: Gradually increase as tolerated Non-emergency contact: Primary Care Provider Call non-emergency contact if: you have any medication questions and your symptoms worsen Follow-up/Referrals: Malena John CRNP [Primary Care Provider] - Diet: Carb Consistent or DM2 and Heart Healthy Addtl Attending Provider Instructions: Acute hypoxic respiratory failure in patient with acute on chronic diastolic HF: resolved - currently satting 97% on home O2 requirement of 5LNC. Requires 6LNC when exercising. Acute on chronic diastolic HF: resolved - Echo 09/13/20 showed no change from study in 10/2019; LV EF 50-55% with RV volume overload. - believe dry weight to be approximately 111 kg - Bumex 1 mg daily - Low Sodium heart healthy diet with 1000mL fluid restriction. - will need to follow up with heart failure clinic Acute renal failure on CKD: resolving - Cr peaked at 5.3, down to 2.49 today. - baseline Cr 1.8? may be higher due to worsened kidney disease in interim since 01/2020 - resistant to idea of dialysis in future Bilateral LE cellulitis and open wounds: resolving - On arrival patient with bilateral LE swelling and cellulitis with R>L erythema and RLE open wounds that are painful. On admission patient's RLE wound noted to be [id number] in size. - Wound culture with multiple jihan in small numbers. - BCx x2 drawn, final: negative. - completed 2 week course of antibiotics for worsening cellulitis, most effective with doxycycline BID - Venous stasis and uncontrolled diabetes mellitus contributory to delayed skin healing History of anemia with epistaxis: resolved - Hgb 11.4 on admission, down to 10.4 --> 10.0 - restarted on Eliquis, 2.5 mg BID. - Epistaxis avoided with humidified oxygen, nasal saline spray Atrial fibrillation: stable - Rate controlled on metoprolol 25mg BID, continue. - Eliquis 2.5 BID as above Hyponatremia: stable - Na 133 today, gradually trending up since admission - Suspected to be secondary to diuresis, PROSPER, low sodium diet. - continue following BMP weekly DM2: - Hgb A1c this admission 8.6%; above goal - Holding glipizide in setting of PROSPER. - SSI adjusted to correction factor 20, ins:cho 1:10 COPD: - Nebs q4h as needed. - Continue home fluticasone INH, umeclidinium/vilanterol. HLD: - Continue home atorvastatin. HTN: - continue metoprolol. Code Status: DNR/DNI FENGI: DM2, Heart Healthy, Low Sodium, fluid restriction 1000mL DVT ppx: Eliquis Pending Studies at Discharge: No Stand-Alone Forms: [facility] Skilled Items Patient informed of condition?: Yes DNR: Yes Discharge Level of Care: Acute rehab Communicable Disease: No Discharge Prognosis: Stable Lines: Peripheral IV Urinary Catheter: No Medications and DC Order Prescriptions: New atorvastatin 40 mg Tablet 80 mg PO HS Qty: 30 RF: 0 ipratropium-albuterol 0.5 mg-3 mg(2.5 mg base)/3 mL Solution For Nebulization 3 ml NEB QIDR PRN (Reason: shortness of breath or wheezing) Qty: 30 RF: 0 ferrous sulfate 325 mg (65 mg iron) Tablet,Delayed Release (Dr/Ec) 325 mg PO DAILY@1200 Qty: 30 RF: 0 metoprolol tartrate 25 mg Tablet 25 mg PO BID Qty: 30 RF: 0 terbinafine HCl 1 % Cream 1 applic EXT BID Qty: 30 RF: 0 polyethylene glycol 3350 [Miralax] 17 gram Powder In Packet 17 g PO DAILY Qty: 30 RF: 0 insulin aspart U-100 [Novolog Flexpen U-100 Insulin] 100 unit/mL (3 mL) Insulin Pen See Rx Instructions .ROUTE .COMPLEX Qty: 30 RF: 0 oxymetazoline [Nasal Kathleen (oxymetazoline)] 0.05 % Kathleen,Non-Aerosol 2 spray NA Q12H PRN (Reason: nasal congestion) Qty: 30 RF: 0 ondansetron HCl (PF) 4 mg/2 mL Solution 4 mg IV Q4H PRN (Reason: nausea and vomiting) Qty: 30 RF: 0 Lantus Solostar U-100 Insulin 100 unit/mL (3 mL) Insulin Pen 20 unit SC HS Qty: 30 RF: 0 Anoro Ellipta 62.5-25 mcg/actuation Blister With Device 1 puff inhalation QAM Qty: 30 RF: 0 famotidine 20 mg Tablet 20 mg PO QAM PRN (Reason: heartburn) Qty: 30 RF: 0 acetaminophen 500 mg Tablet 1,000 mg PO Q8H PRN (Reason: pain) Qty: 30 RF: 0 bumetanide 1 mg Tablet 1 mg PO QAM 30 Days Qty: 30 RF: 0 sodium chloride [Saline Mist] 0.65 % Aerosol,Kathleen 2 spray NA QID PRN (Reason: dry nasal passages) 30 Days Qty: 60 RF: 0 Eliquis 2.5 mg Tablet 2.5 mg PO BID 30 Days Qty: 60 RF: 0 Continued multivitamin [Daily Multi-Vitamin] tablet 1 tab PO QAM RF: 0 aspirin 81 mg Tablet,Delayed Release (Dr/Ec) 81 mg PO QAM RF: 0 Trelegy Ellipta 100-62.5-25 mcg blister with device 1 puffs INH QAM RF: 0 Discontinued metoprolol tartrate 25 mg tablet 25 mg PO BID RF: 0 insulin lispro [Humalog U-100 Insulin] 100 unit/mL solution 0 sliding scale dose subcut TIDM PRN (Reason: Hyperglycemia) RF: 0 glipizide 5 mg tablet extended release 24hr 5 mg PO QAM RF: 0 atorvastatin 80 mg tablet 80 mg PO HS RF: 0 levalbuterol tartrate [Xopenex HFA] 45 mcg/actuation HFA aerosol inhaler 2 puffs INH Q6H PRN (Reason: shortness of breath) Qty: 1 RF: 5 ipratropium-albuterol 0.5 mg-3 mg(2.5 mg base)/3 mL solution for nebulization 3 ml INHALATION HS PRN (Reason: Shortness Of Breath Or Wheezing) RF: 0 Lantus U-100 Insulin 100 unit/mL solution 17 unit subcut HS RF: 0 bumetanide [Bumex] 2 mg Tablet 3 mg PO BID RF: 0 Eliquis 5 mg tablet 5 mg PO HS RF: 0 Discharge Orders: Discharge Order (Routine); Ordered 09/28/20 Ordered By: Danielle Connolly/Other Patient Handouts: High Blood Sugar (Hyperglycemia), Hypoglycemia (Low Blood Sugar), Managing Type 2 Diabetes Admission Data Admit Date/Time: 09/12/20 12:25 Attending Provider: Edilson Jones Admit Provider: Vishal Braswell Primary Care Provider: Malena John Other Providers: Vishal Braswell ; Edwin Hutchinson ; [facility] ; Danielle Banuelos ; Edilson Jones ; Kirstie Brewster ; [facility] ; [facility] Other Interventions: Discharge Summary Assessment (RN) Last Done: 09/28/20 09:58 Supervising Physician Co-Signing Physician Notes I personally examined the patient and verified all marsh points of history and exam, discussed case, and agree with decision making with Dr Banuelos. sleeping comfortably, no distress, awaiting transport to [facility] vitals noted nad heent nc at mmm breathing unlabored no accessory muscles good effort acute on chronic HFpEF - continue current care, follow BMP closely at SNF RLE cellulitis - chronic venous ulcers of R and L lower leg - still off abx and doing OK PROSPER - likely relates to CHF and diuresis. follow closely, renal dose meds, showing a slow degree of improvement but not sure of what his current/new baseline will be - follow closely at SNF as well, frequent BMP DM - ongoing management at [facility] afib - rate controlled, anticoagulated stable for snf Resident Activity Tracking Resident Involvement: Resident Care Provided Care Provided: Adult Hospital Medicine
--- NOTE | 2020-09-28 10:37 | Nephrology Progress Note ---
Date of Service September 28, 2020 Assessment & Plan (1) Acute kidney injury superimposed on chronic kidney disease: Toni has PMH of DMII,A fib, CAD, CHF (predominately R heart) with preserved LVEF, and severe COPD and CKD III b/l cr 1.5-1.8 mg/dL. admitted to the hospital with progressive with shortness of breath and edema of the right lower extremity with acute on chronic CHF and cellulitis of the right leg. on admission creatinine was 2.6 which to rapidly worsen and peaked to 5.3 with aggressive diuresis for shortness of breath and lower extremity edema. Diuretics has been on hold and he continues to make decent amount of urine. Renal function staying relatively stable with slow improvement in renal function. decent urine output, he has been off of Bumex and daptomycin. -- increase Bumex to 2 mg BID and continue on DC -- Lab and f/u scheduled with at CKD Clinic after discharge, as per patient preference. -- please schedule follow-up with Heart failure Clinic -- patient requested transportation help to and from out pt physician visit, request case management to set up transportation on discharge if possible will follow (2) Cardiorenal syndrome: (3) Acute on chronic diastolic (congestive) heart failure: (4) Anemia: Admission and Anticipated Discharge Date Admission Date: September 12, 2020 Subjective Toni was seen and examined in his room this morning. feeling poorly with persistent respiratory distress with minimum exertion. Kidney function continues to improve slowly. Review of Systems Review of Systems: All systems reviewed & are unremarkable except as noted in HPI & below Physical Exam Constitutional: WD/WN, vitals as above + ill appearing; no acute distress Respiratory: normal respiratory effort Auscultation: + crackles Cardiovascular: Rate/Rhythm: regular rhythm Heart Sounds: normal S1 and normal S2 Extremities: + edema Skin: + rash, + ulcer and + induration Neurologic: moves all extremities and awake; not confused Psychiatric: A+Ox3, euthymic affect Results & Data ([facility]) Vital Signs (Past 12 Hours) Vital Signs Temp Pulse Pulse Resp BP BP Pulse Ox 09/28/20 09:58 36.3 C L 72 18 142/81 H 121/74 93 09/28/20 08:36 36.3 C L 72 18 142/81 H 93 09/28/20 07:30 75 09/28/20 04:14 36.4 C L 78 18 121/74 93 09/27/20 23:45 36.7 C 65 18 112/71 93 PG Care Time/CCT Total # of Minutes Spent Total Time Spent with Patient: Total time spent is greater than 50% in coordination of care (as documented) at patient's floor/unit and/or counseling patient: Coding Level of Care Code 41991 Subseq Hosp Care Lvl 3 Diagnoses Acute kidney injury superimposed on chronic kidney disease N17.9; N18.9 Cardiorenal syndrome I13.0 Heart failure presence: with heart failure Hypertensive chronic kidney disease stage: stage 1-4 or unspecified chronic kidney disease Acute on chronic diastolic (congestive) heart failure I50.33 Anemia D64.9 (1) Cardiorenal syndrome Heart failure presence: with heart failure Hypertensive chronic kidney disease stage: stage 1-4 or unspecified chronic kidney disease Qualified Code(s): I13.0 - Hypertensive heart and chronic kidney disease with heart failure and stage 1 through stage 4 chronic kidney disease, or unspecified chronic kidney disease
[2020-09-28] MEDS ORDERED: BUMETANIDE 1 MG TAB PO SCH (17:00)
--- NOTE | 2020-09-28 17:45 | Billing Data ---
Date of Service September 28, 2020 Coding Level of Care Code D/C Day Management <30 mins
== END 2020-09-28 10:50 | DRG 602 ==
LOC: ED 08:52 → SUATTDRO 12:25 → 2N 12:25 → 2W 09-26 09:35